=== PATIENT | female | born 1945 | race Caucasian/White ===

== ENCOUNTER 2023-08-25 05:46 | Observation (INO) | payer OTHER, BC ==
--- OUTSIDE RECORDS SUMMARY | 2023-08-25 05:52 | XMS REPORT | Continuity of Care Document ---
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 supp, CO, l rectal 15:24: q6hr, PRN [place] n suppository 00 as needed for nausea/vom iting, 0 Refill(s) Phenergan No Hardeep 25 mg = 1 Memoria 8-12 P Marroquin De supp, l 15:00: Quirino Supp, CO, [place] 00 Once, first dose 06/01/16 10:00:00 CDT, stop date 06/01/16 10:00:00 CDT Lovenox 2015- No Hardeep 40 mg = Me moria 8-12 P Marroquin De 0.4 mL, l 14:00: Quirino Injection, [place] 00 Subcutaneo us, Daily, first dose 06/01/16 9:00:00 CDT Protonix IV No Hardeep 40 mg = 1 Memoria 8-12 P Marroquin De EA, l 14:00: Quirino Powder-Inj [place] 00 , IV Push, Daily, first dose 06/01/16 9:00:00 CDT metoprolol No Hardeep 25 mg = Memoria 8-12 P Marroquin De 0.5 tabs, l 02:00: Qu[place] Tab, Oral, BID, first dose 05/31/16 21:00:00 CDT Prinivil No Hardeep 10 mg = 1 Memoria 8-12 P Marroquin De tabs, Tab, l 02:00: [place] Oral, qHS, first dose 05/31/16 21:00:00 CDT scopolamine No Hardeep 1 patches, Memoria 1.5 mg 8-11 P Marroquin De Film-ER, l transdermal 22:00: Quirino TD, q3day, film, first dose extended 05/31/16 release 17:00:00 CDT ceFAZolin No Hardeep 2 gm, Me moria 8-11 P [place] Soln-IV, l 21:00: Quirino IV Piggyback, q8hr, infuse over 30 minutes, order duration: 3 doses, first dose 05/31/16 16:00:00 CDT, stop date 06/01/16 15:59:00 CDT, Prophylaxi s Sodium No Hardeep 1,000 mL, M emoria Chloride 8-11 P Marroquin De IV, 100 l 0.9% 1,000 19:40: Quir[place] mL/hr, Nydia nn mL 00 start date 05/31/16 14:40:00 CDT Tylenol Yes See Memoria with 8-11 Instructio l Codeine 15:12: ns, PRN as Herm marvin 12mg/120mg 00 needed for /5mL oral pain, liquid 5 mL 10-15ml Oral q4-6hr, 0 Refill(s)1 0-15ml Oral q4-6hr NS 1,000 mL No Hardeep 1,000 mL, Memoria 8-11 P Marroquin De IV, 100 l 15:10: Quirino mL/hr, [place] 00 start date 05/31/16 10:10:00 CDT Zofran No Hardeep 4 mg = 2 Me moria 8-11 P Marroquin De mL, l 15:10: Quirino Injection, [place] 00 IV Push, q6hr PRN for nausea/vom iting, first dose 05/31/16 10:10:00 CDT [place] 5 No Hardeep 1 tabs, Me moria mg-325 mg 8-11 P Marroquin De Tab, Oral, l oral tablet 15:10: Quirino q4hr PRN He rmann 00 for pain mild-moder ate (1-6), first dose 05/31/16 10:10:00 CDTMax 4gm acetaminop hen in 24 hours morphine No Hardeep 4 mg = 0.4 Memoria 8-11 P Marroquin De mL, l 15:10: Quirino Injection, [place] 00 IV Push, q4hr PRN for pain severe (7-10), first dose 05/31/16 10:10:00 CDT Saline Lock No Hardeep 10 mL, Memoria Flush 8-11 P Marroquin De Soln, IV l 15:00: Quirino Push, [place] 00 q8hr, first dose 05/31/16 10:00:00 CDT Lactated No Jl IV, start M emoria Ringers 05-31 [place] date l Injection 14:57: TUMBLER TENDER 05/31/16 Herm marvin 00 9:57:00 CDT, stop date 05/31/16 9:57:00 CDT HYDROmorpho No Jl 0.5 mg = Memoria ne 05-31 [place] 0.25 mL, l 14:55: TUMBLER TENDER Injection, [place] 00 IV, Once, first dose 05/31/16 9:55:00 CDT, stop date 05/31/16 9:55:00 CDT HYDROmorpho No Jl 0.5 mg = Memoria ne 05-31 [place] 0.25 mL, l 14:47: TUMBLER TENDER Injection, [place] 00 IV, Once, first dose 05/31/16 9:47:00 CDT, stop date 05/31/16 9:47:00 CDT labetalol No Jl 5 mg = 1 M emoria 8-11 [place] mL, l 14:46: TUMBLER TENDER Injection, [place] 00 IV, Once, first dose 05/31/16 9:46:00 CDT, stop date 05/31/16 9:46:00 CDT Lactated No Jl IV, start M emoria Ring[place] 8 [place] date l Injection 14:39: TUMBLER TENDER 05/31/16 Herm marvin 00 9:39:00 CDT, stop date 05/31/16 9:39:00 CDT labetalol No Hardeep 5 mg = 1 Memoria 8-11 P Marroquin De mL, l 14:37: Quirino Injection, [place] 00 IV Push, As Indicated PRN for hypertensi on, first dose 05/31/16 9:37:00 CDT labetalol No Jl 5 mg = 1 M emoria 8-11 [place] mL, l 14:37: TUMBLER TENDER Injection, [place] 00 IV, Once, first dose 05/31/16 9:37:00 CDT, stop date 05/31/16 9:37:00 CDT acetaminoph No Hardeep 15 mL, Memoria en-HYDROcod 8-11 P Marroquin De Soln, l one 325 14:33: Quirino Oral, q4hr Herm marvin mg-7.5 00 PRN for mg/15 mL pain oral severe solution (7-10), first dose 05/31/16 9:33:00 CDTMax 4gm acetaminop hen in 24 hours Benadryl No Hardeep 25 mg = M emoria 8-11 P Marroquin De 0.5 mL, l 14:33: Quirino Injection, [place] 00 IV Push, q6hr PRN for itching, first dose 05/31/16 9:33:00 CDT Normal No Hardeep 1,000 mL, M emoria Saline 8-11 P Marroquin De IV, 100 l 1,000 mL 14:33: Quirino mL/hr, [place] 00 start date 05/31/16 9:33:00 CDT acetaminoph 2016-0 No Hardeep 650 mg = 2 Memoria en 8-11 P Marroquin De tabs, Tab, l 14:33: Quirino Oral, q6hr [place] 00 PRN for headache, first dose 05/31/16 9:33:00 CDTMax 4gm acetaminop hen in 24 hours Phenergan 0 No Hardeep 25 mg = 1 Memoria 8-11 P Marroquin De mL, l 14:33: Qu[place] Injection, [place] 00 IM, q6hr PRN for nausea/vom iting, first dose 05/31/16 9:33:00 CDT Zofran 0 No Hardeep 4 mg = 2 Me moria 8-11 P Marroquin De mL, l 14:33: Quirino Injection, [place] 00 IV Push, q4hr PRN for nausea/vom iting, first dose 05/31/16 9:33:00 CDT morphine No Hardeep 4 mg = 0.4 Memoria 8-11 P Marroquin De mL, l 14:33: Qu[place] Injection, [place] 00 IV Push, q3hr PRN for breakthrou gh pain, first dose 05/31/16 9:33:00 CDT Saline Lock No Hardeep 10 mL, Memoria Flush 8-11 P Marroquin De Soln, IV l 14:33: Quirino Push, q8hr [place] 00 PRN for flush, first dose 05/31/16 9:33:00 CDT Flu Shot PF Yes Hardeep 0.5 mL, Memoria 8-11 P Marroquin De Injection, l 14:33: Quirino IM, Once [place] 00 PRN for other (see comment), first dose 05/31/16 9:33:00 CDT ondansetron No Jl 4 mg = 2 Memoria 8-11 [place] mL, l 14:16: TUMBLER TENDER Injection, [place] 00 IV, Once, first dose 05/31/16 9:16:00 CDT, stop date 05/31/16 9:16:00 CDT neostigmine No Jl 5 mg = 10 Memoria 8-11 [place] mL, l 14:16: TUMBLER TENDER Injection, [place] 00 IV, Once, first dose 05/31/16 9:16:00 CDT, stop date 05/31/16 9:16:00 CDT glycopyrrol No Jl 0.8 mg = 4 Memoria ate 8-11 [place] mL, l 14:16: TUMBLER TENDER Injection, [place] 00 IV, Once, first dose 05/31/16 9:16:00 CDT, stop date 05/31/16 9:16:00 CDT labetalol No Jl 5 mg = 1 M emoria 8-11 [place] mL, l 14:15: TUMBLER TENDER Injection, [place] 00 IV, Once, first dose 05/31/16 9:15:00 CDT, stop date 05/31/16 9:15:00 CDT fentaNYL No Jl 50 mcg = 1 Memoria 8-11 [place] mL, l 14:07: TUMBLER TENDER Injection, [place] 00 IV, Once, first dose 05/31/16 9:07:00 CDT, stop date 05/31/16 9:07:00 CDT labetalol No Jl 5 mg = 1 M emoria 8-11 [place] mL, l 14:03: TUMBLER TENDER Injection, [place] 00 IV, Once, first dose 05/31/16 9:03:00 CDT, stop date 05/31/16 9:03:00 CDT fentaNYL No Jl 50 mcg = 1 Memoria 8-11 [place] mL, l 13:54: TUMBLER TENDER Injection, [place] 00 IV, Once, first dose 05/31/16 8:54:00 CDT, stop date 05/31/16 8:54:00 CDT fentaNYL No Jl 50 mcg = 1 Memoria 8-11 [place] mL, l 13:34: TUMBLER TENDER Injection, [place] 00 IV, Once, first dose 05/31/16 8:34:00 CDT, stop date 05/31/16 8:34:00 CDT rocuronium No Jl 35 mg = M emoria 8-11 [place] 3.5 mL, l 13:33: TUMBLER TENDER Injection, [place] 00 IV, Once, first dose 05/31/16 8:33:00 CDT, stop date 05/31/16 8:33:00 CDT Dilaudid No Hardeep 0.5 mg = Memoria 8-11 P Marroquin De 0.25 mL, l 13:31: [place] Injection, [place] 00 IV Push, q10min PRN for pain severe (7-10), first dose 05/31/16 8:31:00 CDT Saline Lock No Jl 10 mL, M linaria Flush 8-11 [place] Soln, IV l 13:31: TUMBLER TENDER Push, As [place] 00 Indicated PRN for flush, first dose 05/31/16 8:31:00 CDT promethazin No Jl 12.5 mg = Memoria e 8-11 [place] 0.5 mL, l 13:31: TUMBLER TENDER Injection, [place] 00 IM, Once PRN for severe nausea, first dose 05/31/16 8:31:00 CDT ondansetron No Hardeep 4 mg = 2 Memoria 8-11 P Marroquin De mL, l 13:31: [place] Injection, [place] 00 IV Push, q15min PRN for nausea/vom iting, order duration: 2 doses, first dose 05/31/16 8:31:00 CDT, stop date Limited # of times Xopenex No Hardeep 0.63 mg = Memoria 0.63 mg/3 8-11 P Marroquin De 3 mL, l mL 13:31: Quirino Soln, NEB, [place] inhalation 00 Once PRN solution for shortness of breath or wheezing, first dose 05/31/16 8:31:00 CDT dexamethaso No Jl 8 mg = 2 Memoria ne 8-11 [place] mL, l 13:30: TUMBLER TENDER Injection, [place] 00 IV, Once, first dose 05/31/16 8:30:00 CDT, stop date 05/31/16 8:30:00 CDT glycopyrrol No Jl 0.2 mg = 1 Memoria ate 8-11 [place] mL, l 13:21: TUMBLER TENDER Injection, [place] 00 IV, Once, first dose 05/31/16 8:21:00 CDT, stop date 05/31/16 8:21:00 CDT succinylcho No Jl 80 mg = 4 Memoria line 8-11 [place] mL, l 13:15: TUMBLER TENDER Injection, [place] 00 IV, Once, first dose 05/31/16 8:15:00 CDT, stop date 05/31/16 8:15:00 CDT propofol 2015- No Jl 110 mg = Me moria 8- [place] 11 mL, l 13:14: TUMBLER TENDER Emulsion, [place] 00 IV, Once, first dose 05/31/16 8:14:00 CDT, stop date 05/31/16 8:14:00 CDT rocuronium 2015- No Jl 5 mg = 0.5 Memoria 8-11 [place] mL, l 13:13: TUMBLER TENDER Injection, [place] 00 IV, Once, first dose 05/31/16 8:13:00 CDT, stop date 05/31/16 8:13:00 CDT lidocaine No Jl 4 mL, Seng agustin 05-31 [place] Injection, l 13:13: TUMBLER TENDER IV, Once, [place] 00 first dose 05/31/16 8:13:00 CDT, stop date 05/31/16 8:13:00 CDT ceFAZolin No Jl 2 gm, Seng agustin 05-31 [place] Soln-IV, l 13:12: TUMBLER TENDER IV [place] 00 Piggyback, Once, first dose 05/31/16 8:12:00 CDT, stop date 05/31/16 8:12:00 CDT fentaNYL No Jl 50 mcg = 1 Memoria 05-31 [place] mL, l 13:10: TUMBLER TENDER Injection, [place] 00 IV, Once, first dose 05/31/16 8:10:00 CDT, stop date 05/31/16 8:10:00 CDT Misc 2015- No Dmitry 1,000 mL, Memoria Medication 05-31 Wilfredo Soln-IV, l 13:08: IV, Once, [place] 00 first dose 05/31/16 8:08:00 CDT, stop date 05/31/16 8:08:00 CDT fentaNYL No Jl 50 mcg = 1 Memoria -11 [place] mL, l 13:06: TUMBLER TENDER Injection, [place] 00 IV, Once, first dose 05/31/16 8:06:00 CDT, stop date 05/31/16 8:06:00 CDT ceFAZolin No Hardeep 2 gm, Me moria 8-11 P Marroquin De Soln-IV, l 12:00: Quirino IV [place] 00 Piggyback, Once, infuse over 30 minutes, first dose 05/31/16 7:00:00 CDT, stop date 05/31/16 7:00:00 CDT, patient weight 50-120 kg, Prophylaxi s Lidocaine Yes Malcolm K 0.2 mL, Mem oria 2% 0.2 mL 05-31 [place] Injection, l IV Start 11:24: Subcutaneo [facility] 00 us, Once PRN for other (see comment), first dose 05/31/16 6:24:00 CDT LR 1,000 mL No Malcolm K 1,000 mL, Memoria 05-31 [place] IV, 30 l 11:24: mL/hr, [place] 00 start date 05/31/16 6:24:00 CDT oxybutynin Yes 5 mg, Memori a 05-22 Oral, qHS, l 20:09: 0 [place] 00 Refill(s) Namenda 10 Yes 10 mg = 1 Me moria mg oral 05-22 tabs, l tablet 20:08: Oral, BID, Nydia nn 00 0 Refill(s), family hx of Alzheimer Aricept 5 Yes 5 mg = 1 Seng agustin mg oral 05-22 tabs, l tablet 20:08: Oral, [place] 00 Daily, 0 Refill(s), family hx of Alzheimer Prinivil 10 Yes 10 mg = 1 M emoria mg oral 05-22 tabs, l tablet 20:03: Oral, qHS, Nydia nn 00 0 Refill(s), HTN metoprolol Yes 25 mg, Memor ia 05-22 Oral, BID, l 20:03: 0 [place] 00 Refill(s), HTN gabapentin Yes See Memoria 300 mg oral 05-22 Instructio l capsule 20:03: ns, 1 tab Nydia nn 00 PO QAM 2 tabs PO QHS, 0 Refill(s), back pain1 tab PO QAM 2 tabs PO QHS memantine Yes 28mg QD Take [address] [facility] [address] (NAMENDA) 9- by mouth [facility] 10 MG 18:10: nightly. Medical tablet 48 Center aspirin 81 Yes 81mg QD Take [address] MG EC 9-29 by mouth [facility] tablet 18:10: daily. Medical 48 [place] docusate Yes 100mg Q.5D Take [address] [facility] sodium 9-29 mg by [facility] (COLACE) 18:10: mouth 2 Medica l 100 MG 48 (two) Center capsule times daily. melatonin 3 Yes 20mg QD Take [address] [facility] mg Tab 9-29 by mouth [facility] 18:10: nightly. Medical 48 [place] multivitami Yes 1{tbl} QD Take [address] [facility] [address] [facility] n per 9-29 tablet by [facility] tablet 18:10: mouth Medical 48 daily. [place] omega-3 Yes Take by [facility] fatty 9-29 mouth. [facility] acids-vitam 18:10: Medica l in E 1,000 48 Center mg Cap vitamin E Yes 400U QD Take [address] 400 UNIT 9-29 Units by [facility] capsule 18:10: mouth Medical 48 daily. [place] b complex Yes 1{tbl} QD Take [address] [facility] vitamins 9-29 tablet by [facility] tablet 18:10: mouth Medical 48 daily. [place] calcium Yes 1{tbl} Take [address] carbonate-v 9-29 tablet by [place] es itamin D3 18:10: mouth 2 Medic al (CALCIUM- 48 (two) Center TAMIN D) times 500 daily with mg(1,250mg) breakfast -200 unit and per tablet dinner. cholecalcif Yes 1000U QD Take 1,[address] [facility] eren 9-29 Units by [facility] (VITAMIN 18:10: mouth Medical D3) 1,000 48 daily. [place] unit tablet cyanocobala Yes 2000ug QD Take 2,[address] [facility] min 2000 9-29 mcg by [facility] MCG tablet 18:10: mouth Medica l 48 daily. [place] pyridoxine Yes 400mg Take [address] (PYRIDOXINE 9-29 mg by [facility] ) 200 mg 18:10: mouth. Medical Tab 48 [place] lisinopril Yes 10mg QD Take [address] (PRINIVIL,Z 9-29 by mouth [facility] ESTRIL) 10 18:10: nightly. Med ical MG tablet 48 Center gabapentin Yes 300mg Take [address] (NEURONTIN) 9-29 mg by [facility] 300 MG 18:10: mouth Medical capsule 48 daily with Center breakfast. gabapentin Yes 600mg QD Take [address] (NEURONTIN) 9-29 mg by [facility] 600 MG 18:10: mouth Medical tablet 48 nightly. [place] oxybutynin Yes 10mg QD Take [address] (DITROPAN-X 9-29 by mouth [facility] s L) 10 MG 24 18:10: nightly. Me dical hr tablet 48 [place] atorvastati atorvastati No atorvastat [place] n 20 mg n 20 mg in 20 mg da tablet tablet tablet [facility] donepezil donepezil No donepezil [place] 10 mg 10 mg 10 mg da tablet tablet tablet [facility] gabapentin gabapentin No gabapentin [place] 300 mg 300 mg 300 mg da capsule capsule capsule [facility] alendronate alendronate No alendronat [place] 70 mg 70 mg e 70 mg [facility] tablet TAKE tablet TAKE tablet Urology 1 TABLET BY 1 TABLET BY TAKE 1 MOUTH EVERY MOUTH EVERY TABLET BY WEEK WEEK MOUTH EVERY WEEK atorvastati atorvastati No atorvastat [place] n 20 mg n 20 mg in 20 mg [facility] tablet TAKE tablet TAKE tablet Urology 1 TABLET BY 1 TABLET BY TAKE 1 MOUTH EVERY MOUTH EVERY TABLET BY DAY DAY MOUTH EVERY DAY calcium calcium No 1{tbl} calcium [place] carbonate carbonate carbonate [facility] 500 500 500 Urology mg-vitamin mg-vitamin mg-vitamin D3 5 mcg D3 5 mcg D3 5 mcg (200 unit) (200 unit) (200 unit) tablet 1 tablet 1 tablet 1 {tbl} by {tbl} by {tbl} by oral route. oral route. oral route. chlordiazep chlordiazep No chlordiaze [place] oxide-clidi oxide-clidi poxide-cli [facility] nium 5 nium 5 dinium 5 Urology mg-2.5 mg mg-2.5 mg mg-2.5 mg capsule capsule capsule TAKE ONE TAKE ONE TAKE ONE (1) (1) (1) CAPSULE(S) CAPSULE(S) CAPSULE(S) BY MOUTH BY MOUTH BY MOUTH THREE TIMES THREE TIMES THREE A DAY. A DAY. TIMES A DAY. cyanocobala cyanocobala No 2000ug cyanocobal [place] min (vit min (vit bailey (vit Me tro B-12) ER B-12) ER B-12) ER Uro logy 2,000 mcg 2,000 mcg 2,000 mcg tablet,exte tablet,exte tablet,ext nded nded ended release release release 2000 ugs by 2000 ugs by 2000 ugs oral route. oral route. by oral route. donepezil donepezil No donepezil [place] 10 mg 10 mg 10 mg [facility] tablet TAKE tablet TAKE tablet Urology 1 TABLET BY 1 TABLET BY TAKE 1 MOUTH TWICE MOUTH TWICE TABLET BY A DAY A DAY MOUTH TWICE A DAY gabapentin gabapentin No 300mg TID gabapentin [place] 600 mg 600 mg 600 mg [facility] tablet 300 tablet 300 tablet 300 Urology mg 3 times mg 3 times mg 3 times a day by a day by a day by oral route. oral route. oral route. levocetiriz levocetiriz No 5mg levocetiri [place] ine 5 mg ine 5 mg zine 5 mg Me tro tablet 5 mg tablet 5 mg tablet 5 Urology by oral by oral mg by oral route. route. route. mecobalamin mecobalamin No mecobalami [place] (vitamin (vitamin n (vitamin M etro B12) 1,000 B12) 1,000 B12) 1,000 Urology mcg mcg mcg chewable chewable chewable tablet tablet tablet meloxicam meloxicam No 7.5mg meloxicam [place] 7.5 mg 7.5 mg 7.5 mg [facility] tablet 7.5 tablet 7.5 tablet 7.5 Urology mg by oral mg by oral mg by oral route. route. route. memantine memantine No memantine [place] 10 mg 10 mg 10 mg [facility] tablet TAKE tablet TAKE tablet Urology 1 TABLET BY 1 TABLET BY TAKE 1 MOUTH TWICE MOUTH TWICE TABLET BY A DAY A DAY MOUTH TWICE A DAY Myrbetriq Myrbetriq No Myrbetriq [place] 50 mg 50 mg 50 mg [facility] tablet,exte tablet,exte tablet,ext Urology nded nded ended release release release TAKE 1 TAKE 1 TAKE 1 TABLET BY TABLET BY TABLET BY MOUTH EVERY MOUTH EVERY MOUTH DAY DAY EVERY DAY sertraline sertraline No sertraline [place] 50 mg 50 mg 50 mg [facility] tablet TAKE tablet TAKE tablet Urology 1 TABLET BY 1 TABLET BY TAKE 1 MOUTH EVERY MOUTH EVERY TABLET BY DAY IN THE DAY IN THE MOUTH MORNING MORNING EVERY DAY IN THE MORNING simethicone simethicone No simethicon [place] 180 mg 180 mg e 180 mg [facility] capsule capsule capsule Urolog y solifenacin solifenacin No solifenaci [place] 10 mg 10 mg n 10 mg [facility] tablet TAKE tablet TAKE tablet Urology 1 TABLET BY 1 TABLET BY TAKE 1 MOUTH EVERY MOUTH EVERY TABLET BY DAY DAY MOUTH EVERY DAY alendronate alendronate No alendronat [place] 70 mg 70 mg e 70 mg [facility] tablet TAKE tablet TAKE tablet Urology 1 TABLET BY 1 TABLET BY TAKE 1 MOUTH EVERY MOUTH EVERY TABLET BY WEEK WEEK MOUTH EVERY WEEK atorvastati atorvastati No atorvastat [place] n 20 mg n 20 mg in 20 mg [facility] tablet TAKE tablet TAKE tablet Urology 1 TABLET BY 1 TABLET BY TAKE 1 MOUTH EVERY MOUTH EVERY TABLET BY DAY DAY MOUTH EVERY DAY calcium calcium No 1{tbl} calcium [place] carbonate carbonate carbonate [facility] 500 500 500 Urology mg-vitamin mg-vitamin mg-vitamin D3 5 mcg D3 5 mcg D3 5 mcg (200 unit) (200 unit) (200 unit) tablet 1 tablet 1 tablet 1 {tbl} by {tbl} by {tbl} by oral route. oral route. oral route. chlordiazep chlordiazep No chlordiaze [place] oxide-clidi oxide-clidi poxide-cli [facility] nium 5 nium 5 dinium 5 Urology mg-2.5 mg mg-2.5 mg mg-2.5 mg capsule capsule capsule TAKE ONE TAKE ONE TAKE ONE (1) (1) (1) CAPSULE(S) CAPSULE(S) CAPSULE(S) BY MOUTH BY MOUTH BY MOUTH THREE TIMES THREE TIMES THREE A DAY. A DAY. TIMES A DAY. cyanocobala cyanocobala No 2000ug cyanocobal [place] min (vit min (vit bailey (vit Me tro B-12) ER B-12) ER B-12) ER Uro logy 2,000 mcg 2,000 mcg 2,000 mcg tablet,exte tablet,exte tablet,ext nded nded ended release release release 2000 ugs by 2000 ugs by 2000 ugs oral route. oral route. by oral route. donepezil donepezil No donepezil [place] 10 mg 10 mg 10 mg [facility] tablet TAKE tablet TAKE tablet Urology 1 TABLET BY 1 TABLET BY TAKE 1 MOUTH TWICE MOUTH TWICE TABLET BY A DAY A DAY MOUTH TWICE A DAY gabapentin gabapentin No 300mg TID gabapentin [place] 600 mg 600 mg 600 mg [facility] tablet 300 tablet 300 tablet 300 Urology mg 3 times mg 3 times mg 3 times a day by a day by a day by oral route. oral route. oral route. levocetiriz levocetiriz No 5mg levocetiri [place] ine 5 mg ine 5 mg zine 5 mg Me tro tablet 5 mg tablet 5 mg tablet 5 Urology by oral by oral mg by oral route. route. route. mecobalamin mecobalamin No mecobalami [place] (vitamin (vitamin n (vitamin M etro B12) 1,000 B12) 1,000 B12) 1,000 Urology mcg mcg mcg chewable chewable chewable tablet tablet tablet meloxicam meloxicam No 7.5mg meloxicam [place] 7.5 mg 7.5 mg 7.5 mg [facility] tablet 7.5 tablet 7.5 tablet 7.5 Urology mg by oral mg by oral mg by oral route. route. route. memantine memantine No memantine [place] 10 mg 10 mg 10 mg [facility] tablet TAKE tablet TAKE tablet Urology 1 TABLET BY 1 TABLET BY TAKE 1 MOUTH TWICE MOUTH TWICE TABLET BY A DAY A DAY MOUTH TWICE A DAY Myrbetriq Myrbetriq No Myrbetriq [place] 50 mg 50 mg 50 mg [facility] tablet,exte tablet,exte tablet,ext Urology nded nded ended release release release TAKE 1 TAKE 1 TAKE 1 TABLET BY TABLET BY TABLET BY MOUTH EVERY MOUTH EVERY MOUTH DAY DAY EVERY DAY sertraline sertraline No sertraline [place] 50 mg 50 mg 50 mg [facility] tablet TAKE tablet TAKE tablet Urology 1 TABLET BY 1 TABLET BY TAKE 1 MOUTH EVERY MOUTH EVERY TABLET BY DAY IN THE DAY IN THE MOUTH MORNING MORNING EVERY DAY IN THE MORNING simethicone simethicone No simethicon [place] 180 mg 180 mg e 180 mg [facility] capsule capsule capsule Urolog y solifenacin solifenacin No solifenaci [place] 10 mg 10 mg n 10 mg [facility] tablet TAKE tablet TAKE tablet Urology 1 TABLET BY 1 TABLET BY TAKE 1 MOUTH EVERY MOUTH EVERY TABLET BY DAY DAY MOUTH EVERY DAY Aricept Aricept No Aricept [place] n [facility] atorvastati atorvastati No atorvastat [place] n 20 mg n 20 mg in 20 mg [facility] tablet tablet tablet Urology azithromyci azithromyci No azithromyc [place] n 250 mg n 250 mg in 250 mg Me tro tablet tablet tablet Urology chlordiazep chlordiazep No chlordiaze [place] oxide-clidi oxide-clidi poxide-cli [facility] nium 5 nium 5 dinium 5 Urology mg-2.5 mg mg-2.5 mg mg-2.5 mg capsule capsule capsule donepezil donepezil No donepezil [place] 10 mg 10 mg 10 mg [facility] tablet tablet tablet Urology Durezol Durezol No Durezol [facility] n 0.05 % eye 0.05 % eye 0.05 % eye [facility] drops drops drops Urology meloxicam meloxicam No meloxicam [place] 15 mg 15 mg 15 mg da tablet tablet tablet [facility] gabapentin gabapentin No gabapentin [place] 300 mg 300 mg 300 mg [facility] capsule capsule capsule Urolog y [place] 75 [place] 75 No 1 Q1D [place] 75 [place] mg tablet mg tablet mg tablet [facility] Take 1 Take 1 Take 1 Urology tablet tablet tablet every day every day every day by oral by oral by oral route. route. route. meloxicam meloxicam No meloxicam [place] 15 mg 15 mg 15 mg [facility] tablet tablet tablet Urology memantine memantine No memantine [place] 10 mg 10 mg 10 mg [facility] tablet tablet tablet [facility] Myrbetriq Myrbetriq No Myrbetriq [place] 50 mg 50 mg 50 mg [facility] tablet,exte tablet,exte tablet,ext [facility]rology nded nded ended release release release TAKE 1 TAKE 1 TAKE 1 TABLET BY TABLET BY TABLET BY MOUTH ONCE MOUTH ONCE MOUTH ONCE DAILY DAILY DAILY [facility] ofloxacin ofloxacin No ofloxacin [place] 0.3 % eye 0.3 % eye 0.3 % eye [facility] drops drops drops [facility] phentermine phentermine No phentermin [place] 37.5 mg 37.5 mg e 37.5 mg [facility] o tablet tablet tablet Urology Premarin Premarin No .5appli Q1D Premarin [place] 0.625 0.625 cator(s 0.625 [facility] mg/gram mg/gram )ful mg/gram Urolog y vaginal vaginal vaginal cream cream cream Insert 0.5 Insert 0.5 Insert 0.5 applicators applicators applicator ful every ful every sful every day by day by day by vaginal vaginal vaginal route. route. route. Prolensa Prolensa No Prolensa [place]in st[place] 0.07 % eye 0.07 % eye 0.07 % eye [facility] drops drops drops [facility] Prolia 60 Prolia 60 No Prolia 60 [place] mg/mL mg/mL mg/mL [facility] subcutaneou subcutaneou subcutaneo Urology s syringe s syringe us syringe INJECT 1ML INJECT 1ML INJECT 1ML (60MG DOSE) (60MG DOSE) (60MG SUBCUTANEOU SUBCUTANEOU DOSE) SLY EVERY 6 SLY EVERY 6 SUBCUTANEO MONTHS. MONTHS. USLY EVERY 6 MONTHS. Rybelsus 3 Rybelsus 3 No Rybelsus 3 [place] mg tablet mg tablet mg tablet [facility] sertraline sertraline No sertraline [place] 50 mg 50 mg 50 mg [facility] tablet tablet tablet Urology solifenacin solifenacin No solifenaci [place] 10 mg 10 mg n 10 mg [facility] tablet tablet tablet Urology tramadol 50 tramadol 50 No tramadol [place] mg tablet mg tablet 50 mg Met[facility] o tablet Urology Vesicare Vesicare No Vesicare [place] [facility] Vitamin B12 Vitamin B12 No Vitamin [place] B12 [facility] Vitamin C Vitamin C No Vitamin C [facility] Zoloft Zoloft No Zoloft [place] [facility] Aricept Aricept No Aricept [place] [facility] atorvastati atorvastati No atorvastat [place] n 20 mg n 20 mg in 20 mg [facility] tablet TAKE tablet TAKE tablet Urology 1 TABLET BY 1 TABLET BY TAKE 1 MOUTH EVERY MOUTH EVERY TABLET BY DAY DAY MOUTH EVERY DAY azithromyci azithromyci No azithromyc [place] n 250 mg n 250 mg in 250 mg Me tro tablet tablet tablet Urology chlordiazep chlordiazep No chlordiaze [place] oxide-clidi oxide-clidi poxide-cli [facility] nium 5 nium 5 dinium 5 Urology mg-2.5 mg mg-2.5 mg mg-2.5 mg capsule capsule capsule Cipro 500 Cipro 500 No 1 Q12H Cipro 500 [place] mg tablet mg tablet mg tablet [facility] Take 1 Take 1 Take 1 Urology tablet tablet tablet every 12 every 12 every 12 hours by hours by hours by oral route. oral route. oral route. diclofenac diclofenac No diclofenac [place] 1.5 % 1.5 % 1.5 % [facility] topical topical topical Urolog y drops apply drops apply drops four times four times apply four daily to daily to times affected affected daily to area area affected area donepezil donepezil No donepezil [place] 10 mg 10 mg 10 mg [facility] tablet tablet tablet Urology Durezol Durezol No Durezol [place] 0.05 % eye 0.05 % eye 0.05 % eye [facility] drops drops drops Urology gabapentin gabapentin No gabapentin [place] 300 mg 300 mg 300 mg [facility] capsule capsule capsule Urolog y Gemtesa 75 Gemtesa 75 No Gem[place]a 75 [place] mg tablet mg tablet mg tablet [facility] TAKE 1 TAKE 1 TAKE 1 Urology TABLET BY TABLET BY TABLET BY MOUTH EVERY MOUTH EVERY MOUTH DAY DAY EVERY DAY meloxicam meloxicam No meloxicam [place] 15 mg 15 mg 15 mg [facility] tablet tablet tablet Urology memantine memantine No memantine [place] 10 mg 10 mg 10 mg da tablet tablet tablet [facility] memantine memantine No memantine [place] 10 mg 10 mg 10 mg [facility] tablet TAKE tablet TAKE tablet Urology 1 TABLET BY 1 TABLET BY TAKE 1 MOUTH TWICE MOUTH TWICE TABLET BY A DAY A DAY MOUTH TWICE A DAY methylpredn methylpredn No methylpred [place] isolone 4 isolone 4 nisolone 4 [facility] mg tablets mg tablets mg tablets Urology in a dose in a dose in a dose pack TAKE 6 pack TAKE 6 pack TAKE TABLETS ON TABLETS ON 6 TABLETS DAY 1 DAY 1 ON DAY 1 DIRECTED ON DIRECTED ON PACKAGE AND PACKAGE AND DIRECTED DECREASE BY DECREASE BY ON PACKAGE 1 TAB EACH 1 TAB EACH AND DAY FOR A DAY FOR A DECREASE TOTAL OF 6 TOTAL OF 6 BY 1 TAB DAYS DAYS EACH DAY FOR A TOTAL OF 6 DAYS Myrbetriq Myrbetriq No Myrbetriq [place] 50 mg 50 mg 50 mg [facility] tablet,exte tablet,exte tablet,ext Urology nded nded ended release release release Take 1 Take 1 Take 1 tablet tablet tablet every day every day every day by oral by oral by oral route. route. route. Namenda Namenda No Namenda [place] [facility] ofloxacin ofloxacin No ofloxacin [place] 0.3 % eye 0.3 % eye 0.3 % eye [facility] drops drops drops Urology phentermine phentermine No phentermin [place] 37.5 mg 37.5 mg e 37.5 mg Met[facility] o tablet tablet tablet Urology Premarin Premarin No Premarin [place] 0.625 0.625 0.625 [facility] mg/gram mg/gram mg/gram Urolog y vaginal vaginal vaginal cream cream cream Insert 0.5 Insert 0.5 Insert 0.5 applicators applicators applicator ful every ful every sful every day by day by day by vaginal vaginal vaginal route. route. route. Prolensa Prolensa No Prolensa [place] 0.07 % eye 0.07 % eye 0.07 % eye [facility] drops drops drops Urology Prolia 60 Prolia 60 No Prolia 60 [place] mg/mL mg/mL mg/mL [facility] subcutaneou subcutaneou subcutaneo Urology s syringe s syringe us syringe INJECT 1ML INJECT 1ML INJECT 1ML (60MG DOSE) (60MG DOSE) (60MG SUBCUTANEOU SUBCUTANEOU DOSE) SLY EVERY 6 SLY EVERY 6 SUBCUTANEO MONTHS. MONTHS. USLY EVERY 6 MONTHS. Rybelsus 3 Rybelsus 3 No Rybelsus 3 [place] mg tablet mg tablet mg tablet [facility] sertraline sertraline No sertraline [place] 50 mg 50 mg 50 mg [facility] tablet TAKE tablet TAKE tablet Urology 1 TABLET BY 1 TABLET BY TAKE 1 MOUTH EVERY MOUTH EVERY TABLET BY DAY IN THE DAY IN THE MOUTH MORNING MORNING EVERY DAY IN THE MORNING solifenacin solifenacin No solifenaci [place] 10 mg 10 mg n 10 mg [facility] tablet TAKE tablet TAKE tablet Urology 1 TABLET BY 1 TABLET BY TAKE 1 MOUTH EVERY MOUTH EVERY TABLET BY DAY DAY MOUTH EVERY DAY tramadol 50 tramadol 50 No tramadol [place] mg tablet mg tablet 50 mg Met[facility] o tablet Urology Vesicare Vesicare No Vesicare [place] [facility] Vitamin B12 Vitamin B12 No Vitamin [place] B12 [facility] Vitamin C Vitamin C No Vitamin C [facility] Zoloft Zoloft No Zoloft [facility] Aricept Aricept No Aricept [place] [facility] atorvastati atorvastati No atorvastat [place] n 20 mg n 20 mg in 20 mg [facility] tablet TAKE tablet TAKE tablet Urology 1 TABLET BY 1 TABLET BY TAKE 1 MOUTH EVERY MOUTH EVERY TABLET BY DAY DAY MOUTH EVERY DAY azithromyci azithromyci No azithromyc [place] n 250 mg n 250 mg in 250 mg Me tro tablet tablet tablet Urology chlordiazep chlordiazep No chlordiaze [place] oxide-clidi oxide-clidi poxide-cli [facility] nium 5 nium 5 dinium 5 Urology mg-2.5 mg mg-2.5 mg mg-2.5 mg capsule capsule capsule Cipro 500 Cipro 500 No 1 Q12H Cipro 500 [place] mg tablet mg tablet mg tablet [facility] Take 1 Take 1 Take 1 Urology tablet tablet tablet every 12 every 12 every 12 hours by hours by hours by oral route. oral route. oral route. diclofenac diclofenac No diclofenac [place] 1.5 % 1.5 % 1.5 % [facility] topical topical topical Urolog y drops apply drops apply drops four times four times apply four daily to daily to times affected affected daily to area area affected area donepezil donepezil No donepezil [place] 10 mg 10 mg 10 mg [facility] tablet TAKE tablet TAKE tablet Urology 1 TABLET BY 1 TABLET BY TAKE 1 MOUTH TWICE MOUTH TWICE TABLET BY A DAY A DAY MOUTH TWICE A DAY Durezol Durezol No Durezol [facility] n 0.05 % eye 0.05 % eye 0.05 % eye [facility] drops drops drops Urology gabapentin gabapentin No gabapentin [place] 300 mg 300 mg 300 mg [facility] capsule capsule capsule Urolog y [place] 75 Gem[place]a 75 No [place] 75 [place] mg tablet mg tablet mg tablet [facility] TAKE 1 TAKE 1 TAKE 1 Urology TABLET BY TABLET BY TABLET BY MOUTH EVERY MOUTH EVERY MOUTH DAY DAY EVERY DAY meloxicam meloxicam No meloxicam [place] 15 mg 15 mg 15 mg [facility] tablet tablet tablet Urology memantine memantine No memantine [place] 10 mg 10 mg 10 mg [facility] tablet TAKE tablet TAKE tablet Urology 1 TABLET BY 1 TABLET BY TAKE 1 MOUTH TWICE MOUTH TWICE TABLET BY A DAY A DAY MOUTH TWICE A DAY methylpredn methylpredn No methylpred [place] isolone 4 isolone 4 nisolone 4 [facility] mg tablets mg tablets mg tablets Urology in a dose in a dose in a dose pack TAKE 6 pack TAKE 6 pack TAKE TABLETS ON TABLETS ON 6 TABLETS DAY 1 DAY 1 ON DAY 1 DIRECTED ON DIRECTED ON PACKAGE AND PACKAGE AND DIRECTED DECREASE BY DECREASE BY ON PACKAGE 1 TAB EACH 1 TAB EACH AND DAY FOR A DAY FOR A DECREASE TOTAL OF 6 TOTAL OF 6 BY 1 TAB DAYS DAYS EACH DAY FOR A TOTAL OF 6 DAYS Myrbetriq Myrbetriq No Myrbetriq [place] 50 mg 50 mg 50 mg da tablet,exte tablet,exte tablet,ext [facility] nded nded ended al release release release [facility] Myrbetriq Myrbetriq No Myrbetriq [place] 50 mg 50 mg 50 mg [facility] tablet,exte tablet,exte tablet,ext Urology nded nded ended release release release Take 1 Take 1 Take 1 tablet tablet tablet every day every day every day by oral by oral by oral route. route. route. Namenda Namenda No Namenda [place] [facility] ofloxacin ofloxacin No ofloxacin [place] 0.3 % eye 0.3 % eye 0.3 % eye [facility] drops drops drops Urology phentermine phentermine No phentermin [place] 37.5 mg 37.5 mg e 37.5 mg Met[facility] o tablet tablet tablet Urology Premarin Premarin No Premarin [place] 0.625 0.625 0.625 [facility] mg/gram mg/gram mg/gram Urolog y vaginal vaginal vaginal cream cream cream Insert 0.5 Insert 0.5 Insert 0.5 applicators applicators applicator ful every ful every sful every day by day by day by vaginal vaginal vaginal route. route. route. Prolensa Prolensa No Prolensa [place] 0.07 % eye 0.07 % eye 0.07 % eye [facility] drops drops drops Urology Prolia 60 Prolia 60 No Prolia 60 [place] mg/mL mg/mL mg/mL [facility] subcutaneou subcutaneou subcutaneo Urology s syringe s syringe us syringe INJECT 1ML INJECT 1ML INJECT 1ML (60MG DOSE) (60MG DOSE) (60MG SUBCUTANEOU SUBCUTANEOU DOSE) SLY EVERY 6 SLY EVERY 6 SUBCUTANEO MONTHS. MONTHS. USLY EVERY 6 MONTHS. Pyridium Pyridium No 1 TID Pyridium [place] 200 mg 200 mg 200 mg [facility] tablet Take tablet Take tablet Urology 1 tablet 3 1 tablet 3 Take 1 times a day times a day tablet 3 by oral by oral times a route. route. day by oral route. Rybelsus 3 Rybelsus 3 No Rybelsus 3 [place] mg tablet mg tablet mg tablet [facility] sertraline sertraline No sertraline [place] 50 mg 50 mg 50 mg [facility] tablet TAKE tablet TAKE tablet Urology 1 TABLET BY 1 TABLET BY TAKE 1 MOUTH EVERY MOUTH EVERY TABLET BY DAY IN THE DAY IN THE MOUTH MORNING MORNING EVERY DAY IN THE MORNING solifenacin solifenacin No solifenaci [place] 10 mg 10 mg n 10 mg [facility] tablet TAKE tablet TAKE tablet Urology 1 TABLET BY 1 TABLET BY TAKE 1 MOUTH EVERY MOUTH EVERY TABLET BY DAY DAY MOUTH EVERY DAY tramadol 50 tramadol 50 No tramadol [place] mg tablet mg tablet 50 mg Met[facility] o tablet Urology Vesicare Vesicare No Vesicare [place] [facility] Vitamin B12 Vitamin B12 No Vitamin [place] [facility] Vitamin C No Vitamin C [facility] Zoloft Zoloft No Zoloft [facility] Aricept Aricept No Aricept [place] [facility] atorvastati atorvastati No atorvastat [place] n 20 mg n 20 mg in 20 mg [facility] tablet TAKE tablet TAKE tablet Urology 1 TABLET BY 1 TABLET BY TAKE 1 MOUTH EVERY MOUTH EVERY TABLET BY DAY DAY MOUTH EVERY DAY azithromyci azithromyci No azithromyc [place] n 250 mg n 250 mg in 250 mg Me tro tablet tablet tablet Urology chlordiazep chlordiazep No chlordiaze [place] oxide-clidi oxide-clidi poxide-cli [facility] nium 5 nium 5 dinium 5 Urology mg-2.5 mg mg-2.5 mg mg-2.5 mg capsule capsule capsule ciprofloxac ciprofloxac No ciprofloxa [place] in 500 mg in 500 mg facundo 500 mg [facility] tablet TAKE tablet TAKE tablet Urology 1 TABLET BY 1 TABLET BY TAKE 1 MOUTH EVERY MOUTH EVERY TABLET BY 12 HOURS 12 HOURS MOUTH EVERY 12 HOURS diclofenac diclofenac No diclofenac [place] 1.5 % 1.5 % 1.5 % [facility] topical topical topical Urolog y drops apply drops apply drops four times four times apply four daily to daily to times affected affected daily to area area affected area donepezil donepezil No donepezil [place] 10 mg 10 mg 10 mg [facility] tablet TAKE tablet TAKE tablet Urology 1 TABLET BY 1 TABLET BY TAKE 1 MOUTH TWICE MOUTH TWICE TABLET BY A DAY A DAY MOUTH TWICE A DAY Durezol Durezol No Durezol [place] 0.05 % eye 0.05 % eye 0.05 % eye [facility] drops drops drops Urology gabapentin gabapentin No gabapentin [place] 300 mg 300 mg 300 mg [facility] capsule capsule capsule Urolog y [place] 75 [place] 75 No [place] 75 [place] mg tablet mg tablet mg tablet [facility] TAKE 1 TAKE 1 TAKE 1 Urology TABLET BY TABLET BY TABLET BY MOUTH EVERY MOUTH EVERY MOUTH DAY DAY EVERY DAY meloxicam meloxicam No meloxicam [place] 15 mg 15 mg 15 mg [facility] tablet tablet tablet Urology memantine memantine No memantine [place] 10 mg 10 mg 10 mg [facility] tablet TAKE tablet TAKE tablet Urology 1 TABLET BY 1 TABLET BY TAKE 1 MOUTH TWICE MOUTH TWICE TABLET BY A DAY A DAY MOUTH TWICE A DAY methylpredn methylpredn No methylpred [place] isolone 4 isolone 4 nisolone 4 [facility] mg tablets mg tablets mg tablets Urology in a dose in a dose in a dose pack TAKE 6 pack TAKE 6 pack TAKE TABLETS ON TABLETS ON 6 TABLETS DAY 1 DAY 1 ON DAY 1 DIRECTED ON DIRECTED ON PACKAGE AND PACKAGE AND DIRECTED DECREASE BY DECREASE BY ON PACKAGE 1 TAB EACH 1 TAB EACH AND DAY FOR A DAY FOR A DECREASE TOTAL OF 6 TOTAL OF 6 BY 1 TAB DAYS DAYS EACH DAY FOR A TOTAL OF 6 DAYS Myrbetriq Myrbetriq No Myrbetriq [place] 50 mg 50 mg 50 mg [facility] tablet,exte tablet,exte tablet,ext Urology nded nded ended release release release Take 1 Take 1 Take 1 tablet tablet tablet every day every day every day by oral by oral by oral route. route. route. oxybutynin oxybutynin No oxybutynin [place] chloride ER chloride ER chloride da 10 mg 10 mg ER 10 mg [facility] tablet,exte tablet,exte tablet,ext al nded nded ended Health release 24 release 24 release 24 Outreac hr hr hr h Program Namenda Namenda No Namenda [place] [facility] ofloxacin ofloxacin No ofloxacin [place] 0.3 % eye 0.3 % eye 0.3 % eye [facility] drops drops drops Urology phentermine phentermine No phentermin [place] 37.5 mg 37.5 mg e 37.5 mg Met[facility] o tablet tablet tablet Urology Premarin Premarin No Premarin [place] 0.625 0.625 0.625 [facility] mg/gram mg/gram mg/gram Urolog y vaginal vaginal vaginal cream cream cream Insert 0.5 Insert 0.5 Insert 0.5 applicators applicators applicator ful every ful every sful every day by day by day by vaginal vaginal vaginal route. route. route. Prolensa Prolensa No Prolensa [place] 0.07 % eye 0.07 % eye 0.07 % eye [facility] drops drops drops Urology Prolia 60 Prolia 60 No Prolia 60 [place] mg/mL mg/mL mg/mL [facility] subcutaneou subcutaneou subcutaneo Urology s syringe s syringe us syringe INJECT 1ML INJECT 1ML INJECT 1ML (60MG DOSE) (60MG DOSE) (60MG SUBCUTANEOU SUBCUTANEOU DOSE) SLY EVERY 6 SLY EVERY 6 SUBCUTANEO MONTHS. MONTHS. USLY EVERY 6 MONTHS. Pyridium Pyridium No 1 TID Pyridium [place] 200 mg 200 mg 200 mg [facility] tablet Take tablet Take tablet Urology 1 tablet 3 1 tablet 3 Take 1 times a day times a day tablet 3 by oral by oral times a route. route. day by oral route. Rybelsus 3 Rybelsus 3 No Rybelsus 3 [place] mg tablet mg tablet mg tablet [facility] sertraline sertraline No sertraline [place] 50 mg 50 mg 50 mg [facility] tablet TAKE tablet TAKE tablet Urology 1 TABLET BY 1 TABLET BY TAKE 1 MOUTH EVERY MOUTH EVERY TABLET BY DAY IN THE DAY IN THE MOUTH MORNING MORNING EVERY DAY IN THE MORNING solifenacin solifenacin No solifenaci [place] 10 mg 10 mg n 10 mg [facility] tablet TAKE tablet TAKE tablet Urology 1 TABLET BY 1 TABLET BY TAKE 1 MOUTH EVERY MOUTH EVERY TABLET BY DAY DAY MOUTH EVERY DAY tramadol tramadol No tramadol [place] 37.5 37.5 37.5 [facility] mg-acetamin mg-acetamin mg-acetami Urology ophen 325 ophen 325 nophen 325 mg tablet mg tablet mg tablet TAKE 2 TAKE 2 TAKE 2 TABLETS BY TABLETS BY TABLETS BY MOUTH EVERY MOUTH EVERY MOUTH 4 HOURS 4 HOURS EVERY 4 HOURS tramadol 50 tramadol 50 No tramadol [place] mg tablet mg tablet 50 mg Met[facility] o tablet Urology Vesicare Vesicare No Vesicare [place] [facility] Vitamin B12 Vitamin B12 No Vitamin [place] B12 [facility] Vitamin C Vitamin C No Vitamin C [place] [facility] Zoloft Zoloft No Zoloft [place] [facility] Aricept Aricept No Aricept [place] [facility] atorvastati atorvastati No atorvastat [place] n 20 mg n 20 mg in 20 mg [facility] tablet TAKE tablet TAKE tablet Urology 1 TABLET BY 1 TABLET BY TAKE 1 MOUTH EVERY MOUTH EVERY TABLET BY DAY DAY MOUTH EVERY DAY azithromyci azithromyci No azithromyc [place] n 250 mg n 250 mg in 250 mg Me tro tablet tablet tablet Urology chlordiazep chlordiazep No chlordiaze [place] oxide-clidi oxide-clidi poxide-cli [facility] nium 5 nium 5 dinium 5 Urology mg-2.5 mg mg-2.5 mg mg-2.5 mg capsule capsule capsule Prolia 60 Prolia 60 No Prolia 60 [place] mg/mL mg/mL mg/mL da subcutaneou subcutaneou subcutaneo [facility] s syringe s syringe us syringe al [facility] Outre[facility] Program ciprofloxac ciprofloxac No ciprofloxa [place] in 500 mg in 500 mg facundo 500 mg [facility] tablet TAKE tablet TAKE tablet Urology 1 TABLET BY 1 TABLET BY TAKE 1 MOUTH EVERY MOUTH EVERY TABLET BY 12 HOURS 12 HOURS MOUTH EVERY 12 HOURS diclofenac diclofenac No diclofenac [place] 1.5 % 1.5 % 1.5 % [facility] topical topical topical Urolog y drops apply drops apply drops four times four times apply four daily to daily to times affected affected daily to area area affected area donepezil donepezil No donepezil [place] 10 mg 10 mg 10 mg [facility] tablet TAKE tablet TAKE tablet Urology 1 TABLET BY 1 TABLET BY TAKE 1 MOUTH TWICE MOUTH TWICE TABLET BY A DAY A DAY MOUTH TWICE A DAY Durezol [facility] eye 0.05 % eye [facility] drops drops drops Urology gabapentin gabapentin No gabapentin [place] 300 mg 300 mg 300 mg [facility] capsule capsule capsule Urolog y [place] 75 [place] 75 No [place] 75 [place] mg tablet mg tablet mg tablet [facility] TAKE 1 TAKE 1 TAKE 1 Urology TABLET BY TABLET BY TABLET BY MOUTH EVERY MOUTH EVERY MOUTH DAY DAY EVERY DAY meloxicam meloxicam No meloxicam [place] 15 mg 15 mg 15 mg [facility] tablet tablet tablet Urology memantine memantine No memantine [place] 10 mg 10 mg 10 mg [facility] tablet TAKE tablet TAKE tablet Urology 1 TABLET BY 1 TABLET BY TAKE 1 MOUTH TWICE MOUTH TWICE TABLET BY A DAY A DAY MOUTH TWICE A DAY methylpredn methylpredn No methylpred [place] isolone 4 isolone 4 nisolone 4 [facility] mg tablets mg tablets mg tablets Urology in a dose in a dose in a dose pack TAKE 6 pack TAKE 6 pack TAKE TABLETS ON TABLETS ON 6 TABLETS DAY 1 DAY 1 ON DAY 1 DIRECTED ON DIRECTED ON PACKAGE AND PACKAGE AND DIRECTED DECREASE BY DECREASE BY ON PACKAGE 1 TAB EACH 1 TAB EACH AND DAY FOR A DAY FOR A DECREASE TOTAL OF 6 TOTAL OF 6 BY 1 TAB DAYS DAYS EACH DAY FOR A TOTAL OF 6 DAYS Myrbetriq Myrbetriq No Myrbetriq [place] 50 mg 50 mg 50 mg [facility] tablet,exte tablet,exte tablet,ext Urology nded nded ended release release release Take 1 Take 1 Take 1 tablet tablet tablet every day every day every day by oral by oral by oral route. route. route. sertraline sertraline No sertraline [place] 50 mg 50 mg 50 mg da tablet tablet tablet [facility] Namenda Namenda No Namenda [place] [facility] ofloxacin ofloxacin No ofloxacin [place] 0.3 % eye 0.3 % eye 0.3 % eye [facility] drops drops drops Urology phentermine phentermine No phentermin [place] 37.5 mg 37.5 mg e 37.5 mg Met[facility] o tablet tablet tablet Urology Premarin Premarin No Premarin [place] 0.625 0.625 0.625 [facility] mg/gram mg/gram mg/gram Urolog y vaginal vaginal vaginal cream cream cream Insert 0.5 Insert 0.5 Insert 0.5 applicators applicators applicator ful every ful every sful every day by day by day by vaginal vaginal vaginal route. route. route. Prolensa Prolensa No Prolensa [place] 0.07 % eye 0.07 % eye 0.07 % eye [facility] drops drops drops Urology Prolia 60 Prolia 60 No Prolia 60 [place] mg/mL mg/mL mg/mL [facility] subcutaneou subcutaneou subcutaneo Urology s syringe s syringe us syringe INJECT 1ML INJECT 1ML INJECT 1ML (60MG DOSE) (60MG DOSE) (60MG SUBCUTANEOU SUBCUTANEOU DOSE) SLY EVERY 6 SLY EVERY 6 SUBCUTANEO MONTHS. MONTHS. USLY EVERY 6 MONTHS. Pyridium Pyridium No 1 TID Pyridium [place] 200 mg 200 mg 200 mg [facility] tablet Take tablet Take tablet Urology 1 tablet 3 1 tablet 3 Take 1 times a day times a day tablet 3 by oral by oral times a route. route. day by oral route. Rybelsus 3 Rybelsus 3 No Rybelsus 3 [place] mg tablet mg tablet mg tablet [facility] sertraline sertraline No sertraline [place] 50 mg 50 mg 50 mg [facility] tablet TAKE tablet TAKE tablet Urology 1 TABLET BY 1 TABLET BY TAKE 1 MOUTH EVERY MOUTH EVERY TABLET BY DAY IN THE DAY IN THE MOUTH MORNING MORNING EVERY DAY IN THE MORNING solifenacin solifenacin No solifenaci [place] 10 mg 10 mg n 10 mg [facility] tablet TAKE tablet TAKE tablet Urology 1 TABLET BY 1 TABLET BY TAKE 1 MOUTH EVERY MOUTH EVERY TABLET BY DAY DAY MOUTH EVERY DAY Shingrix Shingrix No Shingrix [place] (PF) 50 (PF) 50 (PF) 50 da mcg/0.5 mL mcg/0.5 mL mcg/0.5 mL [facility] intramuscul intramuscul intramuscu al [facility] suspension, suspension, suspension Outreac kit kit , kit h Program tramadol tramadol No tramadol [place] 37.5 37.5 37.5 [facility] mg-acetamin mg-acetamin mg-acetami Urology ophen 325 ophen 325 nophen 325 mg tablet mg tablet mg tablet TAKE 2 TAKE 2 TAKE 2 TABLETS BY TABLETS BY TABLETS BY MOUTH EVERY MOUTH EVERY MOUTH 4 HOURS 4 HOURS EVERY 4 HOURS tramadol 50 tramadol 50 No tramadol [place] mg tablet mg tablet 50 mg Metr o TAKE 1 TAKE 1 tablet Urology TABLET BY TABLET BY TAKE 1 MOUTH EVERY MOUTH EVERY TABLET BY 6 TO 8 6 TO 8 MOUTH HOURS HOURS EVERY 6 TO NEEDED FOR NEEDED FOR 8 HOURS PAIN. PAIN. NEEDED FOR PAIN. Vesicare Vesicare No Vesicare [facility] Vitamin B12 Vitamin B12 No Vitamin [place] B12 [facility] Vitamin C Vitamin C No Vitamin C [place] [facility] Zoloft Zoloft No Zoloft [place] [facility] Aricept Aricept No Aricept [place] [facility] atorvastati atorvastati No 20mg atorvastat [place] n 20 mg n 20 mg in 20 mg [facility] tablet 20 tablet 20 tablet 20 Urology mg by oral mg by oral mg by oral route. route. route. azithromyci azithromyci No azithromyc [place] n 250 mg n 250 mg in 250 mg Me tro tablet tablet tablet Urology calcium calcium No 1{tbl} calcium [place] carbonate carbonate carbonate [facility] 500 500 500 Urology mg-vitamin mg-vitamin mg-vitamin D3 5 mcg D3 5 mcg D3 5 mcg (200 unit) (200 unit) (200 unit) tablet 1 tablet 1 tablet 1 {tbl} by {tbl} by {tbl} by oral route. oral route. oral route. solifenacin solifenacin No solifenaci [place] 10 mg 10 mg n 10 mg da tablet tablet tablet [facility] Outreac h Program chlordiazep chlordiazep No chlordiaze [place] oxide-clidi oxide-clidi poxide-cli [facility] nium 5 nium 5 dinium 5 Urology mg-2.5 mg mg-2.5 mg mg-2.5 mg capsule capsule capsule TAKE ONE TAKE ONE TAKE ONE (1) (1) (1) CAPSULE(S) CAPSULE(S) CAPSULE(S) BY MOUTH BY MOUTH BY MOUTH THREE TIMES THREE TIMES THREE A DAY. A DAY. TIMES A DAY. ciprofloxac ciprofloxac No ciprofloxa [place] in 500 mg in 500 mg facundo 500 mg [facility] tablet TAKE tablet TAKE tablet Urology 1 TABLET BY 1 TABLET BY TAKE 1 MOUTH EVERY MOUTH EVERY TABLET BY 12 HOURS 12 HOURS MOUTH EVERY 12 HOURS cyanocobala cyanocobala No 2000ug cyanocobal [place] min (vit min (vit bailey (vit Me tro B-12) ER B-12) ER B-12) ER Uro logy 2,000 mcg 2,000 mcg 2,000 mcg tablet,exte tablet,exte tablet,ext nded nded ended release release release 2000 ugs by 2000 ugs by 2000 ugs oral route. oral route. by oral route. diclofenac diclofenac No diclofenac [place] 1.5 % 1.5 % 1.5 % [facility] topical topical topical Urolog y drops apply drops apply drops four times four times apply four daily to daily to times affected affected daily to area area affected area donepezil donepezil No 10mg BID donepezil [place] 10 mg 10 mg 10 mg [facility] tablet 10 tablet 10 tablet 10 Urology mg twice a mg twice a mg twice a day by oral day by oral day by route. route. oral route. Durezol D[facility]zol [facility] % eye 0.05 % eye [facility] drops drops drops Urology gabapentin gabapentin No gabapentin [place] 300 mg 300 mg 300 mg [facility] capsule capsule capsule Urolog y gabapentin gabapentin No 300mg TID gabapentin [place] 600 mg 600 mg 600 mg [facility] tablet 300 tablet 300 tablet 300 Urology mg 3 times mg 3 times mg 3 times a day by a day by a day by oral route. oral route. oral route. Gem[place]a 75 [place]a 75 No [place] 75 [place] mg tablet mg tablet mg tablet [facility] TAKE 1 TAKE 1 TAKE 1 Urology TABLET BY TABLET BY TABLET BY MOUTH EVERY MOUTH EVERY MOUTH DAY DAY EVERY DAY levocetiriz levocetiriz No 5mg levocetiri [place] ine 5 mg ine 5 mg zine 5 mg Me tro tablet 5 mg tablet 5 mg tablet 5 Urology by oral by oral mg by oral route. route. route. tramadol 50 tramadol 50 No tramadol [place] mg tablet mg tablet 50 mg da tablet [facility] Outre[facility] h Program mecobalamin mecobalamin No mecobalami [place] (vitamin (vitamin n (vitamin M etro B12) 1,000 B12) 1,000 B12) 1,000 Urology mcg mcg mcg chewable chewable chewable tablet tablet tablet meloxicam meloxicam No meloxicam [place] 15 mg 15 mg 15 mg [facility] tablet tablet tablet U[facility] meloxicam meloxicam No 7.5mg meloxicam [place] 7.5 mg 7.5 mg 7.5 mg [facility] tablet 7.5 tablet 7.5 tablet 7.5 U[facility] mg by oral mg by oral mg by oral route. route. route. memantine memantine No 10mg BID memantine [place] 10 mg 10 mg 10 mg [facility] tablet 10 tablet 10 tablet 10 U[facility] mg twice a mg twice a mg twice a day by oral day by oral day by route. route. oral route. methylpredn methylpredn No methylpred [place] isolone 4 isolone 4 nisolone 4 [facility] mg tablets mg tablets mg tablets Urology in a dose in a dose in a dose pack TAKE 6 pack TAKE 6 pack TAKE TABLETS ON TABLETS ON 6 TABLETS DAY 1 DAY 1 ON DAY 1 DIRECTED ON DIRECTED ON PACKAGE AND PACKAGE AND DIRECTED DECREASE BY DECREASE BY ON PACKAGE 1 TAB EACH 1 TAB EACH AND DAY FOR A DAY FOR A DECREASE TOTAL OF 6 TOTAL OF 6 BY 1 TAB DAYS DAYS EACH DAY FOR A TOTAL OF 6 DAYS Myrbetriq Myrbetriq No 1 Q1D Myrbetriq [place] 50 mg 50 mg 50 mg [facility] tablet,exte tablet,exte tablet,ext Urology nded nded ended release release release Take 1 Take 1 Take 1 tablet tablet tablet every day every day every day by oral by oral by oral route. route. route. Namenda Namenda No Namenda [place] [facility] ofloxacin ofloxacin No ofloxacin [place] 0.3 % eye 0.3 % eye 0.3 % eye [facility] drops drops drops [facility] phentermine phentermine No phentermin [place] 37.5 mg 37.5 mg e 37.5 mg [facility] o tablet tablet tablet Urology Premarin Premarin No Premarin [place] 0.625 0.625 0.625 [facility] mg/gram mg/gram mg/gram Urolog y vaginal vaginal vaginal cream cream cream Insert 0.5 Insert 0.5 Insert 0.5 applicators applicators applicator ful every ful every sful every day by day by day by vaginal vaginal vaginal route. route. route. Prolensa Prolensa No Prolensa [place] 0.07 % eye 0.07 % eye 0.07 % eye [facility] drops drops drops U[facility] Pyridium Pyridium No 1 TID Pyridium [place] 200 mg 200 mg 200 mg [facility] tablet Take tablet Take tablet Urology 1 tablet 3 1 tablet 3 Take 1 times a day times a day tablet 3 by oral by oral times a route. route. day by oral route. Rybelsus 3 Rybelsus 3 No Rybelsus 3 [place] mg tablet mg tablet mg tablet [facility] simethicone simethicone No simethicon [place] 180 mg 180 mg e 180 mg [facility] capsule capsule capsule Urolog y solifenacin solifenacin No 10mg solifenaci [place] 10 mg 10 mg n 10 mg [facility] tablet 10 tablet 10 tablet 10 Urology mg by oral mg by oral mg by oral route. route. route. tramadol tramadol No tramadol [place] 37.5 37.5 37.5 [facility] mg-acetamin mg-acetamin mg-acetami Urology ophen 325 ophen 325 nophen 325 mg tablet mg tablet mg tablet TAKE 2 TAKE 2 TAKE 2 TABLETS BY TABLETS BY TABLETS BY MOUTH EVERY MOUTH EVERY MOUTH 4 HOURS 4 HOURS EVERY 4 HOURS tramadol 50 tramadol 50 No tramadol [place] mg tablet mg tablet 50 mg Met[facility] o TAKE 1 TAKE 1 tablet Urology TABLET BY TABLET BY TAKE 1 MOUTH EVERY MOUTH EVERY TABLET BY 6 TO 8 6 TO 8 MOUTH HOURS HOURS EVERY 6 TO NEEDED FOR NEEDED FOR 8 HOURS PAIN. PAIN. NEEDED FOR PAIN. Vesicare Vesicare No Vesicare [facility] Vitamin B12 Vitamin B12 No Vitamin [place] B12 [facility] Vitamin C Vitamin C No Vitamin C [facility] Zoloft Zoloft No Zoloft [facility] U[facility] alendronate alendronate No alendronat [place] 70 mg 70 mg e 70 mg [facility] tablet TAKE tablet TAKE tablet Urology 1 TABLET BY 1 TABLET BY TAKE 1 MOUTH EVERY MOUTH EVERY TABLET BY WEEK WEEK MOUTH EVERY WEEK Aricept Aricept No Aricept [place] [facility] atorvastati atorvastati No 20mg atorvastat [place] n 20 mg n 20 mg in 20 mg [facility] tablet 20 tablet 20 tablet 20 Urology mg by oral mg by oral mg by oral route. route. route. azithromyci azithromyci No azithromyc [place] n 250 mg n 250 mg in 250 mg Me tro tablet tablet tablet Urology calcium calcium No 1{tbl} calcium [place] carbonate carbonate carbonate [facility] 500 500 500 [facility] mg-vitamin mg-vitamin mg-vitamin D3 5 mcg D3 5 mcg D3 5 mcg (200 unit) (200 unit) (200 unit) tablet 1 tablet 1 tablet 1 {tbl} by {tbl} by {tbl} by oral route. oral route. oral route. chlordiazep chlordiazep No chlordiaze [place] oxide-clidi oxide-clidi poxide-cli [facility] nium 5 nium 5 dinium 5 Urology mg-2.5 mg mg-2.5 mg mg-2.5 mg capsule capsule capsule TAKE ONE TAKE ONE TAKE ONE (1) (1) (1) CAPSULE(S) CAPSULE(S) CAPSULE(S) BY MOUTH BY MOUTH BY MOUTH THREE TIMES THREE TIMES THREE A DAY. A DAY. TIMES A DAY. ciprofloxac ciprofloxac No ciprofloxa [place] in 500 mg in 500 mg facundo 500 mg [facility] tablet TAKE tablet TAKE tablet Urology 1 TABLET BY 1 TABLET BY TAKE 1 MOUTH EVERY MOUTH EVERY TABLET BY 12 HOURS 12 HOURS MOUTH EVERY 12 HOURS cyanocobala cyanocobala No 2000ug cyanocobal [place] min (vit min (vit bailey (vit Me tro B-12) ER B-12) ER B-12) ER Uro logy 2,000 mcg 2,000 mcg 2,000 mcg tablet,exte tablet,exte tablet,ext nded nded ended release release release 2000 ugs by 2000 ugs by 2000 ugs oral route. oral route. by oral route. diclofenac diclofenac No diclofenac [place] 1.5 % 1.5 % 1.5 % [facility] topical topical topical Urolog y drops apply drops apply drops four times four times apply four daily to daily to times affected affected daily to area area affected area donepezil donepezil No 10mg BID donepezil [place] 10 mg 10 mg 10 mg [facility] tablet 10 tablet 10 tablet 10 Urology mg twice a mg twice a mg twice a day by oral day by oral day by route. route. oral route. Durezol Durezol No Durezol [place] 0.05 % eye 0.05 % eye 0.05 % eye [facility] drops drops drops Urology gabapentin gabapentin No gabapentin [place] 300 mg 300 mg 300 mg [facility] capsule capsule capsule Urolog y gabapentin gabapentin No 300mg TID gabapentin [place] 600 mg 600 mg 600 mg [facility] tablet 300 tablet 300 tablet 300 Urology mg 3 times mg 3 times mg 3 times a day by a day by a day by oral route. oral route. oral route. Gemtesa 75 Gemtesa 75 No [place] 75 [place] mg tablet mg tablet mg tablet [facility] TAKE 1 TAKE 1 TAKE 1 Urology TABLET BY TABLET BY TABLET BY MOUTH EVERY MOUTH EVERY MOUTH DAY DAY EVERY DAY levocetiriz levocetiriz No 5mg levocetiri [place] ine 5 mg ine 5 mg zine 5 mg Me tro tablet 5 mg tablet 5 mg tablet 5 Urology by oral by oral mg by oral route. route. route. mecobalamin mecobalamin No mecobalami [place] (vitamin (vitamin n (vitamin M etro B12) 1,000 B12) 1,000 B12) 1,000 Urology mcg mcg mcg chewable chewable chewable tablet tablet tablet meloxicam meloxicam No meloxicam [place] 15 mg 15 mg 15 mg [facility] tablet tablet tablet Urology meloxicam meloxicam No 7.5mg meloxicam [place] 7.5 mg 7.5 mg 7.5 mg [facility] tablet 7.5 tablet 7.5 tablet 7.5 Urology mg by oral mg by oral mg by oral route. route. route. memantine memantine No 10mg BID memantine [place] 10 mg 10 mg 10 mg [facility] tablet 10 tablet 10 tablet 10 Urology mg twice a mg twice a mg twice a day by oral day by oral day by route. route. oral route. methylpredn methylpredn No methylpred [place] isolone 4 isolone 4 nisolone 4 [facility] mg tablets mg tablets mg tablets Urology in a dose in a dose in a dose pack TAKE 6 pack TAKE 6 pack TAKE TABLETS ON TABLETS ON 6 TABLETS DAY 1 DAY 1 ON DAY 1 DIRECTED ON DIRECTED ON PACKAGE AND PACKAGE AND DIRECTED DECREASE BY DECREASE BY ON PACKAGE 1 TAB EACH 1 TAB EACH AND DAY FOR A DAY FOR A DECREASE TOTAL OF 6 TOTAL OF 6 BY 1 TAB DAYS DAYS EACH DAY FOR A TOTAL OF 6 DAYS Myrbetriq Myrbetriq No Myrbetriq [place] 50 mg 50 mg 50 mg [facility] tablet,exte tablet,exte tablet,ext Urology nded nded ended release release release TAKE 1 TAKE 1 TAKE 1 TABLET BY TABLET BY TABLET BY MOUTH EVERY MOUTH EVERY MOUTH DAY DAY EVERY DAY Namenda Namenda No Namenda [place] [facility] ofloxacin ofloxacin No ofloxacin [place] 0.3 % eye 0.3 % eye 0.3 % eye [facility] drops drops drops Urology phentermine phentermine No phentermin [place] 37.5 mg 37.5 mg e 37.5 mg [facility] o tablet tablet tablet Urology Premarin Premarin No Premarin [place] 0.625 0.625 0.625 [facility] mg/gram mg/gram mg/gram Urolog y vaginal vaginal vaginal cream cream cream Insert 0.5 Insert 0.5 Insert 0.5 applicators applicators applicator ful every ful every sful every day by day by day by vaginal vaginal vaginal route. route. route. Prolensa Prolensa No Prolensa [place] 0.07 % eye 0.07 % eye 0.07 % eye [facility] drops drops drops Urology Pyridium Pyridium No 1 TID Pyridium [place] 200 mg 200 mg 200 mg [facility] tablet Take tablet Take tablet Urology 1 tablet 3 1 tablet 3 Take 1 times a day times a day tablet 3 by oral by oral times a route. route. day by oral route. Rybelsus 3 Rybelsus 3 No Rybelsus 3 [place] mg tablet mg tablet mg tablet [facility] sertraline sertraline No sertraline [place] 50 mg 50 mg 50 mg [facility] tablet TAKE tablet TAKE tablet Urology 1 TABLET BY 1 TABLET BY TAKE 1 MOUTH EVERY MOUTH EVERY TABLET BY DAY IN THE DAY IN THE MOUTH MORNING MORNING EVERY DAY IN THE MORNING simethicone simethicone No simethicon [place] 180 mg 180 mg e 180 mg [facility] capsule capsule capsule Urolog y solifenacin solifenacin No 10mg solifenaci [place] 10 mg 10 mg n 10 mg [facility] tablet 10 tablet 10 tablet 10 Urology mg by oral mg by oral mg by oral route. route. route. Toviaz 8 mg Toviaz 8 mg No 1 Q1D Toviaz 8 [place] tablet,exte tablet,exte mg M etro nded nded tablet,ext Urology release release ended Take 1 Take 1 release tablet tablet Take 1 every day every day tablet by oral by oral every day route. route. by oral route. tramadol tramadol No tramadol [place] 37.5 37.5 37.5 [facility] mg-acetamin mg-acetamin mg-acetami Urology ophen 325 ophen 325 nophen 325 mg tablet mg tablet mg tablet TAKE 2 TAKE 2 TAKE 2 TABLETS BY TABLETS BY TABLETS BY MOUTH EVERY MOUTH EVERY MOUTH 4 HOURS 4 HOURS EVERY 4 HOURS tramadol 50 tramadol 50 No tramadol [place] mg tablet mg tablet 50 mg Met[facility] o TAKE 1 TAKE 1 tablet Urology TABLET BY TABLET BY TAKE 1 MOUTH EVERY MOUTH EVERY TABLET BY 6 TO 8 6 TO 8 MOUTH HOURS HOURS EVERY 6 TO NEEDED FOR NEEDED FOR 8 HOURS PAIN. PAIN. NEEDED FOR PAIN. Vesicare Vesicare No Vesicare [place] [facility] Vitamin B12 Vitamin B12 No Vitamin [place] B12 [facility] Vitamin C Vitamin C No Vitamin C [facility] Zoloft Zoloft No Zoloft [facility] U[facility] alendronate alendronate No alendronat [place] 70 mg 70 mg e 70 mg [facility] tablet TAKE tablet TAKE tablet Urology 1 TABLET BY 1 TABLET BY TAKE 1 MOUTH EVERY MOUTH EVERY TABLET BY WEEK WEEK MOUTH EVERY WEEK Aricept Aricept No Aricept [place] [facility] atorvastati atorvastati No atorvastat [place] n 20 mg n 20 mg in 20 mg [facility] tablet TAKE tablet TAKE tablet Urology 1 TABLET BY 1 TABLET BY TAKE 1 MOUTH EVERY MOUTH EVERY TABLET BY DAY DAY MOUTH EVERY DAY azithromyci azithromyci No azithromyc [place] n 250 mg n 250 mg in 250 mg Me tro tablet tablet tablet Urology calcium calcium No 1{tbl} calcium [place] carbonate carbonate carbonate [facility] 500 500 500 U[facility] mg-vitamin mg-vitamin mg-vitamin D3 5 mcg D3 5 mcg D3 5 mcg (200 unit) (200 unit) (200 unit) tablet 1 tablet 1 tablet 1 {tbl} by {tbl} by {tbl} by oral route. oral route. oral route. chlordiazep chlordiazep No chlordiaze [place] oxide-clidi oxide-clidi poxide-cli [facility] nium 5 nium 5 dinium 5 Urology mg-2.5 mg mg-2.5 mg mg-2.5 mg capsule capsule capsule TAKE ONE TAKE ONE TAKE ONE (1) (1) (1) CAPSULE(S) CAPSULE(S) CAPSULE(S) BY MOUTH BY MOUTH BY MOUTH THREE TIMES THREE TIMES THREE A DAY. A DAY. TIMES A DAY. ciprofloxac ciprofloxac No ciprofloxa [place] in 500 mg in 500 mg facundo 500 mg [facility] tablet TAKE tablet TAKE tablet Urology 1 TABLET BY 1 TABLET BY TAKE 1 MOUTH EVERY MOUTH EVERY TABLET BY 12 HOURS 12 HOURS MOUTH EVERY 12 HOURS cyanocobala cyanocobala No 2000ug cyanocobal [place] min (vit min (vit bailey (vit Me tro B-12) ER B-12) ER B-12) ER Uro logy 2,000 mcg 2,000 mcg 2,000 mcg tablet,exte tablet,exte tablet,ext nded nded ended release release release 2000 ugs by 2000 ugs by 2000 ugs oral route. oral route. by oral route. diclofenac diclofenac No diclofenac [place] 1.5 % 1.5 % 1.5 % [facility] topical topical topical Urolog y drops apply drops apply drops four times four times apply four daily to daily to times affected affected daily to area area affected area donepezil donepezil No donepezil [place] 10 mg 10 mg 10 mg [facility] tablet TAKE tablet TAKE tablet Urology 1 TABLET BY 1 TABLET BY TAKE 1 MOUTH TWICE MOUTH TWICE TABLET BY A DAY A DAY MOUTH TWICE A DAY Durezol Durezol No Durezol [place] 0.05 % eye 0.05 % eye 0.05 % eye [facility] drops drops drops Urology gabapentin gabapentin No gabapentin [place] 300 mg 300 mg 300 mg [facility] capsule capsule capsule Urolog y gabapentin gabapentin No 300mg TID gabapentin [place] 600 mg 600 mg 600 mg [facility] tablet 300 tablet 300 tablet 300 Urology mg 3 times mg 3 times mg 3 times a day by a day by a day by oral route. oral route. oral route. Gem[place] 75 [place] 75 No [place] 75 [place] mg tablet mg tablet mg tablet [facility] TAKE 1 TAKE 1 TAKE 1 Urology TABLET BY TABLET BY TABLET BY MOUTH EVERY MOUTH EVERY MOUTH DAY DAY EVERY DAY levocetiriz levocetiriz No 5mg levocetiri [place] ine 5 mg ine 5 mg zine 5 mg Me tro tablet 5 mg tablet 5 mg tablet 5 Urology by oral by oral mg by oral route. route. route. mecobalamin mecobalamin No mecobalami [place] (vitamin (vitamin n (vitamin M etro B12) 1,000 B12) 1,000 B12) 1,000 Urology mcg mcg mcg chewable chewable chewable tablet tablet tablet meloxicam meloxicam No meloxicam [place] 15 mg 15 mg 15 mg [facility] tablet tablet tablet Urology meloxicam meloxicam No 7.5mg meloxicam [place] 7.5 mg 7.5 mg 7.5 mg [facility] tablet 7.5 tablet 7.5 tablet 7.5 Urology mg by oral mg by oral mg by oral route. route. route. memantine memantine No memantine [place] 10 mg 10 mg 10 mg [facility] tablet TAKE tablet TAKE tablet Urology 1 TABLET BY 1 TABLET BY TAKE 1 MOUTH TWICE MOUTH TWICE TABLET BY A DAY A DAY MOUTH TWICE A DAY methylpredn methylpredn No methylpred [place] isolone 4 isolone 4 nisolone 4 [facility] mg tablets mg tablets mg tablets Urology in a dose in a dose in a dose pack TAKE 6 pack TAKE 6 pack TAKE TABLETS ON TABLETS ON 6 TABLETS DAY 1 DAY 1 ON DAY 1 DIRECTED ON DIRECTED ON PACKAGE AND PACKAGE AND DIRECTED DECREASE BY DECREASE BY ON PACKAGE 1 TAB EACH 1 TAB EACH AND DAY FOR A DAY FOR A DECREASE TOTAL OF 6 TOTAL OF 6 BY 1 TAB DAYS DAYS EACH DAY FOR A TOTAL OF 6 DAYS Myrbetriq Myrbetriq No Myrbetriq [place] 50 mg 50 mg 50 mg [facility] tablet,exte tablet,exte tablet,ext Urology nded nded ended release release release TAKE 1 TAKE 1 TAKE 1 TABLET BY TABLET BY TABLET BY MOUTH EVERY MOUTH EVERY MOUTH DAY DAY EVERY DAY Namenda Namenda No Namenda [place] [facility] ofloxacin ofloxacin No ofloxacin [place] 0.3 % eye 0.3 % eye 0.3 % eye [facility] drops drops drops Urology oxybutynin oxybutynin No oxybutynin [place] chloride ER chloride ER chloride [facility] 10 mg 10 mg ER 10 mg Urology tablet,exte tablet,exte tablet,ext nded nded ended release 24 release 24 release 24 hr TAKE 1 hr TAKE 1 hr TAKE 1 TABLET BY TABLET BY TABLET BY MOUTH EVERY MOUTH EVERY MOUTH DAY DAY EVERY DAY phentermine phentermine No phentermin [place] 37.5 mg 37.5 mg e 37.5 mg [facility] o tablet tablet tablet Urology Premarin Premarin No Premarin [place] 0.625 0.625 0.625 [facility] mg/gram mg/gram mg/gram Urolog y vaginal vaginal vaginal cream cream cream Insert 0.5 Insert 0.5 Insert 0.5 applicators applicators applicator ful every ful every sful every day by day by day by vaginal vaginal vaginal route. route. route. Prolensa Prolensa No Prolensa [place] 0.07 % eye 0.07 % eye 0.07 % eye [facility] drops drops drops Urology Pyridium Pyridium No 1 TID Pyridium [place] 200 mg 200 mg 200 mg [facility] tablet Take tablet Take tablet Urology 1 tablet 3 1 tablet 3 Take 1 times a day times a day tablet 3 by oral by oral times a route. route. day by oral route. Rybelsus 3 Rybelsus 3 No Rybelsus 3 [place] mg tablet mg tablet mg tablet [facility] sertraline sertraline No sertraline [place] 50 mg 50 mg 50 mg [facility] tablet TAKE tablet TAKE tablet Urology 1 TABLET BY 1 TABLET BY TAKE 1 MOUTH EVERY MOUTH EVERY TABLET BY DAY IN THE DAY IN THE MOUTH MORNING MORNING EVERY DAY IN THE MORNING simethicone simethicone No simethicon [place] 180 mg 180 mg e 180 mg [facility] capsule capsule capsule Urolog y solifenacin solifenacin No solifenaci [place] 10 mg 10 mg n 10 mg [facility] tablet TAKE tablet TAKE tablet Urology 1 TABLET BY 1 TABLET BY TAKE 1 MOUTH EVERY MOUTH EVERY TABLET BY DAY DAY MOUTH EVERY DAY Toviaz 8 mg Toviaz 8 mg No 1 Q1D Toviaz 8 [place] tablet,exte tablet,exte mg M etro nded nded tablet,ext Urology release release ended Take 1 Take 1 release tablet tablet Take 1 every day every day tablet by oral by oral every day route. route. by oral route. tramadol tramadol No tramadol [place] 37.5 37.5 37.5 [facility] mg-acetamin mg-acetamin mg-acetami Urology ophen 325 ophen 325 nophen 325 mg tablet mg tablet mg tablet TAKE 1 TAKE 1 TAKE 1 TABLET BY TABLET BY TABLET BY MOUTH EVERY MOUTH EVERY MOUTH 6 TO 8 6 TO 8 EVERY 6 TO HOURS HOURS 8 HOURS NEEDED NEEDED NEEDED tramadol 50 tramadol 50 No tramadol [place] mg tablet mg tablet 50 mg Metr o TAKE 1 TAKE 1 tablet Urology TABLET BY TABLET BY TAKE 1 MOUTH EVERY MOUTH EVERY TABLET BY 6 TO 8 6 TO 8 MOUTH HOURS HOURS EVERY 6 TO NEEDED FOR NEEDED FOR 8 HOURS PAIN. PAIN. NEEDED FOR PAIN. Vesicare Vesicare No Vesicare [place] [facility] Vitamin B12 Vitamin B12 No Vitamin [place] B12 [facility] Vitamin C Vitamin C No Vitamin C [facility] Zoloft Zoloft No Zoloft [facility] Urology alendronate alendronate No alendronat [place] 70 mg 70 mg e 70 mg [facility] tablet TAKE tablet TAKE tablet Urology 1 TABLET BY 1 TABLET BY TAKE 1 MOUTH EVERY MOUTH EVERY TABLET BY WEEK WEEK MOUTH EVERY WEEK atorvastati atorvastati No atorvastat [place] n 20 mg n 20 mg in 20 mg [facility] tablet TAKE tablet TAKE tablet Urology 1 TABLET BY 1 TABLET BY TAKE 1 MOUTH EVERY MOUTH EVERY TABLET BY DAY DAY MOUTH EVERY DAY calcium calcium No 1{tbl} calcium [place] carbonate carbonate carbonate [facility] 500 500 500 Urology mg-vitamin mg-vitamin mg-vitamin D3 5 mcg D3 5 mcg D3 5 mcg (200 unit) (200 unit) (200 unit) tablet 1 tablet 1 tablet 1 {tbl} by {tbl} by {tbl} by oral route. oral route. oral route. chlordiazep chlordiazep No chlordiaze [place] oxide-clidi oxide-clidi poxide-cli [facility] nium 5 nium 5 dinium 5 Urology mg-2.5 mg mg-2.5 mg mg-2.5 mg capsule capsule capsule TAKE ONE TAKE ONE TAKE ONE (1) (1) (1) CAPSULE(S) CAPSULE(S) CAPSULE(S) BY MOUTH BY MOUTH BY MOUTH THREE TIMES THREE TIMES THREE A DAY. A DAY. TIMES A DAY. cyanocobala cyanocobala No 2000ug cyanocobal [place] min (vit min (vit bailey (vit Me tro B-12) ER B-12) ER B-12) ER Uro logy 2,000 mcg 2,000 mcg 2,000 mcg tablet,exte tablet,exte tablet,ext nded nded ended release release release 2000 ugs by 2000 ugs by 2000 ugs oral route. oral route. by oral route. donepezil donepezil No donepezil [place] 10 mg 10 mg 10 mg [facility] tablet TAKE tablet TAKE tablet Urology 1 TABLET BY 1 TABLET BY TAKE 1 MOUTH TWICE MOUTH TWICE TABLET BY A DAY A DAY MOUTH TWICE A DAY etodolac etodolac No etodolac [place] 400 mg 400 mg 400 mg [facility] tablet TAKE tablet TAKE tablet Urology 1 TABLET BY 1 TABLET BY TAKE 1 MOUTH TWICE MOUTH TWICE TABLET BY A DAY A DAY MOUTH TWICE A DAY gabapentin gabapentin No 300mg TID gabapentin [place] 600 mg 600 mg 600 mg [facility] tablet 300 tablet 300 tablet 300 Urology mg 3 times mg 3 times mg 3 times a day by a day by a day by oral route. oral route. oral route. levocetiriz levocetiriz No 5mg levocetiri [place] ine 5 mg ine 5 mg zine 5 mg Me tro tablet 5 mg tablet 5 mg tablet 5 Urology by oral by oral mg by oral route. route. route. mecobalamin mecobalamin No mecobalami [place] (vitamin (vitamin n (vitamin M etro B12) 1,000 B12) 1,000 B12) 1,000 Urology mcg mcg mcg chewable chewable chewable tablet tablet tablet meloxicam meloxicam No 7.5mg meloxicam [place] 7.5 mg 7.5 mg 7.5 mg [facility] tablet 7.5 tablet 7.5 tablet 7.5 Urology mg by oral mg by oral mg by oral route. route. route. memantine memantine No memantine [place] 10 mg 10 mg 10 mg [facility] tablet TAKE tablet TAKE tablet Urology 1 TABLET BY 1 TABLET BY TAKE 1 MOUTH TWICE MOUTH TWICE TABLET BY A DAY A DAY MOUTH TWICE A DAY Myrbetriq Myrbetriq No Myrbetriq [place] 50 mg 50 mg 50 mg [facility] tablet,exte tablet,exte tablet,ext Urology nded nded ended release release release TAKE 1 TAKE 1 TAKE 1 TABLET BY TABLET BY TABLET BY MOUTH EVERY MOUTH EVERY MOUTH DAY DAY EVERY DAY sertraline sertraline No sertraline [place] 50 mg 50 mg 50 mg [facility] tablet TAKE tablet TAKE tablet Urology 1 TABLET BY 1 TABLET BY TAKE 1 MOUTH EVERY MOUTH EVERY TABLET BY DAY IN THE DAY IN THE MOUTH MORNING MORNING EVERY DAY IN THE MORNING simethicone simethicone No simethicon [place] 180 mg 180 mg e 180 mg [facility] capsule capsule capsule Urolog y solifenacin solifenacin No solifenaci [place] 10 mg 10 mg n 10 mg [facility] tablet TAKE tablet TAKE tablet Urology 1 TABLET BY 1 TABLET BY TAKE 1 MOUTH EVERY MOUTH EVERY TABLET BY DAY DAY MOUTH EVERY DAY alendronate alendronate No alendronat [place] 70 mg 70 mg e 70 mg [facility] tablet TAKE tablet TAKE tablet Urology 1 TABLET BY 1 TABLET BY TAKE 1 MOUTH EVERY MOUTH EVERY TABLET BY WEEK WEEK MOUTH EVERY WEEK Aricept Aricept No Aricept [place] [facility] atorvastati atorvastati No atorvastat [place] n 20 mg n 20 mg in 20 mg [facility] tablet TAKE tablet TAKE tablet Urology 1 TABLET BY 1 TABLET BY TAKE 1 MOUTH EVERY MOUTH EVERY TABLET BY DAY DAY MOUTH EVERY DAY chlordiazep chlordiazep No chlordiaze [place] oxide-clidi oxide-clidi poxide-cli [facility] nium 5 nium 5 dinium 5 Urology mg-2.5 mg mg-2.5 mg mg-2.5 mg capsule capsule capsule TAKE ONE TAKE ONE TAKE ONE (1) (1) (1) CAPSULE(S) CAPSULE(S) CAPSULE(S) BY MOUTH BY MOUTH BY MOUTH THREE TIMES THREE TIMES THREE A DAY. A DAY. TIMES A DAY. cyanocobala cyanocobala No 2000ug cyanocobal [place] min (vit min (vit bailey (vit Me tro B-12) ER B-12) ER B-12) ER Uro logy 2,000 mcg 2,000 mcg 2,000 mcg tablet,exte tablet,exte tablet,ext nded nded ended release release release 2000 ugs by 2000 ugs by 2000 ugs oral route. oral route. by oral route. donepezil donepezil No donepezil [place] 10 mg 10 mg 10 mg [facility] tablet TAKE tablet TAKE tablet Urology 1 TABLET BY 1 TABLET BY TAKE 1 MOUTH TWICE MOUTH TWICE TABLET BY A DAY A DAY MOUTH TWICE A DAY etodolac etodolac No etodolac [place] 400 mg 400 mg 400 mg [facility] tablet TAKE tablet TAKE tablet Urology 1 TABLET BY 1 TABLET BY TAKE 1 MOUTH TWICE MOUTH TWICE TABLET BY A DAY A DAY MOUTH TWICE A DAY gabapentin gabapentin No gabapentin [place] 300 mg 300 mg 300 mg [facility] capsule capsule capsule Urolog y meloxicam meloxicam No meloxicam [place] 15 mg 15 mg 15 mg [facility] tablet tablet tablet Urology memantine memantine No memantine [place] 10 mg 10 mg 10 mg [facility] tablet TAKE tablet TAKE tablet Urology 1 TABLET BY 1 TABLET BY TAKE 1 MOUTH TWICE MOUTH TWICE TABLET BY A DAY A DAY MOUTH TWICE A DAY methylpredn methylpredn No methylpred [place] isolone 4 isolone 4 nisolone 4 [facility] mg tablets mg tablets mg tablets Urology in a dose in a dose in a dose pack pack pack Myrbetriq Myrbetriq No Myrbetriq [place] 50 mg 50 mg 50 mg [facility] tablet,exte tablet,exte tablet,ext Urology nded nded ended release release release TAKE 1 TAKE 1 TAKE 1 TABLET BY TABLET BY TABLET BY MOUTH EVERY MOUTH EVERY MOUTH DAY DAY EVERY DAY Namenda Namenda No Namenda [facility] ofloxacin ofloxacin No ofloxacin [place] 0.3 % eye 0.3 % eye 0.3 % eye [facility] drops drops drops Urology sertraline sertraline No sertraline [place] 50 mg 50 mg 50 mg [facility] tablet TAKE tablet TAKE tablet Urology 1 TABLET BY 1 TABLET BY TAKE 1 MOUTH EVERY MOUTH EVERY TABLET BY DAY IN THE DAY IN THE MOUTH MORNING MORNING EVERY DAY IN THE MORNING solifenacin solifenacin No solifenaci [place] 10 mg 10 mg n 10 mg [facility] tablet TAKE tablet TAKE tablet Urology 1 TABLET BY 1 TABLET BY TAKE 1 MOUTH EVERY MOUTH EVERY TABLET BY DAY DAY MOUTH EVERY DAY tramadol 50 tramadol 50 No tramadol [place] mg tablet mg tablet 50 mg Metr o tablet Urology Vesicare Vesicare No Vesicare [facility] Vitamin B12 Vitamin B12 No Vitamin [place] B12 [facility] Vitamin C Vitamin C No Vitamin C [facility] Zoloft Zoloft No Zoloft [facility] U[facility] alendronate alendronate No alendronat [place] 70 mg 70 mg e 70 mg [facility] tablet TAKE tablet TAKE tablet Urology 1 TABLET BY 1 TABLET BY TAKE 1 MOUTH EVERY MOUTH EVERY TABLET BY WEEK WEEK MOUTH EVERY WEEK amlodipine amlodipine No amlodipine [place] 5 mg tablet 5 mg tablet 5 mg M etro TAKE 1 TAKE 1 tablet Urology TABLET BY TABLET BY TAKE 1 MOUTH EVERY MOUTH EVERY TABLET BY DAY FOR 90 DAY FOR 90 MOUTH DAYS DAYS EVERY DAY FOR 90 DAYS [facility] atorvastati atorvastati No atorvastat [place] n 20 mg n 20 mg in 20 mg [facility] tablet TAKE tablet TAKE tablet Urology 1 TABLET BY 1 TABLET BY TAKE 1 MOUTH EVERY MOUTH EVERY TABLET BY DAY DAY MOUTH EVERY DAY azithromyci azithromyci No azithromyc [place] n 250 mg n 250 mg in 250 mg Me tro tablet TAKE tablet TAKE tablet Urology 2 TABLETS 2 TABLETS TAKE 2 BY MOUTH BY MOUTH TABLETS BY TODAY, THEN TODAY, THEN MOUTH TAKE 1 TAKE 1 TODAY, TABLET TABLET THEN TAKE DAILY FOR 4 DAILY FOR 4 1 TABLET DAYS DAYS DAILY FOR 4 DAYS cephalexin cephalexin No 1capsul TID cephalexin [place] 500 mg 500 mg e(s) 500 mg [facility] capsule capsule capsule Urolog y Take 1 Take 1 Take 1 capsule 3 capsule 3 capsule 3 times a day times a day times a by oral by oral day by route for 7 route for 7 oral route days. days. for 7 days. chlordiazep chlordiazep No chlordiaze [place] oxide-clidi oxide-clidi poxide-cli [facility] nium 5 nium 5 dinium 5 Urology mg-2.5 mg mg-2.5 mg mg-2.5 mg capsule capsule capsule TAKE ONE TAKE ONE TAKE ONE (1) (1) (1) CAPSULE(S) CAPSULE(S) CAPSULE(S) BY MOUTH BY MOUTH BY MOUTH THREE TIMES THREE TIMES THREE A DAY. A DAY. TIMES A DAY. cyanocobala cyanocobala No 2000ug cyanocobal [place] min (vit min (vit bailey (vit Me tro B-12) ER B-12) ER B-12) ER Uro logy 2,000 mcg 2,000 mcg 2,000 mcg tablet,exte tablet,exte tablet,ext nded nded ended release release release 2000 ugs by 2000 ugs by 2000 ugs oral route. oral route. by oral route. donepezil donepezil No donepezil [place] 10 mg 10 mg 10 mg [facility] tablet TAKE tablet TAKE tablet Urology 1 TABLET BY 1 TABLET BY TAKE 1 MOUTH TWICE MOUTH TWICE TABLET BY A DAY A DAY MOUTH TWICE A DAY etodolac etodolac No etodolac [place] 400 mg 400 mg 400 mg [facility] tablet TAKE tablet TAKE tablet Urology 1 TABLET BY 1 TABLET BY TAKE 1 MOUTH TWICE MOUTH TWICE TABLET BY A DAY A DAY MOUTH TWICE A DAY gabapentin gabapentin No gabapentin [place] 300 mg 300 mg 300 mg [facility] capsule capsule capsule Urolog y Lagevrio Lagevrio No Lagevrio [place] 200 mg 200 mg 200 mg [facility] capsule capsule capsule Urolog y (EUA) TAKE (EUA) TAKE (EUA) TAKE 4 CAPSULES 4 CAPSULES 4 CAPSULES BY MOUTH BY MOUTH BY MOUTH TWICE DAILY TWICE DAILY TWICE DAILY meloxicam meloxicam No meloxicam [place] 15 mg 15 mg 15 mg [facility] tablet TAKE tablet TAKE tablet Urology 1 TABLET BY 1 TABLET BY TAKE 1 MOUTH EVERY MOUTH EVERY TABLET BY DAY DAY MOUTH EVERY DAY memantine memantine No memantine [place] 10 mg 10 mg 10 mg [facility] tablet TAKE tablet TAKE tablet Urology 1 TABLET BY 1 TABLET BY TAKE 1 MOUTH TWICE MOUTH TWICE TABLET BY A DAY A DAY MOUTH TWICE A DAY methylpredn methylpredn No methylpred [place] isolone 4 isolone 4 nisolone 4 [facility] mg tablets mg tablets mg tablets Urology in a dose in a dose in a dose pack pack pack montelukast montelukast No montelukas [place] 10 mg 10 mg t 10 mg [facility] tablet tablet tablet Urology Myrbetriq Myrbetriq No Myrbetriq [place] 50 mg 50 mg 50 mg [facility] tablet,exte tablet,exte tablet,ext Urology nded nded ended release release release TAKE 1 TAKE 1 TAKE 1 TABLET BY TABLET BY TABLET BY MOUTH EVERY MOUTH EVERY MOUTH DAY DAY EVERY DAY Namenda Namenda No Namenda [place] [facility] ofloxacin ofloxacin No ofloxacin [place] 0.3 % eye 0.3 % eye 0.3 % eye [facility] drops drops drops Urology promethazin promethazin No promethazi [place] e-DM 6.25 e-DM 6.25 ne-DM 6.25 [facility] mg-15 mg/5 mg-15 mg/5 mg-15 mg/5 Urology mL oral mL oral mL oral syrup TAKE syrup TAKE syrup TAKE 5ML BY 5ML BY 5ML BY MOUTH EVERY MOUTH EVERY MOUTH 4 HOURS 4 HOURS EVERY 4 HOURS sertraline sertraline No sertraline [place] 100 mg 100 mg 100 mg [facility] tablet tablet tablet Urology sertraline sertraline No sertraline [place] 50 mg 50 mg 50 mg [facility] tablet TAKE tablet TAKE tablet Urology 1 TABLET BY 1 TABLET BY TAKE 1 MOUTH EVERY MOUTH EVERY TABLET BY DAY IN THE DAY IN THE MOUTH MORNING MORNING EVERY DAY IN THE MORNING solifenacin solifenacin No solifenaci [place] 10 mg 10 mg n 10 mg [facility] tablet TAKE tablet TAKE tablet Urology 1 TABLET BY 1 TABLET BY TAKE 1 MOUTH EVERY MOUTH EVERY TABLET BY DAY DAY MOUTH EVERY DAY tramadol tramadol No tramadol [facility] [place] 37.5 37.5 37.5 [facility] mg-acetamin mg-acetamin mg-acetami Urology ophen 325 ophen 325 nophen 325 mg tablet mg tablet mg tablet TAKE 1 TAKE 1 TAKE 1 TABLET BY TABLET BY TABLET BY MOUTH MOUTH MOUTH EVERYDAY AT EVERYDAY AT EVERYDAY BEDTIME BEDTIME AT BEDTIME tramadol 50 tramadol 50 No tramadol [place] mg tablet mg tablet 50 mg Met[facility] o tablet Urology trazodone trazodone No trazodone [place] 50 mg 50 mg 50 mg [facility] tablet TAKE tablet TAKE tablet Urology 1 TABLET BY 1 TABLET BY TAKE 1 MOUTH MOUTH TABLET BY EVERYDAY AT EVERYDAY AT MOUTH BEDTIME BEDTIME EVERYDAY AT BEDTIME Vesicare Vesicare No Vesicare [facility] Vitamin B12 Vitamin B12 No Vitamin [place] B12 [facility] Vitamin C Vitamin C No Vitamin C [facility] Zoloft Zoloft No Zoloft [facility] U[facility] alendronate alendronate No alendronat [place] 70 mg 70 mg e 70 mg [facility] tablet TAKE tablet TAKE tablet Urology 1 TABLET BY 1 TABLET BY TAKE 1 MOUTH EVERY MOUTH EVERY TABLET BY WEEK WEEK MOUTH EVERY WEEK amlodipine amlodipine No amlodipine [place] 5 mg tablet 5 mg tablet 5 mg M etro TAKE 1 TAKE 1 tablet Urology TABLET BY TABLET BY TAKE 1 MOUTH EVERY MOUTH EVERY TABLET BY DAY FOR 90 DAY FOR 90 MOUTH DAYS DAYS EVERY DAY FOR 90 DAYS atorvastati atorvastati No atorvastat [place] n 20 mg n 20 mg in 20 mg [facility] tablet TAKE tablet TAKE tablet Urology 1 TABLET BY 1 TABLET BY TAKE 1 MOUTH EVERY MOUTH EVERY TABLET BY DAY DAY MOUTH EVERY DAY cyanocobala cyanocobala No 2000ug cyanocobal [place] min (vit min (vit bailey (vit Me tro B-12) ER B-12) ER B-12) ER Uro logy 2,000 mcg 2,000 mcg 2,000 mcg tablet,exte tablet,exte tablet,ext nded nded ended release release release 2000 ugs by 2000 ugs by 2000 ugs oral route. oral route. by oral route. donepezil donepezil No donepezil [place] 10 mg 10 mg 10 mg [facility] tablet TAKE tablet TAKE tablet Urology 1 TABLET BY 1 TABLET BY TAKE 1 MOUTH TWICE MOUTH TWICE TABLET BY A DAY A DAY MOUTH TWICE A DAY etodolac etodolac No etodolac [place] 400 mg 400 mg 400 mg [facility] tablet TAKE tablet TAKE tablet Urology 1 TABLET BY 1 TABLET BY TAKE 1 MOUTH TWICE MOUTH TWICE TABLET BY A DAY A DAY MOUTH TWICE A DAY gabapentin gabapentin No gabapentin [place] 300 mg 300 mg 300 mg [facility] capsule capsule capsule Urolog y Lagevrio Lagevrio No Lagevrio [place] 200 mg 200 mg 200 mg [facility] capsule capsule capsule Urolog y (EUA) TAKE (EUA) TAKE (EUA) TAKE 4 CAPSULES 4 CAPSULES 4 CAPSULES BY MOUTH BY MOUTH BY MOUTH TWICE DAILY TWICE DAILY TWICE DAILY meloxicam meloxicam No meloxicam [place] 15 mg 15 mg 15 mg [facility] tablet TAKE tablet TAKE tablet Urology 1 TABLET BY 1 TABLET BY TAKE 1 MOUTH EVERY MOUTH EVERY TABLET BY DAY DAY MOUTH EVERY DAY memantine memantine No memantine [place] 10 mg 10 mg 10 mg [facility] tablet TAKE tablet TAKE tablet Urology 1 TABLET BY 1 TABLET BY TAKE 1 MOUTH TWICE MOUTH TWICE TABLET BY A DAY A DAY MOUTH TWICE A DAY methylpredn methylpredn No methylpred [place] isolone 4 isolone 4 nisolone 4 [facility] mg tablets mg tablets mg tablets Urology in a dose in a dose in a dose pack pack pack montelukast montelukast No montelukas [place] 10 mg 10 mg t 10 mg [facility] tablet tablet tablet Urology Namenda Namenda No Namenda [place] [facility] promethazin promethazin No promethazi [place] e-DM 6.25 e-DM 6.25 ne-DM 6.25 [facility] mg-15 mg/5 mg-15 mg/5 mg-15 mg/5 Urology mL oral mL oral mL oral syrup TAKE syrup TAKE syrup TAKE 5ML BY 5ML BY 5ML BY MOUTH EVERY MOUTH EVERY MOUTH 4 HOURS 4 HOURS EVERY 4 HOURS sertraline sertraline No sertraline [place] 50 mg 50 mg 50 mg [facility] tablet TAKE tablet TAKE tablet Urology 1 TABLET BY 1 TABLET BY TAKE 1 MOUTH EVERY MOUTH EVERY TABLET BY DAY IN THE DAY IN THE MOUTH MORNING MORNING EVERY DAY IN THE MORNING tramadol tramadol No tramadol [place] 37.5 37.5 37.5 [facility] mg-acetamin mg-acetamin mg-acetami Urology ophen 325 ophen 325 nophen 325 mg tablet mg tablet mg tablet TAKE 1 TAKE 1 TAKE 1 TABLET BY TABLET BY TABLET BY MOUTH MOUTH MOUTH EVERYDAY AT EVERYDAY AT EVERYDAY BEDTIME BEDTIME AT BEDTIME trazodone trazodone No trazodone [place] 50 mg 50 mg 50 mg [facility] tablet TAKE tablet TAKE tablet Urology 1 TABLET BY 1 TABLET BY TAKE 1 MOUTH MOUTH TABLET BY EVERYDAY AT EVERYDAY AT MOUTH BEDTIME BEDTIME EVERYDAY AT BEDTIME Vitamin B12 Vitamin B12 No Vitamin [place] B12 [facility] Vitamin C Vitamin C No Vitamin C [facility] Zoloft Zoloft No Zoloft [facility] Urology alendronate alendronate No alendronat [place] 70 mg 70 mg e 70 mg [facility] tablet TAKE tablet TAKE tablet Urology 1 TABLET BY 1 TABLET BY TAKE 1 MOUTH ONE MOUTH ONE TABLET BY TIME PER TIME PER MOUTH ONE WEEK WEEK TIME PER WEEK aspirin 81 aspirin 81 No aspirin 81 [place] mg mg mg [facility] tablet,brendon tablet,brendon tablet,del Urology yed release yed release ayed TAKE 1 TAKE 1 release TABLET BY TABLET BY TAKE 1 MOUTH EVERY MOUTH EVERY TABLET BY DAY DAY MOUTH EVERY DAY atorvastati atorvastati No atorvastat [place] n 20 mg n 20 mg in 20 mg [facility] tablet TAKE tablet TAKE tablet Urology 1 TABLET BY 1 TABLET BY TAKE 1 MOUTH EVERY MOUTH EVERY TABLET BY DAY DAY MOUTH EVERY DAY butalbital- butalbital- No butalbital [place] acetaminoph acetaminoph -acetamino [facility] en-caffeine en-caffeine phen-caffe Urology 50 mg-300 50 mg-300 ine 50 mg-40 mg mg-40 mg mg-300 capsule capsule mg-40 mg TAKE 1 TAKE 1 capsule CAPSULE BY CAPSULE BY TAKE 1 MOUTH EVERY MOUTH EVERY CAPSULE BY 6 HOURS 6 HOURS MOUTH NEEDED FOR NEEDED FOR EVERY 6 PAIN PAIN HOURS NEEDED FOR PAIN chlordiazep chlordiazep No chlordiaze [place] oxide-clidi oxide-clidi poxide-cli [facility] nium 5 nium 5 dinium 5 Urology mg-2.5 mg mg-2.5 mg mg-2.5 mg capsule capsule capsule TAKE ONE TAKE ONE TAKE ONE (1) (1) (1) CAPSULE(S) CAPSULE(S) CAPSULE(S) BY MOUTH BY MOUTH BY MOUTH THREE TIMES THREE TIMES THREE A DAY A DAY TIMES A NEEDED. NEEDED. DAY NEEDED. clopidogrel clopidogrel No clopidogre [place] 75 mg 75 mg l 75 mg [facility] tablet TAKE tablet TAKE tablet Urology 1 TABLET BY 1 TABLET BY TAKE 1 MOUTH EVERY MOUTH EVERY TABLET BY DAY DAY MOUTH EVERY DAY folic acid folic acid No folic acid [place] 1 mg tablet 1 mg tablet 1 mg M etro TAKE ONE TAKE ONE tablet Urolo gy (1) (1) TAKE ONE TABLET(S) TABLET(S) (1) BY MOUTH BY MOUTH TABLET(S) DAILY. DAILY. BY MOUTH DAILY. gabapentin gabapentin No gabapentin [place] 300 mg 300 mg 300 mg [facility] capsule capsule capsule Urolog y TAKE 1 TAKE 1 TAKE 1 CAPSULE BY CAPSULE BY CAPSULE BY MOUTH THREE MOUTH THREE MOUTH TIMES A DAY TIMES A DAY THREE TIMES A DAY meloxicam meloxicam No meloxicam [place] 15 mg 15 mg 15 mg [facility] tablet TAKE tablet TAKE tablet Urology 1 TABLET BY 1 TABLET BY TAKE 1 MOUTH EVERY MOUTH EVERY TABLET BY DAY DAY MOUTH EVERY DAY memantine memantine No memantine [place] 10 mg 10 mg 10 mg [facility] tablet TAKE tablet TAKE tablet Urology 1 TABLET BY 1 TABLET BY TAKE 1 MOUTH TWICE MOUTH TWICE TABLET BY A DAY A DAY MOUTH TWICE A DAY montelukast montelukast No montelukas [place] 10 mg 10 mg t 10 mg [facility] tablet tablet tablet Urology sertraline sertraline No sertraline [place] 100 mg 100 mg 100 mg [facility] tablet tablet tablet Urology trazodone trazodone No trazodone [place] 50 mg 50 mg 50 mg [facility] tablet TAKE tablet TAKE tablet Urology 1 TABLET BY 1 TABLET BY TAKE 1 MOUTH MOUTH TABLET BY EVERYDAY AT EVERYDAY AT MOUTH BEDTIME BEDTIME EVERYDAY AT BEDTIME Ubrelvy 100 Ubrelvy 100 No Ubrelvy [place] mg tablet mg tablet 100 mg Met ro tablet Urology Vitamin B12 Vitamin B12 No Vitamin [place] B12 [facility] Vitamin C Vitamin C No Vitamin C [place] [facility] alendronate alendronate No alendronat [place] 70 mg 70 mg e 70 mg [facility] tablet TAKE tablet TAKE tablet Urology ONE (1) ONE (1) TAKE ONE TABLET(S) TABLET(S) (1) BY MOUTH BY MOUTH TABLET(S) ONCE ONCE BY MOUTH WEEKLY. WEEKLY. ONCE WEEKLY. amlodipine amlodipine No amlodipine [place] 5 mg tablet 5 mg tablet 5 mg M etro TAKE ONE TAKE ONE tablet Urolo gy (1) (1) TAKE ONE TABLET(S) TABLET(S) (1) BY MOUTH BY MOUTH TABLET(S) DAILY. DAILY. BY MOUTH DAILY. aspirin 81 aspirin 81 No aspirin 81 [place] mg mg mg [facility] tablet,brendon tablet,brendon tablet,del Urology yed release yed release ayed TAKE 1 TAKE 1 release TABLET BY TABLET BY TAKE 1 MOUTH EVERY MOUTH EVERY TABLET BY DAY DAY MOUTH EVERY DAY atorvastati atorvastati No atorvastat [place] n 20 mg n 20 mg in 20 mg [facility] tablet TAKE tablet TAKE tablet Urology ONE (1) ONE (1) TAKE ONE TABLET(S) TABLET(S) (1) BY MOUTH BY MOUTH TABLET(S) DAILY. DAILY. BY MOUTH DAILY. butalbital- butalbital- No butalbital [place] acetaminoph acetaminoph -acetamino [facility] en-caffeine en-caffeine phen-caffe Urology 50 mg-300 50 mg-300 ine 50 mg-40 mg mg-40 mg mg-300 capsule capsule mg-40 mg TAKE 1 TAKE 1 capsule CAPSULE BY CAPSULE BY TAKE 1 MOUTH EVERY MOUTH EVERY CAPSULE BY 6 HOURS 6 HOURS MOUTH NEEDED FOR NEEDED FOR EVERY 6 PAIN PAIN HOURS NEEDED FOR PAIN chlordiazep chlordiazep No chlordiaze [place] oxide-clidi oxide-clidi poxide-cli [facility] nium 5 nium 5 dinium 5 Urology mg-2.5 mg mg-2.5 mg mg-2.5 mg capsule capsule capsule TAKE ONE TAKE ONE TAKE ONE (1) (1) (1) CAPSULE(S) CAPSULE(S) CAPSULE(S) BY MOUTH BY MOUTH BY MOUTH THREE TIMES THREE TIMES THREE A DAY. A DAY. TIMES A DAY. clopidogrel clopidogrel No clopidogre [place] 75 mg 75 mg l 75 mg [facility] tablet TAKE tablet TAKE tablet Urology 1 TABLET BY 1 TABLET BY TAKE 1 MOUTH EVERY MOUTH EVERY TABLET BY DAY DAY MOUTH EVERY DAY donepezil donepezil No donepezil [place] 23 mg 23 mg 23 mg [facility] tablet TAKE tablet TAKE tablet Urology ONE (1) ONE (1) TAKE ONE TABLET(S) TABLET(S) (1) BY MOUTH BY MOUTH TABLET(S) ONCE A DAY. ONCE A DAY. BY MOUTH ONCE A DAY. folic acid folic acid No folic acid [place] 1 mg tablet 1 mg tablet 1 mg M etro TAKE ONE TAKE ONE tablet Urolo gy (1) (1) TAKE ONE TABLET(S) TABLET(S) (1) BY MOUTH BY MOUTH TABLET(S) DAILY. DAILY. BY MOUTH DAILY. gabapentin gabapentin No gabapentin [place] 300 mg 300 mg 300 mg [facility] capsule capsule capsule Urolog y TAKE ONE TAKE ONE TAKE ONE (1) (1) (1) CAPSULE(S) CAPSULE(S) CAPSULE(S) BY MOUTH BY MOUTH BY MOUTH THREE TIMES THREE TIMES THREE A DAY. A DAY. TIMES A DAY. meloxicam meloxicam No meloxicam [place] 15 mg 15 mg 15 mg [facility] tablet TAKE tablet TAKE tablet Urology ONE (1) ONE (1) TAKE ONE TABLET(S) TABLET(S) (1) BY MOUTH BY MOUTH TABLET(S) DAILY. DAILY. BY MOUTH DAILY. memantine memantine No memantine [place] 10 mg 10 mg 10 mg [facility] tablet TAKE tablet TAKE tablet Urology ONE (1) ONE (1) TAKE ONE TABLET(S) TABLET(S) (1) BY MOUTH BY MOUTH TABLET(S) TWICE A TWICE A BY MOUTH DAY. DAY. TWICE A DAY. montelukast montelukast No montelukas [place] 10 mg 10 mg t 10 mg [facility] tablet TAKE tablet TAKE tablet Urology ONE (1) ONE (1) TAKE ONE TABLET(S) TABLET(S) (1) BY MOUTH BY MOUTH TABLET(S) DAILY. DAILY. BY MOUTH DAILY. sertraline sertraline No sertraline [place] 100 mg 100 mg 100 mg [facility] tablet tablet tablet Urology trazodone trazodone No trazodone [place] 50 mg 50 mg 50 mg [facility] tablet TAKE tablet TAKE tablet Urology ONE (1) ONE (1) TAKE ONE TABLET(S) TABLET(S) (1) BY MOUTH BY MOUTH TABLET(S) ONCE A DAY ONCE A DAY BY MOUTH AT BEDTIME. AT BEDTIME. ONCE A DAY AT BEDTIME. Ubrelvy 100 Ubrelvy 100 No Ubrelvy [place] mg tablet mg tablet 100 mg Met ro tablet Urology Vitamin B12 Vitamin B12 No Vitamin [place] B12 [facility] Vitamin C Vitamin C No Vitamin C [place] [facility] Vital Signs Vital Name Observation Time Observation Value Comments Source Height 2023-02-12 00:00:00 60 [in_i] [facility] Height 2022-12-18 00:00:00 60 [in_i] [facility] BMI (Body Mass 2022-12-18 00:00:00 27.3 kg/m2 [place] [facility] Index) Urology Body Weight 2022-12-18 00:00:00 140 [lb_av] [facility] BP Diastolic 2022-09-19 00:00:00 63 mm[Hg] [facility] Height 2022-09-19 00:00:00 60 [in_i] [facility] BMI (Body Mass 2022-09-19 00:00:00 27.7 kg/m2 [place] [facility] Index) Urology BP Systolic 2022-09-19 00:00:00 133 mm[Hg] [facility] Body Weight 2022-09-19 00:00:00 142 [lb_av] [facility] Height 2022-08-07 00:00:00 60 [in_i] [facility] Height 2022-07-10 00:00:00 60 [in_i] [facility] BMI (Body Mass 2022-07-10 00:00:00 32.2 kg/m2 [place] [facility] Index) Urology Body Weight 2022-07-10 00:00:00 165 [lb_av] [facility] BP Diastolic 2022-07-03 00:00:00 67 mm[Hg] [facility] Height 2022-07-03 00:00:00 60 [in_i] [facility] BMI (Body Mass 2022-07-03 00:00:00 32.2 kg/m2 [place] [facility] Index) Urology BP Systolic 2022-07-03 00:00:00 116 mm[Hg] [facility] Body Weight 2022-07-03 00:00:00 165 [lb_av] [facility] BP Diastolic 2022-05-29 00:00:00 79 mm[Hg] [facility] Height 2022-05-29 00:00:00 60 [in_i] [facility] BMI (Body Mass 2022-05-29 00:00:00 32.2 kg/m2 [place] [facility] Index) Urology BP Systolic 2022-05-29 00:00:00 125 mm[Hg] [facility] Body Weight 2022-05-29 00:00:00 165 [lb_av] [facility] BP Diastolic 2022-05-03 00:00:00 70 mm[Hg] [facility] Height 2022-05-03 00:00:00 60 [in_i] [facility] BMI (Body Mass 2022-05-03 00:00:00 32.2 kg/m2 [place] [facility] Index) Urology BP Systolic 2022-05-03 00:00:00 167 mm[Hg] [facility] Body Weight 2022-05-03 00:00:00 165 [lb_av] [facility] BP Diastolic 2022-04-09 00:00:00 79 mm[Hg] [facility] Height 2022-04-09 00:00:00 60 [in_i] [facility] BMI (Body Mass 2022-04-09 00:00:00 32.2 kg/m2 [place] [facility] Index) [facility] BP Systolic 2022-04-09 00:00:00 128 mm[Hg] [facility] Body Weight 2022-04-09 00:00:00 165 [lb_av] [facility] BP Diastolic 2022-04-02 00:00:00 80 mm[Hg] [facility] Height 2022-04-02 00:00:00 60 [in_i] [facility] BMI (Body Mass 2022-04-02 00:00:00 32.2 kg/m2 [place] [facility] Index) Urology BP Systolic 2022-04-02 00:00:00 130 mm[Hg] [facility] Body Weight 2022-04-02 00:00:00 165 [lb_av] [place] [facility] BP Diastolic 2022-03-22 00:00:00 79 mm[Hg] [facility] Height 2022-03-22 00:00:00 60 [in_i] [facility] BMI (Body Mass 2022-03-22 00:00:00 32.2 kg/m2 [place] [facility] Index) Urology BP Systolic 2022-03-22 00:00:00 128 mm[Hg] [facility] Body Weight 2022-03-22 00:00:00 165 [lb_av] [facility] BP Diastolic 2022-02-06 00:00:00 72 mm[Hg] [facility] Height 2022-02-06 00:00:00 60 [in_i] [facility] BMI (Body Mass 2022-02-06 00:00:00 32.2 kg/m2 [place] [facility] Index) Urology BP Systolic 2022-02-06 00:00:00 132 mm[Hg] [facility] Body Weight 2022-02-06 00:00:00 165 [lb_av] [facility] BP Diastolic 2021-08-15 00:00:00 78 mm[Hg] [facility] Height 2021-08-15 00:00:00 60 [in_i] [facility] BMI (Body Mass 2021-08-15 00:00:00 32.2 kg/m2 [place] [facility] Index) Urology BP Systolic 2021-08-15 00:00:00 130 mm[Hg] [facility] Body Weight 2021-08-15 00:00:00 165 [lb_av] [facility] Systolic blood 2020-12-15 16:56:00 146 mm[Hg] [facility] Diastolic blood 2020-12-15 16:56:00 71 mm[Hg] [facility] Heart rate 2020-12-15 16:56:00 79 /[facility] Respiratory rate 2020-12-15 16:56:00 18 /min [facility] Oxygen saturation in 2020-12-15 16:56:00 100 /min [facility] Arterial blood by [facility] Pulse oximetry Branch Body temperature 2020-12-15 16:42:00 36.89 [facility]ksandra [facility] height 2020-11-29 15:55:00 162.6 cm [facility] Body weight 2020-11-29 15:55:00 67.1 kg [facility] BMI 2020-11-29 15:55:00 25.38 kg/m2 [facility] Systolic blood 2020-11-03 15:59:00 157 mm[Hg] [facility] Diastolic blood 2020-11-03 15:59:00 72 mm[Hg] [facility] Heart rate 2020-11-03 15:59:00 64 /min [facility] Respiratory rate 2020-11-03 15:59:00 16 /min [facility] Oxygen saturation in 2020-11-03 15:59:00 98 /min [facility] [place] [facility] Pulse oximetry Branch Body temperature 2020-11-03 15:45:00 36.56 Aleksandra [facility] Body height 2020-11-02 19:00:00 162.6 cm [facility] Body weight 2020-11-02 19:00:00 67.132 kg [facility] BMI 2020-11-02 19:00:00 25.40 kg/m2 [facility] Systolic blood 2020-11-03 15:59:00 157 mm[Hg] [facility] Diastolic blood 2020-11-03 15:59:00 72 mm[Hg] [facility] Heart rate 2020-11-03 15:59:00 64 /min [facility] Respiratory rate 2020-11-03 15:59:00 16 /min [facility] Oxygen saturation in 2020-11-03 15:59:00 98 /min [facility] by [place] [facility] last Pulse oximetry Branch Body temperature 2020-11-03 15:45:00 36.56 [facility]ksandra [facility] Body height 2020-11-02 19:00:00 162.6 cm [facility] Body weight 2020-11-02 19:00:00 67.132 kg [facility] BMI 2020-11-02 19:00:00 25.40 kg/m2 [facility] BP Diastolic 2020-04-20 00:00:00 80 mm[Hg] [place] [facility] Height 2020-04-20 00:00:00 60 [in_i] [place] [facility] BMI (Body Mass 2020-04-20 00:00:00 32.8 kg/m2 [place]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) [facility] BP Systolic 2020-04-20 00:00:00 136 mm[Hg] [place] [facility] Body Weight 2020-04-20 00:00:00 2684.8 [oz_av] [place]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 [facility] Temperature Oral (F) 2016-06-01 12:00:00 36.8 [facility] Heart Rate 2016-06-01 12:00:00 [facility] Respitory Rate 2016-06-01 12:00:00 [facility] Systolic (mm Hg) 2016-06-01 12:00:00 [place] Systolic (mm Hg) 2016-06-01 09:00:00 [facility] [place] Heart Rate 2016-06-01 09:00:00 [facility] Temperature Oral (F) 2016-06-01 09:00:00 36.9 [facility] Respitory Rate 2016-06-01 09:00:00 [facility] Respitory Rate 2016-06-01 05:00:00 [facility] [place] Heart Rate 2016-06-01 05:00:00 [facility] [place] Temperature Oral (F) 2016-06-01 05:00:00 36.6 [facility] Systolic (mm Hg) 2016-06-01 05:00:00 S[place] [facility] [place] Temperature Oral (F) 2016-05-31 14:50:00 36.7 [facility] [place] Weight 2016-05-31 11:31:00 [facility] Height 2016-05-31 11:31:00 154.94 cm [facility] Weight 2016-05-22 19:46:00 [facility] Height 2016-05-22 19:46:00 154.94 cm [facility] Procedures Procedure Date / Time Performing Clinician Source Performed CT, abdomen + pelvis, w/wo 2022-03-22 00:00:00 H marlene Salgado contrast Urology CONSENT/REFUSAL FOR 2020-12-13 15:36:49 Doctor Unassigned, Unive [facility] DIAGNOSIS AND TREATMENT [facility] ASSIGNMENT OF BENEFITS 2020-12-13 15:36:34 Doctor Unassigned, [facility] COVID-19 (ID NOW RAPID 2020-11-03 14:35:00 Gautam Boone [facility] TESTING) Medical Branch GASTRECTOMY 2016-05-31 13:36:00 Samia, [facility] LAPAROSCOPIC-LONGITUDINAL [place]eep P [id number] (Other)<sup>2</sup> EGD 2016-04-20 00:00:[address] [facility] Colonoscopy 2015-10-21 00:00:00 [facility] Cardiac 2015-06-21 00:00:00 [facility] catherization<sup>1</sup> foot surgery: removal of 2013-10-21 00:00:00 [facility] right hand 2009-10-21 00:00:00 [facility] bladder suspension 2000-10-21 00:00:00 [facility] Cholecystectomy 1998-10-21 00:00:00 [facility] Brain surgery 1997-10-21 00:00:00 [facility] Hysterectomy 1974-10-21 00:00:00 [facility] Appendectomy 1973-10-21 00:00:00 [facility] Tonsillectomy 1948-12-19 00:00:00 [facility] right carpal tunnel [facility] release Appendectomy [facility] Craniotomy [facility] Urinary Bladder [facility] Breast Biopsy [facility] Tonsillectomy [facility] Total Hysterectomy [facility] SKIN- Basel Cell [facility] Carcinoima Urology HEENT- Eye Surgery [facility] Urology HEENT- Cataract Surgery [facility] 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 [facility] Urology Colonoscopy [facility] Urology Cholecystectomy [facility] Urology GI- Bariatric Surgery [facility] tro (Obesity) Urology GI- Appendectomy [facility] Urology Plan of Care Planned Activity Planned Date Details Comments Source Future Scheduled Test 2023-08-14 Hepatitis C screening [facility] 14:55:21 (procedure) [code = 405484284] Future Scheduled Test 2023-08-14 SHINGLES VACCINES (1 [facility] 14:55:21 of 2) [code = SHINGLES VACCINES (1 of 2)] Future Scheduled Test 2023-08-14 65+ PNEUMOCOCCAL Me [facility] 14:55:21 VACCINE (1 - PCV) [code = 65+ PNEUMOCOCCAL VACCINE (1 - PCV)] Future Scheduled Test 2023-08-14 COVID-19 VACCINE (7 - [facility] 14:55:21 season) [code = COVID-19 VACCINE ( - season)] Future Scheduled Test 2023-08-14 INFLUENZA VACCINE M [facility] 14:55:21 (#1) [code = INFLUENZA VACCINE (#1)] Diagnostic Test 2023-02-12 urinalysis, dipstick [facility] Pending 00:00:00 [code = urinalysis, Urology dipstick] Diagnostic Test 2020-04-20 COVID-19 RNA [facility] Pending 00:00:00 (SARS-CoV-2), QL, [facility] claim review medical director-PCR, respiratory Outreac h Program specimen [code = COVID-19 RNA (SARS-CoV-2), QL, claim review medical director-PCR, respiratory specimen] Future Appointment 2023-12-03 Bruce Anderson, [id number] [facility] 14:30:00 [facility] Urology [address]; , [place] [address] Encounters Start End Encounter Admission Attending Care Care Encounter Source Date/Time Date/Time Type Type Clinicians Facility Department ID 2021-08-19 Outpatient CATHIE RODRIGUEZ ROXANA [id number] [facility] 20:35:38 [facility] 2021-08-19 Outpatient CATHIE RODRIGUEZ ROXANA [id number] Univers 15:49:54 JL [facility] 2023-07-11 2023-07-11 Outpatient MIGUEL MICHAEL [id number] 00:00:00 00:00:00 21 Ruben álvarez 2023-06-05 2023-06-05 Burce Zepeda [facility] [place] - [id number] [place] 00:00:00 00:00:00 Chang Anderson MD: [id number] [facility] [place] [facility] [address], [place] [address] , Ph. 2023-06-04 2023-06-04 Outpatient Hananel_A [facility]U [id number] [place] 00:00:00 00:00:00 [id number] [facility] 2023-06-04 2023-06-04 Outpatient Hananel_A [facility] HMU [id number] [place] 00:00:00 00:00:00 [id number] [facility] 2023-06-04 2023-06-04 Outpatient Hananel_A [facility]U [id number] [place] 00:00:00 00:00:00 [id number] [facility] 2023-02-12 2023-02-12 Outpatient Hananel_A [facility] HMU [id number] [place] 00:00:00 00:00:00 [id number] [facility] 2023-02-12 2023-02-12 Outpatient Hananel_A HMU HMU [id number] [place] 00:00:00 00:00:00 [id number] [facility] 2023-02-12 2023-02-12 Bruce Zepeda [facility] [place] - [id number] [place] 00:00:00 00:00:00 Chang Anderson MD: 55085 [facility] Urology [facility] [address], [place] [address] , Ph. 2023-01-29 2023-01-29 Outpatient MIGUEL MICHAEL [id number] 00:00:00 00:00:00 19 Ruben álvarez 2023-01-29 2023-01-29 Outpatient MIGUEL MICHAEL [id number] 00:00:00 00:00:00 11 Ruben álvarez 2023-01-29 2023-01-29 Outpatient MIGUEL MICHAEL [id number] 00:00:00 00:00:00 26 Ruben álvarez 2023-01-29 2023-01-29 Outpatient MIGUEL MICHAEL [id number] 00:00:00 00:00:00 28 Ruben álvarez 2022-12-31 2022-12-31 Outpatient MIGUEL MICHAEL [id number] 00:00:00 00:00:00 13 Ruben álvarez 2022-12-18 2022-12-18 Bruce Zepeda [facility] [place] - [id number] [place] 00:00:00 00:00:00 Chang Anderson MD: [id number] [facility] Urolog [facility] Urology [facility] [address], [place] [address] , Ph. 2022-12-06 2022-12-06 Outpatient MEGGAN MAYANK MHFB [id number] FB 12:57:00 13:40:00 NITHIN 2022-11-27 2022-11-27 Bruce Zepeda [facility] - [id number] [place] 00:00:00 00:00:00 Chang Anderson MD: [id number] [facility] [address], - [facility] [address] , Ph. 2022-09-20 2022-09-20 Outpatient MIGUEL MICHAEL [id number] 00:00:00 00:00:00 28 Ruben álvarez 2022-09-20 2022-09-20 Outpatient MIGUEL MICHAEL [id number] 00:00:00 00:00:00 27 Ruben álvarez 2022-09-20 2022-09-20 Outpatient Hananel_A HMU [facility] [id number] [place] 00:00:00 00:00:00 [id number] [facility] 2022-09-20 2022-09-20 Outpatient Hananel_A HM[facility] [id number] [place] 00:00:00 00:00:00 [id number] [facility] 2022-09-20 2022-09-20 Outpatient Hananel_A HM[facility] [id number] [place] 00:00:00 00:00:00 [id number] [facility] 2022-09-19 2022-09-19 Outpatient Hananel_A [facility] [id number] [place] 00:00:00 00:00:00 [id number] [facility] 2022-09-19 2022-09-19 Bruce Zepeda [facility] [place] - [id number] [place] 00:00:00 00:00:00 Chang Anderson MD: 78374 [facility] Swapnil Langstony [address], [place] [address] , Ph. 2022-09-17 2022-09-17 [facility] [id number] [place] 00:00:00 00:00:00 [id number] [facility] 2022-09-11 2022-09-11 Bruce Zepeda [facility] [id number] [place] 00:00:00 00:00:00 Chang Anderson MD: 4219 ro [address], - [facility] [address] , Ph. 2022-09-05 2022-09-05 Outpatient MIGUEL MICHAEL [id number] 00:00:00 00:00:00 16 Ruben álvarez 2022-09-04 2022-09-04 Outpatient Hananel_A [facility] [id number] [place] 00:00:00 00:00:00 [id number] [facility] 2022-08-09 2022-08-09 Outpatient Hananel_A [facility] [id number] [place] 00:00:00 00:00:00 [id number] [facility] 2022-08-08 2022-08-08 Outpatient Hananel_A [facility] [id number] [place] 00:00:00 00:00:00 [id number] [facility] 2022-08-07 2022-08-07 Outpatient Hananel_A [facility] [id number] [place] 00:00:00 00:00:00 [id number] [facility] 2022-08-07 2022-08-07 Bruce Zepeda [facility] [place] - [id number] [place] 00:00:00 00:00:00 Chang Anderson MD: 51693 [facility] Urology [facility] [address] [facility], [place] [address] , Ph. 2022-07-25 2022-07-25 Outpatient BRI_Dl MICHAEL [id number] 00:00:00 00:00:00 05 Ruben álvarez 2022-07-11 2022-07-11 Outpatient Hananel_A [facility] [id number] [place] 00:00:00 00:00:00 [id number] [facility] 2022-07-10 2022-07-10 Outpatient Hananel_A [facility] [id number] [place] 00:00:00 00:00:00 [id number] [facility] 2022-07-10 2022-07-10 Bruce Duane [facility] [place] - [id number] [place] 00:00:00 00:00:00 Chang Anderson MD: 23611 [facility] Urology [address] [address], [place] [address] , Ph. 2022-07-09 2022-07-09 Outpatient Hananel_A [facility] [id number] [place] 00:00:00 00:00:00 [id number] [facility] 2022-07-04 2022-07-04 Outpatient Hananel_A [facility] [id number] [place] 00:00:00 00:00:00 [id number] [facility] 2022-07-03 2022-07-03 Outpatient Ogletree_C U [facility] [id number] [place] 00:00:00 00:00:00 [id number] [facility] 2022-07-03 2022-07-03 Outpatient Kevin, Fermín U [id number] 00:00:00 00:00:00 Ramy [place] 69c-11ed-9 [id number] 2022-07-03 2022-07-03 Ramy [facility] [place] - [id number] Maxime rosario 00:00:00 00:00:00 Negin Sanchez Urolog y MD: 80124 Urology [place] [address] , Ph. 2022-06-29 2022-06-29 Outpatient Ogletree_C HMU HMU [id number] [place] 00:00:00 00:00:00 [id number] [facility] 2022-06-15 2022-06-15 Outpatient Ogletree_C HMU HMU [id number] [place] 00:00:00 00:00:00 [id number] [facility] 2022-05-30 2022-05-30 Outpatient Ogletree_C HMU HMU [id number] [place] 00:00:00 00:00:00 [id number] [facility] 2022-05-29 2022-05-29 Outpatient Ogletree_C HMU HMU [id number] [place] 00:00:00 00:00:00 [id number] [facility] 2022-05-29 2022-05-29 Ramy U [place] - [id number] [facility] 00:00:00 00:00:00 Negin Sanchez Urolog y MD: [address] [address] , Ph. 2022-05-29 2022-05-29 Outpatient Kevin, HMU HMU [id number] 00:00:00 00:00:00 Ramy Surya 81d-11ed-9 [id number] 2022-05-28 2022-05-28 Outpatient Ogletree_C HMU HMU [id number] [place] 00:00:00 00:00:00 [id number] [facility] 2022-05-04 2022-05-04 Outpatient Ogletree_C HMU HMU [id number] [place] 12:35:00 12:35:00 [id number] [facility] 2022-05-03 2022-05-03 Outpatient Ogletree_C HMU HMU [id number] [place] 04:49:00 04:49:00 [id number] [facility] 2022-05-032022-05-03 Ramy U [place] - [id number] [facility] 00:00:00 00:00:00 Negin Sanchez Urolog y : [address] [address] , Ph. 2022-05-03 2022-05-03 Outpatient Kevin, HMU HMU [id number] 00:00:00 00:00:00 Ramy London 3bf-[id number] [id number] 2022-04-19 2022-04-19 Outpatient BRI_Dl MICHAEL [id number] 00:00:00 00:00:00 30 Rubenaliza Marinelli henri 2022-04-10 2022-04-10 Outpatient Ogletree_C HMU HMU [id number] [place] 02:53:00 02:53:00 [id number] [facility] 2022-04-09 2022-04-09 Outpatient Ogletree_C HMU HMU [id number] [place] 10:01:00 10:01:00 [id number] [facility] 2022-04-09 2022-04-09 Ramy U [place] - [id number] [facility] 00:00:00 00:00:00 Negin Sanchez Urolog y : [address] [address] , Ph. 2022-04-09 2022-04-09 Outpatient Kevin, HMU HMU [id number] 00:00:00 00:00:00 Ramy [place] [id number] 2022-04-04 2022-04-04 Outpatient Ogletree_C HMU HMU [id number] [place] 07:44:00 07:44:00 [id number] [facility] 2022-04-03 2022-04-03 Outpatient Ogletree_C HMU HMU [id number] [place] 02:24:00 02:24:00 [id number] [facility] 2022-04-02 2022-04-02 Outpatient Ogletree_C HMU [facility] [id number] [place] 03:39:00 03:39:00 [facility] 2022-04-02 2022-04-02 Ramy [facility] [place] - [id number] [facility] 00:00:00 00:00:00 Surya Salgadoro Kevin, [facility] y MD: [id number] [address] , Ph. 2022-04-02 2022-04-02 Outpatient Kevin, HMU U [id number] [id number] 00:00:00 00:00:00 Ramy London t11-11mm-n [id number] 2022-03-30 2022-03-30 Outpatient KEVIN, [facility] [id number] [place] 00:00:00 00:00:00 RAMY [address] 2022-03-27 2022-03-27 Outpatient Ogletree_C U [facility] [id number] [place] 03:30:00 03:30:00 [id number] [facility] 2022-03-27 2022-03-27 Outpatient KEVIN, [facility] [id number] [place] 00:00:00 00:00:00 RAMY [address] 2022-03-22 2022-03-22 Outpatient Ogletree_C U [facility] [id number] [place] 03:31:00 03:31:00 [id number] [facility] 2022-03-22 2022-03-22 Ramy [facility] [place] - [id number] [facility] 00:00:00 00:00:00 Surya Kam Kevin, [facility] MD: [address] [address] , Ph. 2022-03-22 2022-03-22 Outpatient Kevin, [facility]U U acacd 6d0-e 00:00:00 00:00:00 Ramy London 5bc-11ec-8 [id number] 2022-02-12 2022-02-12 Outpatient Ogletree_C HMU HMU [id number] [place] 06:25:00 06:25:00 [facility] 2022-02-07 2022-02-07 Outpatient Ogletree_C HMU HMU [id number] [place] 02:47:00 02:47:00 [facility] 2022-02-06 2022-02-06 Outpatient Ogletree_C HMU HMU [id number] [place] 05:24:00 05:24:00 [facility] 2022-02-06 2022-02-06 Outpatient Kevin, HMU HMU [id number] 00:00:00 00:00:00 Ramy Medleyley 026-11ec-a [id number] 2022-02-06 2022-02-06 Ramy [facility] [place] [facility] [id number] [facility] 00:00:00 00:00:00 Surya Downing Negin Perry Urolog y MD: [address] [address] , Ph. 2022-02-05 2022-02-05 Outpatient Ogletree_C HMU HMU [id number] [place] 06:04:00 06:04:00 [id number] [facility] 2021-08-17 2021-08-17 Outpatient Ogletree_C HMU HMU [id number] [place] 02:29:00 02:29:00 [id number] [facility] 2021-08-15 2021-08-15 Outpatient Ogletree_C HMU HMU [id number] [place] 03:32:00 03:32:00 [id number] [facility] 2021-08-15 2021-08-15 Ramy U [place] - [id number] [facility] 00:00:00 00:00:00 Surya Negin Moraes Urolog y MD: [address] [address] , Ph. 2021-08-15 2021-08-15 Outpatient Kevin, HMU HMU [id number] 00:00:00 00:00:00 Ramy London [id number] 2021-08-03 2021-08-03 Outpatient Ogletree_C U U [id number] [place] 04:23:00 04:23:00 [id number] [facility] 2020-12-15 2020-12-15 [facility] 1.2.840.114 [id number] Univers 08:35:00 11:12:00 Encounter Jl Mart[place] 350.1.13.10 ity [place] [id number] [facility] 071 Branch 2020-12-13 2020-12-13 Laboratory Only, Adc Test RUST 1.2.840. 114 [id number] Univers 09:34:03 09:49:03 Only Jl Harris 350.1.1 3.10 ity of [place].686 [place] [id number] [facility] 353 Branch 2020-12-13 2020-12-13 Outpatient R [facility] [id number] Univers 09:15:00 09:15:00 JL plaza [facility] 2020-12-13 2020-12-13 Orders Doctor ELIZABETH 1.2.840.114 [id number] Univers 00:00:00 00:00:00 Only Unassigned, GABRIELA 350.1.13.10 ity of [facility] 4.2.7.2.686 Lul as [id number] [facility] 009 Branch 2020-11-03 2020-11-03 [facility] 1.2.840.114 [id number] Univers 07:14:00 10:11:00 Encounter Jl Mart[place] 350.1.13.10 [place] [id number] [facility] 071 Branch 2020-11-03 2020-11-03 [facility] 1.2.840.114 [id number] 07:14:00 10:11:00 Encounter Jl Martines 350.1.13.10 [place] 4.2.7.2.686 Surgical [id number] [place] 071 2020-11-02 2020-11-02 Outpatient Jersey [facility] [id number] Univers 09:15:00 09:15:00 JL plaza [facility] 2020-10-27 2020-10-27 Vp Platforms Mirta, [facility] Lab Main [place] 1.2.8 40.114 [id number] Univers 15:33:50 15:48:50 Visit Lisa Jl [place] 350.1.1 3.10 [facility] 4.2.7.2.[place] [id number] Nv dical [address] 2020-10-27 2020-10-27 Vp Platforms Mir[place], [facility] 1.2.840.114 [id number] 15:33:50 15:48:50 Visit Lab Main [place] 350.1.13.10 [place] 4.2.7.2.686 Professio [id number] [address] 2020-10-27 2020-10-27 Outpatient Jersey [facility] [id number] Univers 15:45:00 15:45:00 JL plaza [facility] 2020-04-20 2020-04-20 Outpatient AMBREEN_RICARDO DAVE [facility] 109 255- [place] 05:30:00 05:30:00 RYDER [id number] [facility] 2020-04-20 2020-04-20 Kimberly [facility] [place] - [id number] M at[place]or 00:00:00 00:00:00 Lizzy Loya MD: 1700 [facility] di [place], [place] Outre [address] h , Ph. Program 2020-04-19 2020-04-19 Outpatient AMBREEN_RICARDO CTDAMIAN [facility] [id number] [place] 01:52:00 01:52:00 RYDER 44556 [facility] 2016-05-31 2016-06-01 Outpatient 2.16.840. 2.16.840.1. 3 [id number] Memoria 05:46:47 11:00:00 [id number]. [id number] l 3.2081.20 81.2000 [place] n [facility] 2016-05-31 2016-06-01 Inpatient nullFlavo [facility] [id number] [facility] 05:46:47 11:00:00 jersey Sellers Results Test Description Test Time Test Comments Results Result Comments Source Urinalysis macro (dipstick) panel - Urine 2023-02-12 14:51:0 0 Test Item Value Reference Range Interpretation Comme nts leukocytes (test code = negative neg leukocytes) urobilinogen (test code = 0.2 E.U./dL sm amt (.5-1mg/dL) urobilinogen) protein (test code = negative See_Comment [Autom ated message] The protein) system which ge nerated this result tra nsmitted reference range : <=150 mg/d. The refer ence range was not used to interpret this result as normal/abnormal . pH (test code = pH) 7.0 4.5-8 blood (test code = blood) negative See_Comment [ Automated message] The system which ge nerated this result tra nsmitted reference range : <=3 RBC. The reference r meenakshi was not used to int erpret this result as normal/abnormal . specific gravity (test code 1.010 1.005-1.025 = specific gravity) ketone (test code = ketone) negative none bilirubin (test code = negative neg bilirubin) glucose (test code = negative See_Comment [Autom ated message] The glucose) system which ge nerated this result tra nsmitted reference range : <=130 mg/d. The refer ence range was not used to interpret this result as normal/abnormal . color (test code = color) yellow yellow clarity (test code = clear clear or cloudy clarity) nitrite (test code = negative neg nitrite) Chang Kam UrologyCOVID-19 (ID NOW RAPID TESTING)2020-11-03 14:55:00 Test Item Value Reference Range Interpretation Comments SARS-CoV-2 Rapid ID NOW Not Detected Not Detected (test code = 97934-2) MARCUS (test code = MARCUS) ID NOW COVID-19 Assay is an isothermal nucleic acid amplification test intended for the qualitative detection of nucleic acid from SARS-CoV-2 viral RNA in nasopharyngeal (FISH WARDEN) specimens. It is used under Emergency Use Authorization (EUA) by FDA. The limit of detection (LOD) of the assay is 125 Genome Equivalents/mL. A positive result is indicative of the presence of SARS-CoV-2 RNA. ?Clinical correlation with patient history and other diagnostic information is necessary to determine patient infection status. A negative (Not Detected) result does not preclude SARS-CoV-2 infection. In patients with clinical symptoms and other tests that are consistent with SARS-CoV-2 infection, negative results should be treated as presumptive negative and a new specimen should be tested with alternative PCR molecular test. Invalid: Please collect a new specimen for repeat patient testing if clinically indicated. Lab Interpretation Normal (test code = 63132-0) [facility] 2 [id number] 09:21:00Reason for Exam:->[id number] REPORT Chest, PA and lateral. History: I10. Comparison: 07/31/2017. Discussion: The cardiomediastinal silhouette and pulmonary vasculature are within normal limits. The lungsare clear without evidence of consolidation or effusion. There are no acute osseous abnormalities. The soft tissues are unremarkable. IMPRESSION: No acute cardiopulmonary abnormality. Signed: Elba Daly MDReport Verified Date/Time: 10/29/2018 09:21:10 Reading Location: [address] Radiology Reading Room LIPID [id number] 11:46:00 Test Item Value Reference Range Interpretation Comments TRIGLYCERIDES (BEAKER) (test code = 91 mg/dL 540) CHOLESTEROL (BEAKER) (test code = 181 mg/dL 631) HDL CHOLESTEROL (BEAKER) (test code 55 mg/dL = 976) LDL CHOLESTEROL CALCULATED (BEAKER) 108 mg/dL (test code = 633) Triglyceride Reference Range: Low Risk <150 Borderline 150-199 High Risk 200- 499 Very High Risk >=500Cholesterol Reference Range: Low Risk <200 Borderline 200-239 High Risk >240HDL Cholesterol Reference Range: Low Risk >=60 High Risk <40LDL Cholesterol Reference Range: Optimal <100 Near Optimal 100-129 Borderline 130-159 High 160-189 Very High >=190BASIC METABOLIC [id number] 11:46:00 Test Item Value Reference Range Interpretation Comments SODIUM (BEAKER) 143 meq/L 136-145 (test code = 381) POTASSIUM (BEAKER) 4.3 meq/L 3.5-5.1 (test code = 379) CHLORIDE (BEAKER) 106 meq/L 98-107 (test code = 382) CO2 (BEAKER) (test 31 meq/L 22-29 H code = 355) BLOOD UREA NITROGEN 13 mg/dL 7-21 (BEAKER) (test code = 354) CREATININE (BEAKER) 0.83 mg/dL 0.57-1.25 (test code = 358) GLUCOSE RANDOM 92 mg/dL 70-105 (BEAKER) (test code = 652) CALCIUM (BEAKER) 8.7 mg/dL 8.4-10.2 (test code = 697) EGFR (BEAKER) (test 68 mL/min/1.73 ESTIMA PIA GFR IS code = 1092) sq m NOT ACCURATE CREATININE CLEARANCE IN PREDICTING GLOMERULAR FILTRATION RATE . ESTIMATED GFR I S NOT APPLICABLE FOR DIALYSIS PATIEN TS. HEPATIC FUNCTION [id number] 11:46:00 Test Item Value Reference Range Interpretation Comments TOTAL PROTEIN (BEAKER) (test code = 6.4 gm/dL 6.0-8.3 770) ALBUMIN (BEAKER) (test code = 1145) 3.6 g/dL 3.5-5.0 BILIRUBIN TOTAL (BEAKER) (test code 0.3 mg/dL 0.2-1.2 = 377) BILIRUBIN DIRECT (BEAKER) (test 0.2 mg/dL 0.1-0.5 code = 706) ALKALINE PHOSPHATASE (BEAKER) (test 71 U/L 40-150 code = 346) AST (SGOT) (BEAKER) (test code = 21 U/L 5-34 353) ALT (SGPT) (BEAKER) (test code = 16 U/L 6-55 347) CBC W/PLT COUNT & AUTO [id number] 10:44:00 Test Item Value Reference Range Interpretation Comments WHITE BLOOD CELL COUNT (BEAKER) 6.2 K/ L 3.5-10.5 (test code = 775) RED BLOOD CELL COUNT (BEAKER) 4.25 M/ L 3.93-5.22 (test code = 761) HEMOGLOBIN (BEAKER) (test code = 13.1 GM/DL 11.2-15.7 410) HEMATOCRIT (BEAKER) (test code = 40.7 % 34.1-44.9 411) MEAN CORPUSCULAR VOLUME (BEAKER) 95.8 fL 79.4-94.8 H (test code = 753) MEAN CORPUSCULAR HEMOGLOBIN 30.8 pg 25.6-32.2 (BEAKER) (test code = 751) MEAN CORPUSCULAR HEMOGLOBIN CONC 32.2 GM/DL 32.2-35.5 (BEAKER) (test code = 752) RED CELL DISTRIBUTION WIDTH 13.2 % 11.7-14.4 (BEAKER) (test code = 412) PLATELET COUNT (BEAKER) (test 247 K/CU MM 150-450 code = 756) MEAN PLATELET VOLUME (BEAKER) 10.1 fL 9.4-12.3 (test code = 754) NUCLEATED RED BLOOD CELLS 0 /100 WBC 0-0 (BEAKER) (test code = 413) NEUTROPHILS RELATIVE PERCENT 64 % (BEAKER) (test code = 429) LYMPHOCYTES RELATIVE PERCENT 24 % (BEAKER) (test code = 430) MONOCYTES RELATIVE PERCENT 8 % (BEAKER) (test code = 431) EOSINOPHILS RELATIVE PERCENT 3 % (BEAKER) (test code = 432) BASOPHILS RELATIVE PERCENT 1 % (BEAKER) (test code = 437) NEUTROPHILS ABSOLUTE COUNT 3.99 K/ L 1.56-6.13 (BEAKER) (test code = 670) LYMPHOCYTES ABSOLUTE COUNT 1.51 K/ L 1.18-3.74 (BEAKER) (test code = 414) MONOCYTES ABSOLUTE COUNT (BEAKER) 0.47 K/ L 0.24-0.36 H (test code = 415) EOSINOPHILS ABSOLUTE COUNT 0.20 K/ L 0.04-0.36 (BEAKER) (test code = 416) BASOPHILS ABSOLUTE COUNT (BEAKER) 0.05 K/ L 0.01-0.08 (test code = 417) IMMATURE GRANULOCYTES-RELATIVE 0 % 0-1 PERCENT (BEAKER) (test code = 2801) RAD, CHEST, 2 [id number] 10:21:00Reason for Exam:->anemiaFINAL REPORT Chest, PA and lateral. History: Anemia. Comparison: 01/23/2017. Discussion: The cardiomediastinal silhouette and pulmonary vasculature are within normal limits. The lungs are clear without evidence of consolidation or effusion. There are no acute osseous abnormalities. The soft tissues are unremarkable. IMPRESSION: No acute cardiopulmonary abnormality. Signed: Elba Daly MDReport Verified Date/Time: 07/31/2017 10:21:25 Reading Location: [address] Radiology Reading Room [id number] 09:07:00 Test Item Value Reference Range Interpretation Comments BUN (test code = BUN) 11 7-22 [id number] 09:07:00 Test Item Value Reference Range Interpretation Comments Creatinine (test code = Creatinine) 0.90 0.50-1.40 [facility] ClinicCbjxgwmGQWAUMARPK6035-12-65 09:07:00 Test Item Value Reference Range Interpretation Comments Albumin Lvl (test code = Albumin Lvl) 3.3 3.5-5.0 L [facility] Clin[id number] 09:07:00 Test Item Value Reference Range Interpretation Comments Carbon Dioxide Level (test code = 32 24-32 Carbon Dioxide Level) [facility] ClinicLwcvbzmWPYYTFQHMC4827-29-51 09:07:00 Test Item Value Reference Range Interpretation Comments AGAP (test code = AGAP) 11.0 10.0-20.0 [facility] C[id number] 09:07:00 Test Item Value Reference Range Interpretation Comments Glucose Lvl (test code = Glucose Lvl) 95 70-99 [facility] ClinicQkghcpmGMKSVICFAK1017-13-84 09:07:00 Test Item Value Reference Range Interpretation Comments Calcium Level (test code = Calcium 8.4 8.5-10.5 L Level) [facility] Clin[id number] 09:07:00 Test Item Value Reference Range Interpretation Comments Protein Total (test code = Protein 6.1 6.4-8.4 L Total) [facility] ClinicEcgotvyYFDSXAGCON5371-92-82 09:07:00 Test Item Value Reference Range Interpretation Comments Globulin (test code = Globulin) 2.8 2.7-4.2 [facility] Clin[id number] 09:07:00 Test Item Value Reference Range Interpretation Comments Alb/Glob Ratio (test code = Alb/Glob 1.2 0.7-1.6 Ratio) [facility] Clin[id number] 09:07:00 Test Item Value Reference Range Interpretation Comments AST (test code = AST) 44 <=37 H [facility] Clin[id number] 09:07:00 Test Item Value Reference Range Interpretation Comments ALT (test code = ALT) 37 <=65 [facility] ClinicYpiclujEODQESDGBW9484-02-55 09:07:00 Test Item Value Reference Range Interpretation Comments Alk Phos (test code = Alk Phos) 65 39-136 [facility] ClinicXsmcgohDMUFKVXMXC7811-67-29 09:07:00 Test Item Value Reference Range Interpretation Comments Results (test code = Reported (06/01/2016 Results) 04:07:00) [facility] [id number] 09:07:00 Test Item Value Reference Range Interpretation Comments Red Blood Cell Count (test code = Red 4.25 4.20-5.40 Blood Cell Count) [facility] ClinicBreklqaTFMCXEBGDW0476-13-44 09:07:00 Test Item Value Reference Range Interpretation Comments Hematocrit (test code = Hematocrit) 39.7 36.0-48.0 [facility] ClinicFjpbpoiDUWKLZBLIE3067-95-79 09:07:00 Test Item Value Reference Range Interpretation Comments White Blood Count (test code = White 12.1 3.7-10.4 H Blood Count) [facility] Clin[id number] 09:07:00 Test Item Value Reference Range Interpretation Comments Hemoglobin (test code = Hemoglobin) 13.1 12.0-16.0 [facility] ClinicFzjwmsaWNJUCTVVWC8142-62-84 09:07:00 Test Item Value Reference Range Interpretation Comments MCV (test code = MCV) 93.4 80.0-98.0 [facility] [id number] 09:07:00 Test Item Value Reference Range Interpretation Comments MCH (test code = MCH) 30.7 pg 27.0-31.0 [facility] ClinicYbyxzkkKMRUAFDBST2908-01-17 09:07:00 Test Item Value Reference Range Interpretation Comments MCHC (test code = MCHC) 32.9 32.0-36.0 [facility] ClinicHluuodrKELOQDBUMI5887-96-21 09:07:00 Test Item Value Reference Range Interpretation Comments Platelet (test code = Platelet) 191 133-450 [facility] ClinicDudngbmYAANUBVPOG4572-64-42 09:07:00 Test Item Value Reference Range Interpretation Comments RDW (test code = RDW) 13.7 11.5-14.5 [facility] ClinicWjwppufESFFEQFZFP7494-90-32 09:07:00 Test Item Value Reference Range Interpretation Comments MPV (test code = MPV) 9.9 7.4-10.4 [facility] ClinicDisyiayHHAGDLPOXN7227-89-92 09:07:00 Test Item Value Reference Range Interpretation Comments Results (test code = Reported (06/01/2016 Results) 04:07:00) [facility] Clin[id number] 09:07:00 Test Item Value Reference Range Interpretation Comments PLT Morph (test code = PLT Morph) Normal [facility] ClinicIqugpvkLRQNQJWZHF8114-77-87 09:07:00 Test Item Value Reference Range Interpretation Comments RBC Morph (test code = RBC Morph) Normal [facility] ClinicBfdpirgVRWTFQNUMI3752-16-71 09:07:00 Test Item Value Reference Range Interpretation Comments Basophil # (test code = Basophil #) 0.0 <=0.2 [facility] Clin[id number] 09:07:00 Test Item Value Reference Range Interpretation Comments Monocyte % (test code = Monocyte %) 7.5 2.0-12.0 [facility] ClinicQuheasfROPBSIWRCL2526-28-32 09:07:00 Test Item Value Reference Range Interpretation Comments Eosinophil # (test code = Eosinophil #) 0.2 <=4.0 [facility] ClinicQirugtsCAVPSJLYVK1264-85-24 09:07:00 Test Item Value Reference Range Interpretation Comments Neutrophil % (test code = Neutrophil %) 80.9 45.0-75.0 H [facility] Clin[id number] 09:07:00 Test Item Value Reference Range Interpretation Comments Lymphocyte % (test code = Lymphocyte %) 11.2 20.0-40.0 L [facility] ClinicAzqjqxwMNMDPCXIUY6107-17-24 09:07:00 Test Item Value Reference Range Interpretation Comments Basophil % (test code = Basophil %) 0.2 <=1.0 [facility] ClinicYoqpehpGWBYPGXNAF7527-97-49 09:07:00 Test Item Value Reference Range Interpretation Comments Neutrophil # (test code = Neutrophil #) 9.8 1.5-8.1 H [facility] ClinicKjudrcbKILNFYUTQB6933-88-95 09:07:00 Test Item Value Reference Range Interpretation Comments Lymphocyte # (test code = Lymphocyte #) 1.4 1.0-5.5 [facility] Clin[id number] 09:07:00 Test Item Value Reference Range Interpretation Comments Eosinophil % (test code = Eosinophil %) 0.0 <=0.5 [facility] ClinicVkmyvnoHQDBWDTUMX8197-37-22 09:07:00 Test Item Value Reference Range Interpretation Comments Monocyte # (test code = Monocyte #) 0.9 <=0.8 H [facility] ClinicO[id number] 09:07:00 Test Item Value Reference Range Interpretation Comments Results (test code = Reported (06/01/2016 Results) 04:07:00) [facility] [id number] 09:07:00 Test Item Value Reference Range Interpretation Comments Bilirubin Total (test code = Bilirubin 0.4 0.2-1.3 Total) [facility] ClinicDemrzmzUSBECZBDGD0701-17-84 09:07:00 Test Item Value Reference Range Interpretation Comments eGFR (test code = eGFR) 66 [facility] Clin[id number] 09:07:00 Test Item Value Reference Range Interpretation Comments Sodium Level (test code = Sodium Level) 142 135-145 [facility] ClinicLyxxdzpRHJLTZNCNT0924-29-00 09:07:00 Test Item Value Reference Range Interpretation Comments Potassium Level (test code = Potassium 5.0 3.5-5.1 Level) [facility] ClinicCwxmwnuFLGZTKXJIH7614-52-16 09:07:00 Test Item Value Reference Range Interpretation Comments Chloride Level (test code = Chloride 104 95-109 Level) [facility]
[2023-08-25 06:32] LABS: Absolute Lymphocytes (CBC) 1.1 K/uL (0.7-4.9); Hematocrit 38.6 % (36.0-45.0); Lymphocytes % 19.7 % (15.3-44.8); MCV 91.6 fL (80-100); MPV 8.3 fL (7.6-11.3); Platelets 219 thou/uL (152-406); RBC Red Blood Cell Count 4.21 M/uL (3.86-4.86)
[2023-08-25] MEDS ORDERED: PROMETHAZINE 25 MG TABLET ONE (06:43)
[2023-08-25] MEDS ORDERED: DICYCLOMINE HCL 10 MG CAP ONE (06:44)
[2023-08-25] MEDS ORDERED: ONDANSETRON 4 MG/2 ML VIAL ONE (06:44)
[2023-08-25] MEDS ORDERED: HYDROCODONE/APAP 10/325 TAB ONE (06:44)
[2023-08-25 06:54] LABS: Albumin 3.1 g/dL (3.4-5.0); Bilirubin Total 0.6 mg/dL (0.2-1.0); Potassium 3.4 mEq/L (3.5-5.1); Protein, Total 6.2 g/dL (6.4-8.2)
[2023-08-25 08:12] LABS: Urine Bacteria <20 /HPF (<20); Urine Bilirubin NEGATIVE (Negative); Urine Blood Negative (Negative); Urine Clarity Extremely Turbid (Clear); Urine Color Yellow (Yellow); Urine Crystals Unidentified Few /HPF (None Seen); Urine Glucose NEGATIVE (Negative); Urine Mucus 2+ /HPF (None Seen); Urine Protein 1+ (Negative); Urine RBC >50 /HPF (None Seen); Urine Urobilinogen 1+ (Normal); Urine pH 6.5 (5.0-7.0)
[2023-08-25 08:15] LABS: Specific Gravity > 1.030 (1.005-1.030)
--- NOTE | 2023-08-25 08:41 | RAD REPORT ---
EXAM DESCRIPTION: CT - Abdomen Pelvis W Contrast - 08/25/2023 7:47 am CLINICAL HISTORY: ABD PAIN COMPARISON: No comparisons TECHNIQUE: Thin cut axial CT imaging of the abdomen and pelvis was performed following intravenous a dministration of 100 mL Isovue 300. Multiplanar reformats were generated and reviewed. All CT scans are performed using dose optimization technique as appropriate and may include automated exposure control or mA/KV adjustment according to patient size. FINDINGS: No suspicious findings in the lung bases. The liver, spleen, adrenal glands, and pancreas show no suspicious findings. Gallbladder was surgical ly removed. Prominent caliber of the common bile duct, up to 13 millimeter, may be related to post ch olecystectomy status Symmetric renal function is seen with no hydronephrosis or suspicious renal mass. Sequelae of gastric bypass. No dilated bowel loops or bowel wall thickening. Colonic diverticulosis. No free air, free fluid or inflammatory stranding. No hernia, mass or bulky lymphadenopathy. The urinary bladder is decompressed limiting evaluation. Large calcifications just inferior to the bl adder, may be at the bladder neck or within the prostate gland. Correlate for prior history of prosta tectomy. No suspicious bony findings. Nerve stimulator in place. IMPRESSION: No acute intra-abdominal process. Prominent common bile duct which may relate to postcholecystectomy status. Please correlate clinicall y
[2023-08-25] MEDS ORDERED: NA CHLORIDE 0.9% 500 ML ONE (09:06)
--- NOTE | 2023-08-25 09:39 | EDPHYS ---
Physician Documentation [facility] Name: Korina Matias Age: 78 yrs Sex: Female : 1945 Arrival Date: 08/25/2023 Time: 05:46 Bed 14 Private MD: ED Physician Saud Wayne HPI: 08/25 06:06 This 78 yrs old Female presents to ER via Unassigned with complaints of sp4 Nausea/Vomiting/Diarrhea. 06:33 78-year-old female presents with acute onset nausea vomiting 3 weeks ago. Patient sp4 states everything she eats comes right back up. Patient feels she may be getting dehydrated. . Historical: - Allergies: 06:15 No Known Allergies; km8 - Home Meds: 06:15 None [Active]; km8 - PMHx: 06:15 Transient cerebral ischemia; km8 09:47 thyroid cancer; cervical cancer; melanoma; bladder cancer; kc6 - PSHx: 06:24 Appendectomy; Total abdominal hysterectomy; Cholecystectomy; bladder surgery; km8 - Immunization history:: Adult Immunizations up to date, Client reports receiving the 2nd dose of the Covid vaccine, Flu vaccine is up to date. - Social history:: Smoking status: Patient denies any tobacco usage or history of. Patient uses alcohol, but reports only rare drinking. Patient/guardian denies using street drugs. - Family history:: not pertinent. ROS: 06:33 Constitutional: Negative for fever, chills, and weight loss, Abdomen/GI: Positive sp4 nausea vomiting and diarrhea., Negative abdominal pain 06:33 All other systems are negative, Exam: 06:33 Constitutional: This is a well developed, well nourished patient who is awake, alert, sp4 and in no acute distress. Head/Face: Normocephalic, atraumatic. Eyes: Pupils equal round and reactive to light, extra-ocular motions intact. Lids and lashes normal. Conjunctiva and sclera are not injected. Cornea within normal limits. Periorbital areas with no swelling, redness, or edema. ENT: Nares patent. No nasal discharge, no septal abnormalities noted. Tympanic membranes are normal and external auditory canals are clear. Oropharynx with no redness, swelling, or masses, exudates, or evidence of obstruction, uvula midline. Mucous membranes moist. Neck: Trachea midline, no thyromegaly or masses palpated, and no cervical lymphadenopathy. Supple, full range of motion without nuchal rigidity, or vertebral point tenderness. Chest/axilla: Normal chest wall appearance and motion. Nontender with no deformity. No lesions are appreciated. Cardiovascular: Regular rate and rhythm with a normal S1 and S2. No gallops, murmurs, or rubs. Normal PMI, no JVD. No pulse deficits. Respiratory: Lungs have equal breath sounds bilaterally, clear to auscultation and percussion. No rales, rhonchi or wheezes noted. No increased work of breathing, no retractions or nasal flaring. Abdomen/GI: Soft, non-tender, with normal bowel sounds. No distension or tympany. No guarding or rebound. No evidence of tenderness throughout. Back: No spinal tenderness. No costovertebral tenderness. Skin: Warm, dry with normal turgor. Normal color with no rashes, no lesions, and no evidence of cellulitis. MS/ Extremity: Pulses equal, no cyanosis. Neurovascular intact. Full, normal range of motion. Neuro: Awake and alert, GCS 15, oriented to person, place, time, and situation. Cranial nerves II-XII grossly intact. Motor strength 5/5 in all extremities. Sensory grossly intact. Psych: Awake, alert, with orientation to person, place and time. Behavior, mood, and affect are within normal limits Vital Signs: 06:13 BP 135 / 62; Pulse 63; Resp 16; Temp 98.1(O); Pulse Ox 98% on R/A; Pain 8/10; km8 06:24 Weight 53.52 kg; Height 5 ft. 0 in. ; km8 08:00 BP 128 / 63; Pulse 42; Resp 14 S; Pulse Ox 93% on R/A; kc6 08:34 BP 95 / 55; Pulse 41; Resp 14 S; Pulse Ox 91% on R/A; kc6 08:56 BP 97 / 62; Pulse 47; Resp 14 S; Pulse Ox 100% on R/A; kc6 09:37 BP 133 / 52; Pulse 40; Resp 18 S; Pulse Ox 97% on R/A; kc6 11:21 BP 120 / 53; Pulse 42; Resp 18 S; Pulse Ox 95% on R/A; kc6 06:24 Body Mass Index 23.05 (53.52 kg, 152.4 cm) km8 06:13 Pain Scale: Adult km8 Branden Coma Score: 06:17 Eye Response: spontaneous(4). Motor Response: obeys commands(6). Verbal Response: km8 oriented(5). Total: 15. MDM: 06:17 Patient medically screened. sp4 09:28 Differential diagnosis: Nonspecific abd pain, pancreatitis, appendicitis, rn diverticulitis, viral gastroenteritis, gastroenteritis. Data reviewed: vital signs, nurses notes, lab test result(s), radiologic studies, CT scan, and as a result, I will admit patient. Consideration of Admission/Observation Patient was admitted/placed on observation. Escalation of care including admission/observation considered. Management of patient was discussed with the following: Hospitalist: Will admit patient. I considered the following discharge prescriptions or medication management in the emergency department. Counseling: I had a detailed discussion with the patient and/or guardian regarding the historical points, exam findings, and any diagnostic results supporting the discharge/admit diagnosis, lab results, radiology results, the need for further work-up and treatment in the hospital. Response to treatment: the patient's symptoms have mildly improved after treatment. ED course: Patient without acute findings here in ER. 3 weeks of vomiting and diarrhea with dehydration and hypotension. Will admit to hospitalist service for further hydration and care.. 08/25 06:05 Order name: CBC with Diff; Complete Time: 06:55 sp4 08/25 06:05 Order name: CMP; Complete Time: 06:55 4 08/25 06:05 Order name: Lipase; Complete Time: 06:55 4 08/25 06:05 Order name: Urinalysis w/ reflexes; Complete Time: 08:15 4 08/25 08:18 Order name: Urine Culture [facility] 08/25 10:48 Order name: T4 Free [facility] 08/25 10:48 Order name: Thyroid Stimulating Hormone [facility] 08/25 10:48 Order name: Basic Metabolic Panel [facility] 08/25 10:48 Order name: Basic Metabolic Panel [facility] 08/25 10:48 Order name: Basic Metabolic Panel [facility] 08/25 10:48 Order name: Basic Metabolic Panel [facility] 08/25 10:48 Order name: Basic Metabolic Panel [facility] 08/25 10:48 Order name: Basic Metabolic Panel [facility] 08/25 10:48 Order name: CBC with Automated Diff [facility] 08/25 10:48 Order name: CBC with Automated Diff [facility] 08/25 10:48 Order name: CBC with Automated Diff EDMS 08/25 10:48 Order name: CBC with Automated Diff EDMS 08/25 10:48 Order name: CBC with Automated Diff EDMS 08/25 10:48 Order name: CBC with Automated Diff EDMS 08/25 10:48 Order name: Lipid Profile EDMS 08/25 10:48 Order name: Lipid Profile EDMS 08/25 10:48 Order name: Magnesium EDMS 08/25 10:48 Order name: Magnesium EDMS 08/25 10:48 Order name: Magnesium EDMS 08/25 10:48 Order name: Magnesium EDMS 08/25 10:48 Order name: Magnesium EDMS 08/25 10:48 Order name: Magnesium EDMS 08/25 10:48 Order name: Phosphorus EDMS 08/25 10:48 Order name: Phosphorus EDMS 08/25 10:48 Order name: Phosphorus EDMS 08/25 10:48 Order name: Phosphorus EDMS 08/25 10:48 Order name: Phosphorus EDMS 08/25 10:48 Order name: Phosphorus EDMS 08/25 06:05 Order name: CT Abd/Pelvis - IV Contrast Only; Complete Time: 08:50 sp4 08/25 06:05 Order name: IV Saline Lock; Complete Time: 06:23 sp4 08/25 06:05 Order name: Labs collected and sent; Complete Time: 06:23 sp4 08/25 09:37 Order name: EKG - Nurse/Tech; Complete Time: 09:37 kc6 Administered Medications: 06:36 Drug: Ondansetron IVP 4 mg IVP once; over 2 minutes Route: IVP; Site: left antecubital; km8 07:47 Follow up: Response: No adverse reaction; Nausea is decreased; Vomiting decreased kc6 06:36 Drug: Dicyclomine PO 20 mg PO once Route: PO; km8 07:47 Follow up: Response: No adverse reaction; Pain is decreased kc6 06:36 Drug: [place] PO 10 mg-325 mg 1 tabs PO once Route: PO; km8 07:47 Follow up: Response: No adverse reaction; Pain is decreased kc6 06:36 Drug: Promethazine PO 25 mg PO once Route: PO; km8 07:48 Follow up: Response: No adverse reaction; Nausea is decreased; Vomiting decreased kc6 08:55 Drug: NS 0.9% IV 500 ml IV at bolus once Route: IV; Rate: bolus; Site: left antecubital;kc6 09:36 Follow up: Response: No adverse reaction; IV Status: Completed infusion; IV Intake: kc6 500ml Disposition Summary: 08/25/23 09:39 Hospitalization Ordered Notes: Hospitalization Status: Observation rn Provider: Wilfredo Rich rn Location: Telemetry/MedSurg (observation)(08/25/23 09:39) rn Condition: Stable(08/25/23 09:39) rn Problem: new(08/25/23 09:39) rn Symptoms: have improved(08/25/23 09:39) rn Bed/Room Type: Standard rn Room Assignment: 210(08/25/23 11:08) dw Diagnosis - Hypotension, unspecified(08/25/23 09:39) rn - Nausea with vomiting, unspecified(08/25/23 09:39) rn - Diarrhea, unspecified(08/25/23 09:39) rn - Weakness(08/25/23 09:39) rn Forms: - Medication Reconciliation Form rn - SBAR form rn - Leadership Thank You Letter rn Signatures: Dispatcher [employer] Criss Hargrove, RN RN dw Saud Wayne MD MD rn Campbell, Kaitlyn RN RN kc6 Eduardo Suggs MD MD sp4 Jody Meneses, RN RN km8 Corrections: (The following items were deleted from the chart) 09: 09:31 Home rn rn : 09:31 new rn rn : 09:31 have improved rn rn : 09:31 Stable rn rn : 09:31 Nausea with vomiting, unspecified rn rn : 09:31 Diarrhea, unspecified rn rn : 09:31 Weakness rn rn 09: 09:31 Hypotension, unspecified rn rn 11:08 09:39 rn dw
--- NOTE | 2023-08-25 09:39 | ER ---
Nurse's Notes [facility] Name: Korina Matias Age: 78 yrs Sex: Female : 1945 Arrival Date: 08/25/2023 Time: 05:46 Bed 14 Private MD: Diagnosis: Hypotension, unspecified;Nausea with vomiting, unspecified;Diarrhea, unspecified;Weakness Presentation: 08/25 06:13 Chief complaint: Patient states: nausea and vomiting for 3 weeks if she eat solid food; km8 pt has been on a CLD for 3 weeks; 2 days ago started having diarrhea. Coronavirus screen: Client denies travel out of the [place] in the last 14 days. At this time, the client does not indicate any symptoms associated with coronavirus-19. Ebola Screen: No symptoms or risks identified at this time. Initial Sepsis Screen: Does the patient meet any 2 criteria? No. Patient's initial sepsis screen is negative. Does the patient have a suspected source of infection? No. Patient's initial sepsis screen is negative. Risk Assessment: Do you want to hurt yourself or someone else? Patient reports no desire to harm self or others. Onset of symptoms is unknown. 06:13 Method Of Arrival: Ambulatory km8 06:13 Acuity: CARLEEN 3 km8 Triage Assessment: 06:15 General: Appears in no apparent distress. comfortable, Behavior is calm, cooperative, km8 appropriate for age. Pain: Complains of pain in abdomen Pain currently is 8 out of 10 on a pain scale. Quality of pain is described as aching. EENT: No deficits noted. No signs and/or symptoms were reported regarding the EENT system. Neuro: No deficits noted. Kraft Agitation-Sedation Scale (RASS): 0 - Alert and Calm Level of Consciousness is awake, alert, obeys commands, Oriented to person, place, time, situation. Cardiovascular: Denies chest pain, shortness of breath, Capillary refill < 3 seconds Patient's skin is warm and dry. Respiratory: Airway is patent Respiratory effort is even, unlabored, Respiratory pattern is regular, symmetrical. GI: Abdomen is flat, non-distended, Abd is soft and non tender Reports lower abdominal pain, upper abdominal pain, diarrhea, intolerance of food, nausea. : No signs and/or symptoms were reported regarding the genitourinary system. Derm: No signs and/or symptoms reported regarding the dermatologic system. Skin is intact, Skin is dry, Skin is normal, Skin temperature is warm. Musculoskeletal: No signs and/or symptoms reported regarding the musculoskeletal system. Circulation, motion, and sensation intact. Range of motion: intact in all extremities. Historical: - Allergies: 06:15 No Known Allergies; km8 - Home Meds: 06:15 None [Active]; km8 - PMHx: 06:15 Transient cerebral ischemia; 8 09:47 thyroid cancer; cervical cancer; melanoma; bladder cancer; kc6 - PSHx: 06:24 Appendectomy; Total abdominal hysterectomy; Cholecystectomy; bladder surgery; km8 - Immunization history:: Adult Immunizations up to date, Client reports receiving the 2nd dose of the Covid vaccine, Flu vaccine is up to date. - Social history:: Smoking status: Patient denies any tobacco usage or history of. Patient uses alcohol, but reports only rare drinking. Patient/guardian denies using street drugs. - Family history:: not pertinent. Screenin:17 [facility] ED Fall Risk Assessment (Adult) History of falling in the last 3 months, km8 including since admission No falls in past 3 months (0 pts) Confusion or Disorientation No (0 pts) Intoxicated or Sedated No (0 pts) Impaired Gait No (0 pts) Mobility Assist Device Used No (0 pt) Altered Elimination No (0 pt) Score/Fall Risk Level 0 - 2 = Low Risk Oriented to surroundings, Maintained a safe environment, Educated pt \T\ family on fall prevention, incl call for assistance when getting out of bed, Assessed \T\ reinforced patient's understanding of fall precautions. Abuse screen: Denies threats or abuse. Denies injuries from another. Nutritional screening: Had unintentional weight loss of 10 pounds or more. Has had N/V for 3 or more days. Tuberculosis screening: No symptoms or risk factors identified. Assessment: 06:17 General: see triage notes/assessment. 8 07:17 Reassessment: Patient appears in no apparent distress at this time. No changes from [facility] previously documented assessment. Patient and/or family updated on plan of care and expected duration. Pain level reassessed. Patient is alert, oriented x 3, equal unlabored respirations, skin warm/dry/pink. 08:17 Reassessment: Patient appears in no apparent distress at this time. No changes from kc6 previously documented assessment. Patient and/or family updated on plan of care and expected duration. Pain level reassessed. Patient is alert, oriented x 3, equal unlabored respirations, skin warm/dry/pink. 09:17 Reassessment: Patient appears in no apparent distress at this time. No changes from kc6 previously documented assessment. Patient and/or family updated on plan of care and expected duration. Pain level reassessed. Patient is alert, oriented x 3, equal unlabored respirations, skin warm/dry/pink. 10:17 Reassessment: Patient appears in no apparent distress at this time. No changes from kc6 previously documented assessment. Patient and/or family updated on plan of care and expected duration. Pain level reassessed. Patient is alert, oriented x 3, equal unlabored respirations, skin warm/dry/pink. 11:17 Reassessment: Patient appears in no apparent distress at this time. No changes from kc6 previously documented assessment. Patient and/or family updated on plan of care and expected duration. Pain level reassessed. Patient is alert, oriented x 3, equal unlabored respirations, skin warm/dry/pink. Vital Signs: 06:13 BP 135 / 62; Pulse 63; Resp 16; Temp 98.1(O); Pulse Ox 98% on R/A; Pain 8/10; 8 06:24 Weight 53.52 kg; Height 5 ft. 0 in. ; 8 08:00 BP 128 / 63; Pulse 42; Resp 14 S; Pulse Ox 93% on R/A; kc6 08:34 BP 95 / 55; Pulse 41; Resp 14 S; Pulse Ox 91% on R/A; kc6 08:56 BP 97 / 62; Pulse 47; Resp 14 S; Pulse Ox 100% on R/A; kc6 09:37 BP 133 / 52; Pulse 40; Resp 18 S; Pulse Ox 97% on R/A; kc6 11:21 BP 120 / 53; Pulse 42; Resp 18 S; Pulse Ox 95% on R/A; kc6 06:24 Body Mass Index 23.05 (53.52 kg, 152.4 cm) [facility] 06:13 Pain Scale: Adult 8 Branden Coma Score: 06:17 Eye Response: spontaneous(4). Motor Response: obeys commands(6). Verbal Response: [facility] oriented(5). Total: 15. ED Course: 05:49 Patient arrived in ED. jj6 06:03 Eduardo Suggs MD is Attending Physician. sp4 06:13 Jody Meneses, STEVE is Primary Nurse. km8 06:15 Triage completed. km8 06:15 Arm band placed on right wrist. km8 06:17 Patient has correct armband on for positive identification. Placed in gown. Bed in low km8 position. Call light in reach. Side rails up X2. Client placed on continuous cardiac and pulse oximetry monitoring. NIBP monitoring applied. pigment grinder on. Door closed. Noise minimized. Warm blanket given. 06:18 Patient maintains SpO2 saturation greater than 95% on room air. km8 06:23 CBC with Diff Sent. km8 06:23 CMP Sent. km8 06:23 Lipase Sent. km8 06:23 Inserted saline lock: 20 gauge in left antecubital area, using aseptic technique. Blood km8 collected. 07:00 Report received from STEVE Vera. [facility] 07:25 Attending Physician role handed off by Eduardo Suggs MD rn 07:25 Saud Wayne MD is Attending Physician. rn 07:48 CT Abd/Pelvis - IV Contrast Only In Process Unspecified. EDMS 09:39 Wilfredo Rich is Hospitalizing Provider. rn 11:21 No provider procedures requiring assistance completed. Patient admitted, IV remains in kc6 place. Administered Medications: 06:36 Drug: Ondansetron IVP 4 mg IVP once; over 2 minutes Route: IVP; Site: left antecubital; km8 07:47 Follow up: Response: No adverse reaction; Nausea is decreased; Vomiting decreased kc6 06:36 Drug: Dicyclomine PO 20 mg PO once Route: PO; km8 07:47 Follow up: Response: No adverse reaction; Pain is decreased kc6 06:36 Drug: Polaris PO 10 mg-325 mg 1 tabs PO once Route: PO; km8 07:47 Follow up: Response: No adverse reaction; Pain is decreased kc6 06:36 Drug: Promethazine PO 25 mg PO once Route: PO; km8 07:48 Follow up: Response: No adverse reaction; Nausea is decreased; Vomiting decreased kc6 08:55 Drug: NS 0.9% IV 500 ml IV at bolus once Route: IV; Rate: bolus; Site: left antecubital;kc6 09:36 Follow up: Response: No adverse reaction; IV Status: Completed infusion; IV Intake: kc6 500ml Medication: 11:21 VIS not applicable for this client. kc6 Intake: 09:36 IV: 500ml; Total: 500ml. kc6 Outcome: 09:31 Discharge ordered by MD. rn 09:39 Decision to Hospitalize by Provider. rn 11:21 Admitted to Med/surg accompanied by tech, via wheelchair, room 210, with chart, Report kc6 called to STEVE Adams 11:21 Condition: stable 11:21 Instructed on the need for admit, 11:42 Patient left the ED. kc6 Signatures: Dispatcher [employer] EDMS Saud Wayne MD MD rn Jeffries, Jennifer jj6 Litzy Manzanares RN RN kc6 Eduardo Suggs MD MD sp4 Jody Meneses RN RN km8
--- NOTE | 2023-08-25 11:00 | P.HP ---
Patient History Date of Service: 08/25/23 Reason for admission: dehydration History of Present Illness: Korina Matias is a pleasant 78 year old with Pmhx TIA, multiple cancers (lung, uterine, thyroid, and 7 melanomas- last chemo first of July), who presents to the ED with N/V for 3 weeks and diarrhea that started last night. Korina reports seeing her doctor after her last chemotherapy finding a UTI and being prescribed bactirm. She started nausea and vomiting while taking bactrim so she stopped taking it and has not felt any better, She states the diarrhea started last night and she took imodium which has help. She also reports chest pain with a clammy feeling last night which helped her decide to come to the ED today. She was able to fall asleep and upon waking up her chest pain was gone. Initial vitals: BP 135 / 62; Pulse 63; Resp 16; Temp 98.1(O); Pulse Ox 98% on R/A. Labs unremarkable CT abd/pelvis is negative for acute findings but reports "prominent caliber of the common bile duct, up to 13 millimeter which could relate to postcholecystectomy". Korina will be admitted to hospitalist service for further evaluation and treatment. Allergies Tetanus Immune Globulin Allergy (Uncoded 07/18/15 19:16) Unknown Home Medications: Atorvastatin Calcium 1 tab PO BEDTIME 08/25/23 Donepezil HCl [Aricept] 1 tab PO DAILY 08/25/23 Meloxicam 1 tab PO BEDTIME 08/25/23 Memantine HCl [Namenda] 1 tab PO BID 08/25/23 Sertraline HCl 1 tab PO DAILY 08/25/23 Trazodone HCl 1 tab PO BEDTIME 08/25/23 - Family History Father -: Heart disease, Lung disease Mother -: Cancer Review of Systems General: Fever, Chills, Sweats (clammy during CP), Weakness, Malaise Eyes: Unremarkable ENT: Unremarkable Cardiovascular: Chest Pain, Other (dizzy) Gastrointestinal: Nausea, Vomiting, Abdominal Pain (RUQ and pelvis), Diarrhea Genitourinary: Unremarkable Musculoskeletal: Unremarkable Integumentary: Unremarkable Neurological: Unremarkable Physical Examination - Physical Exam General: Alert, In no apparent distress, Oriented x3 HEENT: Atraumatic, Normocephalic, PERRLA Neck: Supple, 2+ carotid pulse no bruit, JVD not distended Respiratory: Clear to auscultation bilaterally, Normal air movement Cardiovascular: No edema, Normal pulses, Regular rate/rhythm (bradycardic 46), Normal S1 S2 Capillary refill: <2 Seconds Gastrointestinal: Normal bowel sounds, Tenderness Musculoskeletal: No clubbing, No swelling, No contractures Integumentary: No rashes, No breakdown, No significant lesion, No tenderness/swelling Neurological: Normal speech, Normal strength at 5/5 x4 extr, Normal tone - Studies Laboratory Data (last 24 hrs) 08/25/23 08/25/23 06:22 06:22 WBC 5.60 Hgb 12.9 Hct 38.6 Plt Count 219 Sodium 143 Potassium 3.4 L BUN 12 Creatinine 0.79 Glucose 102 Total Bilirubin 0.6 AST 27 ALT 59 H Alkaline Phosphatase 156 H Lipase 25 Assessment and Plan - Plan Assessment and Plan Fluid volume deficit N/V/D gentle IVF Flagyl Cdiff pending 3 weeks of CLD, started diarrhea today Chest Pain r/o ACS Bradycardia troponin pending EKG with prolonged QT/QTC 516/451, bradycardic 46, no ST elevation UTI UA suggestive of UTI Rocephin outpatient treatment with Bactrim but couldn't complete the antibiotic and started N/V/D History of multiple cancers lung, uterine, thyroid, and 7 melanomas follow up outpatient last chemotherapy was the first of July DVT ppx: lovenox DNR LOS 2 days obs Discharge Plan: Home Plan to discharge in: 48 Hours - Advance Directives Does patient have a Living Will: No Does patient have a Durable POA for Healthcare: No Time Spent Managing Pts Care (In Minutes): 55
[2023-08-25 11:55] VITALS: BMI 23.0
[2023-08-25] MEDS: NA CHLORIDE 0.9% 1,000 ML IV SCH (12:40)
[2023-08-25] MEDS: KCL 20 MEQ/100 mL IVPB 20 MEQ/100 ML BAG IV SCH ×2 (12:41→15:38)
[2023-08-25] MEDS: CEFTRIAXONE 1,000 MG in NA CHLORIDE 0.9% 50 ML IVPB SCH (12:41)
[2023-08-25] MEDS: METRONIDAZOLE 500mg IVPB 500 MG/100 ML BAG IV SCH (16:14)
[2023-08-25] MEDS: MELOXICAM 7.5 MG TAB PO SCH (20:22)
[2023-08-25] MEDS: MEMANTINE HCL 10 MG TABLET PO SCH (20:23)
[2023-08-25] MEDS: TRAZODONE 50 MG TABLET PO SCH (20:23)
[2023-08-25] MEDS: ATORVASTATIN 10 MG TAB PO SCH (20:23)
[2023-08-25 22:23] LABS: Thyroid Stimulating Hormone 0.899 uIU/mL (0.358-3.740)
[2023-08-26] MEDS: METRONIDAZOLE 500mg IVPB 500 MG/100 ML BAG IV SCH ×3 (01:17→16:08)
[2023-08-26] MEDS: NA CHLORIDE 0.9% 1,000 ML IV SCH ×2 (01:18→13:40)
[2023-08-26 02:56] LABS: Absolute Lymphocytes (CBC) 1.1 K/uL (0.7-4.9); Hematocrit 35.8 % (36.0-45.0); Lymphocytes % 18.3 % (15.3-44.8); MCV 92.5 fL (80-100); MPV 9.2 fL (7.6-11.3); Platelets 191 thou/uL (152-406); RBC Red Blood Cell Count 3.87 M/uL (3.86-4.86)
[2023-08-26 03:25] LABS: Magnesium 1.7 mg/dL (1.6-2.4); Phosphorus 2.9 mg/dL (2.5-4.9); Potassium 3.9 mEq/L (3.5-5.1); Troponin High Sensitivity 8.6 pg/mL (<58.9)
[2023-08-26] MEDS: DONEPEZIL HCL 5 MG TAB PO SCH (08:12)
[2023-08-26] MEDS: MEMANTINE HCL 10 MG TABLET PO SCH ×2 (08:13→20:33)
[2023-08-26] MEDS: CEFTRIAXONE 1,000 MG in NA CHLORIDE 0.9% 50 ML IVPB SCH (08:13)
[2023-08-26] MEDS: SERTRALINE HCL 50 MG TAB PO SCH (08:13)
[2023-08-26] MEDS: ENOXAPARIN 40 MG/0.4 ML SQ SCH (08:13)
[2023-08-26] MEDS ORDERED: MAGNESIUM SULFATE 1 gm IVPB 1 GM/100 ML BAG IV ONE ×2 (09:00→12:20)
[2023-08-26] MEDS ORDERED: CEFTRIAXONE 1,000 MG in NA CHLORIDE 0.9% 50 ML IVPB SCH (09:00)
[2023-08-26] MEDS ORDERED: POTASSIUM CL SA 10 MEQ TAB PO ONE (09:00)
--- NOTE | 2023-08-26 17:29 | P.PN ---
Subjective Date of Service: 08/26/23 Chief Complaint: dehydration Subjective: Doing well HPI 08/25: Korina Matias is a pleasant 78 year old with Pmhx TIA, multiple cancers (lung, uterine, thyroid, and 7 melanomas- last chemo first of July), who presents to the ED with N/V for 3 weeks and diarrhea that started last night. Korina reports seeing her doctor after her last chemotherapy finding a UTI and being prescribed bactirm. She started nausea and vomiting while taking bactrim so she stopped taking it and has not felt any better, She states the diarrhea started last night and she took imodium which has help. She also reports chest pain with a clammy feeling last night which helped her decide to come to the ED today. She was able to fall asleep and upon waking up her chest pain was gone. Initial vitals: BP 135 / 62; Pulse 63; Resp 16; Temp 98.1(O); Pulse Ox 98% on R/A. Labs unremarkable CT abd/pelvis is negative for acute findings but reports "prominent caliber of the common bile duct, up to 13 millimeter which could relate to postcholecystectomy". Korina will be admitted to hospitalist service for further evaluation and treatment. 08/26: Advanced Korina's diet to CLD which she tolerated but FLD caused diarrhea. Will attempt crackers just once tonight. Will monitor and adjust diet accordingly. <Ema Rios - Last Filed: 08/26/23 17:44> Date of Service: 08/26/23 <dion pang - Last Filed: 08/26/23 18:47> Review of Systems 10-point ROS is otherwise unremarkable <Ema Rios - Last Filed: 08/26/23 17:44> Physical Examination - Vital Signs Temperature: 97.7 F Blood Pressure: 104/52 Pulse: 64 Respirations: 14 Pulse Ox (%): 95 <Ema Rios - Last Filed: 08/26/23 17:44> Assessment And Plan - Plan Physical Exam General: Alert, In no apparent distress, Oriented x3 HEENT: Atraumatic, Normocephalic, PERRLA Neck: Supple, 2+ carotid pulse no bruit, JVD not distended Respiratory: Clear to auscultation bilaterally, Normal air movement Cardiovascular: No edema, Normal pulses, Regular rate/rhythm (bradycardic 46), Normal S1 S2 Capillary refill: <2 Seconds Gastrointestinal: Normal bowel sounds, Tenderness, diarrhea (08/26) Musculoskeletal: No clubbing, No swelling, No contractures Integumentary: No rashes, No breakdown, No significant lesion, No tenderness/swelling Neurological: Normal speech, Normal strength at 5/5 x4 extr, Normal tone Assessment and Plan Fluid volume deficit N/V/D gentle IVF Flagyl Cdiff pending 3 weeks of CLD, started diarrhea today CLD tolerated (08/26) FLD caused diarrhea (08/26) likely the ice cream continue to monitor and make adjustments Chest Pain r/o ACS Bradycardia troponin unremarkable Lipid panel unremarkable EKG with prolonged QT/QTC 516/451, bradycardic 46, no ST elevation Dr. Bartlett consulted ECHO ordered UTI UA suggestive of UTI Rocephin outpatient treatment with Bactrim but couldn't complete the antibiotic and started N/V/D History of multiple cancers lung, uterine, thyroid, and 7 melanomas follow up outpatient last chemotherapy was the first of July DVT ppx: lovenox DNR LOS 2 days obs Discharge Plan: Home Plan to discharge in: 48 Hours Time Spent Managing PTS Care (In Minutes): 35 <Ema Rios - Last Filed: 08/26/23 17:44> - Plan Patient seen and examined. Plan of care discussed with Ms. Rios. Patient tolerated diet advancement but has been experiencing diarrhea. 3 BM already. Stool for C. difficile sent given recent chemo. High risk of dehydration due to associated prior nausea and vomiting. Continue to monitor as inpatient. Continue IV hydration. <dion pang - Last Filed: 08/26/23 18:47>
[2023-08-26] MEDS: MELOXICAM 7.5 MG TAB PO SCH (20:32)
[2023-08-26] MEDS: ATORVASTATIN 10 MG TAB PO SCH (20:33)
[2023-08-26] MEDS: TRAZODONE 50 MG TABLET PO SCH (20:33)
[2023-08-27] MEDS: METRONIDAZOLE 500mg IVPB 500 MG/100 ML BAG IV SCH ×2 (01:27→08:48)
[2023-08-27] MEDS: NA CHLORIDE 0.9% 1,000 ML IV SCH (01:27)
[2023-08-27 03:09] LABS: C.diff Antigen/Toxin Ag neg : Tox neg (NEG : NEG)
[2023-08-27 03:16] LABS: Absolute Lymphocytes (CBC) 1.1 K/uL (0.7-4.9); Hematocrit 34.4 % (36.0-45.0); Lymphocytes % 20.7 % (15.3-44.8); MPV 8.9 fL (7.6-11.3); Platelets 190 thou/uL (152-406); RBC Red Blood Cell Count 3.74 M/uL (3.86-4.86)
[2023-08-27 03:34] LABS: Magnesium 1.7 mg/dL (1.6-2.4); Phosphorus 1.7 mg/dL (2.5-4.9); Potassium 3.5 mEq/L (3.5-5.1)
[2023-08-27] MEDS ORDERED: MAGNESIUM SULFATE 1 gm IVPB 1 GM/100 ML BAG IV ONE (06:00)
[2023-08-27] MEDS: POTASS/SODIUM PHOSPHATE 1 PKT POWD.PACK PO SCH ×3 (08:46→10:00)
[2023-08-27] MEDS: SERTRALINE HCL 50 MG TAB PO SCH (08:47)
[2023-08-27] MEDS: MEMANTINE HCL 10 MG TABLET PO SCH (08:47)
[2023-08-27] MEDS: DONEPEZIL HCL 5 MG TAB PO SCH (08:47)
[2023-08-27] MEDS: CEFTRIAXONE 1,000 MG in NA CHLORIDE 0.9% 50 ML IVPB SCH (08:48)
[2023-08-27] MEDS: ENOXAPARIN 40 MG/0.4 ML SQ SCH (08:48)
[2023-08-27] MEDS ORDERED: POTASSIUM CL SA 10 MEQ TAB PO ONE (09:00)
--- NOTE | 2023-08-27 09:20 | P.DS ---
Admission Date: 08/25/23 Discharge Date: 08/27/23 Disposition: ROUTINE DISCHARGE Discharge Condition: GOOD Reason for Admission: dehydration Brief History of Present Illness: Korina Matias is a pleasant 78 year old with Pmhx TIA, multiple cancers (lung, uterine, thyroid, and 7 melanomas- last chemo first of July), who presents to the ED with N/V for 3 weeks and diarrhea that started last night. Koirna reports seeing her doctor after her last chemotherapy finding a UTI and being prescribed bactirm. She started nausea and vomiting while taking bactrim so she stopped taking it and has not felt any better, She states the diarrhea started last night and she took imodium which has help. She also reports chest pain with a clammy feeling last night which helped her decide to come to the ED today. She was able to fall asleep and upon waking up her chest pain was gone. Initial vitals: BP 135 / 62; Pulse 63; Resp 16; Temp 98.1(O); Pulse Ox 98% on R/A. Labs unremarkable CT abd/pelvis is negative for acute findings but reports "prominent caliber of the common bile duct, up to 13 millimeter which could relate to postcholecystectomy". Hospital Course: Problem list Fluid volume deficit N/V/D Chest Pain r/o ACS Bradycardia UTI History of multiple cancers Patient was admitted to the hospital for nausea/vomiting/diarrhea, dehydration, chest pain, suspected urinary tract infection. During her hospitalization she was treated with IV Cipro, Flagyl. Her C. difficile test was negative troponins also trended negative her diarrhea has improved and she is feeling much better urine culture preliminarily with gram-negative rods. At this time she is stable for discharge to follow-up with her primary care doctor and cardiology in 1 to 2 weeks, she will be sent a prescription for Augmentin for her UTI/diarrheal illness. Vital Signs/Physical Exam: Temp Pulse Resp BP Pulse Ox 97.8 F 53 18 163/83 H 95 08/27/23 04:00 08/27/23 04:00 08/27/23 04:00 08/27/23 04:00 08/27/23 04:00 General: Alert, In no apparent distress, Oriented x3 HEENT: Atraumatic, PERRLA Neck: Supple Respiratory: Clear to auscultation bilaterally, Normal air movement Cardiovascular: Regular rate/rhythm, Normal S1 S2 Gastrointestinal: Normal bowel sounds, No tenderness Musculoskeletal: No tenderness Integumentary: No rashes Neurological: Normal speech, Normal affect Laboratory Data at Discharge: WBC 5.30 thou/uL (4.3-10.9) 08/27/23 02:33 Hgb 11.7 g/dL (12.0-15.0) L 08/27/23 02:33 Hct 34.4 % (36.0-45.0) L 08/27/23 02:33 Plt Count 190 thou/uL (152-406) 08/27/23 02:33 Sodium 143 mEq/L (136-145) 08/27/23 02:33 Potassium 3.5 mEq/L (3.5-5.1) 08/27/23 02:33 BUN 7 mg/dL (7-18) 08/27/23 02:33 Creatinine 0.61 mg/dL (0.55-1.02) 08/27/23 02:33 Glucose 108 mg/dL (74-106) H 08/27/23 02:33 Phosphorus 1.7 mg/dL (2.5-4.9) L 08/27/23 02:33 Magnesium 1.7 mg/dL (1.6-2.4) 08/27/23 02:33 Total Bilirubin 0.6 mg/dL (0.2-1.0) 08/25/23 06:22 AST 27 U/L (15-37) 08/25/23 06:22 ALT 59 U/L (13-56) H 08/25/23 06:22 Alkaline Phosphatase 156 U/L (45-117) H 08/25/23 06:22 Triglycerides 68 mg/dL (<150) 08/26/23 01:58 Cholesterol 98 mg/dL (<200) 08/26/23 01:58 HDL Cholesterol 40 mg/dL (40-60) 08/26/23 01:58 Cholesterol/HDL Ratio 2.45 08/26/23 01:58 Lipase 25 U/L (13-75) 08/25/23 06:22 Home Medications: Atorvastatin Calcium 1 tab PO BEDTIME 08/25/23 Donepezil HCl [Aricept] 1 tab PO DAILY 08/25/23 Meloxicam 1 tab PO BEDTIME 08/25/23 Memantine HCl [Namenda] 1 tab PO BID 08/25/23 Sertraline HCl 1 tab PO DAILY 08/25/23 Trazodone HCl 1 tab PO BEDTIME 08/25/23 Amox/Clavulanate [Augmentin 875-125 Tab] 875 mg PO BID 5 Days #10 tab 08/27/23 New Medications: Amox/Clavulanate [Augmentin 875-125 Tab] 875 mg PO BID 5 Days #10 tab Physician Discharge Instructions: You were admitted to the hospital with GI symptoms, diarrhea, and chest pain. C.Diff test was negative and your diarrhea improved. During your hospital stay we performed repeat testing of your cardiac enzymes which were within normal limits. At discharge you should continue your home medications and you will be sent a new prescription for Augmentin for a the diarrheal illness/possible UTI. Please follow up with your primary care doctor and the hand former in the next 1-2 weeks. Diet: AHA Activity: Ad linda Followup: Braden Bartlett MD [ACTIVE - CAN ADMIT] - 1-2 Weeks (call to schedule an appointment) Time spent managing pt's care (in minutes): 35
[2023-08-27 10:06] VITALS: O2SAT 94
[2023-08-27 10:20] VITALS: BP 164/68; TEMP 97
== END 2023-08-27 09:40 | disposition home or self-care (01) ==
LOC: ER 05:46 → ERHOLD 10:39 → 2ND 11:11
PROVIDERS: ADMIT Internal Medicine; ATTEND Hospitalist
DX: E86.0 Dehydration (principal); R07.9 Chest pain, unspecified; R00.1 Bradycardia, unspecified; N39.0 Urinary tract infection, site not specified; C76.8 Malignant neoplasm of other specified ill-defined sites; R11.2 Nausea with vomiting, unspecified; R19.7 Diarrhea, unspecified
CPT/HCPCS: 96361; 93005; 87088; 85025 ×3; 81001; 87086; 80048 ×2; 36415 ×2; 83735 ×2; 84100 ×2; 80061; 84443; 87324; 84484 ×3; 84439; 83690; 80053; 74177; 96374; 99285; Q9967; Q0169; J3480 ×2; J3475 ×3; J1650; J2405; J7040; J7030 ×3; J0696 ×3; 87077; 87186; G0378

== ENCOUNTER 2023-09-16 09:19 | Emergency (ER) | payer OTHER, BC ==
--- OUTSIDE RECORDS SUMMARY | 2023-09-16 09:41 | XMS REPORT | Continuity of Care Document ---
:1945 Author Organization [facility] t Address [address] [facility] [address] [place] [address] Care Team Providers Name Role Phone Ruben Gregory MD Primary Care Physician [phone] JL HARRIS Attending Clinician Unavailable MIGUEL Attending Clinician Unavailable Hananel_A Attending Clinician Unavailable NITHIN BRODERICK Attending Clinician Unavailable Ogletval_Nichole Attending Clinician Unavailable Ramy Dhaliwal Attending Clinician [phone] Jl Harris MD Attending Clinician Only, Adc Test Attending Clinician Unavailable Doctor Unassigned, [place] Attending Clinician Unavailable Pob, Adc Lab Main [...] Date S our MEDICARE PART A \T\ [id number] 2000 B 00:00:00 [facility] [id number] 2012 00:00:00 [place]: [id number] [employer] [place] [id number] 2012 (PP[place]) 00:00[place] [id number] 2012 (MEDICARE 00:00:00 SUPPLEMENT) [place]: [id number] [employer] - 00:00:00 [facility] [place] [id number] 2012 00:00:00 Problems Condition Condition Condition Status Onset Resolution Last Treating Co mments Source Name Details Category Date Date Treatment Clinician Date 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 9-17 [facility] 00:00: U[facility] 00 Chronic Chronic Problem Active [place] retention Retention 9-17 [facility] o of urine of Urine 00:00: Urolog y 00 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 Urinary 8-09 [facility] incontinen Incontinen 00:00: Ur ology ce ce 00 Urge Urge Problem Active [place] incontinen Incontinen 7-14 Me tro ce of ce of 00:00: Urology urine Urine 00 Recurrent Recurrent Problem Active [place] urinary Urinary 6-06 [place] tract Tract 00:00: Urology infection Infection 00 Dysuria Dysuria Problem Active [place] 6-02 [facility] 00:00: Urology 00 Urinary Urinary Problem Active [place] tract Tract 4-19 [facility] infectious Infectious 00:00: Ur ology disease Disease 00 Urinary Urinary Problem Active [place] incontinen Incontinen 1-17 Me tro ce ce 00:00: Urology 00 Atrophic Atrophic Problem Active 2020-10 [place] vaginitis Vaginitis 0-28 [facility] o 00:00: Urology 00 Unstable [facility]stable [facility] Chest pain Chest Problem 2016-06-03 M emoria (finding) pain 06-21 04:00:32 l (finding) 00:00: [place] 06/21/2015 00 Problem 06/03/2016 [facility] Bloating Bloating Problem Active [place] symptom Symptom [facility] No known No known Disease Unive rs active active ity of problems problems [facility] Diarrhea Diarrhea Disease Active [facility] GERD GERD Disease Active [facility] (gastroeso (gastroeso st phageal phageal Hospita reflux reflux l disease) disease) Gastritis Gastritis Disease Active [facility] Colon Colon Disease Active [facility] polyps polyps [facility]osp[facility] l Bloating Bloating Disease Active Metho di symptom symptom [facility]osp[facility] l Hypertensi Problem 2016-06-03 M emoria ve Hypertensi 04:00:32 l disorder, ve Marlo systemic disorder, arterial systemic (disorder) arterial (disorder) Problem 06/03/2016 [facility] Low back Low back Problem 2016-06-03 Memoria pain pain 04:00:32 l (disorder) (disorder) He rmann Problem 06/03/2016 [facility] Malignant Malignant Problem 2016-06-03 Memoria melanoma, melanoma, 04:00:32 l no ICD-O no ICD-O Dixon n subtype subtype (morpholog (morpholog ic ic abnormalit abnormalit y) y) Problem 06/03/2016 <sup>2</mancuso p>Radiatio n x 5. 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 Ruben álvarez Benign Benign Problem Active Dr. magallanes Essential Dalton ne hypertensi Hypertensi Wi lliam on on s Functional Functional Problem Active D r. disorder Disorder Ruben of bladder of Bladder Wi lliam s Menopausal Menopausal Problem Active D r. symptom Symptom Ruben Marinelli henri Contact Contact Problem Active dermatitis Dermatitis Yuri abrams Yves álvarez Osteoarthr Osteoarthr Problem Active D r. 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 [facility] Cerebrovas Cerebrova Problem 2016-06-03 2016-06-03 Memliyah cular scular 10-21 04:00:32 04:00:32 l accident accident 00:00: Dixon lizama (disorder) (disorder) 00 10/21/1999 Problem 06/03/2016 <sup>1</mancuso p>left side weakness x 6 months. Monitored by neuro. No further problems. [facility] Seizure Seizure Problem 2016-06-03 2016-06-03 Memoria after head after head 10-21 04:00:32 04:00:32 l injury injury 00:00: Marlo (finding) (finding) 00 10/21/1999 Problem 06/03/2016 <sup>4</mancuso p>anti-epi leptic medication x 6-9 months. 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 2016-06-03 2016-06-03 Memliyah l al 1- 04:00:32 04:00:32 l carcinoma carcinoma 00:00: Herm marvin (disorder) (disorder) 00 10/21/1975 Problem 06/03/2016 [facility] Allergies, Adverse Reactions, Alerts Allergy Allergy Status Severity Reaction(s) Onset Inactive Treating Comm ents Source Name Type Date Date Clinician Surgical Propensi Active Swelling Univ ers [place] ty to 2-24 ity of adverse 00:00: [place] reaction 00 Medical s Branch SURGICAL DRUG Active Swelling Univer s DONA 2-24 ity of 00:00: Medical Branch WARFARIN DRUG Active High Other-Cmnt Univ ers SODIUM INGREDI 1-04 ity of 00:00: [facility] Branch Warfarin Drug Active Other - See Uni vers Sodium Intolera comments 1-04 ity of nce 00:00: Medical Branch Warfarin Propensi Active Other (See [...] 00 Center s Warfarin Allergy Active Other [place] to 07-18 ro [facility] 00:00: Urology e 00 Coumadin Coumadin Active Carlo Sellers Surgical Surgical Active Memori a Dona Dona l Marlo Coumadin Allergy Active Dr. to Ruben Ann TETANUS Allergy Active VACCINES to Ruben AND ginny Greenberg Family History Family Member Diagnosis Comments Start Date Stop Date Source Natural father COPD [facility] Natural mother Cancer [facility] Social History Social Habit Start Date Stop Date Quantity Comments Source History SDOH University o f Alcohol Std Drinks [facility] History SDOH University o f Alcohol Binge [facility] [place] Exposure to Not sure University of SARS-CoV-2 (event) [facility] Sexual orientation [facility] Alcohol intake 2022-04-03 2022-04-03 Lifetime Confucianist 00:00:00 00:00:00 non-drinker Hospital (finding) History of Social 2022-04-03 2022-04-[address] function 00:00:00 00:00:00 Hospital History SDOH 2020-11-03 2020-11-03 1 University o f Alcohol Frequency 00:00:00 00:00:00 [facility] Alcohol Comment 2019-11-30 2019-11-30 socially Confucianist 00:00:00 00:00:00 Hospital Tobacco use and 2019-11-30 2019-11-30 Smokeless Confucianist exposure 00:00:00 00:00:00 tobacco non-user Hospital Sex Assigned At [birth year] [facility] 00:00:00 00:00:00 [facility] Smoking Status Start Date Stop Date Source Unknown if ever smoked [facility] Never smoked tobacco [facility] Medications Ordered Filled Start Stop Current Ordering Indication Dosage Frequency Signature Comments Components Source Medication Medication Date Date Medication? Clinician (SIG) Name Name atorvastati Yes 20mg QD Take 20 mg Methodi n (LIPITOR) 6-[address] 20 MG 10:59: nightly. Hospita tablet 01 l gabapentin Yes 300mg [id number] Take 300 [facility] (NEURONTIN) 6-10 [id number] mg by s t 600 mg 10:59: 3D mouth 3 Hospita tablet 01 (three) l times a day. memantine Yes 10mg Q.5D 10 mg 2 Metho di (NAMENDA) 6-10 (two) st 10 MG 10:59: times a Hospita tablet 01 day. l donepezil Yes 10mg Q.5D Take 10 mg Me thodi (ARICEPT) 6-[address] 10 MG 10:59: (two) Hospita tablet 01 times a l day. cyanocobala Yes 2000ug Take 2,000 Methodi min 6-[address] (VITAMIN 10:59: mouth. Hospita B-12) 2000 01 l MCG tablet calcium 0 Yes 1{tbl} Take 1 Method i carbonate-v 6-[address] itamin D3 10:59: mouth. Hospit a 500 mg-200 01 l unit per tablet solifenacin Yes 10mg QD Take 10 mg [facility] (VESICARE) 6-[address] 10 MG 10:59: nightly. Hospita tablet l meloxicam Yes 7.5mg QD Take 7.5 Met hodi (MOBIC) 7.5 6-[address] mg tablet 10:59: mouth Hospita 01 nightly. l ciprofloxac 0 Yes Q12H every 12 Me thodi in (CIPRO) 6-10 (twelve) st 500 MG 10:59: hours. Hospita tablet l levocetiriz Yes 5mg QD Take 5 [...] 01 TABLET BY l MOUTH EVERY DAY atorvastati 0 Yes 20mg QD Take 20 mg Methodi n (LIPITOR) 6-[address] 20 MG 10:59: nightly. Hospita tablet 01 l gabapentin 0 Yes 300mg [id number] Take 300 [facility] (NEURONTIN) 6-10 [id number] mg by s t 600 mg 10:59: 3D mouth 3 Hospita tablet 01 (three) l times a day. memantine 0 Yes 10mg Q.5D 10 mg 2 Metho di (NAMENDA) 6-10 (two) st 10 MG 10:59: times a Hospita tablet 01 day. l donepezil 0 Yes 10mg Q.5D Take 10 mg Me thodi (ARICEPT) 6-[address] 10 MG 10:59: (two) Hospita tablet 01 times a l day. cyanocobala 2021-0 Yes 2000ug Take 2,000 Methodi min 6-[address] (VITAMIN 10:59: mouth. Hospita B-12) 2000 01 l MCG tablet calcium 0 Yes 1{tbl} Take 1 Method i carbonate-v 6-[address] itamin D3 10:59: mouth. Hospit a 500 mg-200 01 l unit per tablet solifenacin Yes 10mg QD Take 10 mg Methodi (VESICARE) 6-[address] 10 MG 10:59: nightly. Hospita tablet l meloxicam Yes 7.5mg QD Take 7.5 Met hodi (MOBIC) 7.5 6-[address] mg tablet 10:59: mouth Hospita 01 nightly. l ciprofloxac 2021-0 Yes Q12H every 12 Me thodi in (CIPRO) 6-10 (twelve) st 500 MG 10:59: hours. Hospita tablet l levocetiriz Yes 5mg QD Take 5 [...] 00:00: every Hospita 00 morning. l sertraline 0 Yes 50mg QD Take 50 mg M ethodi (ZOLOFT) 50 5-[address] MG tablet 00:00: every Hospita 00 morning. l sertraline sertraline No 50mg sertraline [place] 50 mg 50 mg 5-16 50 mg [facility] tablet 50 tablet 50 00:00: tablet 50 Urology mg by oral mg by oral 00 mg by oral route. route. route. oxybutynin Yes 10mg Take 10 mg U nivers 10 mg 24 hr 2-25 by mouth ity of tablet 17:12: daily. [place] [address] Medical Branch memantine 0 Yes 10mg Take [...] mouth ity of mg tablet 17:12: daily. [place] [address] Medical Branch solifenacin 2020-0 Yes 10mg Take 10 mg Univers (VESICARE) 2-25 by mouth ity o f 10 mg 17:12: at [place] tablet 19 bedtime. Medical Branch calcium Yes Take by Univers carbonate/v 2-25 mouth. ity of itamin D3 17:12: [place] (CALTRATE 19 Medical 600 + D Branch ORAL) melatonin Yes 20mg Take 20 mg Un linda 10 mg Cap 2-25 by mouth. ity o f 17:12: [place] [address] Medical Branch levocetiriz Yes 5mg Take 5 mg U nivers ine (XYZAL) 2-25 by mouth ity of 5 mg tablet 17:12: every [place] 19 evening. Medical Branch Simethicone Yes Take by Uni vers (PHAZYME) 2-25 mouth. ity of 180 mg Cap 17:12: [place] [address] Medical Branch mv-mn/iron/ Yes Take by Uni vers FA/vit 2-25 mouth. ity of K/K.ginseng 17:12: [place] (CENTRUM 19 [employer] Branch ENERGY ORAL) docusate Yes 200mg Take 200 Univ ers (STOOL 2-25 mg by ity of SOFTENER) 17:12: mouth at [facility] mg 19 bedtime. Medical capsule Branch Bifidobacte Yes Take by Uni vers rium 2-25 mouth ity of infantis 17:12: daily. [place] (ALIGN 19 Medical ORAL) Branch mecobalamin Yes Take by Uni vers , vitamin 2-25 mouth. ity of B12, (B12 17:12: [place] ACTIVE) Medical 1,000 mcg Branch Chew cholecalcif Yes 5000U Take 5,000 Univers eren, 2-25 Units by ity of vitamin D3, 17:12: mouth. [facility] (D3-1999 Medical ORAL) Branch tetracaine Yes PRN, Univers (PONTOCAINE 2-25 Starting ity of ) 0.5 % 15:18: Jessica [place] ophthalmic 00 12/15/20 at Med ical drops 0918, [place] Until Discontinu ed, Routine, Intra-op water for Yes PRN, Univers irrigation 2-25 Starting ity o f irrigation 15:18: Jessica [place] solution 00 12/15/20 at Medic al 0918, [place] Until Discontinu ed, Routine, Intra-op NaCl 0.9% Yes PRN, Univers (NS) 2-25 Starting ity of injection 15:17: Jessica [place] 12/15/20 at [facility] [address] [place] [address] Until Discontinu ed, Routine, Intra-op neomycin-po 0 Yes PRN, Univer s lymyxin-dex 2-25 Starting ity of amethasone 15:17: Jessica [place] (MAXITROL) 12/15/20 at [facility] 3.5 916, [place] mg/g-10,000 Until unit/g-0.1 Discontinu % ed, ophthalmic Routine, ointment Intra-op gentamicin Yes PRN, Univers injection 2-25 Starting ity of 15:16: Jessica [place] 12/15/[address] Until Discontinu ed, KAREN, Intra-op eye block Yes PRN, Univers syringe 11 -25 Starting ity o f mL 15:16: Jessica [place] 12/15/[address] Until Discontinu ed, Intra-op EPINEPHrine 0 Yes PRN, Univer s (PF) 2-25 Starting ity of 1:1,000 (1 15:16: Jessica [place] mg/mL) 12/15/20 at [facility] (ADRENALIN 915, [place] (PF)) Until injection Discontinu ed, Routine, Intra-op DUOVISC Yes PRN, Univers (DUOVISC 2-25 Starting ity of VISCO 15:15: Jessica [place] ELASTIC) 3 12/15/20 at [facility] %-4 %(0.5 914, [place] mL) 1 % Until (0.55 mL) Discontinu intraocular ed, injection Routine, Intra-op dexamethaso Yes PRN, Univer s ne 2-25 Starting ity of (DECADRON 15:15: Jessica [place] PHOSPHATE) 12/15/20 at [facility] ica injection [address] [place] [address] Until Discontinu ed, Routine, Intra-op ceFAZolin Yes PRN, Univers (ANCEF) 2-25 Starting ity of injection 15:15: Jessica [place] 12/15/20 at [facility] [address] [place] [address] Until Discontinu ed, KAREN, Intra-op balanced Yes PRN, Univers salt soln 25 Starting ity of no.2 irrig. 15:14: Jessica [place] (BSS) 00 12/15/20 at Medical ophthalmic 0914, [place] solution Until Discontinu ed, Routine, Intra-op mydriatic 2020- No .5mL 0.5 mL, Univ ers #5 12-15 Right Eye, ity of ophthalmic 14:45: 14:54 ONCE, 1 Lul as solution 00 :00 dose, Jessica Medica l 0.5 mL 12/15/20 at [place] syringe 0845, Routine, DSU Pre-op lactated 2020- No 1000mL at Unive rs ringers IV 12-15 mL/hr, ity of infusion 14:45: 14:54 1,000 mL, Lul as 1,000 mL 00 :00 IV Medical Infusion, [place] ONCE, 1 dose, Jessica 12/15/20 at 0845, Routine, DSU Pre-op oxybutynin Yes 10mg Take 10 mg U nivers 10 mg 24 hr 1-14 by mouth ity of tablet 16:12: daily. [place] 30 Medical Branch memantine Yes 10mg Take [...] by mouth ity of tablet 16:12: at [place] 30 bedtime. Medical Branch SERTraline Yes 50mg Take 50 mg U nivers (ZOLOFT) 50 -14 by mouth ity of mg tablet 16:12: daily. [place] [address] Medical Branch solifenacin Yes 10mg Take 10 mg Univers (VESICARE) 1-14 by mouth ity o f 10 mg 16:12: at [place] tablet 30 bedtime. Medical Branch calcium Yes Take by Univers carbonate/v 1-14 mouth. ity of itamin D3 16:12: [place] (CALTRATE 30 Medical 600 + D Branch ORAL) melatonin Yes 20mg Take 20 mg Un linda 10 mg Cap 1-14 by mouth. ity o f 16:12: [place] [address] Medical Branch levocetiriz Yes 5mg Take 5 mg U nivers ine (XYZAL) 14 by mouth ity of 5 mg tablet 16:12: every [place] 30 evening. Medical Branch Simethicone Yes Take by Uni vers (PHAZYME) 1-14 mouth. ity of 180 mg Cap 16:12: [place] [address] Medical Branch mv-mn/iron/ Yes Take by Uni vers FA/vit 1-14 mouth. ity of K/K.ginseng 16:12: [place] (CENTRUM 30 [employer] Branch ENERGY ORAL) docusate Yes 200mg Take 200 Univ ers (STOOL 1-14 mg by ity of SOFTENER) 16:12: mouth at [place] 100 mg 30 bedtime. Medical capsule Branch Bifidobacte Yes Take by Uni vers rium 1-14 mouth ity of infantis 16:12: daily. [place] (ALIGN 30 Medical ORAL) Branch mecobalamin Yes Take by Uni vers , vitamin 1-14 mouth. ity of B12, (B12 16:12: [place] ACTIVE) 30 Medical 1,000 mcg Branch Chew cholecalcif Yes 5000U Take 5,000 Univers eren, 1-14 Units by ity of vitamin D3, 16:12: mouth. [place] (D3-2000 30 Medical ORAL) Branch oxybutynin Yes 10mg Take 10 mg U nivers 10 mg 24 hr 1-14 by mouth ity of tablet 16:12: daily. [place] 30 Medical Branch memantine Yes 10mg Take [...] by ity of tablet, 16:12: mouth at [place] extended 30 bedtime. Medical release 24 Branch hr atorvastati Yes 20mg Take 20 mg Univers n 20 mg 1-14 by mouth ity of tablet 16:12: at [place] 30 bedtime. Medical Branch SERTraline Yes 50mg Take 50 mg U nivers (ZOLOFT) 50 1-14 by mouth ity of mg tablet 16:12: daily. [place] 30 Medical Branch solifenacin Yes 10mg Take 10 mg Univers (VESICARE) 1-14 by mouth ity o f 10 mg 16:12: at [place] tablet 30 bedtime. Medical Branch calcium Yes Take by Univers carbonate/v 1-14 mouth. ity of itamin D3 16:12: [place] (CALTRATE 30 Medical 600 + D Branch ORAL) melatonin Yes 20mg Take 20 mg Un linda 10 mg Cap 1-14 by mouth. ity o f 16:12: [place] 30 Medical Branch levocetiriz Yes 5mg Take 5 mg U nivers ine (XYZAL) 1-14 by mouth ity of 5 mg tablet 16:12: every [place] 30 evening. Medical Branch Simethicone Yes Take by Uni vers (PHAZYME) 1-14 mouth. ity of 180 mg Cap 16:12: [place] 30 Medical Branch mv-mn/iron/ Yes Take by Uni vers FA/vit 1-14 mouth. ity of K/K.ginseng 16:12: [place] (CENTRUM 30 [employer] Branch ENERGY ORAL) docusate Yes 200mg Take 200 Univ ers (STOOL 1-14 mg by ity of SOFTENER) 16:12: mouth at [place] 100 mg 30 bedtime. Medical capsule Branch Bifidobacte Yes Take by Uni vers rium 1-14 mouth ity of infantis 16:12: daily. [place] (ALIGN 30 Medical ORAL) Branch mecobalamin Yes Take by Uni vers , vitamin 1-14 mouth. ity of B12, (B12 16:12: [place] ACTIVE) 30 Medical 1,000 mcg Branch Chew cholecalcif Yes 5000U Take 5,000 Univers eren, 1-14 Units by ity of vitamin D3, 16:12: mouth. [facility] [place] [facility] (D3-1999 30 Medical ORAL) Branch oxybutynin Yes 10mg Take 10 mg U nivers 10 mg 24 hr 1-14 by mouth ity of tablet 16:12: daily. [place] 30 Medical Branch memantine Yes 10mg Take [...] by mouth ity of tablet 16:12: at [place] 30 bedtime. Medical Branch SERTraline Yes 50mg Take 50 mg U nivers (ZOLOFT) 50 1-14 by mouth ity of mg tablet 16:12: daily. [place] [address] Medical Branch solifenacin Yes 10mg Take 10 mg Univers (VESICARE) 1-14 by mouth ity o f 10 mg 16:12: at [place] tablet 30 bedtime. Medical Branch calcium Yes Take by Univers carbonate/v 1-14 mouth. ity of itamin D3 16:12: [place] (CALTRATE 30 Medical 600 + D Branch ORAL) melatonin Yes 20mg Take 20 mg Un linda 10 mg Cap 1-14 by mouth. ity o f 16:12: [place] [address] Medical Branch levocetiriz Yes 5mg Take 5 mg U nivers ine (XYZAL) -14 by mouth ity of 5 mg tablet 16:12: every [place] 30 evening. Medical Branch Simethicone Yes Take by Uni vers (PHAZYME) 1-14 mouth. ity of 180 mg Cap 16:12: [place] [address] Medical Branch mv-mn/iron/ Yes Take by Uni vers FA/vit 1-14 mouth. ity of K/K.ginseng 16:12: [place] (CENTRUM 30 [employer] Branch ENERGY ORAL) docusate Yes 200mg Take 200 Univ ers (STOOL 1-14 mg by ity of SOFTENER) 16:12: mouth at [place] 100 mg 30 bedtime. Medical capsule Branch Bifidobacte Yes Take by Uni vers rium 1-14 mouth ity of infantis 16:12: daily. [place] (ALIGN 30 Medical ORAL) Branch mecobalamin Yes Take by Uni vers , vitamin 1-14 mouth. ity of B12, (B12 16:12: [place] ACTIVE) 30 Medical 1,000 mcg Branch Chew cholecalcif Yes 5000U Take 5,000 Univers eren, 1-14 Units by ity of vitamin D3, 16:12: mouth. [place] (D3-2000 30 Medical ORAL) Branch neomycin-po 0 Yes PRN, Univer s lymyxin-dex 1-14 Starting ity of amethasone 15:39: Jessica [place] (MAXITROL) 00 11/03/20 at [facility] ical 3.5 0939, [place] mg/g-10,000 Until unit/g-0.1 Discontinu % ed, ophthalmic Routine, ointment Intra-op gentamicin Yes PRN, Univers injection -14 Starting ity of 15:38: Jessica [place] 00 11/03/20 at [facility] [address] [place] [address] Until Discontinu ed, KAREN, Intra-op dexamethaso Yes PRN, Univer s ne 11-03 Starting ity of (DECADRON 15:38: Jessica [place] PHOSPHATE) 00 11/03/20 at [facility] ical injection 09, [place] Until Discontinu ed, Routine, Intra-op ceFAZolin Yes PRN, Univers (ANCEF) 11-03 Starting ity of injection 15:38: Jessica [place] 00 11/03/[address] Until Discontinu ed, KAREN, Intra-op NaCl 0.9% Yes PRN, Univers (NS) 11-03 Starting ity of injection 15:34: Jessica [place] 11/03/20 at [place] [address], [place] Until Discontinu ed, Routine, Intra-op EPINEPHrine Yes PRN, Univer s (PF) 11-03 Starting ity of 1:1,000 (1 15:33: Jessica [place] mg/mL) 11/03/20 at [facility] (ADRENALIN 0933, [place] (PF)) Until injection Discontinu ed, Routine, Intra-op DUOVISC Yes PRN, Univers (DUOVISC 11-03 Starting ity of VISCO 15:33: Jessica [place] ELASTIC) 3 00 11/03/20 at [facility] ical %-4 %(0.5 0933, [place] mL) 1 % Until (0.55 mL) Discontinu intraocular ed, injection Routine, Intra-op balanced Yes PRN, Univers salt soln 11-03 Starting ity of no.2 irrig. 15:32: Jessica [place] (BSS) 00 11/03/20 at [facility] ophthalmic 0932, [place] solution Until Discontinu ed, Routine, Intra-op water for Yes PRN, Univers irrigation 1-14 Starting ity o f irrigation 15:21: Jessica [place] solution 00 11/03/20 at Medic al 0921, [place] Until Discontinu ed, Routine, Intra-op tetracaine Yes PRN, Univers (PONTOCAINE 11-03 Starting ity of ) 0.5 % 15:20: Jessica [place] ophthalmic 00 11/03/20 at Med ical drops 0920, [place] Until Discontinu ed, Routine, Intra-op eye block Yes PRN, Univers syringe 11 14 Starting ity o f mL 15:20: Jessica [place] 00 11/03/20 at Medical 0920, [place] Until Discontinu ed, Intra-op mydriatic 2020- No .5mL 0.5 mL, Univ ers #5 11-03 Left Eye, ity of ophthalmic 13:30: 13:59 ONCE, 1 Lul as solution 00 :00 dose, Jessica Medica l 0.5 mL 11/03/20 at [place] syringe 0730, Routine lactated 2020- No 1000mL at [address] [place] [address] rs ringers IV 11-03 mL/hr, ity of infusion 13:30: 13:59 1,000 mL, Lul as 1,000 mL 00 :00 IV Medical Infusion, [place] ONCE, 1 dose, Jesisca 11/03/20 at 0730, Routine, DSU Pre-op Phenergan Yes 25 mg = 1 Mem oria 25 mg 8-12 supp, HI, l rectal 15:24: q6hr, PRN [place] n suppository 00 as needed for nausea/vom iting, 0 Refill(s) Phenergan Yes 25 mg = 1 Mem oria 25 mg 8-12 supp, HI, l rectal 15:24: q6hr, PRN [place] n suppository 00 as needed for nausea/vom iting, 0 Refill(s) Phenergan No Hardeep 25 mg = 1 Memoria 8-12 P Marroquin De supp, l 15:00: Quirino Supp, HI, [place] 00 Once, first dose 06/01/16 10:00:00 CDT, stop date 06/01/16 10:00:00 CDT Phenergan 2016-0 No Hardeep 25 mg = 1 Memoria 8-12 P Marroquin De supp, l 15:00: Quirino Supp, HI, [place] 00 Once, first dose 06/01/16 10:00:00 CDT, stop date 06/01/16 10:00:00 CDT Lovenox 2015-0 No Hardeep 40 mg = Me moria 8-12 P Marroquin De 0.4 mL, l 14:00: Quirino Injection, [place] 00 Subcutaneo us, Daily, first dose 06/01/16 9:00:00 CDT Protonix IV 0 No Hardeep 40 mg = 1 Memoria 8-12 P Marroquin De EA, l 14:00: Quirino Powder-Inj [place] 00 , IV Push, Daily, first dose 06/01/16 9:00:00 CDT Lovenox 2015-0 No Hardeep 40 mg = Me moria 8-12 P Marroquin De 0.4 mL, l 14:00: Quirino Injection, [place] 00 Subcutaneo us, Daily, first dose 06/01/16 9:00:00 CDT Protonix IV 0 No Hardeep 40 mg = 1 Memoria 8-12 P Marroquin De EA, l 14:00: Quirino Powder-Inj [place] 00 , IV Push, Daily, first dose 06/01/16 9:00:00 CDT metoprolol 2015-0 No Hardeep 25 mg = Memoria 8-12 P Marroquin De 0.5 tabs, l 02:00: Quirino Tab, Oral, [place] 00 BID, first dose 05/31/16 21:00:00 CDT Prinivil 2015-0 No Hardeep 10 mg = 1 Memoria 8-12 P Marroquin De tabs, Tab, l 02:00: Quirino Oral, qHS, [place] 00 first dose 05/31/16 21:00:00 CDT metoprolol 2015-0 No Hardeep 25 mg = Memoria 8-12 P Marroquin De 0.5 tabs, l 02:00: Quirino Tab, Oral, [place] 00 BID, first dose 05/31/16 21:00:00 CDT Prinivil 2016-0 No Hardeep 10 mg = 1 Memoria 8-12 P Marroquin De tabs, Tab, l 02:00: Quirino Oral, qHS, [place] 00 first dose 05/31/16 21:00:00 CDT scopolamine 2015-0 No Hardeep 1 patches, Memoria 1.5 mg 8-11 P Marroquin De Film-ER, l transdermal 22:00: Quirino TD, q3day, [place] film, 00 first dose extended 05/31/16 release 17:00:00 CDT scopolamine 2015-0 No Hardeep 1 patches, Memoria 1.5 mg 8-11 P Marroquin De Film-ER, l transdermal 22:00: Quirino TD, q3day, [place] film, 00 first dose extended 05/31/16 release 17:00:00 CDT ceFAZolin 0 No Hardeep 2 gm, Me moria 8-11 P Marroquin De Soln-IV, l 21:00: Quirino IV [place] 00 Piggyback, q8hr, infuse over 30 minutes, order duration: 3 doses, first dose 05/31/16 16:00:00 CDT, stop date 06/01/16 15:59:00 CDT, Prophylaxi s ceFAZolin 0 No Hardeep 2 gm, Me moria 8-11 P Marroquin De Soln-IV, l 21:00: Quirino IV [place] 00 Piggyback, q8hr, infuse over 30 minutes, order duration: 3 doses, first dose 05/31/16 16:00:00 CDT, stop date 06/01/16 15:59:00 CDT, Prophylaxi s Sodium 2015-0 No Hardeep 1,000 mL, M emoria Chloride 8-11 P Marroquin De IV, 100 l 0.9% 1,000 19:40: Quirino mL/hr, Nydia nn mL 00 start date 05/31/16 14:40:00 CDT Sodium 2015-0 No Hardeep 1,000 mL, M emoria Chloride 8-11 P Marroquin De IV, 100 l 0.9% 1,000 19:40: Quirino mL/hr, Nydia nn mL 00 start date 05/31/16 14:40:00 CDT Tylenol Yes See Memoria with 8-11 Instructio l Codeine 15:12: ns, PRN as Herm marvin 12mg/120mg 00 needed for /5mL oral pain, liquid 5 mL 10-15ml Oral q4-6hr, 0 Refill(s)1 0-15ml Oral q4-6hr Tylenol Yes See Memoria with 8-11 Instructio [...] Marroquin De mL, l 15:10: Quirino Injection, [place] 00 IV Push, q6hr PRN for nausea/vom iting, first dose 05/31/16 10:10:00 CDT [place] 5 No Hardeep 1 tabs, Me moria mg-325 mg 8-11 P Marroquin De Tab, Oral, l oral tablet 15:10: Quirino q4hr PRN [place] r[place] 00 for pain mild-moder ate (1-6), first dose 05/31/16 10:10:00 CDTMax 4gm acetaminop hen in 24 hours morphine No Hardeep 4 mg = 0.4 Memoria 8-11 P Marorquin De mL, l 15:10: Quirino Injection, [place] 00 IV Push, q4hr PRN for pain severe (7-10), first dose 05/31/16 10:10:00 CDT NS 1,000 mL No Hardeep 1,000 mL, Memoria 8-11 P Marroquin De IV, 100 l 15:10: Quirino mL/hr, [place] start date 05/31/16 10:10:00 CDT Zofran No Hardeep 4 mg = 2 Me moria 8-11 P Marroquin De mL, l 15:10: Quirino Injection, [place] 00 IV Push, q6hr PRN for nausea/vom iting, first dose 05/31/16 10:10:00 CDT [place] 5 2015-0 No Hardeep 1 tabs, Me moria mg-325 [...] De Soln, IV l 15:00: Quirino Push, [place] 00 q8hr, first dose 05/31/16 10:00:00 CDT Saline Lock No Hardeep 10 mL, Memoria Flush 8-11 P Marroquin De Soln, IV l 15:00: Quirino Push, [place] 00 q8hr, first dose 05/31/16 10:00:00 CDT Lactated 0 No Jl IV, start M emoria Ringers 05-31 [place] date l Injection 14:57: ZIGZAG APPLIQUER 05/31/16 Herm marvin 00 9:57:00 CDT, stop date 05/31/16 9:57:00 CDT Lactated 0 No Jl IV, start M emoria Ringers 05-31 [place] date l Injection 14:57: ZIGZAG APPLIQUER 05/31/16 Herm marvin 00 9:57:00 CDT, stop date 05/31/16 9:57:00 CDT HYDROmorpho No Jl 0.5 mg = Memoria ne 05-31 [place] 0.25 mL, l 14:55: ZIGZAG APPLIQUER Injection, [place] 00 IV, Once, first dose 05/31/16 9:55:00 CDT, stop date 05/31/16 9:55:00 CDT HYDROmorpho No Jl 0.5 mg = Memoria ne 05-31 [place] 0.25 mL, l 14:55: ZIGZAG APPLIQUER Injection, [place] 00 IV, Once, first dose 05/31/16 9:55:00 CDT, stop date 05/31/16 9:55:00 CDT HYDROmorpho 2016-0 No Jl 0.5 mg = Memoria ne 05-31 [place] 0.25 mL, l 14:47: ZIGZAG APPLIQUER Injection, [place] 00 IV, Once, first dose 05/31/16 9:47:00 CDT, stop date 05/31/16 9:47:00 CDT HYDROmorpho 2015-0 No Jl 0.5 mg = Memoria ne 05-31 [place] 0.25 mL, l 14:47: ZIGZAG APPLIQUER Injection, [place] 00 IV, Once, first dose 05/31/16 9:47:00 CDT, stop date 05/31/16 9:47:00 CDT labetalol 0 No Jl 5 mg = 1 M emoria 05-31 [place] mL, l 14:46: ZIGZAG APPLIQUER Injection, [place] 00 IV, Once, first dose 05/31/16 9:46:00 CDT, stop date 05/31/16 9:46:00 CDT labetalol 0 No Jl 5 mg = 1 M emoria 05-31 [place] mL, l 14:46: ZIGZAG APPLIQUER Injection, [place] 00 IV, Once, first dose 05/31/16 9:46:00 CDT, stop date 05/31/16 9:46:00 CDT Lactated 0 No Jl IV, start M emoria Ringers 05-31 date l Injection 14:39: ZIGZAG APPLIQUER 05/31/16 Herm marvin 00 9:39:00 CDT, stop date 05/31/16 9:39:00 CDT Lactated 0 No Jl IV, start M emoria Ringers 05-31 date l Injection 14:39: ZIGZAG APPLIQUER 05/31/16 Herm marvin 00 9:39:00 CDT, stop date 05/31/16 9:39:00 CDT labetalol 0 No Hardeep 5 mg = 1 Memoria 8- P Marroquin De mL, l 14:37: Quirino Injection, [place] 00 IV Push, As Indicated PRN for hypertensi on, first dose 05/31/16 9:37:00 CDT labetalol 0 No Jl 5 mg = 1 M emoria 8-11 [place] mL, l 14:37: ZIGZAG APPLIQUER Injection, [place] 00 IV, Once, first dose 05/31/16 9:37:00 CDT, stop date 05/31/16 9:37:00 CDT labetalol No Hardeep 5 mg = 1 Memoria 8-11 P Marroquin De mL, l 14:37: Quirino Injection, [place] 00 IV Push, As Indicated PRN for hypertensi on, first dose 05/31/16 9:37:00 CDT labetalol No Jl 5 mg = 1 M emoria 8-11 [place] mL, l 14:37: ZIGZAG APPLIQUER Injection, [place] 00 IV, Once, first dose 05/31/16 9:37:00 [...] De 0.5 mL, l 14:33: Quirino Injection, [place] 00 IV Push, q6hr PRN for itching, first dose 05/31/16 9:33:00 CDT Normal No Hardeep 1,000 mL, M emoria Saline 8-11 P Marroquin De IV, 100 l 1,000 mL 14:33: Quirino mL/hr, [place] 00 start date 05/31/16 9:33:00 CDT acetaminoph No Hardeep 650 mg = 2 Memoria en 8-11 P Marroquin De tabs, Tab, l 14:33: Quirino Oral, q6hr [place] 00 PRN for headache, first dose 05/31/16 9:33:00 CDTMax 4gm acetaminop hen in 24 hours Phenergan No Hardeep 25 mg = 1 Memoria 8-11 P Marroquin De mL, l 14:33: Quirino Injection, [place] 00 IM, q6hr PRN for nausea/vom iting, first dose 05/31/16 9:33:00 CDT Zofran 2015- No Hardeep 4 mg = 2 Me moria 8-11 P Marroquin De mL, l 14:33: Quirino Injection, [place] 00 IV Push, q4hr PRN for nausea/vom [...] Soln, IV l 14:33: Quirino Push, q8hr [place] 00 PRN for flush, first dose 05/31/16 9:33:00 CDT Flu Shot PF Yes Hardeep 0.5 mL, Memoria 8-11 P Marroquin De Injection, l 14:33: Quirino IM, Once [place] 00 PRN for other (see comment), first dose 05/31/16 9:33:00 CDT acetaminoph 0 No Hardeep 15 mL, Memoria en-HYDROcod 8-11 P Marroquin De Soln, l one 325 14:33: Quirino Oral, q4hr Herm marvin mg-7.5 00 PRN for mg/15 mL pain oral severe solution (7-10), first dose 05/31/16 9:33:00 CDTMax 4gm acetaminop hen in 24 hours Benadryl No Hardeep 25 mg = M emoria 8-11 P Marroquni De 0.5 mL, l 14:33: Qu[place] Injection, [place] 00 IV Push, q6hr PRN for itching, first dose 05/31/16 9:33:00 CDT Normal No Hardeep 1,000 mL, M emoria Saline 8-11 P Marroquin De IV, 100 l 1,000 mL 14:33: Quirino mL/hr, [place] 00 start date 05/31/16 9:33:00 CDT acetaminoph 2015-0 No Hardeep 650 mg = 2 Memoria en 8-11 P Marroquin De tabs, Tab, l 14:33: Quirino Oral, q6hr [place] 00 PRN for headache, first dose 05/31/16 9:33:00 CDTMax 4gm acetaminop hen in 24 hours Phenergan 2015-0 No Hardeep 25 mg = 1 Memoria 8-11 P Marroquin De mL, l 14:33: Quirino Injection, [place] 00 IM, q6hr PRN for nausea/vom iting, [...] Soln, IV l 14:33: Quirino Push, q8hr [place] 00 PRN for flush, first dose 05/31/16 9:33:00 CDT Flu Shot PF Yes Hardeep 0.5 mL, Memoria 8-11 P Marroquin De Injection, l 14:33: Quirino IM, Once [place] 00 PRN for other (see comment), first dose 05/31/16 9:33:00 CDT ondansetron No Jl 4 mg = 2 Memoria 8-11 [place] mL, l 14:16: ZIGZAG APPLIQUER Injection, [place] 00 IV, Once, first dose 05/31/16 9:16:00 CDT, stop date 05/31/16 9:16:00 CDT neostigmine No Jl 5 mg = 10 Memoria 8-11 [place] mL, l 14:16: ZIGZAG APPLIQUER Injection, [place] 00 IV, Once, first dose 05/31/16 9:16:00 CDT, stop date 05/31/16 9:16:00 CDT glycopyrrol No Jl 0.8 mg = 4 Memoria ate 8-11 [place] mL, l 14:16: ZIGZAG APPLIQUER Injection, [place] 00 IV, Once, first dose 05/31/16 9:16:00 CDT, stop date 05/31/16 9:16:00 CDT ondansetron No Jl 4 mg = 2 Memoria 8-11 [place] mL, l 14:16: ZIGZAG APPLIQUER Injection, [place] 00 IV, Once, first dose 05/31/16 9:16:00 CDT, stop date 05/31/16 9:16:00 CDT neostigmine No Jl 5 mg = 10 Memoria 8-11 [place] mL, l 14:16: ZIGZAG APPLIQUER Injection, [place] 00 IV, Once, first dose 05/31/16 9:16:00 CDT, stop date 05/31/16 9:16:00 CDT glycopyrrol No Jl 0.8 mg = 4 Memoria ate 8-11 [place] mL, l 14:16: ZIGZAG APPLIQUER Injection, [place] 00 IV, Once, first dose 05/31/16 9:16:00 CDT, stop date 05/31/16 9:16:00 CDT labetalol No Jl 5 mg = 1 M emoria 8-11 [place] mL, l 14:15: ZIGZAG APPLIQUER Injection, [place] 00 IV, Once, first dose 05/31/16 9:15:00 CDT, stop date 05/31/16 9:15:00 CDT labetalol No Jl 5 mg = 1 M emoria 8-11 [place] mL, l 14:15: ZIGZAG APPLIQUER Injection, [place] 00 IV, Once, first dose 05/31/16 9:15:00 CDT, stop date 05/31/16 9:15:00 CDT fentaNYL No Jl 50 mcg = 1 Memoria 8-11 [place] mL, l 14:07: ZIGZAG APPLIQUER Injection, [place] 00 IV, Once, first dose 05/31/16 9:07:00 CDT, stop date 05/31/16 9:07:00 CDT fentaNYL No Jl 50 mcg = 1 Memoria 8-11 [place] mL, l 14:07: ZIGZAG APPLIQUER Injection, [place] 00 IV, Once, first dose 05/31/16 9:07:00 CDT, stop date 05/31/16 9:07:00 CDT labetalol 2015-0 No Jl 5 mg = 1 Adele hanson 8-11 [place] mL, l 14:03: ZIGZAG APPLIQUER Injection, [place] 00 IV, Once, first dose 05/31/16 9:03:00 CDT, stop date 05/31/16 9:03:00 CDT labetalol 0 No Jl 5 mg = 1 Adele hanson 8-11 [place] mL, l 14:03: ZIGZAG APPLIQUER Injection, [place] 00 IV, Once, first dose 05/31/16 9:03:00 CDT, stop date 05/31/16 9:03:00 CDT fentaNYL No Jl 50 mcg = 1 Memoria 8-11 [place] mL, l 13:54: ZIGZAG APPLIQUER Injection, [place] 00 IV, Once, first dose 05/31/16 8:54:00 CDT, stop date 05/31/16 8:54:00 CDT fentaNYL No Jl 50 mcg = 1 Kelioria 8-11 [place] mL, l 13:54: ZIGZAG APPLIQUER Injection, [place] 00 IV, Once, first dose 05/31/16 8:54:00 CDT, stop date 05/31/16 8:54:00 CDT fentaNYL No Jl 50 mcg = 1 Memoria 8-11 [place] mL, l 13:34: ZIGZAG APPLIQUER Injection, [place] 00 IV, Once, first dose 05/31/16 8:34:00 CDT, stop date 05/31/16 8:34:00 CDT fentaNYL No Jl 50 mcg = 1 Memoria 8-11 [place] mL, l 13:34: ZIGZAG APPLIQUER Injection, [place] 00 IV, Once, first dose 05/31/16 8:34:00 CDT, stop date 05/31/16 8:34:00 CDT rocuronium 2015-0 No Jl 35 mg = Adele hanson 8-11 [place] 3.5 mL, l 13:33: ZIGZAG APPLIQUER Injection, [place] 00 IV, Once, first dose 05/31/16 8:33:00 CDT, stop date 05/31/16 8:33:00 CDT rocuronium 2015-0 No Jl 35 mg = M emoria 8-11 [place] 3.5 mL, l 13:33: ZIGZAG APPLIQUER Injection, [place] 00 IV, Once, first dose 05/31/16 8:33:00 CDT, stop date 05/31/16 8:33:00 CDT Dilaudid 0 No Hardeep 0.5 mg = Memoria 8-11 P Marroquin De 0.25 mL, l 13:31: Quirino Injection, [place] 00 IV Push, q10min PRN for pain severe (7-10), first dose 05/31/16 8:31:00 CDT Saline Lock No Jl 10 mL, M emoria Flush 8-11 [place] Soln, IV l 13:31: ZIGZAG APPLIQUER Push, As [place] 00 Indicated PRN for flush, first dose 05/31/16 8:31:00 CDT promethazin No Jl 12.5 mg = Memoria e 8-11 [place] 0.5 mL, l 13:31: ZIGZAG APPLIQUER Injection, [place] 00 IM, Once PRN for severe nausea, first dose 05/31/16 8:31:00 CDT ondansetron No Hardeep 4 mg = 2 Memoria 8-11 P Marroquin De mL, l 13:31: Qu[place] Injection, [place] 00 IV Push, q15min PRN for nausea/vom iting, order duration: 2 doses, first dose 05/31/16 8:31:00 CDT, stop date Limited # of times Xopenex 0 No Hardeep 0.63 mg = Memoria 0.63 mg/3 8-11 P Marroquin De 3 mL, l mL 13:31: Quirino Soln, NEB, [place] inhalation 00 Once PRN solution for shortness of breath or wheezing, first dose 05/31/16 8:31:00 CDT Dilaudid 0 No Hardeep 0.5 mg = Memoria 8-11 P Marroquin De 0.25 mL, l 13:31: Quirino Injection, [place] 00 IV Push, q10min PRN for pain severe (7-10), first dose 05/31/16 8:31:00 CDT Saline Lock No Jl 10 mL, M emoria Flush 8-11 [place] Soln, IV l 13:31: ZIGZAG APPLIQUER Push, As [place] 00 Indicated PRN for flush, first dose 05/31/16 8:31:00 CDT promethazin No Jl 12.5 mg = Memoria e 8-11 [place] 0.5 mL, l 13:31: ZIGZAG APPLIQUER Injection, [place] 00 IM, Once PRN for severe nausea, first dose 05/31/16 8:31:00 CDT ondansetron No Hardeep 4 mg = 2 Memoria 8-11 P Marroquin De mL, l 13:31: Quirino Injection, [place] 00 IV Push, q15min PRN for nausea/vom [...] Memoria ne 8-11 [place] mL, l 13:30: ZIGZAG APPLIQUER Injection, [place] 00 IV, Once, first dose 05/31/16 8:30:00 CDT, stop date 05/31/16 8:30:00 CDT dexamethaso No Jl 8 mg = 2 Memoria ne 8-11 [place] mL, l 13:30: ZIGZAG APPLIQUER Injection, [place] 00 IV, Once, first dose 05/31/16 8:30:00 CDT, stop date 05/31/16 8:30:00 CDT glycopyrrol No Jl 0.2 mg = 1 Memoria ate 8-11 [place] mL, l 13:21: ZIGZAG APPLIQUER Injection, [place] 00 IV, Once, first dose 05/31/16 8:21:00 CDT, stop date 05/31/16 8:21:00 CDT glycopyrrol No Jl 0.2 mg = 1 Memoria ate 8-11 [place] mL, l 13:21: ZIGZAG APPLIQUER Injection, [place] 00 IV, Once, first dose 05/31/16 8:21:00 CDT, stop date 05/31/16 8:21:00 CDT succinylcho 2016-0 No Jl 80 mg = 4 Memoria line 8-11 [place] mL, l 13:15: ZIGZAG APPLIQUER Injection, [place] 00 IV, Once, first dose 05/31/16 8:15:00 CDT, stop date 05/31/16 8:15:00 CDT succinylcho 2016-0 No Jl 80 mg = 4 Memoria line 8-11 [place] mL, l 13:15: ZIGZAG APPLIQUER Injection, [place] 00 IV, Once, first dose 05/31/16 8:15:00 CDT, stop date 05/31/16 8:15:00 CDT propofol 2016-0 No Jl 110 mg = Me moria 8-11 [place] 11 mL, l 13:14: ZIGZAG APPLIQUER Emulsion, [place] 00 IV, Once, first dose 05/31/16 8:14:00 CDT, stop date 05/31/16 8:14:00 CDT propofol 2016-0 No Jl 110 mg = Me moria 8-11 [place] 11 mL, l 13:14: ZIGZAG APPLIQUER Emulsion, [place] 00 IV, Once, first dose 05/31/16 8:14:00 CDT, stop date 05/31/16 8:14:00 CDT rocuronium 2016-0 No Jl 5 mg = 0.5 Memoria 8-11 [place] mL, l 13:13: ZIGZAG APPLIQUER Injection, [place] 00 IV, Once, first dose 05/31/16 8:13:00 CDT, stop date 05/31/16 8:13:00 CDT lidocaine 2016-0 No Jl 4 mL, Seng agustin 8-11 [place] Injection, l 13:13: ZIGZAG APPLIQUER IV, Once, [place] 00 first dose 05/31/16 8:13:00 CDT, stop date 05/31/16 8:13:00 CDT rocuronium 2016-0 No Jl 5 mg = 0.5 Memoria 8-11 [place] mL, l 13:13: ZIGZAG APPLIQUER Injection, [place] 00 IV, Once, first dose 05/31/16 8:13:00 CDT, stop date 05/31/16 8:13:00 CDT lidocaine 2016-0 No Jl 4 mL, Seng agustin 8-11 [place] Injection, l 13:13: ZIGZAG APPLIQUER IV, Once, [place] 00 first dose 05/31/16 8:13:00 CDT, stop date 05/31/16 8:13:00 CDT ceFAZolin 2015-0 No Jl 2 gm, Seng agustin 8-11 [place] Soln-IV, l 13:12: ZIGZAG APPLIQUER IV [place] 00 Piggyback, Once, first dose 05/31/16 8:12:00 CDT, stop date 05/31/16 8:12:00 CDT ceFAZolin 2015-0 No Jl 2 gm, Seng agustin 8-11 [place] Soln-IV, l 13:12: ZIGZAG APPLIQUER IV [place] 00 Piggyback, Once, first dose 05/31/16 8:12:00 CDT, stop date 05/31/16 8:12:00 CDT fentaNYL 2015- No Jl 50 mcg = 1 Memoria 8-11 [place] mL, l 13:10: ZIGZAG APPLIQUER Injection, [place] 00 IV, Once, first dose 05/31/16 8:10:00 CDT, stop date 05/31/16 8:10:00 CDT fentaNYL 2015-0 No Jl 50 mcg = 1 Memoria 8-11 [place] mL, l 13:10: ZIGZAG APPLIQUER Injection, [place] 00 IV, Once, first dose 05/31/16 8:10:00 CDT, stop date 05/31/16 8:10:00 CDT Misc 0 No Dmitry 1,000 mL, Memoria Medication 05-31 Wilfredo Soln-IV, l 13:08: IV, Once, [place] 00 first dose 05/31/16 8:08:00 CDT, stop date 05/31/16 8:08:00 CDT Misc 0 No Dmitry 1,000 mL, Memoria Medication 05-31 Wilfredo Soln-IV, l 13:08: IV, Once, [place] 00 first dose 05/31/16 8:08:00 CDT, stop date 05/31/16 8:08:00 CDT fentaNYL 2015-0 No Jl 50 mcg = 1 Memoria 8-11 [place] mL, l 13:06: ZIGZAG APPLIQUER Injection, [place] 00 IV, Once, first dose 05/31/16 8:06:00 CDT, stop date 05/31/16 8:06:00 CDT fentaNYL 2015-0 No Jl 50 mcg = 1 Memoria 8-11 [place] mL, l 13:06: ZIGZAG APPLIQUER Injection, [place] 00 IV, Once, first dose 05/31/16 8:06:00 CDT, stop date 05/31/16 8:06:00 CDT ceFAZolin 2015-0 No Hardeep 2 gm, Me moria 8-11 P Marroquin De Soln-IV, l 12:00: Quirino IV [place] 00 Piggyback, Once, infuse over 30 minutes, first dose 05/31/16 7:00:00 CDT, stop date 05/31/16 7:00:00 CDT, patient weight 50-120 kg, Prophylaxi s ceFAZolin 2015-0 No Hardeep 2 gm, Me moria 8-11 P Marroquin De Soln-IV, l 12:00: Quirino IV [place] 00 Piggyback, Once, infuse over 30 minutes, first dose 05/31/16 7:00:00 CDT, stop date 05/31/16 7:00:00 CDT, patient weight 50-120 kg, Prophylaxi s Lidocaine 2015-0 Yes Malcolm K 0.2 mL, Mem oria 2% 0.2 mL 05-31 [place] Injection, l IV Start 11:24: [facility] [[facility]] 00 us, Once PRN for other (see comment), first dose 05/31/16 6:24:00 CDT LR 1,000 mL 2015- No Malcolm K 1,000 mL, Memoria 8-11 [place] IV, 30 l 11:24: mL/hr, start date 05/31/16 6:24:00 CDT Lidocaine 2015-0 Yes Malcolm K 0.2 mL, Mem oria 2% 0.2 mL 05-31 [place] Injection, l IV Start 11:24: [facility]cutaneo [facility] [[facility]] 00 us, Once PRN for other (see comment), first dose 05/31/16 6:24:00 CDT LR 1,000 mL 0 No Malcolm K 1,000 mL, Memoria 8-11 [place] IV, 30 l 11:24: mL/hr, start date 05/31/16 6:24:00 CDT oxybutynin Yes 5 mg, Memori a 8-02 Oral, qHS, l 20:09: 0 [place] 00 Refill(s) oxybutynin 2016- Yes 5 mg, Memori a 8-02 Oral, qHS, l 20:09: 0 [place] 00 Refill(s) Namenda 10 Yes 10 mg = 1 Me moria mg oral - tabs, l tablet 20:08: Oral, BID, Nydia nn 00 0 Refill(s), family hx of Alzheimer Aricept 5 Yes 5 mg = 1 Seng agustin mg oral 05-22 tabs, l tablet 20:08: Oral, [place] 00 Daily, 0 Refill(s), family hx of Alzheimer Namenda 10 Yes 10 mg = 1 Me moria mg oral 05-22 tabs, l tablet 20:08: Oral, BID, Nydia nn 00 0 Refill(s), family hx of Alzheimer Aricept 5 Yes 5 mg = 1 Seng agustin mg oral 05-22 tabs, l tablet 20:08: Oral, [place] 00 Daily, 0 Refill(s), family hx of Alzheimer Prinivil 10 Yes 10 mg = 1 M emoria mg oral 05-22 tabs, l tablet 20:03: Oral, qHS, Nydia nn 00 0 Refill(s), HTN metoprolol Yes 25 mg, Memor ia - Oral, BID, l 20:03: 0 [place] 00 Refill(s), HTN gabapentin Yes See Memoria 300 mg oral 05-22 Instructio l capsule 20:03: ns, 1 tab Nydia nn 00 PO QAM 2 tabs PO QHS, 0 Refill(s), back pain1 tab PO QAM 2 tabs PO QHS Prinivil 10 Yes 10 mg = 1 M emoria mg oral 8- tabs, l tablet 20:03: Oral, qHS, Nydia nn 00 0 Refill(s), HTN metoprolol Yes 25 mg, Memor ia 8- Oral, BID, l 20:03: 0 [place] 00 Refill(s), HTN gabapentin Yes See Memoria 300 mg oral 05-22 Instructio l capsule 20:03: ns, 1 tab Nydia nn 00 PO QAM 2 tabs PO QHS, 0 Refill(s), back pain1 tab PO QAM 2 tabs PO QHS oxybutynin Yes 10mg QD Take [address] (DITROPAN-X 9-29 by mouth [facility]) 10 MG 24 18:10: nightly. [place] hr tablet 48 [place] memantine Yes 28mg QD Take [address] (NAMENDA) 9-29 [facility] 10 MG 18:10: nightly. Medical tablet 48 [place] aspirin 81 Yes 81mg QD Take [address] MG EC 9-29 by [facility] tablet 18:10: daily. Medical [address] [place] [address] docusate Yes 100mg Q.5D Take [address] [facility] sodium 9-29 mg by [facility] (COLACE) 18:10: mouth 2 Medica l 100 MG 48 (two) Center capsule times daily. melatonin 3 Yes 20mg QD Take [address] [facility] mg Tab 9-29 by mouth [facility] 18:10: nightly. Medical [address] [place] [address] multivitami Yes 1{tbl} QD Take [address] [facility] [address] [facility] n per - tablet by [facility] tablet 18:10: mouth Medical 48 daily. [place] omega-3 Yes Take by [facility] fatty -29 mouth. [facility] acids-vitam 18:10: Medica l in E 1,000 48 Center mg Cap vitamin E Yes 400U QD Take [address] [facility] 400 UNIT 9-29 Units by [facility] capsule 18:10: mouth Medical 48 daily. [place] b complex Yes 1{tbl} QD Take [address] [facility] vitamins 9-29 tablet by [facility] tablet 18:10: mouth Medical 48 daily. [place] calcium Yes 1{tbl} Take [address] [facility] carbonate-v 9-29 tablet by [facility] itamin D3 18:10: mouth 2 Medic al (CALCIUM- 48 (two) Center TAMIN D) times 500 daily with mg(1,250mg) breakfast -200 unit and per tablet dinner. cholecalcif Yes 1000U QD Take 1,[address] [facility] eren 9-29 Units by [facility] (VITAMIN 18:10: mouth Medical D3) 1,000 48 daily. [place] unit tablet cyanocobala Yes 2000ug QD Take 2,[address] [facility] min 2000 9-29 mcg by [facility] MCG tablet 18:10: mouth Medica l 48 daily. [place] pyridoxine Yes 400mg Take [address] (PYRIDOXINE 9-29 mg by [facility] ) 200 mg 18:10: mouth. Medical Tab 48 [place] lisinopril Yes 10mg QD Take 10 mg [...] MG 18:10: mouth Medical tablet 48 nightly. [place] aspirin 81 Yes 81mg QD Take [address] MG EC 9-29 by mouth [facility] tablet 18:10: daily. Medical 48 [place] docusate Yes 100mg Q.5D Take [address] [facility] sodium 9-29 mg by [facility] (COLACE) 18:10: mouth 2 Medica l 100 MG 48 (two) Center capsule times daily. melatonin 3 Yes 20mg QD Take [address] [facility] mg Tab 9-29 by mouth [facility] 18:10: nightly. Medical 48 [place] multivitami Yes 1{tbl} QD Take [address] [facility] [address] [facility] n per 9-29 tablet by [facility] tablet 18:10: mouth Medical 48 daily. [place] omega-3 Yes Take by [facility] fatty 9-29 mouth. [facility] acids-vitam 18:10: Medica l in E 1,000 48 [place] mg Cap vitamin E Yes 400U QD Take [address] [facility] 400 UNIT 9-29 Units by [facility] capsule 18:10: mouth Medical 48 daily. [place] b complex Yes 1{tbl} QD Take [address] [facility] vitamins 9-29 tablet by [facility] tablet 18:10: mouth Medical 48 daily. [place] calcium Yes 1{tbl} Take [address] [facility] carbonate-v 9-29 tablet by [facility] itamin D3 18:10: mouth 2 Medic al (CALCIUM- 48 (two) Center TAMIN D) times 500 daily with mg(1,250mg) breakfast -200 unit and per tablet dinner. cholecalcif Yes 1000U QD Take 1,[address] [facility] eren 9-29 Units by [facility] (VITAMIN 18:10: mouth Medical D3) 1,000 48 daily. [place] unit tablet cyanocobala Yes 2000ug QD Take 2,[address] [facility] min 2000 9-29 mcg by [facility] MCG tablet 18:10: mouth Medica l 48 daily. [place] pyridoxine Yes 400mg Take [address] (PYRIDOXINE 9-29 mg by [facility] ) 200 mg 18:10: mouth. Medical Tab 48 [place] lisinopril Yes 10mg QD Take [address] (PRINIVIL,Z 9-29 by mouth [facility] ESTRIL) 10 18:10: nightly. Med ical MG tablet 48 [place] gabapentin Yes 300mg Take [address] [facility] [address] (NEURONTIN) 9-29 mg by [facility] 300 MG 18:10: mouth Medical capsule 48 daily with Center breakfast. gabapentin Yes 600mg QD Take [address] (NEURONTIN) 9-29 mg by [facility] 600 MG 18:10: mouth Medical tablet 48 nightly. [place] oxybutynin Yes 10mg QD Take [address] (DITROPAN-X 9-29 by mouth [facility]) 10 MG 24 18:10: nightly. Me dical hr tablet 48 [place] memantine Yes 28mg QD Take [address] (NAMENDA) 9-29 by [facility] 10 MG 18:10: nightly. Medical tablet 48 [place] butalbital- butalbital- No butalbital [place] acetaminoph acetaminoph -acetamino [place] en-caffeine en-caffeine phen-caffe [facility] 50 mg-300 50 mg-300 ine 50 mg-40 mg mg-40 mg mg-300 capsule capsule mg-40 mg TAKE 1 TAKE 1 capsule CAPSULE BY CAPSULE BY TAKE 1 MOUTH EVERY MOUTH EVERY CAPSULE BY 6 HOURS 6 HOURS MOUTH NEEDED FOR NEEDED FOR EVERY 6 PAIN PAIN HOURS NEEDED FOR PAIN chlordiazep chlordiazep No chlordiaze [place] oxide-clidi oxide-clidi poxide-cli [facility] nium 5 nium 5 dinium 5 Urology mg-2.5 mg mg-2.5 mg mg-2.5 mg capsule capsule capsule TAKE ONE TAKE ONE TAKE ONE (1) (1) (1) CAPSULE(S) CAPSULE(S) CAPSULE(S) BY MOUTH BY MOUTH BY MOUTH THREE TIMES THREE TIMES THREE A DAY A DAY TIMES A NEEDED. NEEDED. DAY NEEDED. clopidogrel clopidogrel No clopidogre [place] 75 mg 75 mg l 75 mg [facility] tablet TAKE tablet TAKE tablet Urology 1 TABLET BY 1 TABLET BY TAKE 1 MOUTH EVERY MOUTH EVERY TABLET BY DAY DAY MOUTH EVERY DAY folic acid folic acid No folic acid [place] 1 mg tablet 1 mg tablet 1 mg M etro TAKE ONE TAKE ONE tablet Urolo gy (1) (1) TAKE ONE TABLET(S) TABLET(S) (1) BY MOUTH BY MOUTH TABLET(S) DAILY. DAILY. BY MOUTH DAILY. gabapentin gabapentin No gabapentin [place] 300 mg 300 mg 300 mg [facility] capsule capsule capsule Urolog y TAKE 1 TAKE 1 TAKE 1 CAPSULE BY CAPSULE BY CAPSULE BY MOUTH THREE MOUTH THREE MOUTH TIMES A DAY TIMES A DAY THREE TIMES A DAY meloxicam meloxicam No meloxicam [place] 15 mg 15 mg 15 mg [facility] tablet TAKE tablet TAKE tablet Urology 1 TABLET BY 1 TABLET BY TAKE 1 MOUTH EVERY MOUTH EVERY TABLET BY DAY DAY MOUTH EVERY DAY memantine memantine No memantine [place] 10 mg 10 mg 10 mg [facility] tablet TAKE tablet TAKE tablet Urology 1 TABLET BY 1 TABLET BY TAKE 1 MOUTH TWICE MOUTH TWICE TABLET BY A DAY A DAY MOUTH TWICE A DAY montelukast montelukast No montelukas [place] 10 mg 10 mg t 10 mg [facility] tablet tablet tablet [facility] sertraline sertraline No sertraline [place] 100 mg 100 mg 100 mg [facility] tablet tablet tablet U[facility] trazodone trazodone No trazodone [place] 50 mg 50 mg 50 mg [facility] tablet TAKE tablet TAKE tablet Urology 1 TABLET BY 1 TABLET BY TAKE 1 MOUTH MOUTH TABLET BY EVERYDAY AT EVERYDAY AT MOUTH BEDTIME BEDTIME EVERYDAY AT BEDTIME Ubrelvy 100 Ubrelvy 100 No Ubrelvy [place] mg tablet mg tablet 100 mg Met ro tablet Urology Vitamin B12 Vitamin B12 No Vitamin [place] B12 [facility] Vitamin [facility] alendronate alendronate No alendronat [place] 70 mg 70 mg e 70 mg [facility] tablet TAKE tablet TAKE tablet Urology ONE (1) ONE (1) TAKE ONE TABLET(S) TABLET(S) (1) BY MOUTH BY MOUTH TABLET(S) ONCE ONCE BY MOUTH WEEKLY. WEEKLY. ONCE WEEKLY. amlodipine amlodipine No amlodipine [place] 5 mg tablet 5 mg tablet 5 mg M etro TAKE ONE TAKE ONE tablet Urolo gy (1) (1) TAKE ONE TABLET(S) TABLET(S) (1) BY MOUTH BY MOUTH TABLET(S) DAILY. DAILY. BY MOUTH DAILY. aspirin 81 aspirin 81 No aspirin 81 [place] mg mg mg [facility] tablet,brendon tablet,brendon tablet,del Urology yed release yed release ayed TAKE 1 TAKE 1 release TABLET BY TABLET BY TAKE 1 MOUTH EVERY MOUTH EVERY TABLET BY DAY DAY MOUTH EVERY DAY atorvastati atorvastati No atorvastat [place] n 20 mg n 20 mg in 20 mg [facility] tablet TAKE tablet TAKE tablet Urology ONE (1) ONE (1) TAKE ONE TABLET(S) TABLET(S) (1) BY MOUTH BY MOUTH TABLET(S) DAILY. DAILY. BY MOUTH DAILY. butalbital- butalbital- No butalbital [place] acetaminoph acetaminoph -acetamino [facility] en-caffeine en-caffeine phen-caffe Urology 50 mg-300 50 mg-300 ine 50 mg-40 mg mg-40 mg mg-300 capsule capsule mg-40 mg TAKE 1 TAKE 1 capsule CAPSULE BY CAPSULE BY TAKE 1 MOUTH EVERY MOUTH EVERY CAPSULE BY 6 HOURS 6 HOURS MOUTH NEEDED FOR NEEDED FOR EVERY 6 PAIN PAIN HOURS NEEDED FOR PAIN chlordiazep chlordiazep No chlordiaze [place] oxide-clidi oxide-clidi poxide-cli [facility] nium 5 nium 5 dinium 5 Urology mg-2.5 mg mg-2.5 mg mg-2.5 mg capsule capsule capsule TAKE ONE TAKE ONE TAKE ONE (1) (1) (1) CAPSULE(S) CAPSULE(S) CAPSULE(S) BY MOUTH BY MOUTH BY MOUTH THREE TIMES THREE TIMES THREE A DAY. A DAY. TIMES A DAY. clopidogrel clopidogrel No clopidogre [place] 75 mg 75 mg l 75 mg [facility] tablet TAKE tablet TAKE tablet Urology 1 TABLET BY 1 TABLET BY TAKE 1 MOUTH EVERY MOUTH EVERY TABLET BY DAY DAY MOUTH EVERY DAY donepezil donepezil No donepezil [place] 23 mg 23 mg 23 mg [facility] tablet TAKE tablet TAKE tablet Urology ONE (1) ONE (1) TAKE ONE TABLET(S) TABLET(S) (1) BY MOUTH BY MOUTH TABLET(S) ONCE A DAY. ONCE A DAY. BY MOUTH ONCE A DAY. folic acid folic acid No folic acid [place] 1 mg tablet 1 mg tablet 1 mg M etro TAKE ONE TAKE ONE tablet Urolo gy (1) (1) TAKE ONE TABLET(S) TABLET(S) (1) BY MOUTH BY MOUTH TABLET(S) DAILY. DAILY. BY MOUTH DAILY. gabapentin gabapentin No gabapentin [place] 300 mg 300 mg 300 mg [facility] capsule capsule capsule Urolog y TAKE ONE TAKE ONE TAKE ONE (1) (1) (1) CAPSULE(S) CAPSULE(S) CAPSULE(S) BY MOUTH BY MOUTH BY MOUTH THREE TIMES THREE TIMES THREE A DAY. A DAY. TIMES A DAY. meloxicam meloxicam No meloxicam [place] 15 mg 15 mg 15 mg [facility] tablet TAKE tablet TAKE tablet Urology ONE (1) ONE (1) TAKE ONE TABLET(S) TABLET(S) (1) BY MOUTH BY MOUTH TABLET(S) DAILY. DAILY. BY MOUTH DAILY. memantine memantine No memantine [place] 10 mg 10 mg 10 mg [facility] tablet TAKE tablet TAKE tablet Urology ONE (1) ONE (1) TAKE ONE TABLET(S) TABLET(S) (1) BY MOUTH BY MOUTH TABLET(S) TWICE A TWICE A BY MOUTH DAY. DAY. TWICE A DAY. montelukast montelukast No montelukas [place] 10 mg 10 mg t 10 mg [facility] tablet TAKE tablet TAKE tablet Urology ONE (1) ONE (1) TAKE ONE TABLET(S) TABLET(S) (1) BY MOUTH BY MOUTH TABLET(S) DAILY. DAILY. BY MOUTH DAILY. sertraline sertraline No sertraline [place] 100 mg 100 mg 100 mg [facility] tablet tablet tablet Urology trazodone trazodone No trazodone [place] 50 mg 50 mg 50 mg [facility] tablet TAKE tablet TAKE tablet Urology ONE (1) ONE (1) TAKE ONE TABLET(S) TABLET(S) (1) BY MOUTH BY MOUTH TABLET(S) ONCE A DAY ONCE A DAY BY MOUTH AT BEDTIME. AT BEDTIME. ONCE A DAY AT BEDTIME. Ubrelvy 100 Ubrelvy 100 No Ubrelvy [place] mg tablet mg tablet 100 mg Met ro tablet Urology Vitamin B12 Vitamin B12 No Vitamin [place] B12 [facility] Vitamin C Vitamin C No Vitamin C [place] [facility] atorvastati atorvastati No atorvastat [place] n 20 mg n 20 mg in 20 mg da tablet tablet tablet [facility] donepezil donepezil No donepezil [place] 10 mg 10 mg 10 mg da tablet tablet tablet [facility] gabapentin gabapentin No gabapentin [place] 300 mg 300 mg 300 mg da capsule capsule capsule [facility] meloxicam meloxicam No meloxicam [place] 15 mg 15 mg 15 mg da tablet tablet tablet [facility] memantine memantine No memantine [place] 10 mg 10 mg 10 mg da tablet tablet tablet [facility] Myrbetriq Myrbetriq No Myrbetriq [place] 50 mg 50 mg 50 mg da tablet,exte tablet,exte tablet,ext [facility] nded nded ended al release release release Health Outre[facility] oxybutynin oxybutynin No oxybutynin [place] chloride ER chloride ER chloride da 10 mg 10 mg ER 10 mg [facility] tablet,exte tablet,exte tablet,ext al nded nded ended Health release 24 release 24 release 24 Outreac hr hr hr h Program Prolia 60 Prolia 60 No Prolia 60 [place] mg/mL mg/mL mg/mL da subcutaneou subcutaneou subcutaneo [facility] syringe s syringe us syringe ok [facility] Out[facility] sertraline sertraline No sertraline [place] 50 mg 50 mg 50 mg da tablet tablet tablet [facility] Shingrix Shingrix No Shingrix [facility] (PF) 50 (PF) 50 (PF) 50 da mcg/0.5 mL mcg/0.5 mL mcg/0.5 mL [facility] intramuscul intramuscul intramuscu al [facility] suspension, suspension, suspension Outreac kit kit , kit h Program solifenacin solifenacin No solifenaci [place] 10 mg 10 mg n 10 mg da tablet tablet tablet [facility] tramadol 50 tramadol 50 No tramadol [place] mg tablet mg tablet 50 mg da tablet [facility] Out[facility] fluticasone fluticasone No fluticason propionate propionate e Dwa yne 50 50 propionate Yves mcg/actuati mcg/actuati 50 s on nasal on nasal mcg/actuat spray,suspe spray,suspe ion nasal nsion nsion spray,susp ension folic acid folic acid No folic acid DrLeah 1 mg tablet 1 mg tablet 1 mg D fransisca TAKE ONE TAKE ONE tablet Willi am (1) (1) TAKE ONE s TABLET(S) TABLET(S) (1) BY MOUTH BY MOUTH TABLET(S) DAILY. DAILY. BY MOUTH DAILY. gabapentin gabapentin No gabapentin 250 mg/5 mL 250 mg/5 mL 250 mg/5 Ruben oral oral mL oral Yves solution solution solution s gabapentin gabapentin No gabapentin 300 mg caps 300 mg caps 300 mg [facility] caps Yves s gabapentin gabapentin No gabapentin 300 mg 300 mg 300 mg [facility] capsule capsule capsule [facility] TAKE ONE TAKE ONE TAKE ONE s (1) (1) (1) CAPSULE(S) CAPSULE(S) CAPSULE(S) BY MOUTH BY MOUTH BY MOUTH THREE TIMES THREE TIMES THREE A DAY. A DAY. TIMES A DAY. hydrocodone hydrocodone No hydrocodon 5 5 e 5 [facility] mg-acetamin mg-acetamin mg-acetami Yves ophen 325 ophen 325 nophen 325 s mg tablet mg tablet mg tablet hydrocodone hydrocodone No hydrocmary beth Ramsay 7.5 7.5 e 7.5 Ruben mg-acetamin mg-acetamin mg-acetami Yves ophen 325 ophen 325 nophen 325 s mg tablet mg tablet mg tablet Lagevrio Lagevrio No Lagevkarly Ramsay 200 mg 200 mg 200 mg [facility] capsule capsule capsule Willia m (EUA) TAKE (EUA) TAKE (EUA) TAKE s 4 CAPSULES 4 CAPSULES 4 CAPSULES BY MOUTH BY MOUTH BY MOUTH TWICE DAILY TWICE DAILY TWICE DAILY levofloxaci levofloxaci No levofloxac n 500 mg n 500 mg in 500 mg Dw ayne tablet tablet tablet Yves s lisinopril lisinopril No lisinopril 10 mg 10 mg 10 mg [facility]en tablet take tablet take tablet Yves 1 tablet 1 tablet take 1 s daily daily tablet daily lisinopril lisinopril No lisinopril Dr. 10 mg tabs 10 mg tabs 10 mg tabs Rubenaliza álvarez lisinopril lisinopril No lisinopril Dr. 20 mg 20 mg 20 mg Ruben tablet tablet tablet Yves álvaerz lisinopril lisinopril No lisinopril Dr. 5 mg tablet 5 mg tablet 5 mg D fransisca tablet Yves álvarez lorazepam lorazepam No lorazepam Dr. 0.5 mg 0.5 mg 0.5 mg Ruben tablet tablet tablet Yves álvarez Lunesta 3 Lunesta [address] mg tablet mg tablet mg tablet Ruben take one take one take one Brendon mabel tablet by tablet by tablet by s mouth at mouth at mouth at bedtime bedtime bedtime lyrica 100 lyrica [address] mg caps mg caps mg caps Rubenaliza álvarez Lyrica 100 Lyrica [address] mg capsule mg capsule mg capsule Ruben TAKE ONE TAKE ONE TAKE ONE Brendon mabel CAPSULE BY CAPSULE BY CAPSULE BY s MOUTH TWICE MOUTH TWICE MOUTH A DAY A DAY TWICE A DAY Lyrica 50 Lyrica [address] mg capsule mg capsule mg capsule Rubenaliza álvarez meloxicam meloxicam No meloxicam Dr. 15 mg 15 mg 15 mg [facility] tablet TAKE tablet TAKE tablet Yves ONE (1) ONE (1) TAKE ONE s TABLET(S) TABLET(S) (1) BY MOUTH BY MOUTH TABLET(S) DAILY. DAILY. BY MOUTH DAILY. memantine memantine No memantine Dr. 10 mg 10 mg 10 mg [facility] tablet TAKE tablet TAKE tablet Yves BYERS (1) ONE (1) TAKE ONE s TABLET(S) TABLET(S) (1) BY MOUTH BY MOUTH TABLET(S) TWICE A TWICE A BY MOUTH DAY. DAY. TWICE A DAY. memantine memantine No memantine Dr. hcl 10 mg hcl 10 mg hcl 10 mg Ruben tabs tabs tabs Yves álvarez methylpredn methylpredn No methylpred Dr. isolone 4 isolone 4 nisolone 4 Ruben mg tablets mg tablets mg tablets Yves in a dose in a dose in a dose s pack TAKE 6 pack TAKE 6 pack [...] DAY FOR A TOTAL OF 6 DAYS methylpredn methylpredn No methylpred Dr. gilbert isolone nisolone Dwayn e dose pack 4 dose pack 4 dose pack Yves mg tabs mg tabs 4 mg tabs s metoprolol metoprolol No metoprolol tartrate 25 tartrate 25 tartrate Ruben mg tablet mg tablet 25 mg Will alysha tablet s metoprolol metoprolol No metoprolol tartrate 25 tartrate 25 tartrate Ruben mg tabs mg tabs 25 mg tabs Brendon mabel s montelukast montelukast No montelukas 10 mg 10 mg t 10 mg [facility] tablet TAKE tablet TAKE tablet Yves ONE (1) ONE (1) TAKE ONE s TABLET(S) TABLET(S) (1) BY MOUTH BY MOUTH TABLET(S) DAILY. DAILY. BY MOUTH DAILY. Myrbetriq Myrbetriq No Myrbetriq 50 mg 50 mg 50 mg [facility] tablet,exte tablet,exte tablet,ext Yves nded nded ended s release release release TAKE 1 TAKE 1 TAKE 1 TABLET BY TABLET BY TABLET BY MOUTH EVERY MOUTH EVERY MOUTH DAY DAY EVERY DAY Namenda XR Namenda XR No Namenda XR DrLeah 28 mg 28 mg 28 mg Ruben capsule capsule capsule Willia m sprinkle,ex sprinkle,ex sprinkle,e s tended tended xtended release TK release TK release TK ONE C PO QD ONE C PO QD ONE C PO QD namenda xr namenda xr No namenda xr DrLeah 28 mg cp24 28 mg cp24 28 mg cp24 Ruben Yves álvarez Namzaric 28 Namzaric 28 No Namzaric DrLeah mg-10 mg mg-10 mg 28 mg-10 Dwa yne capsule capsule mg capsule Brendon mabel sprinkle,ex sprinkle,ex sprinkle,e s tended tended xtended release release release naproxen naproxen No naproxen 375 mg 375 mg 375 mg Ruben tablet tablet tablet Yves álvarez Nasonex 50 Nasonex 50 No Nasonex 50 mcg/actuati mcg/actuati mcg/actuat Ruben on [place] on [place] ion [place] Wi lliam s neomycin-po neomycin-po No neomycin-p lymyxin-dex lymyxin-dex olymyxin-d Ruben ameth 3.5 ameth 3.5 exameth Wi lliam mg/mL-10,00 mg/mL-10,00 3.5 s 0 0 mg/mL-10,0 unit/mL-0.1 unit/mL-0.1 00 % eye drops % eye drops unit/mL-0. 1% eye drops nitrofurant nitrofurant No nitrofuran Dr. darian Miranda monohydrate monohydrate monohydrat Yves /macrocryst /macrocryst e/macrocry s als 100 mg als 100 mg stals 100 capsule capsule mg capsule TAKE ONE TAKE ONE TAKE ONE (1) (1) (1) CAPSULE(S) CAPSULE(S) CAPSULE(S) BY MOUTH BY MOUTH BY MOUTH TWICE A TWICE A TWICE A DAY. DAY. DAY. Nucynta ER Nucynta ER No 1 Q12H Nucynkortney ER 100 mg 100 mg 100 mg Rub[facility] tablet,exte tablet,exte tablet,ext Yves david ended s release release release Take 1 Take 1 Take 1 tablet tablet tablet every 12 every 12 every 12 hours by hours by hours by oral route. oral route. oral route. Nucynta ER Nucynta ER No Nucynta ER 150 mg 150 mg 150 mg Ruben tablet,exte tablet,exte tablet,ext Yves david ended s release release release Take 1 Take 1 Take 1 tablet tablet tablet every 12 every 12 every 12 hours by hours by hours by oral route. oral route. oral route. ofloxacin ofloxacin No ofloxacin 0.3 % eye 0.3 % eye 0.3 % eye Ruben drops drops drops Yves INSTILL 1 INSTILL 1 INSTILL 1 s DROP IN DROP IN DROP IN LEFT EYE LEFT EYE LEFT EYE THE NIGHT THE NIGHT THE NIGHT BEFORE AND BEFORE AND BEFORE AND MORNING OF MORNING OF MORNING OF SURGERY, SURGERY, SURGERY, THEN 3 THEN 3 THEN 3 TIMES A DAY TIMES A DAY TIMES A FOR 1 WEEK FOR 1 WEEK DAY FOR 1 WEEK olopatadine olopatadine No olopatadin 0.2 % eye 0.2 % eye e 0.2 % Yuri ayyael drops drops eye drops Yves s omeprazole omeprazole No omeprazole 40 mg 40 mg 40 mg Rub[facility] capsule,del capsule,del capsule,de Yves ayed ayed layed s release release release ondansetron ondansetron No ondansetro 4 mg 4 mg n 4 mg Ruben disintegrat disintegrat disintegra Yves ing tablet ing tablet ting s TAKE 1 TAKE 1 tablet TABLET BY TABLET BY TAKE 1 MOUTH EVERY MOUTH EVERY TABLET BY 6-8 HOURS 6-8 HOURS MOUTH NEEDED NEEDED EVERY 6-8 FOR FOR HOURS NAUSEA/VOMI NAUSEA/VOMI NEEDED FOR TING TING NAUSEA/VOM ITING oxybutynin oxybutynin No oxybutynin chloride ER chloride ER chloride Ruben 10 mg 10 mg ER 10 mg Yves tablet,exte tablet,exte tablet,ext s nded nded ended release 24 release 24 release 24 hr TAKE 1 hr TAKE 1 hr TAKE 1 TABLET BY TABLET BY TABLET BY MOUTH EVERY MOUTH EVERY MOUTH DAY DAY EVERY DAY oxybutynin oxybutynin No oxybutynin chloride ER chloride ER chloride Ruben 5 mg 5 mg ER 5 mg Yves tablet,exte tablet,exte tablet,ext s nded nded ended release 24 release 24 release 24 hr one hr one hr one daily daily daily oxybutynin oxybutynin No oxybutynin chloride er chloride er chloride Ruben 5 mg tb24 5 mg tb24 er 5 mg Wi lliam tb24 s Paxlovid Paxlovid No 2 BID Paxlovidl Ramsay 150 mg-100 150 mg-100 150 mg-100 Ruben mg tablets mg tablets mg tablets Yves in a dose in a dose in a dose s pack (Renal pack (Renal pack Dose) Take Dose) Take (Renal 2 tablets 2 tablets Dose) Take twice a day twice a day 2 tablets by oral by oral twice a route. route. day by oral route. phendimetra phendimetra No 1capsul Q1D phendimetr Dr. heather romero e(s) azine Ruben tartrate ER tartrate ER tartrate Yves 105 mg 105 mg ER 105 mg s capsule,ext capsule,ext capsule,ex ended ended tended release release release Take 1 Take 1 Take 1 capsule capsule capsule every day every day every day by oral by oral by oral route. route. route. phentermine phentermine No phentermin 37.5 mg 37.5 mg e 37.[address] ne tablet TAKE tablet TAKE tablet Yves 1 TABLET BY 1 TABLET BY TAKE 1 s MOUTH EVERY MOUTH EVERY TABLET BY DAY 2 HOURS DAY 2 HOURS MOUTH AFTER AFTER EVERY DAY BREAKFAST BREAKFAST 2 HOURS AFTER BREAKFAST prednisone prednisone No prednisone DrLeah 20 mg tabs 20 mg tabs 20 mg tabs Rubenaliza Marinelli s Premarin Premarin No Premarin Dr. 0.625 0.625 0.625 Ruben mg/gram mg/gram mg/gram Willia m vaginal vaginal vaginal s cream cream cream Prolensa Prolensa No Prolensa DrLeah 0.07 % eye 0.07 % eye 0.07 % eye Ruben drops drops drops Yves INSTILL 1 INSTILL 1 INSTILL 1 s DROP IN DROP IN DROP IN LEFT EYE LEFT EYE LEFT EYE EVERY DAY EVERY DAY EVERY DAY FOR 2 WEEKS FOR 2 WEEKS FOR 2 WEEKS Prolia 60 Prolia 60 No Prolia 60 DrLeah mg/mL mg/mL mg/mL Ruben subcutaneou subcutaneou subcutaneo Yves s syringe s syringe us syringe s INJECT 1ML INJECT 1ML INJECT 1ML (60MG DOSE) (60MG DOSE) (60MG SUBCUTANEOU SUBCUTANEOU DOSE) SLY EVERY 6 SLY EVERY 6 SUBCUTANEO MONTHS. MONTHS. USLY EVERY 6 MONTHS. promethazin promethazin No juanita murphy 25 mg e 25 mg ne 25 mg Dwayn e tablet TAKE tablet TAKE tablet Yves 1 TABLET BY 1 TABLET BY TAKE 1 s MOUTH EVERY MOUTH EVERY TABLET BY 6 HOURS 6 HOURS MOUTH NEEDED FOR NEEDED FOR EVERY 6 NAUSEA/VOMI NAUSEA/VOMI HOURS TING TING NEEDED FOR NAUSEA/VOM ITING promethazin promethazin No juanita Rmasay e-DM 6.25 e-DM 6.25 ne-DM 6.25 Ruben mg-15 mg/5 mg-15 mg/5 mg-15 mg/5 Yves mL oral mL oral mL oral s syrup TAKE syrup TAKE syrup TAKE 5ML BY 5ML BY 5ML BY MOUTH EVERY MOUTH EVERY MOUTH 4 HOURS 4 HOURS EVERY 4 HOURS Promethegan Promethegan No Promethega DrLeah 25 mg 25 mg n 25 mg Ruben rectal rectal rectal Yves suppository suppository suppositor s y Restasis Restasis No Restasis 0.05 % eye 0.05 % eye 0.05 % eye Ruben drops in a drops in a drops in a Yves dropperette dropperette dropperett s e Rybelsus 3 Rybelsus [address] mg tablet mg tablet mg tablet Ruben álvarez Rybelsus 7 Rybelsus [address] mg tablet mg tablet mg tablet Ruben álvarez sertraline sertraline No sertraline 100 mg 100 mg 100 mg Ruben tablet TAKE tablet TAKE tablet Yves 1 TABLET BY 1 TABLET BY TAKE 1 s MOUTH EVERY MOUTH EVERY TABLET BY DAY IN THE DAY IN THE MOUTH MORNING MORNING EVERY DAY IN THE MORNING sertraline sertraline No sertraline 50 mg 50 mg 50 mg Ruben tablet TAKE tablet TAKE tablet Yves 1 TABLET BY 1 TABLET BY TAKE 1 s MOUTH EVERY MOUTH EVERY TABLET BY DAY IN THE DAY IN THE MOUTH MORNING MORNING EVERY DAY IN THE MORNING Shingrix Shingrix No Shingrix (PF) 50 (PF) 50 (PF) 50 Ruben mcg/0.5 mL mcg/0.5 mL mcg/0.5 mL Yves intramuscul intramuscul intramuscu s ar ar lar suspension, suspension, suspension kit kit , kit solifenacin solifenacin No richard Ramsay 10 mg 10 mg n 10 mg Ruben tablet TAKE tablet TAKE tablet Yves 1 TABLET BY 1 TABLET BY TAKE 1 s MOUTH EVERY MOUTH EVERY TABLET BY DAY DAY MOUTH EVERY DAY sulfamethox sulfamethox No sulfametho azole 800 azole 800 xazole 800 Ruben mg-trimetho mg-trimetho mg-trimeth Yves prim 160 mg prim 160 mg oprim 160 s tablet tablet mg tablet Suprep Suprep No Suprep Bowel Prep Bowel Prep Bowel Prep Ruben Kit 17.5 Kit 17.5 Kit 17.5 Brendon mabel gram-3.13 gram-3.13 gram-3.13 s gram-1.6 gram-1.6 gram-1.6 gram oral gram oral gram oral solution solution solution tramadol tramadol No tramadol DrLeah 37.5 37.5 37.5 Ruben mg-acetamin mg-acetamin mg-acetami Yves ophen 325 ophen 325 nophen 325 s mg tablet mg tablet mg tablet TAKE ONE TAKE ONE TAKE ONE (1) TABLET (1) TABLET (1) TABLET BY MOUTH BY MOUTH BY MOUTH EVERY 6 TO EVERY 6 TO EVERY 6 TO 8 HOURS 8 HOURS 8 HOURS NEEDED FOR NEEDED FOR NEEDED FOR PAIN. PAIN. PAIN. tramadol 50 tramadol [address] mg tablet mg tablet 50 mg Dalton ne TAKE 1 TAKE 1 tablet Yves TABLET BY TABLET BY TAKE 1 s MOUTH EVERY MOUTH EVERY TABLET BY 6 TO 8 6 TO 8 MOUTH HOURS HOURS EVERY 6 TO NEEDED FOR NEEDED FOR 8 HOURS PAIN. PAIN. NEEDED FOR PAIN. tramadol ER tramadol ER No tramadol Dr. 100 mg 100 mg ER 100 mg Ruben tablet,exte tablet,exte tablet,ext Yves nded nded ended s release 24 release 24 release 24 hr hr hr trazodone trazodone No trazodone DrLeah 50 mg 50 mg 50 mg Ruben tablet TAKE tablet TAKE tablet Yves ONE (1) ONE (1) TAKE ONE s TABLET(S) TABLET(S) (1) BY MOUTH BY MOUTH TABLET(S) ONCE A DAY ONCE A DAY BY MOUTH AT BEDTIME. AT BEDTIME. ONCE A DAY AT BEDTIME. triamcinolo triamcinolo No triamcinol ne ne one Ruben acetonide acetonide mileonide Yves 0.1 % 0.1 % 0.1 % s topical topical topical cream APPLY cream APPLY cream TO RASH ON TO RASH ON APPLY TO ARMS TWICE ARMS TWICE RASH ON A DAY FOR 2 A DAY FOR 2 ARMS TWICE WEEKS/MONTH WEEKS/MONTH A DAY FOR . . 2 WEEKS/LORI H. triamterene triamterene No triamteren 37.5 37.5 e 37.5 Ruben mg-hydrochl mg-hydrochl mg-hydroch Yves orothiazide orothiazide lorothiazi s 25 mg 25 mg de 25 mg capsule capsule capsule trospium ER trospium ER No trospium DrLeah 60 mg 60 mg ER 60 mg Ruben capsule,ext capsule,ext capsule,ex Yves ended ended tended s release 24 release 24 release 24 hr hr hr Ubrelvy 100 Ubrelvy 100 No Ubrelvy DrLeah mg tablet mg tablet 100 mg Dwa yne tablet Yves álvarez Xiidra 5 % Xiidra 5 % No Xiidra 5 % eye drops eye drops eye drops Ruben in a in a in a Yves dropperette dropperette dropperett s e Zenpep Zenpep No Zenpep 40,000 40,000 40,000 Ruben unit-126,00 unit-126,00 unit-126,0 Yves 0 0 00 s unit-168,00 unit-168,00 unit-168,0 0 unit 0 unit 00 unit capsule,del capsule,del capsule,de ayed ayed layed release release release zolpidem 10 zolpidem 10 No zolpidem DrLeah mg tablet mg tablet [address] ne TAKE 1 TAKE 1 tablet Yves TABLET AT TABLET AT TAKE 1 s BEDTIME BEDTIME TABLET AT BEDTIME Zostavax Zostavax No Zostavax (PF) 19,400 (PF) 19,400 (PF) D fransisca unit/0.65 unit/0.65 19,400 Brendon mabel mL mL unit/0.65 s subcutaneou subcutaneou mL s s subcutaneo suspension suspension us suspension acetaminoph acetaminoph No acetaminop en 120 en 120 hen 120 Ruben mg-codeine mg-codeine mg-codeine Yves 12 mg/5 mL 12 mg/5 mL 12 mg/5 mL s oral oral oral solution solution solution alendronate alendronate No alendronward Ramsay 70 mg 70 mg e 70 mg Ruben tablet TAKE tablet TAKE tablet Yves ONE (1) ONE (1) TAKE ONE s TABLET(S) TABLET(S) (1) BY MOUTH BY MOUTH TABLET(S) ONCE ONCE BY MOUTH WEEKLY. WEEKLY. ONCE WEEKLY. amlodipine amlodipine No amlodipine 5 mg tablet 5 mg tablet 5 mg D fransisca TAKE ONE TAKE ONE tablet Willi am (1) (1) TAKE ONE s TABLET(S) TABLET(S) (1) BY MOUTH BY MOUTH TABLET(S) DAILY. DAILY. BY MOUTH DAILY. amoxicillin amoxicillin No irwin Ramsay 500 mg 500 mg n 500 mg Ruben capsule capsule capsule Willia m s amoxicillin amoxicillin No amoxicicharlie Truong. /clavulanat /clavulanat n/clavulan Ruben e potassium e potassium ate W illiam 875-125 mg 875-125 mg potassium s tabs tabs 875-125 mg tabs aspirin 81 aspirin 81 No aspirin 81 DrLeah mg mg mg Ruben tablet,brendon tablet,brendon tablet,del Yves yedl release yed release ayed s TAKE 1 TAKE 1 release TABLET BY TABLET BY TAKE 1 MOUTH EVERY MOUTH EVERY TABLET BY DAY DAY MOUTH EVERY DAY atorvastati atorvastati No atorvastat n 20 mg n 20 mg in 20 mg Dwayn e tablet TAKE tablet TAKE tablet Yves ONE (1) ONE (1) TAKE ONE s TABLET(S) TABLET(S) (1) BY MOUTH BY MOUTH TABLET(S) DAILY. DAILY. BY MOUTH DAILY. azithromyci azithromyci No azithromyc n 250 mg n 250 mg in 250 mg Dw ayne tablet TAKE tablet TAKE tablet Yves 2 TABLETS 2 TABLETS TAKE 2 s BY MOUTH BY MOUTH TABLETS BY TODAY, THEN TODAY, THEN MOUTH TAKE 1 TAKE 1 TODAY, TABLET TABLET THEN TAKE DAILY FOR 4 DAILY FOR 4 1 TABLET DAYS DAYS DAILY FOR 4 DAYS azithromyci azithromyci No azithromyc n 250 mg n 250 mg in 250 mg Dw ayne tabs tabs tabs Yves s azithromyci azithromyci No azithromyc n 500 mg n 500 mg in 500 mg Dw ayne tablet tablet tablet Yves s azithromycchelsi azithromamor No azithromyc n 500 mg n 500 mg in 500 mg Dw ayne tabs tabs tabs Yves s bacitracin- bacitracin- No bacitracin polymyxin B polymyxin B -polymyxin Ruben 500 500 B 500 Yves unit-10,000 unit-10,000 unit-10,00 s unit/gram unit/gram 0 eye eye unit/gram ointment ointment eye inject 1 cc inject 1 cc ointment weekly weekly inject 1 cc weekly Belviq XR Belviq XR No Belviq XR 20 mg 20 mg 20 mg Ruben tablet,exte tablet,exte tablet,ext Yves nded nded ended s release release release TAKE 1 TAKE 1 TAKE 1 TABLET BY TABLET BY TABLET BY MOUTH EVERY MOUTH EVERY MOUTH MORNING MORNING EVERY MORNING Bromfed DM Bromfed DM No 10mL Q4H Bromfed DM DrLeah 2 mg-30 2 mg-30 2 mg-30 Ruben mg-10 mg/5 mg-10 mg/5 mg-10 mg/5 Yves mL oral mL oral mL oral s syrup Take syrup Take syrup Take 10 mL every 10 mL every 10 mL 4 hours by 4 hours by every 4 oral route. oral route. hours by oral route. butalbital- butalbital- No butalbital DrLeah acetaminoph acetaminoph -acetamino Ruben en-caffeine en-caffeine phen-caffe Yves 50 mg-300 50 mg-300 ine 50 s mg-40 mg mg-40 mg mg-300 capsule capsule mg-40 mg TAKE 1 TAKE 1 capsule CAPSULE BY CAPSULE BY TAKE 1 MOUTH EVERY MOUTH EVERY CAPSULE BY 6 HOURS 6 HOURS MOUTH NEEDED FOR NEEDED FOR EVERY 6 PAIN PAIN HOURS NEEDED FOR PAIN cephalexin cephalexin No cephalexin 500 mg 500 mg 500 mg Ruben capsule capsule capsule Willia m TAKE 1 TAKE 1 TAKE 1 s CAPSULE BY CAPSULE BY CAPSULE BY MOUTH THREE MOUTH THREE MOUTH TIMES A DAY TIMES A DAY THREE FOR 7 DAYS FOR 7 DAYS TIMES A DAY FOR 7 DAYS chlordiazep chlordiazep No trixie Ramsay oxide 10 mg oxide 10 mg poxide 10 Ruben capsule capsule mg capsule Brendon mabel take one take one take one s capsule by capsule by capsule by mouth three mouth three mouth times daily times daily three times daily chlordiazep chlordiazep No trxiie Ramsay oxide-clidi oxide-clidi poxide-cli Ruben nium 5 nium 5 dinium 5 Yves mg-2.5 mg mg-2.5 mg mg-2.5 mg s capsule capsule capsule TAKE ONE TAKE ONE TAKE ONE (1) (1) (1) CAPSULE(S) CAPSULE(S) CAPSULE(S) BY MOUTH BY MOUTH BY MOUTH THREE TIMES THREE TIMES THREE A DAY. A DAY. TIMES A DAY. ciprofloxac ciprofloxac No ciprofloxa in 500 mg in 500 mg facundo 500 mg Ruben tablet TAKE tablet TAKE tablet Yves 1 TABLET BY 1 TABLET BY TAKE 1 s MOUTH EVERY MOUTH EVERY TABLET BY 12 HOURS 12 HOURS MOUTH EVERY 12 HOURS clopidogrel clopidogrel No clopidogre Dr. 75 mg 75 mg l 75 mg Ruben tablet TAKE tablet TAKE tablet Yves 1 TABLET BY 1 TABLET BY TAKE 1 s MOUTH EVERY MOUTH EVERY TABLET BY DAY DAY MOUTH EVERY DAY Crestor 10 Crestor [address] mg tablet mg tablet mg tablet Ruben Yves álvarez cyclobenzap cyclobenzap No cyclobenza DrLeah rine 10 mg rine 10 mg soheila 10 Ruben tablet tid tablet tid mg tablet Yves prn prn tid prn s cyclobenzap cyclobenzap No cyclobenza DrLeah rine 5 mg rine 5 mg soheila 5 mg Ruben tablet tablet tablet Yves s Detrol LA 4 Detrol LA [address] mg mg 4 mg Ruben capsule,ext capsule,ext capsule,ex Yves ended ended tended s release release release diclofenac diclofenac No diclofenac DrLeah 1.5 % 1.5 % 1.5 % Ruben topical topical topical Willia m drops apply drops apply drops s four times four times apply four daily to daily to times affected affected daily to area area affected area diethylprop diethylprop No 1 Q1D diethylpro DrLeah ion ER 75 ion ER 75 pion ER 75 Ruben mg mg mg Yves tablet,exte tablet,exte tablet,ext s nded nded ended release release release Take 1 Take 1 Take 1 tablet tablet tablet every day every day every day by oral by oral by oral route. route. route. donepezil donepezil No donepezil Dr. 10 mg 10 mg 10 mg Ruben tablet TAKE tablet TAKE tablet Yves 1 TABLET BY 1 TABLET BY TAKE 1 s MOUTH TWICE MOUTH TWICE TABLET BY A DAY A DAY MOUTH TWICE A DAY donepezil donepezil No donepezil Dr. 23 mg 23 mg 23 mg Ruben tablet TAKE tablet TAKE tablet Yves ONE (1) ONE (1) TAKE ONE s TABLET(S) TABLET(S) (1) BY MOUTH BY MOUTH TABLET(S) ONCE A DAY. ONCE A DAY. BY MOUTH ONCE A DAY. donepezil 5 donepezil [address] mg tablet mg tablet 5 mg Dwayn e tablet Yves álvarez donepezil donepezil No donepezil Dr. hcl 5 mg hcl 5 mg hcl 5 mg Dwa yne tabs tabs tabs Yves álvarez Durezol Durezol No Durezol Dr. 0.05 % eye 0.05 % eye 0.05 % eye Ruben drops drops drops Yves INSTILL 1 INSTILL 1 INSTILL 1 s DROP IN DROP IN DROP IN LEFT EYE 3 LEFT EYE 3 LEFT EYE 3 TIMES/DAY TIMES/DAY TIMES/DAY FOR 1 WEEK, FOR 1 WEEK, FOR 1 2 TIMES A 2 TIMES A WEEK, 2 DAY FOR 1 DAY FOR 1 TIMES A WEEK, THEN WEEK, THEN DAY FOR 1 DAILY FOR 2 DAILY FOR 2 WEEK, THEN WEEKS WEEKS DAILY FOR 2 WEEKS Enablex 15 Enablex [address] mg mg mg Ruben tablet,exte tablet,exte tablet,ext Yves nded nded ended s release release release TAKE ONE TAKE ONE TAKE ONE TABLET BY TABLET BY TABLET BY MOUTH EVERY MOUTH EVERY MOUTH NIGHT AT NIGHT AT EVERY BEDTIME BEDTIME NIGHT AT BEDTIME etodolac etodolac No etodolac DrLeah 400 mg 400 mg 400 mg [place]en tablet TAKE tablet TAKE tablet Yves 1 TABLET BY 1 TABLET BY TAKE 1 s MOUTH TWICE MOUTH TWICE TABLET BY A DAY A DAY MOUTH TWICE A DAY alendronate alendronate No alendronat [place] 70 mg 70 mg e 70 mg [facility] tablet TAKE tablet TAKE tablet Urology 1 TABLET BY 1 TABLET BY TAKE 1 MOUTH EVERY MOUTH EVERY TABLET BY WEEK WEEK MOUTH EVERY WEEK atorvastati atorvastati No atorvastat [place] n 20 mg n 20 mg in [...] A DAY. cyanocobala cyanocobala No 2000ug cyanocobal [place] min (vit min (vit bailey (vit Me tro B-12) ER B-12) ER B-12) ER Uro logy 2,000 mcg 2,000 mcg 2,000 mcg tablet,exte tablet,exte tablet,ext nded nded ended release release release 2000 ugs by 2000 ugs by 2000 ugs oral route. oral route. by oral route. donepezil donepezil No donepezil [place] 10 mg 10 mg 10 mg [facility] tablet TAKE tablet TAKE tablet Urology 1 TABLET BY 1 TABLET BY TAKE 1 MOUTH TWICE MOUTH TWICE TABLET BY A DAY A DAY MOUTH TWICE A DAY gabapentin gabapentin No 300mg TID gabapentin [place] 600 mg 600 mg 600 mg [facility] tablet 300 tablet 300 tablet 300 Urology mg 3 times mg 3 times mg 3 times a day by a day by a day by oral route. oral route. oral route. levocetiriz levocetiriz No 5mg levocetiri [place] ine 5 mg ine 5 mg zine 5 mg Me tro tablet 5 mg tablet 5 mg tablet 5 Urology by oral by oral mg by oral route. route. route. mecobalamin mecobalamin No mecobalami [place] (vitamin (vitamin n (vitamin M etro B12) 1,000 B12) 1,000 B12) 1,000 Urology mcg mcg mcg chewable chewable chewable tablet tablet tablet meloxicam meloxicam No 7.5mg meloxicam [place] 7.5 mg 7.5 mg 7.5 mg [facility] tablet 7.5 tablet 7.5 tablet 7.5 Urology mg by oral mg by oral mg by oral route. route. route. memantine memantine No memantine [place] 10 mg 10 mg 10 mg [facility] tablet TAKE tablet TAKE tablet Urology 1 TABLET BY 1 TABLET BY TAKE 1 MOUTH TWICE MOUTH TWICE TABLET BY A DAY A DAY MOUTH TWICE A DAY Myrbetriq Myrbetriq No Myrbetriq [place] 50 mg 50 mg 50 mg [facility] tablet,exte tablet,exte tablet,ext Urology nded nded ended release release release TAKE 1 TAKE 1 TAKE 1 TABLET BY TABLET BY TABLET BY MOUTH EVERY MOUTH EVERY MOUTH DAY DAY EVERY DAY sertraline sertraline No sertraline [place] 50 mg 50 mg 50 mg [facility] tablet TAKE tablet TAKE tablet Urology 1 TABLET BY 1 TABLET BY TAKE 1 MOUTH EVERY MOUTH EVERY TABLET BY DAY IN THE DAY IN THE MOUTH MORNING MORNING EVERY DAY IN THE MORNING simethicone simethicone No simethicon [place] 180 mg 180 mg e 180 mg [facility] capsule capsule capsule Urolog y solifenacin solifenacin No solifenaci [place] 10 mg 10 mg n 10 mg [facility] tablet TAKE tablet TAKE tablet Urology 1 TABLET BY 1 TABLET BY TAKE 1 MOUTH EVERY MOUTH EVERY TABLET BY DAY DAY MOUTH EVERY DAY alendronate alendronate No alendronat [place] 70 mg 70 mg e 70 mg [facility] tablet TAKE tablet TAKE tablet Urology 1 TABLET BY 1 TABLET BY TAKE 1 MOUTH EVERY MOUTH EVERY TABLET BY WEEK WEEK MOUTH EVERY WEEK atorvastati atorvastati No atorvastat [place] n 20 mg n 20 mg in [...] route. oral route. chlordiazep chlordiazep No chlordiaze [place] oxide-clidi oxide-clidi poxide-cli [facility] nium 5 nium 5 dinium 5 U[facility] mg-2.5 mg mg-2.5 mg mg-2.5 mg capsule capsule capsule TAKE ONE TAKE ONE TAKE ONE (1) (1) (1) CAPSULE(S) CAPSULE(S) CAPSULE(S) BY MOUTH BY MOUTH BY MOUTH THREE TIMES THREE TIMES THREE A DAY. A DAY. TIMES A DAY. cyanocobala cyanocobala No 2000ug cyanocobal [place] min (vit min (vit bailey (vit Me tro B-12) ER B-12) ER B-12) ER Uro logy 2,000 mcg 2,000 mcg 2,000 mcg tablet,exte tablet,exte tablet,ext nded nded ended release release release 2000 ugs by 2000 ugs by 2000 ugs oral route. oral route. by oral route. donepezil donepezil No donepezil [place] 10 mg 10 mg 10 mg [facility] tablet TAKE tablet TAKE tablet Urology 1 TABLET BY 1 TABLET BY TAKE 1 MOUTH TWICE MOUTH TWICE TABLET BY A DAY A DAY MOUTH TWICE A DAY gabapentin gabapentin No 300mg TID gabapentin [place] 600 mg 600 mg 600 mg [facility] tablet 300 tablet 300 tablet 300 Urology mg 3 times mg 3 times mg 3 times a day by a day by a day by oral route. oral route. oral route. levocetiriz levocetiriz No 5mg levocetiri [place] ine 5 mg ine 5 mg zine 5 mg Me tro tablet 5 mg tablet 5 mg tablet 5 Urology by oral by oral mg by oral route. route. route. mecobalamin mecobalamin No mecobalami [place] (vitamin (vitamin n (vitamin M etro B12) 1,000 B12) 1,000 B12) 1,000 [facility] mcg mcg mcg chewable chewable chewable tablet tablet tablet meloxicam meloxicam No 7.5mg meloxicam [place] 7.5 mg 7.5 mg 7.5 mg [facility] tablet 7.5 tablet 7.5 tablet 7.5 U[facility] mg by oral mg by oral mg by oral route. route. route. memantine memantine No memantine [place] 10 mg 10 mg 10 mg [facility] tablet TAKE tablet TAKE tablet Urology 1 TABLET BY 1 TABLET BY TAKE 1 MOUTH TWICE MOUTH TWICE TABLET BY A DAY A DAY MOUTH TWICE A DAY Myrbetriq Myrbetriq No Myrbetriq [place] 50 mg 50 mg 50 mg [facility] tablet,exte tablet,exte tablet,ext Urology nded nded ended release release release TAKE 1 TAKE 1 TAKE 1 TABLET BY TABLET BY TABLET BY MOUTH EVERY MOUTH EVERY MOUTH DAY DAY EVERY DAY sertraline sertraline No sertraline [place] 50 mg 50 mg 50 mg [facility] tablet TAKE tablet TAKE tablet Urology 1 TABLET BY 1 TABLET BY TAKE 1 MOUTH EVERY MOUTH EVERY TABLET BY DAY IN THE DAY IN THE MOUTH MORNING MORNING EVERY DAY IN THE MORNING simethicone simethicone No simethicon [place] 180 mg 180 mg e 180 mg [facility] capsule capsule capsule Urolog y solifenacin solifenacin No solifenaci [place] 10 mg 10 mg n 10 mg [facility] tablet TAKE tablet TAKE tablet Urology 1 TABLET BY 1 TABLET BY TAKE 1 MOUTH EVERY MOUTH EVERY TABLET BY DAY DAY MOUTH EVERY DAY Aricept Aricept No Aricept [place] [facility] atorvastati atorvastati No atorvastat [place] n 20 mg n 20 mg in 20 mg [facility] tablet tablet tablet Urology azithromyci azithromyci No azithromyc [place] n 250 mg n 250 mg in 250 mg Me tro tablet tablet tablet Urology chlordiazep chlordiazep No chlordiaze [place] oxide-clidi oxide-clidi poxide-cli [facility] nium 5 nium 5 dinium 5 Urology mg-2.5 mg mg-2.5 mg mg-2.5 mg capsule capsule capsule donepezil donepezil No donepezil [place] 10 mg 10 mg 10 mg [facility] tablet tablet tablet Urology Durezol Durezol No Durezol [facility] n 0.05 % eye 0.05 % eye 0.05 % eye [facility] drops drops drops Urology gabapentin gabapentin No gabapentin [place] 300 mg 300 mg 300 mg [facility] capsule capsule capsule Urolog y Gemtesa 75 Gemtesa 75 No 1 Q1D [place] 75 [place] mg tablet mg tablet mg tablet [facility] Take 1 Take 1 Take 1 Urology tablet tablet tablet every day every day every day by oral by oral by oral route. route. route. meloxicam meloxicam No meloxicam [place] 15 mg 15 mg 15 mg [facility] tablet tablet tablet Urology memantine memantine No memantine [place] 10 mg 10 mg 10 mg [facility] tablet tablet tablet Urology Myrbetriq Myrbetriq No Myrbetriq [place] 50 mg 50 mg 50 mg [facility] tablet,exte tablet,exte tablet,ext Urology nded nded ended release release release TAKE 1 TAKE 1 TAKE 1 TABLET BY TABLET BY TABLET BY MOUTH ONCE MOUTH ONCE MOUTH ONCE DAILY DAILY DAILY Namenda [facility]enda [facility] ofloxacin ofloxacin No ofloxacin [place] 0.3 % eye 0.3 % eye 0.3 % eye [facility] drops drops drops Urology phentermine phentermine No phentermin [place] 37.5 mg 37.5 mg e 37.5 mg Metr o tablet tablet tablet Urology Premarin Premarin No .5appli Q1D Premarin [place] 0.625 0.625 cator(s 0.625 [facility] mg/gram mg/gram [...] Prolia 60 Prolia 60 No Prolia 60 [place] mg/mL mg/mL mg/mL [facility] subcutaneou subcutaneou subcutaneo Urology s syringe s syringe us syringe INJECT 1ML INJECT 1ML INJECT 1ML (60MG DOSE) (60MG DOSE) (60MG SUBCUTANEOU SUBCUTANEOU DOSE) SLY EVERY 6 SLY EVERY 6 SUBCUTANEO MONTHS. MONTHS. USLY EVERY 6 MONTHS. Rybelsus 3 Rybelsus 3 No Rybelsus 3 [place] mg tablet mg tablet mg tablet [facility] sertraline sertraline No sertraline [place] 50 mg 50 mg 50 mg [facility] tablet tablet tablet Urology solifenacin solifenacin No solifenaci [place] 10 mg 10 mg n 10 mg [facility] tablet tablet tablet Urology tramadol 50 tramadol 50 No tramadol [place] mg tablet mg tablet 50 mg Metr o tablet Urology Vesicare Vesicare No Vesicare Alin ston [facility] Vitamin B12 Vitamin B12 No Vitamin [place] B12 [facility] Vitamin C Vitamin C No Vitamin C [place] [facility] Z[facility]ft [facility] Aricept [place] [facility] atorvastati atorvastati No atorvastat [place] n 20 mg n 20 mg in 20 mg [facility] tablet TAKE tablet TAKE tablet Urology 1 TABLET BY 1 TABLET BY TAKE 1 MOUTH EVERY MOUTH EVERY TABLET BY DAY DAY MOUTH EVERY DAY azithromyci azithromyci No azithromyc [place] n 250 mg n 250 mg in 250 mg Me tro tablet tablet tablet Urology chlordiazep chlordiazep No chlordiaze [place] oxide-clidi oxide-clidi poxide-cli [facility] nium 5 nium [...] route. oral route. diclofenac diclofenac No diclofenac [place] 1.5 % 1.5 % 1.5 % [facility] topical topical topical Urolog y drops apply drops apply drops four times four times apply four daily to daily to times affected affected daily to area area affected area donepezil donepezil No donepezil [place] 10 mg 10 mg 10 mg [facility] tablet tablet tablet Urology Durezol D[facility]zol [facility] 0.[facility] % eye 0.05 % eye [facility] drops drops drops Urology gabapentin gabapentin No gabapentin [place] 300 mg 300 mg 300 mg [facility] capsule capsule capsule Urolog y [place] 75 Gem[place] 75 No [place] 75 [place] mg tablet mg tablet mg tablet [facility] TAKE 1 TAKE 1 TAKE 1 Urology TABLET BY TABLET BY TABLET BY MOUTH EVERY MOUTH EVERY MOUTH DAY DAY EVERY DAY meloxicam meloxicam No meloxicam [place] 15 mg 15 mg 15 mg [facility] tablet tablet tablet Urology memantine memantine No memantine P[place] 10 mg 10 mg 10 mg [facility] tablet TAKE tablet TAKE tablet Urology 1 TABLET BY 1 TABLET BY TAKE 1 MOUTH TWICE MOUTH TWICE TABLET BY A DAY A DAY MOUTH TWICE A DAY methylpredn methylpredn No methylpred [place] isolone 4 isolone 4 nisolone 4 [facility] [...] OF 6 DAYS Myrbetriq Myrbetriq No Myrbetriq [place] 50 mg 50 mg 50 mg [facility] tablet,exte tablet,exte tablet,ext Urology nded nded ended release release release Take 1 Take 1 Take 1 tablet tablet tablet every day every day every day by oral by oral by oral route. route. route. Namenda Namenda No Namenda [place] [facility] ofloxacin ofloxacin No ofloxacin [place] 0.3 % eye 0.3 % eye 0.3 % eye [facility] drops drops drops U[facility] phentermine phentermine No phentermin [place] 37.5 mg 37.5 mg e 37.5 mg [...] Prolia 60 Prolia 60 No Prolia 60 [place] mg/mL mg/mL mg/mL [facility] subcutaneou subcutaneou subcutaneo Urology s syringe s syringe us syringe INJECT 1ML INJECT 1ML INJECT 1ML (60MG DOSE) (60MG DOSE) (60MG SUBCUTANEOU SUBCUTANEOU DOSE) SLY EVERY 6 SLY EVERY 6 SUBCUTANEO MONTHS. MONTHS. USLY EVERY 6 MONTHS. Rybelsus 3 Rybelsus 3 No Rybelsus 3 [place] mg tablet mg tablet mg tablet [facility] sertraline sertraline No sertraline [place] 50 mg 50 mg 50 mg [facility] tablet TAKE tablet TAKE tablet Urology 1 TABLET BY 1 TABLET BY TAKE 1 MOUTH EVERY MOUTH EVERY TABLET BY DAY IN THE DAY IN THE MOUTH MORNING MORNING EVERY DAY IN THE MORNING solifenacin solifenacin No solifenaci [place] 10 mg 10 mg n 10 mg [facility] tablet TAKE tablet TAKE tablet Urology 1 TABLET BY 1 TABLET BY TAKE 1 MOUTH EVERY MOUTH EVERY TABLET BY DAY DAY MOUTH EVERY DAY tramadol 50 tramadol 50 No tramadol [place] mg tablet mg tablet 50 mg Metr o tablet Urology Vesicare Vesicare No Vesicare [place] [facility] Vitamin B12 Vitamin B12 No Vitamin [place] B12 [facility] Vitamin C Vitamin C No Vitamin [facility] Ar[facility]pt [facility] No Aricept [place] [facility] atorvastati atorvastati No atorvastat [place] n 20 mg n 20 mg in 20 mg [facility] tablet TAKE tablet TAKE tablet Urology 1 TABLET BY 1 TABLET BY TAKE 1 MOUTH EVERY MOUTH EVERY TABLET BY DAY DAY MOUTH EVERY DAY azithromyci azithromyci No azithromyc [place] n 250 mg n 250 mg in 250 mg Me tro tablet tablet tablet Urology chlordiazep chlordiazep No chlordiaze [place] oxide-clidi oxide-clidi poxide-cli [facility] nium 5 nium [...] route. oral route. diclofenac diclofenac No diclofenac [place] 1.5 % 1.5 % 1.5 % [facility] topical topical topical Urolog y drops apply drops apply drops four times four times apply four daily to daily to times affected affected daily to area area affected area donepezil donepezil No donepezil [place] 10 mg 10 mg 10 mg [facility] tablet TAKE tablet TAKE tablet Urology 1 TABLET BY 1 TABLET BY TAKE 1 MOUTH TWICE MOUTH TWICE TABLET BY A DAY A DAY MOUTH TWICE A DAY Durezol Durezol No Durezol [place] 0.05 % eye 0.05 % eye 0.05 % eye [facility] drops drops drops Urology gabapentin gabapentin No gabapentin [place] 300 mg 300 mg 300 mg [facility] capsule capsule capsule Urolog y [place] 75 [place] 75 No [place] 75 [place] mg tablet mg tablet mg tablet [facility] TAKE 1 TAKE 1 TAKE 1 Urology TABLET BY TABLET BY TABLET BY MOUTH EVERY MOUTH EVERY MOUTH DAY DAY EVERY DAY meloxicam meloxicam No meloxicam [place] 15 mg 15 mg 15 mg [facility] tablet tablet tablet Urology memantine memantine No memantine [place] 10 mg 10 mg 10 mg [facility] tablet TAKE tablet TAKE tablet Urology 1 TABLET BY 1 TABLET BY TAKE 1 MOUTH TWICE MOUTH TWICE TABLET BY A DAY A DAY MOUTH TWICE A DAY methylpredn methylpredn No methylpred [place] isolone 4 isolone 4 nisolone 4 [facility] [...] OF 6 DAYS Myrbetriq Myrbetriq No Myrbetriq [place] 50 mg 50 mg 50 mg [facility] tablet,exte tablet,exte tablet,ext Urology nded nded ended release release release Take 1 Take 1 Take 1 tablet tablet tablet every day every day every day by oral by oral by oral route. route. route. Namenda Namenda No Namenda [place] [facility] ofloxacin ofloxacin No ofloxacin [place] 0.3 % eye 0.3 % eye 0.3 [...] tablet [facility] sertraline sertraline No sertraline [place] 50 mg 50 mg 50 mg [facility] tablet TAKE tablet TAKE tablet Urology 1 TABLET BY 1 TABLET BY TAKE 1 MOUTH EVERY MOUTH EVERY TABLET BY DAY IN THE DAY IN THE MOUTH MORNING MORNING EVERY DAY IN THE MORNING solifenacin solifenacin No solifenaci [place] 10 mg 10 mg n 10 mg [facility] tablet TAKE tablet TAKE tablet Urology 1 TABLET BY 1 TABLET BY TAKE 1 MOUTH EVERY MOUTH EVERY TABLET BY DAY DAY MOUTH EVERY DAY tramadol 50 tramadol 50 No tramadol [place] mg tablet mg tablet 50 mg Metr o tablet Urology Vesicare Vesicare No Vesicare [place]in [place] [facility] Vitamin B12 Vitamin B12 No Vitamin [place] B12 [facility] Vitamin C Vitamin C No Vitamin C [place] [facility] Zoloft Zoloft No Zoloft [place] [facility] Aricept Aricept No Aricept [place] [facility] atorvastati atorvastati No atorvastat [place] n 20 mg n 20 mg in 20 mg [facility] tablet TAKE tablet TAKE tablet Urology 1 TABLET BY 1 TABLET BY TAKE 1 MOUTH EVERY MOUTH EVERY TABLET BY DAY DAY MOUTH EVERY DAY azithromyci azithromyci No azithromyc [place] n 250 mg n 250 mg in 250 mg Me tro tablet tablet tablet Urology chlordiazep chlordiazep No chlordiaze [place] oxide-clidi oxide-clidi poxide-cli [facility] nium 5 nium 5 dinium 5 Urology mg-2.5 mg mg-2.5 mg mg-2.5 mg capsule capsule capsule ciprofloxac ciprofloxac No ciprofloxa [place] in 500 mg in 500 mg facundo 500 mg [facility] tablet TAKE tablet TAKE tablet Urology 1 TABLET BY 1 TABLET BY TAKE 1 MOUTH EVERY MOUTH EVERY TABLET BY 12 HOURS 12 HOURS MOUTH EVERY 12 HOURS diclofenac diclofenac No diclofenac [place] 1.5 % 1.5 % 1.5 % [facility] topical topical topical Urolog y drops apply drops apply drops four times four times apply four daily to daily to times affected affected daily to area area affected area donepezil donepezil No donepezil [place] 10 mg 10 mg 10 mg [facility] tablet TAKE tablet TAKE tablet Urology 1 TABLET BY 1 TABLET BY TAKE 1 MOUTH TWICE MOUTH TWICE TABLET BY A DAY A DAY MOUTH TWICE A DAY Durezol Durezol [facility] 0.[facility] % eye 0.05 % eye [facility] drops drops drops Urology gabapentin gabapentin No gabapentin [place] 300 mg 300 mg 300 mg [facility] capsule capsule capsule Urolog y [place] 75 [place] 75 No [place] 75 [place] mg tablet mg tablet mg tablet [facility] TAKE 1 TAKE 1 TAKE 1 Urology TABLET BY TABLET BY TABLET BY MOUTH EVERY MOUTH EVERY MOUTH DAY DAY EVERY DAY meloxicam meloxicam No meloxicam [place] 15 mg 15 mg 15 mg [facility] tablet tablet tablet Urology memantine memantine No memantine [place] 10 mg 10 mg 10 mg [facility] tablet TAKE tablet TAKE tablet Urology 1 TABLET BY 1 TABLET BY TAKE 1 MOUTH TWICE MOUTH TWICE TABLET BY A DAY A DAY MOUTH TWICE A DAY methylpredn methylpredn No methylpred [place] isolone 4 isolone 4 nisolone 4 [facility] [...] OF 6 DAYS Myrbetriq Myrbetriq No Myrbetriq [place] 50 mg 50 mg 50 mg [facility] tablet,exte tablet,exte tablet,ext Urology nded nded ended release release release Take 1 Take 1 Take 1 tablet tablet tablet every day every day every day by oral by oral by oral route. route. route. Namenda Namenda No Namenda [place] [facility] ofloxacin ofloxacin No ofloxacin [place] 0.3 % eye 0.3 % eye 0.3 % eye [facility] drops drops drops Urology phentermine phentermine No phentermin [place] 37.5 mg 37.5 mg e 37.5 mg [...] tablet [facility] sertraline sertraline No sertraline [place] 50 mg 50 mg 50 mg [facility] tablet TAKE tablet TAKE tablet Urology 1 TABLET BY 1 TABLET BY TAKE 1 MOUTH EVERY MOUTH EVERY TABLET BY DAY IN THE DAY IN THE MOUTH MORNING MORNING EVERY DAY IN THE MORNING solifenacin solifenacin No solifenaci [place] 10 mg 10 mg n 10 mg [...] HOURS tramadol 50 tramadol 50 No tramadol [place] mg tablet mg tablet 50 mg Metr o tablet Urology Vesicare Vesicare No Vesicare [place]in [place] [facility] Vitamin B12 Vitamin B12 [facility] [place] [facility] Ar[facility]pt Ar[facility] No Aricept [place] [facility] atorvastati atorvastati No atorvastat [place] n 20 mg n 20 mg in 20 mg [facility] tablet TAKE tablet TAKE tablet Urology 1 TABLET BY 1 TABLET BY TAKE 1 MOUTH EVERY MOUTH EVERY TABLET BY DAY DAY MOUTH EVERY DAY azithromyci azithromyci No azithromyc [place] n 250 mg n 250 mg in 250 mg Me tro tablet tablet tablet Urology chlordiazep chlordiazep No chlordiaze [place] oxide-clidi oxide-clidi poxide-cli [facility] nium 5 nium 5 dinium 5 Urology mg-2.5 mg mg-2.5 mg mg-2.5 mg capsule capsule capsule ciprofloxac ciprofloxac No ciprofloxa [place] in 500 mg in 500 mg facundo 500 mg [facility] tablet TAKE tablet TAKE tablet Urology 1 TABLET BY 1 TABLET BY TAKE 1 MOUTH EVERY MOUTH EVERY TABLET BY 12 HOURS 12 HOURS MOUTH EVERY 12 HOURS diclofenac diclofenac No diclofenac [place] 1.5 % 1.5 % 1.5 % [facility] topical topical topical Urolog y drops apply drops apply drops four times four times apply four daily to daily to times affected affected daily to area area affected area donepezil donepezil No donepezil [place] 10 mg 10 mg 10 mg [facility] tablet TAKE tablet TAKE tablet Urology 1 TABLET BY 1 TABLET BY TAKE 1 MOUTH TWICE MOUTH TWICE TABLET BY A DAY A DAY MOUTH TWICE A DAY Durezol Durezol [facility] 0.05 % eye 0.05 % eye [facility] drops drops drops [facility] gabapentin gabapentin No gabapentin [place] 300 mg 300 mg 300 mg [facility] capsule capsule capsule Urolog y [place] 75 [place] 75 No [facility] 75 [place] mg tablet mg tablet mg tablet [facility] TAKE 1 TAKE 1 TAKE 1 Urology TABLET BY TABLET BY TABLET BY MOUTH EVERY MOUTH EVERY MOUTH DAY DAY EVERY DAY meloxicam meloxicam No meloxicam [place] 15 mg 15 mg 15 mg [facility] tablet tablet tablet Urology memantine memantine No memantine [place] 10 mg 10 mg 10 mg [facility] tablet TAKE tablet TAKE tablet Urology 1 TABLET BY 1 TABLET BY TAKE 1 MOUTH TWICE MOUTH TWICE TABLET BY A DAY A DAY MOUTH TWICE A DAY methylpredn methylpredn No methylpred [place] isolone 4 isolone 4 nisolone 4 [facility] [...] OF 6 DAYS Myrbetriq Myrbetriq No Myrbetriq [place] 50 mg 50 mg 50 mg [facility] tablet,exte tablet,exte tablet,ext Urology nded nded ended release release release Take 1 Take 1 Take 1 tablet tablet tablet every day every day every day by oral by oral by oral route. route. route. Namenda Namenda No Namenda [place] [facility] ofloxacin ofloxacin No ofloxacin [place] 0.3 % eye 0.3 % eye 0.3 [...] tablet [facility] sertraline sertraline No sertraline [place] 50 mg 50 mg 50 mg [facility] tablet TAKE tablet TAKE tablet Urology 1 TABLET BY 1 TABLET BY TAKE 1 MOUTH EVERY MOUTH EVERY TABLET BY DAY IN THE DAY IN THE MOUTH MORNING MORNING EVERY DAY IN THE MORNING solifenacin solifenacin No solifenaci [place] 10 mg 10 mg n 10 mg [...] HOURS tramadol 50 tramadol 50 No tramadol [place] mg tablet mg tablet 50 mg Met[facility] o TAKE 1 TAKE 1 tablet Urology TABLET BY TABLET BY TAKE 1 MOUTH EVERY MOUTH EVERY TABLET BY 6 TO 8 6 TO 8 MOUTH HOURS HOURS EVERY 6 TO NEEDED FOR NEEDED FOR 8 HOURS PAIN. PAIN. NEEDED FOR PAIN. Vesicare Vesicare No Vesicare [facility] Vitamin B12 Vitamin B12 No Vitamin [place] B12 [facility] Vitamin C [facility] C [facility]olo[facility] Aricept Aricept No Aricept [place] [facility] atorvastati atorvastati No 20mg atorvastat [place] n 20 mg n 20 mg in 20 mg [facility] tablet 20 tablet 20 tablet 20 Urology mg by oral mg by oral mg by oral route. route. route. azithromyci azithromyci No azithromyc [place] n 250 mg n 250 mg in [...] route. oral route. chlordiazep chlordiazep No chlordiaze [place] oxide-clidi oxide-clidi poxide-cli [facility] nium 5 nium 5 dinium 5 Urology mg-2.5 mg mg-2.5 mg mg-2.5 mg capsule capsule capsule TAKE ONE TAKE ONE TAKE ONE (1) (1) (1) CAPSULE(S) CAPSULE(S) CAPSULE(S) BY MOUTH BY MOUTH BY MOUTH THREE TIMES THREE TIMES THREE A DAY. A DAY. TIMES A DAY. ciprofloxac ciprofloxac No ciprofloxa [place] in 500 mg in 500 mg facundo 500 mg [facility] tablet TAKE tablet TAKE tablet Urology 1 TABLET BY 1 TABLET BY TAKE 1 MOUTH EVERY MOUTH EVERY TABLET BY 12 HOURS 12 HOURS MOUTH EVERY 12 HOURS cyanocobala cyanocobala No 2000ug cyanocobal [place] min (vit min (vit bailey (vit Me tro B-12) ER B-12) ER B-12) ER Uro logy 2,000 mcg 2,000 mcg 2,000 mcg tablet,exte tablet,exte tablet,ext nded nded ended release release release 2000 ugs by 2000 ugs by 2000 ugs oral route. oral route. by oral route. diclofenac diclofenac No diclofenac [place] 1.5 % 1.5 % 1.5 % [facility] topical topical topical Urolog y drops apply drops apply drops four times four times apply four daily to daily to times affected affected daily to area area affected area donepezil donepezil No 10mg BID donepezil [place] 10 mg 10 mg 10 mg [facility] tablet 10 tablet 10 tablet 10 Urology mg twice a mg twice a mg twice a day by oral day by oral day by route. route. oral route. Durezol Durezol No Durezol [place] 0.05 % eye 0.05 % eye 0.05 % eye [facility] drops drops drops Urology gabapentin gabapentin No gabapentin [place] 300 mg 300 mg 300 mg [facility] capsule capsule capsule Urolog y gabapentin gabapentin No 300mg TID gabapentin [place] 600 mg 600 mg 600 mg [facility] [...] EVERY DAY levocetiriz levocetiriz No 5mg levocetiri [place] ine 5 mg ine 5 mg zine 5 mg Me tro tablet 5 mg tablet 5 mg tablet 5 Urology by oral by oral mg by oral route. route. route. mecobalamin mecobalamin No mecobalami [place] (vitamin (vitamin n (vitamin M etro B12) 1,000 B12) 1,000 B12) 1,000 Urology mcg mcg mcg chewable chewable chewable tablet tablet tablet meloxicam meloxicam No meloxicam [place] 15 mg 15 mg 15 mg [facility] tablet tablet tablet Urology meloxicam meloxicam No 7.5mg meloxicam [place] 7.5 mg 7.5 mg 7.5 mg [facility] tablet 7.5 tablet 7.5 tablet 7.5 Urology mg by oral mg by oral mg by oral route. route. route. memantine memantine No 10mg BID memantine [place] 10 mg 10 mg 10 mg [facility] tablet 10 tablet 10 tablet 10 Urology mg twice a mg twice a mg twice a day by oral day by oral day by route. route. oral route. methylpredn methylpredn No methylpred [place] isolone 4 isolone 4 nisolone 4 [facility] [...] DAYS Myrbetriq Myrbetriq No 1 Q1D Myrbetriq [place] 50 mg 50 mg 50 mg [facility] tablet,exte tablet,exte tablet,ext Urology nded nded ended release release release Take 1 Take 1 Take 1 tablet tablet tablet every day every day every day by oral by oral by oral route. route. route. Namenda Namenda No [place] [facility] ofloxacin ofloxacin No ofloxacin [place] 0.3 % eye 0.3 % eye 0.3 % eye [facility] drops drops drops Urology phentermine phentermine No phentermin [place] 37.5 mg 37.5 mg e 37.5 mg [...] tablet [facility] simethicone simethicone No simethicon [place] 180 mg 180 mg e 180 mg [facility] capsule capsule capsule Urolog y solifenacin solifenacin No 10mg solifenaci [place] 10 mg 10 mg n 10 mg [...] HOURS tramadol 50 tramadol 50 No tramadol [place] mg tablet mg tablet 50 mg Met[facility] o TAKE 1 TAKE 1 tablet Urology TABLET BY TABLET BY TAKE 1 MOUTH EVERY MOUTH EVERY TABLET BY 6 TO 8 6 TO 8 MOUTH HOURS HOURS EVERY 6 TO NEEDED FOR NEEDED FOR 8 HOURS PAIN. PAIN. NEEDED FOR PAIN. Vesicare Vesicare No Vesicare Alin ston [facility] Urology Vitamin B12 Vitamin B12 No Vitamin [place] B12 [facility] Vitamin C Vitamin C No Vitamin C [facility] [place] Zoloft Zoloft No Zoloft [facility] alendronate alendronate No alendronat [place] 70 mg 70 mg e 70 mg [facility] tablet TAKE tablet TAKE tablet Urology 1 TABLET BY 1 TABLET BY TAKE 1 MOUTH EVERY MOUTH EVERY TABLET BY WEEK WEEK MOUTH EVERY WEEK Aricept Aricept No Aricept [place] [facility] atorvastati atorvastati No 20mg atorvastat [place] n 20 mg n 20 mg in 20 mg [facility] tablet 20 tablet 20 tablet 20 Urology mg by oral mg by oral mg by oral route. route. route. azithromyci azithromyci No azithromyc [place] n 250 mg n 250 mg in [...] route. oral route. chlordiazep chlordiazep No chlordiaze [place] oxide-clidi oxide-clidi poxide-cli [facility] nium 5 nium 5 dinium 5 Urology mg-2.5 mg mg-2.5 mg mg-2.5 mg capsule capsule capsule TAKE ONE TAKE ONE TAKE ONE (1) (1) (1) CAPSULE(S) CAPSULE(S) CAPSULE(S) BY MOUTH BY MOUTH BY MOUTH THREE TIMES THREE TIMES THREE A DAY. A DAY. TIMES A DAY. ciprofloxac ciprofloxac No ciprofloxa [place] in 500 mg in 500 mg facundo 500 mg [facility] tablet TAKE tablet TAKE tablet Urology 1 TABLET BY 1 TABLET BY TAKE 1 MOUTH EVERY MOUTH EVERY TABLET BY 12 HOURS 12 HOURS MOUTH EVERY 12 HOURS cyanocobala cyanocobala No 2000ug cyanocobal [place] min (vit min (vit bailey (vit Me tro B-12) ER B-12) ER B-12) ER Uro logy 2,000 mcg 2,000 mcg 2,000 mcg tablet,exte tablet,exte tablet,ext nded nded ended release release release 2000 ugs by 2000 ugs by 2000 ugs oral route. oral route. by oral route. diclofenac diclofenac No diclofenac [place] 1.5 % 1.5 % 1.5 % [facility] topical topical topical Urolog y drops apply drops apply drops four times four times apply four daily to daily to times affected affected daily to area area affected area donepezil donepezil No 10mg BID donepezil [place] 10 mg 10 mg 10 mg [facility] tablet 10 tablet 10 tablet 10 Urology mg twice a mg twice a mg twice a day by oral day by oral day by route. route. oral route. Durezol Durezol No Durezol [place] 0.05 % eye 0.05 % eye 0.05 % eye [facility] drops drops drops Urology gabapentin gabapentin No gabapentin [place] 300 mg 300 mg 300 mg [facility] capsule capsule capsule Urolog y gabapentin gabapentin No 300mg TID gabapentin [place] 600 mg 600 mg 600 mg [facility] [...] EVERY DAY levocetiriz levocetiriz No 5mg levocetiri [place] ine 5 mg ine 5 mg zine 5 mg Me tro tablet 5 mg tablet 5 mg tablet 5 Urology by oral by oral mg by oral route. route. route. mecobalamin mecobalamin No mecobalami [place] (vitamin (vitamin n (vitamin M etro B12) 1,000 B12) 1,000 B12) 1,000 Urology mcg mcg mcg chewable chewable chewable tablet tablet tablet meloxicam meloxicam No meloxicam [place] 15 mg 15 mg 15 mg [facility] tablet tablet tablet Urology meloxicam meloxicam No 7.5mg meloxicam [place] 7.5 mg 7.5 mg 7.5 mg [facility] tablet 7.5 tablet 7.5 tablet 7.5 Urology mg by oral mg by oral mg by oral route. route. route. memantine memantine No 10mg BID memantine [place] 10 mg 10 mg 10 mg [facility] tablet 10 tablet 10 tablet 10 Urology mg twice a mg twice a mg twice a day by oral day by oral day by route. route. oral route. methylpredn methylpredn No methylpred [place] isolone 4 isolone 4 nisolone 4 [facility] [...] OF 6 DAYS Myrbetriq Myrbetriq No Myrbetriq [place] 50 mg 50 mg 50 mg [facility] tablet,exte tablet,exte tablet,ext Urology nded nded ended release release release TAKE 1 TAKE 1 TAKE 1 TABLET BY TABLET BY TABLET BY MOUTH EVERY MOUTH EVERY MOUTH DAY DAY EVERY DAY Namenda Namenda No Namenda [place] [facility] ofloxacin ofloxacin No ofloxacin [place] 0.3 % eye 0.3 % eye 0.3 % eye [facility] drops drops drops Urology phentermine phentermine No phentermin [place] 37.5 mg 37.5 mg e 37.5 mg [...] tablet [facility] sertraline sertraline No sertraline [place] 50 mg 50 mg 50 mg [facility] tablet TAKE tablet TAKE tablet Urology 1 TABLET BY 1 TABLET BY TAKE 1 MOUTH EVERY MOUTH EVERY TABLET BY DAY IN THE DAY IN THE MOUTH MORNING MORNING EVERY DAY IN THE MORNING simethicone simethicone No simethicon [place] 180 mg 180 mg e 180 mg [facility] capsule capsule capsule Urolog y solifenacin solifenacin No 10mg solifenaci [place] 10 mg 10 mg n 10 mg [facility] tablet 10 tablet 10 tablet 10 Urology mg by oral mg by oral mg by oral route. route. route. Toviaz 8 mg Toviaz 8 mg No 1 Q1D Toviaz 8 [place] tablet,exte tablet,exte mg M etro nded nded [...] HOURS tramadol 50 tramadol 50 No tramadol [place] mg tablet mg tablet 50 mg Metr o TAKE 1 TAKE 1 tablet Urology TABLET BY TABLET BY TAKE 1 MOUTH EVERY MOUTH EVERY TABLET BY 6 TO 8 6 TO 8 MOUTH HOURS HOURS EVERY 6 TO NEEDED FOR NEEDED FOR 8 HOURS PAIN. PAIN. NEEDED FOR PAIN. Vesicare Vesicare No Vesicare [facility] Vitamin B12 Vitamin B12 No Vitamin [place] B12 [facility] Vitamin C Vitamin C No Vitamin [facility] Zoloft Zoloft [facility] Zoloft [facility] alendronate alendronate No alendronat [place] 70 mg 70 mg e 70 mg [facility] tablet TAKE tablet TAKE tablet Urology 1 TABLET BY 1 TABLET BY TAKE 1 MOUTH EVERY MOUTH EVERY TABLET BY WEEK WEEK MOUTH EVERY WEEK Aricept Aricept No Aricept [place] [facility] atorvastati atorvastati No atorvastat [place] n 20 mg n 20 mg in 20 mg [facility] tablet TAKE tablet TAKE tablet Urology 1 TABLET BY 1 TABLET BY TAKE 1 MOUTH EVERY MOUTH EVERY TABLET BY DAY DAY MOUTH EVERY DAY azithromyci azithromyci No azithromyc [place] n 250 mg n 250 mg in [...] 12 HOURS cyanocobala cyanocobala No 2000ug cyanocobal [place] min (vit min (vit bailey (vit Me tro B-12) ER B-12) ER B-12) ER Uro logy 2,000 mcg 2,000 mcg 2,000 mcg tablet,exte tablet,exte tablet,ext nded nded ended release release release 2000 ugs by 2000 ugs by 2000 ugs oral route. oral route. by oral route. diclofenac diclofenac No diclofenac [place] 1.5 % 1.5 % 1.5 % [facility] topical topical topical Urolog y drops apply drops apply drops four times four times apply four daily to daily to times affected affected daily to area area affected area donepezil donepezil No donepezil [place] 10 mg 10 mg 10 mg [facility] tablet TAKE tablet TAKE tablet Urology 1 TABLET BY 1 TABLET BY TAKE 1 MOUTH TWICE MOUTH TWICE TABLET BY A DAY A DAY MOUTH TWICE A DAY Durezol Durezol No Durezol [place] 0.05 % eye 0.05 % eye 0.05 % eye [facility] drops drops drops Urology gabapentin gabapentin No gabapentin [place] 300 mg 300 mg 300 mg [facility] capsule capsule capsule Urolog y gabapentin gabapentin No 300mg TID gabapentin [place] 600 mg 600 mg 600 mg [facility] tablet 300 tablet 300 tablet 300 Urology mg 3 times mg 3 times mg 3 times a day by a day by a day by oral route. oral route. oral route. [place] 75 [place] 75 No [place] 75 [place] mg tablet mg tablet mg tablet [facility] TAKE 1 TAKE 1 TAKE 1 Urology TABLET BY TABLET BY TABLET BY MOUTH EVERY MOUTH EVERY MOUTH DAY DAY EVERY DAY levocetiriz levocetiriz No 5mg levocetiri [place] ine 5 mg ine 5 mg zine 5 mg Me tro tablet 5 mg tablet 5 mg tablet 5 Urology by oral by oral mg by oral route. route. route. mecobalamin mecobalamin No mecobalami [place] (vitamin (vitamin n (vitamin M etro B12) 1,000 B12) 1,000 B12) 1,000 Urology mcg mcg mcg chewable chewable chewable tablet tablet tablet meloxicam meloxicam No meloxicam [place] 15 mg 15 mg 15 mg [facility] tablet tablet tablet Urology meloxicam meloxicam No 7.5mg meloxicam [place] 7.5 mg 7.5 mg 7.5 mg [facility] tablet 7.5 tablet 7.5 tablet 7.5 Urology mg by oral mg by oral mg by oral route. route. route. memantine memantine No memantine [place] 10 mg 10 mg 10 mg [facility] tablet TAKE tablet TAKE tablet Urology 1 TABLET BY 1 TABLET BY TAKE 1 MOUTH TWICE MOUTH TWICE TABLET BY A DAY A DAY MOUTH TWICE A DAY methylpredn methylpredn No methylpred [place] isolone 4 isolone 4 nisolone 4 [facility] [...] OF 6 DAYS Myrbetriq Myrbetriq No Myrbetriq [place] 50 mg 50 mg 50 mg [facility] tablet,exte tablet,exte tablet,ext Urology nded nded ended release release release TAKE 1 TAKE 1 TAKE 1 TABLET BY TABLET BY TABLET BY MOUTH EVERY MOUTH EVERY MOUTH DAY DAY EVERY DAY Namenda Namenda No Namenda [place] [facility] ofloxacin ofloxacin No ofloxacin [place] 0.3 % eye 0.3 % eye 0.3 % eye [facility] drops drops drops Urology oxybutynin oxybutynin No oxybutynin [place] chloride ER chloride ER chloride [facility] 10 mg 10 mg ER 10 mg Urology tablet,exte tablet,exte tablet,ext nded nded ended release 24 release 24 release 24 hr TAKE 1 hr TAKE 1 hr TAKE 1 TABLET BY TABLET BY TABLET BY MOUTH EVERY MOUTH EVERY MOUTH DAY DAY EVERY DAY phentermine phentermine No phentermin [place] 37.5 mg 37.5 mg e 37.5 mg [...] tablet [facility] sertraline sertraline No sertraline [place] 50 mg 50 mg 50 mg [facility] tablet TAKE tablet TAKE tablet Urology 1 TABLET BY 1 TABLET BY TAKE 1 MOUTH EVERY MOUTH EVERY TABLET BY DAY IN THE DAY IN THE MOUTH MORNING MORNING EVERY DAY IN THE MORNING simethicone simethicone No simethicon [place] 180 mg 180 mg e 180 mg [facility] capsule capsule capsule Urolog y solifenacin solifenacin No solifenaci [place] 10 mg 10 mg n 10 mg [...] PAIN. Vesicare Vesicare No Vesicare Alin ston [facility] Urology Vitamin B12 Vitamin B12 No Vitamin [place] B12 [facility] Vitamin C Vitamin C No Vitamin C [facility] [place] [place] [facility] Zoloft Zoloft No Zoloft [facility] [place] U[facility] alendronate alendronate No alendronat [place] 70 mg 70 mg e 70 mg [facility] tablet TAKE tablet TAKE tablet Urology 1 TABLET BY 1 TABLET BY TAKE 1 MOUTH EVERY MOUTH EVERY TABLET BY WEEK WEEK MOUTH EVERY WEEK atorvastati atorvastati No atorvastat [place] n 20 mg n 20 mg in [...] route. oral route. chlordiazep chlordiazep No chlordiaze [place] oxide-clidi oxide-clidi poxide-cli [facility] nium 5 nium 5 dinium 5 Urology mg-2.5 mg mg-2.5 mg mg-2.5 mg capsule capsule capsule TAKE ONE TAKE ONE TAKE ONE (1) (1) (1) CAPSULE(S) CAPSULE(S) CAPSULE(S) BY MOUTH BY MOUTH BY MOUTH THREE TIMES THREE TIMES THREE A DAY. A DAY. TIMES A DAY. cyanocobala cyanocobala No 2000ug cyanocobal [place] min (vit min (vit bailey (vit Me tro B-12) ER B-12) ER B-12) ER Uro logy 2,000 mcg 2,000 mcg 2,000 mcg tablet,exte tablet,exte tablet,ext nded nded ended release release release 2000 ugs by 2000 ugs by 2000 ugs oral route. oral route. by oral route. donepezil donepezil No donepezil [place] 10 mg 10 mg 10 mg [facility] [...] DAY gabapentin gabapentin No 300mg TID gabapentin [place] 600 mg 600 mg 600 mg [facility] tablet 300 tablet 300 tablet 300 Urology mg 3 times mg 3 times mg 3 times a day by a day by a day by oral route. oral route. oral route. levocetiriz levocetiriz No 5mg levocetiri [place] ine 5 mg ine 5 mg zine 5 mg Me tro tablet 5 mg tablet 5 mg tablet 5 Urology by oral by oral mg by oral route. route. route. mecobalamin mecobalamin No mecobalami [place] (vitamin (vitamin n (vitamin M etro B12) 1,000 B12) 1,000 B12) 1,000 Urology mcg mcg mcg chewable chewable chewable tablet tablet tablet meloxicam meloxicam No 7.5mg meloxicam [place] 7.5 mg 7.5 mg 7.5 mg [facility] tablet 7.5 tablet 7.5 tablet 7.5 Urology mg by oral mg by oral mg by oral route. route. route. memantine memantine No memantine [place] 10 mg 10 mg 10 mg [facility] tablet TAKE tablet TAKE tablet Urology 1 TABLET BY 1 TABLET BY TAKE 1 MOUTH TWICE MOUTH TWICE TABLET BY A DAY A DAY MOUTH TWICE A DAY Myrbetriq Myrbetriq No Myrbetriq [place] 50 mg 50 mg 50 mg [facility] tablet,exte tablet,exte tablet,ext Urology nded nded ended release release release TAKE 1 TAKE 1 TAKE 1 TABLET BY TABLET BY TABLET BY MOUTH EVERY MOUTH EVERY MOUTH DAY DAY EVERY DAY sertraline sertraline No sertraline [place] 50 mg 50 mg 50 mg [facility] tablet TAKE tablet TAKE tablet Urology 1 TABLET BY 1 TABLET BY TAKE 1 MOUTH EVERY MOUTH EVERY TABLET BY DAY IN THE DAY IN THE MOUTH MORNING MORNING EVERY DAY IN THE MORNING simethicone simethicone No simethicon [place] 180 mg 180 mg e 180 mg [facility] capsule capsule capsule Urolog y solifenacin solifenacin No solifenaci [place] 10 mg 10 mg n 10 mg [facility] tablet TAKE tablet TAKE tablet Urology 1 TABLET BY 1 TABLET BY TAKE 1 MOUTH EVERY MOUTH EVERY TABLET BY DAY DAY MOUTH EVERY DAY alendronate alendronate No alendronat [place] 70 mg 70 mg e 70 mg [facility] tablet TAKE tablet TAKE tablet Urology 1 TABLET BY 1 TABLET BY TAKE 1 MOUTH EVERY MOUTH EVERY TABLET BY WEEK WEEK MOUTH EVERY WEEK Aricept Aricept No Aricept [place] [facility] atorvastati atorvastati No atorvastat [place] n 20 mg n 20 mg in 20 mg [facility] tablet TAKE tablet TAKE tablet Urology 1 TABLET BY 1 TABLET BY TAKE 1 MOUTH EVERY MOUTH EVERY TABLET BY DAY DAY MOUTH EVERY DAY chlordiazep chlordiazep No chlordiaze [place] oxide-clidi oxide-clidi poxide-cli [facility] nium 5 nium 5 dinium 5 Urology mg-2.5 mg mg-2.5 mg mg-2.5 mg capsule capsule capsule TAKE ONE TAKE ONE TAKE ONE (1) (1) (1) CAPSULE(S) CAPSULE(S) CAPSULE(S) BY MOUTH BY MOUTH BY MOUTH THREE TIMES THREE TIMES THREE A DAY. A DAY. TIMES A DAY. cyanocobala cyanocobala No 2000ug cyanocobal [place] min (vit min (vit bailey (vit Me tro B-12) ER B-12) ER B-12) ER Uro logy 2,000 mcg 2,000 mcg 2,000 mcg tablet,exte tablet,exte tablet,ext nded nded ended release release release 2000 ugs by 2000 ugs by 2000 ugs oral route. oral route. by oral route. donepezil donepezil No donepezil [place] 10 mg 10 mg 10 mg [facility] [...] TWICE A DAY gabapentin gabapentin No gabapentin [place] 300 mg 300 mg 300 mg [facility] capsule capsule capsule Urolog y meloxicam meloxicam No meloxicam [place] 15 mg 15 mg 15 mg [facility] tablet tablet tablet Urology memantine memantine No memantine P[place] 10 mg 10 mg 10 mg [facility] tablet TAKE tablet TAKE tablet Urology 1 TABLET BY 1 TABLET BY TAKE 1 MOUTH TWICE MOUTH TWICE TABLET BY A DAY A DAY MOUTH TWICE A DAY methylpredn methylpredn No methylpred [place] isolone 4 isolone 4 nisolone 4 [facility] mg tablets mg tablets mg tablets Urology in a dose in a dose in a dose pack pack pack Myrbetriq Myrbetriq No Myrbetriq [place] 50 mg 50 mg 50 mg [facility] tablet,exte tablet,exte tablet,ext Urology nded nded ended release release release TAKE 1 TAKE 1 TAKE 1 TABLET BY TABLET BY TABLET BY MOUTH EVERY MOUTH EVERY MOUTH DAY DAY EVERY DAY [facility]enda [facility] ofloxacin ofloxacin No ofloxacin [place] 0.3 % eye 0.3 % eye 0.3 % eye [facility] drops drops drops Urology sertraline sertraline No sertraline [place] 50 mg 50 mg 50 mg [facility] tablet TAKE tablet TAKE tablet Urology 1 TABLET BY 1 TABLET BY TAKE 1 MOUTH EVERY MOUTH EVERY TABLET BY DAY IN THE DAY IN THE MOUTH MORNING MORNING EVERY DAY IN THE MORNING solifenacin solifenacin No solifenaci [place] 10 mg 10 mg n 10 mg [facility] tablet TAKE tablet TAKE tablet Urology 1 TABLET BY 1 TABLET BY TAKE 1 MOUTH EVERY MOUTH EVERY TABLET BY DAY DAY MOUTH EVERY DAY tramadol 50 tramadol 50 No tramadol [place] mg tablet mg tablet 50 mg Metr o tablet Urology Vesicare Vesicare No Vesicare [facility] Vitamin B12 Vitamin B12 No Vitamin [place] B12 [facility] Vitamin C Vitamin C [facility] Zoloft Zoloft No Zoloft [place] [facility] alendronate alendronate No alendronat [place] 70 mg 70 mg e 70 mg [facility] tablet TAKE tablet TAKE tablet Urology 1 TABLET BY 1 TABLET BY TAKE 1 MOUTH EVERY MOUTH EVERY TABLET BY WEEK WEEK MOUTH EVERY WEEK amlodipine amlodipine No amlodipine [place] 5 mg tablet 5 mg tablet 5 mg M etro TAKE 1 TAKE 1 tablet Urology TABLET BY TABLET BY TAKE 1 MOUTH EVERY MOUTH EVERY TABLET BY DAY FOR 90 DAY FOR 90 MOUTH DAYS DAYS EVERY DAY FOR 90 DAYS Aricept Aricept No Aricept [place] [facility] atorvastati atorvastati No atorvastat [place] n 20 mg n 20 mg in 20 mg [facility] tablet TAKE tablet TAKE tablet Urology 1 TABLET BY 1 TABLET BY TAKE 1 MOUTH EVERY MOUTH EVERY TABLET BY DAY DAY MOUTH EVERY DAY azithromyci azithromyci No azithromyc [place] n 250 mg n 250 mg in 250 mg Me tro tablet TAKE tablet TAKE tablet Urology 2 TABLETS 2 TABLETS TAKE 2 BY MOUTH BY MOUTH TABLETS BY TODAY, THEN TODAY, THEN MOUTH TAKE 1 TAKE 1 TODAY, TABLET TABLET THEN TAKE DAILY FOR 4 DAILY FOR 4 1 TABLET DAYS DAYS DAILY FOR 4 DAYS cephalexin cephalexin No 1capsul TID cephalexin [place] 500 mg 500 mg e(s) 500 mg [facility] capsule capsule capsule Urolog y Take 1 Take 1 Take 1 capsule 3 capsule 3 capsule 3 times a day times a day times a by oral by oral day by route for 7 route for 7 oral route days. days. for 7 days. chlordiazep chlordiazep No chlordiaze [place] oxide-clidi oxide-clidi poxide-cli [facility] nium 5 nium 5 dinium 5 Urology mg-2.5 mg mg-2.5 mg mg-2.5 mg capsule capsule capsule TAKE ONE TAKE ONE TAKE ONE (1) (1) (1) CAPSULE(S) CAPSULE(S) CAPSULE(S) BY MOUTH BY MOUTH BY MOUTH THREE TIMES THREE TIMES THREE A DAY. A DAY. TIMES A DAY. cyanocobala cyanocobala No 2000ug cyanocobal [place] min (vit min (vit bailey (vit Me tro B-12) ER B-12) ER B-12) ER Uro logy 2,000 mcg 2,000 mcg 2,000 mcg tablet,exte tablet,exte tablet,ext nded nded ended release release release 2000 ugs by 2000 ugs by 2000 ugs oral route. oral route. by oral route. donepezil donepezil No donepezil [place] 10 mg 10 mg 10 mg [facility] [...] TWICE A DAY gabapentin gabapentin No gabapentin [place] 300 mg 300 mg 300 mg [facility] capsule capsule capsule Urolog y Lagevrio Lagevrio No Lagevrio Alin ston 200 mg 200 mg 200 mg [facility] capsule capsule capsule Urolog y (EUA) TAKE (EUA) TAKE (EUA) TAKE 4 CAPSULES 4 CAPSULES 4 CAPSULES BY MOUTH BY MOUTH BY MOUTH TWICE DAILY TWICE DAILY TWICE DAILY meloxicam meloxicam No meloxicam [place] 15 mg 15 mg 15 mg [facility] tablet TAKE tablet TAKE tablet Urology 1 TABLET BY 1 TABLET BY TAKE 1 MOUTH EVERY MOUTH EVERY TABLET BY DAY DAY MOUTH EVERY DAY memantine memantine No memantine [place] 10 mg 10 mg 10 mg [facility] tablet TAKE tablet TAKE tablet Urology 1 TABLET BY 1 TABLET BY TAKE 1 MOUTH TWICE MOUTH TWICE TABLET BY A DAY A DAY MOUTH TWICE A DAY methylpredn methylpredn No methylpred [place] isolone 4 isolone 4 nisolone 4 [facility] mg tablets mg tablets mg tablets Urology in a dose in a dose in a dose pack pack pack montelukast montelukast No montelukas [place] 10 mg 10 mg t 10 mg [facility] tablet tablet tablet Urology Myrbetriq Myrbetriq No Myrbetriq [place] 50 mg 50 mg 50 mg [facility] tablet,exte tablet,exte tablet,ext Urology nded nded ended release release release TAKE 1 TAKE 1 TAKE 1 TABLET BY TABLET BY TABLET BY MOUTH EVERY MOUTH EVERY MOUTH DAY DAY EVERY DAY Namenda Namenda No Namenda [place] [facility] Urology ofloxacin ofloxacin No ofloxacin [place] 0.3 % eye 0.3 % eye 0.3 % eye [facility] drops drops drops Urology promethazin promethazin No promethazi [place] e-DM 6.25 e-DM 6.25 ne-DM 6.25 [facility] mg-15 mg/5 mg-15 mg/5 mg-15 mg/5 Urology mL oral mL oral mL oral syrup TAKE syrup TAKE syrup TAKE 5ML BY 5ML BY 5ML BY MOUTH EVERY MOUTH EVERY MOUTH 4 HOURS 4 HOURS EVERY 4 HOURS sertraline sertraline No sertraline [place] 100 mg 100 mg 100 mg [facility] tablet tablet tablet Urology sertraline sertraline No sertraline [place] 50 mg 50 mg 50 mg [facility] tablet TAKE tablet TAKE tablet Urology 1 TABLET BY 1 TABLET BY TAKE 1 MOUTH EVERY MOUTH EVERY TABLET BY DAY IN THE DAY IN THE MOUTH MORNING MORNING EVERY DAY IN THE MORNING solifenacin solifenacin No solifenaci [place] 10 mg 10 mg n 10 mg [...] BEDTIME tramadol 50 tramadol 50 No tramadol [place] mg tablet mg tablet 50 mg Met[facility] o tablet Urology trazodone trazodone No trazodone [place] 50 mg 50 mg 50 mg [facility] tablet TAKE tablet TAKE tablet Urology 1 TABLET BY 1 TABLET BY TAKE 1 MOUTH MOUTH TABLET BY EVERYDAY AT EVERYDAY AT MOUTH BEDTIME BEDTIME EVERYDAY AT BEDTIME Vesicare Vesicare No [facility]are [facility] Vitamin B12 Vitamin B12 No Vitamin [place] B12 [facility] Vitamin C Vitamin C No Vitamin C [facility] [place] [place] U[facility] Zoloft Zoloft No Zoloft [facility] [place] U[facility] alendronate alendronate No alendronat [place] 70 mg 70 mg e 70 mg [facility] tablet TAKE tablet TAKE tablet Urology 1 TABLET BY 1 TABLET BY TAKE 1 MOUTH EVERY MOUTH EVERY TABLET BY WEEK WEEK MOUTH EVERY WEEK amlodipine amlodipine No amlodipine [place] 5 mg tablet 5 mg tablet 5 mg M etro TAKE 1 TAKE 1 tablet Urology TABLET BY TABLET BY TAKE 1 MOUTH EVERY MOUTH EVERY TABLET BY DAY FOR 90 DAY FOR 90 MOUTH DAYS DAYS EVERY DAY FOR 90 DAYS atorvastati atorvastati No atorvastat [place] n 20 mg n 20 mg in 20 mg [facility] tablet TAKE tablet TAKE tablet Urology 1 TABLET BY 1 TABLET BY TAKE 1 MOUTH EVERY MOUTH EVERY TABLET BY DAY DAY MOUTH EVERY DAY cyanocobala cyanocobala No 2000ug cyanocobal [place] min (vit min (vit bailey (vit Me tro B-12) ER B-12) ER B-12) ER Uro logy 2,000 mcg 2,000 mcg 2,000 mcg tablet,exte tablet,exte tablet,ext nded nded ended release release release 2000 ugs by 2000 ugs by 2000 ugs oral route. oral route. by oral route. donepezil donepezil No donepezil [place] 10 mg 10 mg 10 mg [facility] [...] TWICE A DAY gabapentin gabapentin No gabapentin [place] 300 mg 300 mg 300 mg [facility] capsule capsule capsule Urolog y Lagevrio Lagevrio No Lagevrio Alin ston 200 mg 200 mg 200 mg [facility] capsule capsule capsule Urolog y (EUA) TAKE (EUA) TAKE (EUA) TAKE 4 CAPSULES 4 CAPSULES 4 CAPSULES BY MOUTH BY MOUTH BY MOUTH TWICE DAILY TWICE DAILY TWICE DAILY meloxicam meloxicam No meloxicam [place] 15 mg 15 mg 15 mg [facility] tablet TAKE tablet TAKE tablet Urology 1 TABLET BY 1 TABLET BY TAKE 1 MOUTH EVERY MOUTH EVERY TABLET BY DAY DAY MOUTH EVERY DAY memantine memantine No memantine [place] 10 mg 10 mg 10 mg [facility] tablet TAKE tablet TAKE tablet Urology 1 TABLET BY 1 TABLET BY TAKE 1 MOUTH TWICE MOUTH TWICE TABLET BY A DAY A DAY MOUTH TWICE A DAY methylpredn methylpredn No methylpred [place] isolone 4 isolone 4 nisolone 4 [facility] mg tablets mg tablets mg tablets Urology in a dose in a dose in a dose pack pack pack montelukast montelukast No montelukas [place] 10 mg 10 mg t 10 mg [facility] tablet tablet tablet Urology Namenda Namenda No Namenda [place] [facility] promethazin promethazin No promethazi [place] e-DM 6.25 e-DM 6.25 ne-DM 6.25 [facility] mg-15 mg/5 mg-15 mg/5 mg-15 mg/5 Urology mL oral mL oral mL oral syrup TAKE syrup TAKE syrup TAKE 5ML BY 5ML BY 5ML BY MOUTH EVERY MOUTH EVERY MOUTH 4 HOURS 4 HOURS EVERY 4 HOURS sertraline sertraline No sertraline [place] 50 mg 50 mg 50 mg [facility] [...] BEDTIME AT BEDTIME trazodone trazodone No trazodone [place] 50 mg 50 mg 50 mg [facility] tablet TAKE tablet TAKE tablet Urology 1 TABLET BY 1 TABLET BY TAKE 1 MOUTH MOUTH TABLET BY EVERYDAY AT EVERYDAY AT MOUTH BEDTIME BEDTIME EVERYDAY AT BEDTIME Vitamin B12 Vitamin B12 No Vitamin [place] B12 [facility] Vitamin C Vitamin C No Vitamin [facility] Z[facility]ft Z[facility]ft [facility] alendronate alendronate No alendronat [place] 70 mg 70 mg e 70 mg [...] MOUTH EVERY DAY atorvastati atorvastati No atorvastat [place] n 20 mg n 20 mg in 20 mg [facility] tablet TAKE tablet TAKE tablet Urology 1 TABLET BY 1 TABLET BY TAKE 1 MOUTH EVERY MOUTH EVERY TABLET BY DAY DAY MOUTH EVERY DAY Immunizations Ordered Filled Immunization Date Status Comments Sourc e Immunization Name Name COVID-19, mRNA, COVID-19, mRNA, 2021-07-07 Completed [place] LNP-S, PF, 30 LNP-S, PF, 30 00:00:00 Urology mcg/0.3 mL dose mcg/0.3 mL dose ([employer]) ([employer]) COVID-19, mRNA, COVID-19, mRNA, 2021-07-07 Completed [place] LNP-S, PF, 30 LNP-S, PF, 30 00:00:00 Urology mcg/0.3 mL dose mcg/0.3 mL dose ([employer]) ([employer]) COVID-19, mRNA, COVID-19, mRNA, 2021-07-07 Completed [place] LNP-S, PF, 30 LNP-S, PF, 30 00:00:00 Urology mcg/0.3 mL dose mcg/0.3 mL dose COVID-19, mRNA, COVID-19, mRNA, 2021-07-07 Completed [place] LNP-S, PF, 30 LNP-S, PF, 30 00:00:00 Urology mcg/0.3 mL dose mcg/0.3 mL dose ([employer]) ([employer]) COVID-19, mRNA, COVID-19, mRNA, 2021-07-07 Completed [place] LNP-S, PF, 30 LNP-S, PF, 30 00:00:00 Urology mcg/0.3 mL dose mcg/0.3 mL dose ([employer]) ([employer]) COVID-19, mRNA, COVID-19, mRNA, 2021-07-07 Completed [place] LNP-S, PF, 30 LNP-S, PF, 30 00:00:00 Urology mcg/0.3 mL dose mcg/0.3 mL dose ([employer]) ([employer]) COVID-19, mRNA, COVID-19, mRNA, 2021-07-07 Completed [place] LNP-S, PF, 30 LNP-S, PF, 30 00:00:00 Urology mcg/0.3 mL dose mcg/0.3 mL dose ([employer]) ([facility]) COVID-19, mRNA, COVID-19, mRNA, 2021-07-07 Completed [place] LNP-S, PF, 30 LNP-S, PF, 30 00:00:00 Urology mcg/0.3 mL dose mcg/0.3 mL dose ([employer]) ([facility]) COVID-19, mRNA, COVID-19, mRNA, 2021-07-07 Completed [place] LNP-S, PF, 30 LNP-S, PF, 30 00:00:00 Urology mcg/0.3 mL dose mcg/0.3 mL dose ([employer]) ([employer]) COVID-19, mRNA, COVID-19, mRNA, 2021-07-07 Completed [place] LNP-S, PF, 30 LNP-S, PF, 30 00:00:00 Urology mcg/0.3 mL dose mcg/0.3 mL dose ([employer]) ([employer]) COVID-19, mRNA, COVID-19, mRNA, 2021-07-07 Completed [place] LNP-S, PF, 30 LNP-S, PF, 30 00:00:00 Urology mcg/0.3 mL dose mcg/0.3 mL dose ([employer]) ([employer]) COVID-19, mRNA, COVID-19, mRNA, 2021-07-07 Completed [place] LNP-S, PF, 30 LNP-S, PF, 30 00:00:00 Urology mcg/0.3 mL dose mcg/0.3 mL dose ([employer]) ([employer]) COVID-19, mRNA, COVID-19, mRNA, 2021-07-07 Completed [place] LNP-S, PF, 30 LNP-S, PF, 30 00:00:00 Urology mcg/0.3 mL dose mcg/0.3 mL dose ([employer]) ([facility]) COVID-19, mRNA, COVID-19, mRNA, 2021-07-07 Completed [place] LNP-S, PF, 30 LNP-S, PF, 30 00:00:00 Urology mcg/0.3 mL dose mcg/0.3 mL dose ([employer]) ([facility]) COVID-19, mRNA, COVID-19, mRNA, 2021-07-07 Completed [place] LNP-S, PF, 30 LNP-S, PF, 30 00:00:00 Urology mcg/0.3 mL dose mcg/0.3 mL dose ([employer]) [facility] COVID-19, mRNA, COVID-19, mRNA, 2021-07-07 Completed [place] LNP-S, PF, 30 LNP-S, PF, 30 00:00:00 Urology mcg/0.3 mL dose mcg/0.3 mL dose ([employer]) [facility] COVID-19, mRNA, COVID-19, mRNA, 2020-11-15 Completed [place] LNP-S, PF, 30 LNP-S, PF, 30 00:00:00 Urology mcg/0.3 mL dose mcg/0.3 mL dose ([employer]) ([facility]) COVID-19, mRNA, COVID-19, mRNA, 2020-11-15 Completed [place] LNP-S, PF, 30 LNP-S, PF, 30 00:00:00 Urology mcg/0.3 mL dose mcg/0.3 mL dose ([employer]) ([facility] COVID-19, mRNA, COVID-19, mRNA, 2020-11-15 Completed [place] LNP-S, PF, 30 LNP-S, PF, 30 00:00:00 Urology mcg/0.3 mL dose mcg/0.3 mL dose COVID-19, mRNA, COVID-19, mRNA, 2020-11-15 Completed [place] LNP-S, PF, 30 LNP-S, PF, 30 00:00:00 Urology mcg/0.3 mL dose mcg/0.3 mL dose ([employer]) ([facility]) COVID-19, mRNA, COVID-19, mRNA, 2020-11-15 Completed [place] LNP-S, PF, 30 LNP-S, PF, 30 00:00:00 Urology mcg/0.3 mL dose mcg/0.3 mL dose ([employer]) [facility] COVID-19, mRNA, COVID-19, mRNA, 2020-11-15 Completed [place] LNP-S, PF, 30 LNP-S, PF, 30 00:00:00 Urology mcg/0.3 mL dose mcg/0.3 mL dose ([employer]) ([facility]) COVID-19, mRNA, COVID-19, mRNA, 2020-11-15 Completed [place] LNP-S, PF, 30 LNP-S, PF, 30 00:00:00 Urology mcg/0.3 mL dose mcg/0.3 mL dose ([facility]) [facility] COVID-19, mRNA, COVID-19, mRNA, 2020-11-15 Completed [place] LNP-S, PF, 30 LNP-S, PF, 30 00:00:00 Urology mcg/0.3 mL dose mcg/0.3 mL dose ([employer]) ([facility]) COVID-19, mRNA, COVID-19, mRNA, 2020-11-15 Completed [place] LNP-S, PF, 30 LNP-S, PF, 30 00:00:00 Urology mcg/0.3 mL dose mcg/0.3 mL dose ([employer]) ([facility]) COVID-19, mRNA, COVID-19, mRNA, 2020-11-15 Completed [place] LNP-S, PF, 30 LNP-S, PF, 30 00:00:00 Urology mcg/0.3 mL dose mcg/0.3 mL dose ([employer]) ([facility]) COVID-19, mRNA, COVID-19, mRNA, 2020-11-15 Completed [place] LNP-S, PF, 30 LNP-S, PF, 30 00:00:00 Urology mcg/0.3 mL dose mcg/0.3 mL dose ([employer]) [facility] COVID-19, mRNA, COVID-19, mRNA, 2020-11-15 Completed [place] LNP-S, PF, 30 LNP-S, PF, 30 00:00:00 Urology mcg/0.3 mL dose mcg/0.3 mL dose ([employer]) ([facility] COVID-19, mRNA, COVID-19, mRNA, 2020-11-15 Completed [place] LNP-S, PF, 30 LNP-S, PF, 30 00:00:00 Urology mcg/0.3 mL dose mcg/0.3 mL dose ([employer]) [facility] COVID-19, mRNA, COVID-19, mRNA, 2020-11-15 Completed [place] LNP-S, PF, 30 LNP-S, PF, 30 00:00:00 Urology mcg/0.3 mL dose mcg/0.3 mL dose ([employer]) ([facility]) COVID-19, mRNA, COVID-19, mRNA, 2020-11-15 Completed [place] LNP-S, PF, 30 LNP-S, PF, 30 00:00:00 Urology mcg/0.3 mL dose mcg/0.3 mL dose ([employer]) ([facility]) COVID-19, mRNA, COVID-19, mRNA, 2020-11-15 Completed [place] LNP-S, PF, 30 LNP-S, PF, 30 00:00:00 Urology mcg/0.3 mL dose mcg/0.3 mL dose ([employer]) ([facility]) COVID-19, mRNA, COVID-19, mRNA, 2020-10-18 Completed [place] LNP-S, PF, 30 LNP-S, PF, 30 00:00:00 Urology mcg/0.3 mL dose mcg/0.3 mL dose ([employer]) ([facility]) COVID-19, mRNA, COVID-19, mRNA, 2020-10-18 Completed [place] LNP-S, PF, 30 LNP-S, PF, 30 00:00:00 Urology mcg/0.3 mL dose mcg/0.3 mL dose ([employer]) ([employer]) COVID-19, mRNA, COVID-19, mRNA, 2020-10-18 Completed [place] LNP-S, PF, 30 LNP-S, PF, 30 00:00:00 Urology mcg/0.3 mL dose mcg/0.3 mL dose COVID-19, mRNA, COVID-19, mRNA, 2020-10-18 Completed [place] LNP-S, PF, 30 LNP-S, PF, 30 00:00:00 Urology mcg/0.3 mL dose mcg/0.3 mL dose ([employer]) ([employer]) COVID-19, mRNA, COVID-19, mRNA, 2020-10-18 Completed [place] LNP-S, PF, 30 LNP-S, PF, 30 00:00:00 Urology mcg/0.3 mL dose mcg/0.3 mL dose ([employer]) ([employer]) COVID-19, mRNA, COVID-19, mRNA, 2020-10-18 Completed [place] LNP-S, PF, 30 LNP-S, PF, 30 00:00:00 Urology mcg/0.3 mL dose mcg/0.3 mL dose ([employer]) ([employer]) COVID-19, mRNA, COVID-19, mRNA, 2020-10-18 Completed [place] LNP-S, PF, 30 LNP-S, PF, 30 00:00:00 Urology mcg/0.3 mL dose mcg/0.3 mL dose ([employer]) ([employer]) COVID-19, mRNA, COVID-19, mRNA, 2020-10-18 Completed [place] LNP-S, PF, 30 LNP-S, PF, 30 00:00:00 Urology mcg/0.3 mL dose mcg/0.3 mL dose ([employer]) ([employer]) COVID-19, mRNA, COVID-19, mRNA, 2020-10-18 Completed [place] LNP-S, PF, 30 LNP-S, PF, 30 00:00:00 Urology mcg/0.3 mL dose mcg/0.3 mL dose ([employer]) ([facility]) COVID-19, mRNA, COVID-19, mRNA, 2020-10-18 Completed [place] LNP-S, PF, 30 LNP-S, PF, 30 00:00:00 Urology mcg/0.3 mL dose mcg/0.3 mL dose ([employer]) ([facility] COVID-19, mRNA, COVID-19, mRNA, 2020-10-18 Completed [place] LNP-S, PF, 30 LNP-S, PF, 30 00:00:00 Urology mcg/0.3 mL dose mcg/0.3 mL dose ([facility] COVID-19, mRNA, COVID-19, mRNA, 2020-10-18 Completed [place] LNP-S, PF, 30 LNP-S, PF, 30 00:00:00 Urology mcg/0.3 mL dose mcg/0.3 mL dose ([employer]) ([facility]) COVID-19, mRNA, COVID-19, mRNA, 2020-10-18 Completed [place] LNP-S, PF, 30 LNP-S, PF, 30 00:00:00 Urology mcg/0.3 mL dose mcg/0.3 mL dose ([employer]) ([facility]) COVID-19, mRNA, COVID-19, mRNA, 2020-10-18 Completed [place] LNP-S, PF, 30 LNP-S, PF, 30 00:00:00 Urology mcg/0.3 mL dose mcg/0.3 mL dose ([employer]) ([employer]) COVID-19, mRNA, COVID-19, mRNA, 2020-10-18 Completed [place] LNP-S, PF, 30 LNP-S, PF, 30 00:00:00 Urology mcg/0.3 mL dose mcg/0.3 mL dose ([employer]) ([employer]) COVID-19, mRNA, COVID-19, mRNA, 2020-10-18 Completed [facility] LNP-S, PF, 30 LNP-S, PF, 30 00:00:00 Urology mcg/0.3 mL dose mcg/0.3 mL dose ([employer]) ([employer]) Tdap Tdap 2019-10-21 Completed [place] 00:00:00 [facility] pneumococcal, pneumococcal, 2019-08-31 Completed [place] unspecified unspecified 00:00:00 [facility] formulation formulation [facility] influenza, influenza, Unknown Completed Dr. Miranda seasonal, seasonal, Bri injectable injectable Vital Signs Vital Name Observation Time Observation Value Comments Source Height 2023-02-12 00:00:00 60 [facility] 2022-12-18 00:00:00 60 [in_i] [facility] [place] [place] [facility] BMI (Body Mass 2022-12-18 00:00:00 27.3 kg/m2 [place] [facility] Index) Urology Body Weight 2022-12-18 00:00:00 140 [lb_av] [facility] Height 2022-12-18 00:00:00 60 [in_i] [facility] BMI (Body Mass 2022-12-18 00:00:00 27.3 kg/m2 [place] [facility] Index) Urology Body Weight 2022-12-18 00:00:00 140 [lb_av] [facility] [place] [place] [facility] BP Diastolic 2022-09-19 00:00:00 63 mm[Hg] [facility] [place] [place] [facility] Height 2022-09-19 00:00:00 60 [in_i] [facility] BMI (Body Mass 2022-09-19 00:00:00 27.7 kg/m2 [place] [facility] Index) Urology BP Systolic 2022-09-19 00:00:00 133 mm[Hg] [facility] Body Weight 2022-09-19 00:00:00 142 [lb_av] [facility] Height 2022-08-07 00:00:00 60 [in_i] [facility] Height 2022-07-10 00:00:00 60 [in_i] [facility] BMI (Body Mass 2022-07-10 00:00:00 32.2 kg/m2 [place] [facility] Index) Urology Body Weight 2022-07-10 00:00:00 165 [lb_av] [place] [facility] BP Diastolic 2022-07-03 00:00:00 67 mm[Hg] [facility] Height 2022-07-03 00:00:00 60 [in_i] [facility] BMI (Body Mass 2022-07-03 00:00:00 32.2 kg/m2 [place] [facility] Index) Urology BP Systolic 2022-07-03 00:00:00 116 mm[Hg] [facility] Body Weight 2022-07-03 00:00:00 165 [lb_av] [facility] BP Diastolic 2022-05-29 00:00:00 79 mm[Hg] [facility] Height 2022-05-29 00:00:00 60 [in_i] [facility] BMI (Body Mass 2022-05-29 00:00:00 32.2 kg/m2 [place] [facility] Index) Urology BP Systolic 2022-05-29 00:00:00 125 mm[Hg] [facility] Body Weight 2022-05-29 00:00:00 165 [lb_av] [facility] BP Diastolic 2022-05-03 00:00:00 70 mm[Hg] [facility] Height 2022-05-03 00:00:00 60 [in_i] [facility] BMI (Body Mass 2022-05-03 00:00:00 32.2 kg/m2 [place] [facility] Index) Urology BP Systolic 2022-05-03 00:00:00 167 mm[Hg] [facility] Body Weight 2022-05-03 00:00:00 165 [lb_av] [facility] BP Diastolic 2022-04-09 00:00:00 79 mm[Hg] [facility] Height 2022-04-09 00:00:00 60 [in_i] [facility] BMI (Body Mass 2022-04-09 00:00:00 32.2 kg/m2 [place] [facility] Index) Urology BP Systolic 2022-04-09 00:00:00 128 mm[Hg] [facility] Body Weight 2022-04-09 00:00:00 165 [lb_av] [place] [facility] BP Diastolic 2022-04-02 00:00:00 80 mm[Hg] [facility] Height 2022-04-02 00:00:00 60 [in_i] [facility] BMI (Body Mass 2022-04-02 00:00:00 32.2 kg/m2 [place] [facility] Index) Urology BP Systolic 2022-04-02 00:00:00 130 mm[Hg] [facility] Body Weight 2022-04-02 00:00:00 165 [lb_av] [facility] BP Diastolic 2022-03-22 00:00:00 79 mm[Hg] [facility] Height 2022-03-22 00:00:00 60 [in_i] [facility] BMI (Body Mass 2022-03-22 00:00:00 32.2 kg/m2 [place] [facility] Index) Urology BP Systolic 2022-03-22 00:00:00 128 mm[Hg] [facility] Body Weight 2022-03-22 00:00:00 165 [lb_av] [facility] BP Diastolic 2022-02-06 00:00:00 72 mm[Hg] [facility] Height 2022-02-06 00:00:00 60 [in_i] [facility] BMI (Body Mass 2022-02-06 00:00:00 32.2 kg/m2 [place] [facility] Index) Urology BP Systolic 2022-02-06 00:00:00 132 mm[Hg] [facility] Body Weight 2022-02-06 00:00:00 165 [lb_av] [facility] BP Diastolic 2021-08-15 00:00:00 78 mm[Hg] [facility] Height 2021-08-15 00:00:00 60 [in_i] [facility] BMI (Body Mass 2021-08-15 00:00:00 32.2 kg/m2 [place] [facility] Index) Urology BP Systolic 2021-08-15 00:00:00 130 mm[Hg] [facility] Body Weight 2021-08-15 00:00:00 165 [lb_av] [facility] [place] [place] [facility] Systolic blood 2020-12-15 16:56:00 146 mm[Hg] [facility] Diastolic blood 2020-12-15 16:56:00 71 mm[Hg] [facility] Heart rate 2020-12-15 16:56:00 79 /min [facility] Respiratory rate 2020-12-15 16:56:00 18 /min [facility] Oxygen saturation in 2020-12-15 16:56:00 100 /min [facility] Ar[facility]ial blood by [place] [employer] last Pulse oximetry Branch Body temperature 2020-12-15 16:42:00 36.89 Aleksandra [facility] Body height 2020-11-29 15:55:00 162.6 cm [facility] Body weight 2020-11-29 15:55:00 67.1 kg [facility] BMI 2020-11-29 15:55:00 25.38 kg/m2 [facility] Systolic blood 2020-11-03 15:59:00 157 mm[Hg] [facility] Diastolic blood 2020-11-03 15:59:00 72 mm[Hg] [facility] Heart rate 2020-11-03 15:59:00 64 /min [facility] Respiratory rate 2020-11-03 15:59:00 16 /min [facility] Oxygen saturation in 2020-11-03 15:59:00 98 /min [facility] by [facility] Pulse [facility]xim[facility] Body temperature 2020-11-03 15:45:00 36.56 Aleksandra [facility] Body height 2020-11-02 19:00:00 162.6 cm [facility] Body weight 2020-11-02 19:00:00 67.132 kg [facility] BMI 2020-11-02 19:00:00 25.40 kg/m2 [facility] Systolic blood 2020-11-03 15:59:00 157 mm[Hg] [facility] pressure [facility] Diastolic blood 2020-11-03 15:59:00 72 mm[Hg] Unive rsity of [facility] Heart rate 2020-11-03 15:59:00 64 /min [facility] Respiratory rate 2020-11-03 15:59:00 16 /min [facility] Oxygen saturation in 2020-11-03 15:59:00 98 /min [facility] Arterial blood by [facility] Pulse oximetry [place] Body temperature 2020-11-03 15:45:00 36.56 Aleksandra [facility] Body height 2020-11-02 19:00:00 162.6 cm [facility] Body weight 2020-11-02 19:00:00 67.132 kg [facility] BMI 2020-11-02 19:00:00 25.40 kg/m2 [facility] BP Diastolic 2020-04-20 00:00:00 80 mm[Hg] [place] [facility] Height 2020-04-20 00:00:00 60 [in_i] [place] [facility] BMI (Body Mass 2020-04-20 00:00:00 32.8 kg/m2 [place] [facility] Index) [facility] BP Systolic 2020-04-20 00:00:00 136 mm[Hg] [place] [facility] Body Weight 2020-04-20 00:00:00 2684.8 [oz_av] [facility] [facility] BMI (Body Mass 2018-01-08 00:00:00 29.5 kg/m2 Dr. Yuri abrams Index) Bri Height 2018-01-08 00:00:00 60 [in_i] Dr. Dalton Gregory BP Diastolic 2018-01-08 00:00:00 75 mm[Hg] Dr. Dalton Gregory Body Weight 2018-01-08 00:00:00 151 [lb_av] Dr. Dalton Gregory BP Systolic 2018-01-08 00:00:00 140 mm[Hg] Dr. Dalton [facility] Temperature Oral (F) 2016-06-01 12:00:00 36.8 Aleksandra [facility] Heart Rate 2016-06-01 12:00:00 [facility] Respitory Rate 2016-06-01 12:00:00 [facility] [place] Systolic (mm Hg) 2016-06-01 12:00:00 Seng rial [place] Systolic (mm Hg) 2016-06-01 09:00:00 Seng rial [place] Heart Rate 2016-06-01 09:00:00 [facility] Temperature Oral (F) 2016-06-01 09:00:00 36.9 Aleksandra [facility] Respitory Rate 2016-06-01 09:00:00 [facility] Respitory Rate 2016-06-01 05:00:00 [facility] Heart Rate 2016-06-01 05:00:00 [facility] Temperature Oral (F) 2016-06-01 05:00:00 36.6 [facility] Systolic (mm Hg) 2016-06-01 05:00:00 [facility] [place] Temperature Oral (F) 2016-05-31 14:50:00 36.7 [facility] Weight 2016-05-31 11:31:00 [facility] Height 2016-05-31 11:31:00 154.94 cm [facility] Weight 2016-05-22 19:46:00 [facility] Height 2016-05-22 19:46:00 154.94 cm [facility] Procedures Procedure Date / Time Performing Clinician Source Performed CT, abdomen + pelvis, w/wo 2022-03-22 00:00:00 H marlene grover [facility] CONSENT/REFUSAL FOR 2020-12-13 15:36:49 Doctor Unassigned, [facility] ASSIGNMENT OF BENEFITS 2020-12-13 15:36:34 Doctor Unassigned, [facility] COVID-19 (ID NOW RAPID 2020-11-03 14:35:00 Gautam Boone [facility] TESTING) [facility] bone density study 2018-01-08 00:00:00 Dr. Hamzah Gregory GASTRECTOMY 2016-05-31 13:36:00 [facility] [facility] LAPAROSCOPIC-LONGITUDINAL Hardeep P 71056 (Other)<sup>2</sup> EGD 2016-04-20 00:00:00 [facility] Colonoscopy 2015-10-21 00:00:00 [facility] Cardiac 2015-06-21 00:00:00 [facility] catherization<sup>1</sup> foot surgery: removal of 2013-10-21 00:00:00 [facility] orial [place] bone spur right hand 2009-10-21 00:00:00 [facility] bladder suspension 2000-10-21 00:00:00 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 tro (Obesity) Urology GI- Appendectomy [facility] [place] Urology right carpal tunnel [facility] release Appendectomy [facility] Craniotomy [facility] Urinary Bladder [facility] Breast Biopsy [facility] Tonsillectomy [facility] Total Hysterectomy [facility] Plan of Care Planned Activity Planned Date Details Comments Source Future Scheduled Test 2023-09-16 Hepatitis C screening [facility] 09:27:09 (procedure) [code = 023008857] Future Scheduled Test 2023-09-16 SHINGLES VACCINES (1 [facility] 09:27:09 of 2) [code = SHINGLES VACCINES (1 of 2)] Future Scheduled Test 2023-09-16 65+ PNEUMOCOCCAL [facility] 09:27:09 VACCINE (1 - PCV) [code = 65+ PNEUMOCOCCAL VACCINE (1 - PCV)] Future Scheduled Test 2023-09-16 COVID-19 VACCINE ([address] [place] [address] 09:27:09 season) [code = COVID-19 VACCINE ()] Future Scheduled Test 2023-09-16 INFLUENZA VACCINE [facility] 09:27:09 (#1) [code = INFLUENZA VACCINE (#1)] Future Scheduled Test 2023-08-14 Hepatitis C screening [facility] 14:55:21 (procedure) [code = 946385482] Future Scheduled Test 2023-08-14 SHINGLES VACCINES (1 [facility] 14:55:21 of 2) [code = SHINGLES VACCINES (1 of 2)] Future Scheduled Test 2023-08-14 65+ PNEUMOCOCCAL Me [facility] 14:55:21 VACCINE (1 - PCV) [code = 65+ PNEUMOCOCCAL VACCINE (1 - PCV)] Future Scheduled Test 2023-08-14 COVID-19 VACCINE ([address] [place] [address] 14:55:21 season) [code = COVID-19 VACCINE ()] Future Scheduled Test 2023-08-14 INFLUENZA VACCINE [facility] 14:55:21 (#1) [code = INFLUENZA VACCINE (#1)] Diagnostic Test 2023-02-12 urinalysis, dipstick [facility] Pending 00:00:00 [code = urinalysis, Urology dipstick] Diagnostic Test 2020-04-20 COVID-19 RNA [facility] Pending 00:00:00 (SARS-CoV-2), QL, [facility] 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, 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 Outreac h Program specimen [code = COVID-19 RNA (SARS-CoV-2), QL, 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, respiratory specimen] Future Appointment 2023-12-03 Bruce Anderson, [address] [facility] 14:30:00 [facility] [address]; , [place] [address] Encounters Start End Encounter Admission Attending Care Care Encounter Source Date/Time Date/Time Type Type Clinicians Facility Department ID 2021-08-19 Outpatient CATHIE RODRIGUEZ ROXANA [id number] Univers 20:35:38 JL [facility] 2021-08-19 Outpatient CATHIE RODRIGUEZ ROXANA [id number] Univers 15:49:54 JL plaza [facility] 2023-07-11 2023-07-11 Outpatient MIGUEL MICHAEL [id number] 00:00:00 00:00:00 22 Ruben álvarez 2023-07-11 2023-07-11 Outpatient MIGUEL MICHAEL [id number]- [id number] DrLeah 00:00:00 00:00:00 21 Ruben álvarez 2023-07-11 2023-07-11 Ruben Miranda 21 DrLeah 00:00:00 00:00:00 Bri Mane Will iam MD: [id number] MD, PA Gogo s Samantha GREGORY MD [address] [address] , Ph. 2023-06-05 2023-06-05 Bruce Zepeda [facility] [place] [id number] [place] 00:00:00 00:00:00 Chang Anderson MD: [id number] N[facility] [address], [place] [address] , Ph. 2023-06-04 2023-06-04 Outpatient Hananel_A [facility] [id number] [place] 00:00:00 00:00:00 65551 [facility] 2023-06-04 2023-06-04 Outpatient Hananel_A [facility] [id number] [place] 00:00:00 00:00:00 23822 [facility] 2023-06-04 2023-06-04 Outpatient Hananel_A [facility] [id number] [place] 00:00:00 00:00:00 78240 [facility] 2023-04-17 2023-04-17 Ruben Bowens Ruben [id number] 00:00:00 00:00:00 Bri Mane Will iam MD: [id number] MD, PA Gogo s Samantha GREGORY MD [facility] [address], [place] [address] , Ph. 2023-02-12 2023-02-12 Outpatient Hananel_A [facility] [id number] [place] 00:00:00 00:00:00 63353 [facility] 2023-02-12 2023-02-12 Outpatient Hananel_A [facility] [id number] [place] 00:00:00 00:00:00 17369 [facility] 2023-02-12 2023-02-12 Bruce Zepeda [facility] [place] [id number] [place] 00:00:00 00:00:00 Chang Anderson MD: 35089 [facility] [address], [place] [address] , Ph. 2023-01-29 2023-01-29 Outpatient BRI_Dl MICHAEL [id number]- [id number] DrLeah 00:00:00 00:00:00 11 Ruben Marinelli s 2023-01-29 2023-01-29 Outpatient BRI_Dl MICHAEL [id number]- [id number] 00:00:00 00:00:00 26 Ruben Marinelli s 2023-01-29 2023-01-29 Outpatient BRI_D FERNANDA MICHAEL [id number]- [id number] DrLeah 00:00:00 00:00:00 28 Ruben álvarez 2023-01-29 2023-01-29 Outpatient WILLIAMS_D FERNANDA MICHAEL [id number]- [id number] DrLeah 00:00:00 00:00:00 19 Ruben álvarez 2022-12-31 2022-12-31 Outpatient BRI_Dl MICHAEL [id number]- [id number] DrLeah 00:00:00 00:00:00 13 Ruben Marinelli s 2022-12-18 2022-12-18 Ruben MICHAEL [place] - Ruben [id number] DrLeah 00:00:00 00:00:00 Bri Mane Will iam MD: [id number] , GEORGIE GREGORY MD [facility], [address], [place] [address] , Ph. 2022-12-18 2022-12-18 Bruce Zepeda [facility] [id number] [place] 00:00:00 00:00:00 Chang Anderson MD: 21172 [facility] [address], [place] [address] , Ph. 2022-12-06 2022-12-06 Outpatient MEGGAN MAYANK [facility] [id number] [facility] 12:57:00 13:40:00 NITHIN 2022-11-27 2022-11-27 Bruce Zepeda [facility] [id number] [place] 00:00:00 00:00:00 Chang Anderson MD: 4219 [facility] [address], - [facility] [address] , Ph. 2022-09-20 2022-09-20 Outpatient MIGUEL MICHAEL [id number] 00:00:00 00:00:00 28 Ruben álvarez 2022-09-20 2022-09-20 Outpatient MIGUEL MICHAEL [id number] 00:00:00 00:00:00 27 Ruben álvarez 2022-09-20 2022-09-20 Outpatient Hananel_A [facility] [id number] [place] 00:00:00 00:00:00 59613 [facility] 2022-09-20 2022-09-20 Outpatient Hananel_A [facility] [id number] [place] 00:00:00 00:00:00 93544 [facility] 2022-09-20 2022-09-20 Outpatient Hananel_A [facility] [id number] - [place] 00:00:00 00:00:00 43004 [facility] 2022-09-19 2022-09-19 Outpatient Hananel_A U [facility] [id number] - [place] 00:00:00 00:00:00 56223 [facility] 2022-09-19 2022-09-19 Bruce Zepeda [facility] - [id number] [place] 00:00:00 00:00:00 Chang Anderson MD: 90977 [facility] [address], - [place] [address] , Ph. 2022-09-17 2022-09-17 Outpatient Hananel_A [facility] [id number] [place] 00:00:00 00:00:00 91842 [facility] 2022-09-11 2022-09-11 Bruce Zepeda [facility] - [id number] [place] 00:00:00 00:00:00 Chang Anderson MD: 4219 [facility] [address], - [facility] [address] , Ph. 2022-09-05 2022-09-05 Outpatient MIGUEL MICHAEL [id number] 00:00:00 00:00:00 16 Ruben álvarez 2022-09-05 2022-09-05 Ruben MICHAEL [facility] Ruben [id number] DrLeah 00:00:00 00:00:00 Faustin Bri Leggett Will iam MD: 67419 , PA Gogo GREGORY MD [facility], [address], [place] [address] , Ph. 2022-09-04 2022-09-04 Outpatient Hananel_A [facility] [id number] [place] 00:00:00 00:00:00 51524 [facility] 2022-08-09 2022-08-09 Outpatient Hananel_A [facility] [id number] [place] 00:00:00 00:00:00 13412 [facility] 2022-08-08 2022-08-08 Outpatient Hananel_A [facility] [id number] [place] 00:00:00 00:00:00 58854 [facility] 2022-08-07 2022-08-07 Outpatient Hananel_A U [facility] [id number] [place] 00:00:00 00:00:00 36247 [facility] 2022-08-07 2022-08-07 Bruce Zepeda [facility] - [id number] [place] 00:00:00 00:00:00 Chang Anderson MD: 56599 [facility] [address], [place] [address] , Ph. 2022-07-25 2022-07-25 Outpatient MIGUEL MICHAEL 97 00:00:00 00:00:00 05 Ruben álvarez 2022-07-25 2022-07-25 Ruben MICHAEL [facility] Ruben 05 00:00:00 00:00:00 Bri Mane Will iam MD: [id number] , GEORGIE Singh [facility] RUBEN Ciscoleda GREGORY [facility], [address], [place] [address] , Ph. 2022-07-11 2022-07-11 Outpatient Hananel_A [facility] U [id number] [place] 00:00:00 00:00:00 [id number] [facility] 2022-07-10 2022-07-10 Outpatient Hananel_A [facility] U [id number] [place] 00:00:00 00:00:00 76120 [facility] 2022-07-10 2022-07-10 Bruce Zepeda [facility] [place] [id number] [place] 00:00:00 00:00:00 Chang Anderson MD: 69266 [facility] [address], [place] [address] , Ph. 2022-07-09 2022-07-09 Outpatient Hananel_A [facility] [place] [id number] [place] 00:00:00 00:00:00 37094 [facility] 2022-07-04 2022-07-04 Outpatient Hananel_A [facility]U [id number] [place] 00:00:00 00:00:00 28420 [facility] 2022-07-03 2022-07-03 Outpatient Ogletree_C [facility] U [id number] [place] 00:00:00 00:00:00 [id number] [facility] 2022-07-03 2022-07-03 Outpatient Kevin, [facility] U [id number] 00:00:00 00:00:00 Ramy London 69c-[id number] [id number] 2022-07-03 2022-07-03 Ramy U [place] - [id number] [facility] 00:00:00 00:00:00 Surya Downing Negin Perry Urolog y MD: [address] [address] , Ph. 2022-06-29 2022-06-29 Outpatient Ogletree_C [facility]U [id number] [place] 00:00:00 00:00:00 53749 [facility] 2022-06-15 2022-06-15 Outpatient Ogletree_C HMU [facility]U [id number] [place] 00:00:00 00:00:00 81441 [facility] 2022-05-30 2022-05-30 Outpatient Ogletree_C [facility] [id number] [place] 00:00:00 00:00:00 83973 [facility] 2022-05-29 2022-05-29 Outpatient Ogletree_C [facility] [id number] [place] 00:00:00 00:00:00 44975 [facility] 2022-05-29 2022-05-29 Ramy U [place] - [id number] [facility] 00:00:00 00:00:00 Surya Downing Negin Perry Urolog y MD: [address] [address] , Ph. 2022-05-29 2022-05-29 Outpatient Kevin, [facility]U [facility]U [id number] 00:00:00 00:00:00 Ramy London [id number] 2022-05-28 2022-05-28 Outpatient Ogletree_C [facility] [id number] [place] 00:00:00 00:00:00 08309 [facility] 2022-05-04 2022-05-04 Outpatient Ogletree_C [facility] [id number] [place] 12:35:00 12:35:00 [facility] 2022-05-03 2022-05-03 Outpatient Ogletree_C [facility] U [id number] [place] 04:49:00 04:49:00 [facility] 2022-05-03 2022-05-03 Ramy [facility] [place] [facility] [id number] [facility] 00:00:[facility] 00:00:00 Surya Downing Negin Perry Urolog y MD: 19339 Urology [address] [address] , Ph. 2022-05-03 2022-05-03 Outpatient Kevin, [facility] U [id number] 00:00:00 00:00:00 Ramy London 3bf-[id number] [id number] 2022-04-19 2022-04-19 Outpatient MIGUEL MICHAEL 978- DrLeah 00:00:00 00:00:00 30 Ruben álvarez 2022-04-19 2022-04-19 Rub[facility]EL [place] [facility] 00:[facility] 00:00:00 Bri Mane Will iam MD: [id number] , PA Gogo s Samantha GREGORY MD [facility] [address], [place] [address] , Ph. 2022-04-10 2022-04-10 Outpatient Ogletree_C [facility] U [id number] [place] 02:53:00 02:53:00 [facility] 2022-04-09 2022-04-09 Outpatient Ogletree_C [facility] U [id number] [place] 10:01:00 10:01:00 90128 [facility] 2022-04-09 2022-04-09 Ramy U [place] - [id number] [facility] 00:00:00 00:00:00 Surya Downing Negin Perry: [address] [address] , Ph. 2022-04-09 2022-04-09 Outpatient Kevin, HMU [facility]U [id number] 00:00:00 00:00:00 Ramy Medleyley [id number] 2022-04-04 2022-04-04 Outpatient Ogletree_C HMU [facility]U [id number] [place] 07:44:00 07:44:00 [id number] [facility] 2022-04-03 2022-04-03 Outpatient Ogletree_C [facility] [id number] [place] 02:24:00 02:24:00 [facility] 2022-04-02 2022-04-02 Outpatient Ogletree_C [facility] [id number] [place] 03:39:00 03:39:00 [facility] 2022-04-02 2022-04-02 Ramy U [place] [facility] [id number] [facility] 00:00:[facility] 00:00:00 Surya Dhaliwal, [place]: [address] [address] , Ph. 2022-04-02 2022-04-02 Outpatient Kevin, [facility]U [facility]U [id number] 00:00:00 00:00:00 Ramy London [id number] 2022-03-30 2022-03-30 Outpatient KEVIN, [facility] [id number] [place] 00:00:00 00:00:00 RAMY [address] 2022-03-27 2022-03-27 Outpatient Ogletree_C [facility] [id number] [place] 03:30:00 03:30:00 01510 [facility] 2022-03-27 2022-03-27 Outpatient KEVIN, [facility] [id number] [place] 00:00:00 00:00:00 RAMY [address] 2022-03-22 2022-03-22 Outpatient Ogletree_C [facility] [id number] [place] 03:31:00 03:31:00 18120 [facility] 2022-03-22 2022-03-22 Ramy U [place] - [id number] [facility] 00:00:00 00:00:00 Negin Sanchez Urolog y MD: 22943 Urology [address] [address] , Ph. 2022-03-22 2022-03-22 Outpatient Kevin, [facility] acacd 6d0-e 00:00:00 00:00:00 Ramy Surya 5bc-11ec-8 [id number] 2022-02-12 2022-02-12 Outpatient Ogletree_C [facility] [id number] [place] 06:25:00 06:25:00 42523 [facility] 2022-02-07 2022-02-07 Outpatient Ogletree_C [facility] [id number] [place] 02:47:00 02:47:00 [id number] [facility] 2022-02-06 2022-02-06 Outpatient Ogletree_C [facility]U [id number] [place] 05:24:00 05:24:00 72310 [facility] 2022-02-06 2022-02-06 Outpatient Kevin, [facility]U [id number] 00:00:00 00:00:00 Ramy Surya [id number] 2022-02-06 2022-02-06 Ramy U [place] - [id number] [facility] 00:00:00 00:00:00 Negin Sanchez Urolog y MD: [address] [address] , Ph. 2022-02-05 2022-02-05 Outpatient Ogletree_C [facility] [id number] [place] 06:04:00 06:04:00 67321 [facility] 2022-01-17 2022-01-17 Ruben Miranda 00:00:00 00:00:00 Bri Mane Will iam MD: [id number] , GEORGIE GREGORY MD [facility] [address], [place] [address] , Ph. 2021-09-06 2021-09-06 Ruben LEBLANC Ruben [id number] DrLeah 00:00:00 00:00:00 Bri Mane Will iam MD: 68764 MD, GEORGIE GREGORY MD [facility] [address], [place] [address] , Ph. 2021-08-17 2021-08-17 Outpatient Ogletree_C [facility] [id number] [place] 02:29:00 02:29:00 48480 [facility] 2021-08-15 2021-08-15 Outpatient Ogletree_C [facility] [id number] [place] 03:32:00 03:32:00 07197 [facility] 2021-08-15 2021-08-15 Ramy U [place] - [id number] [facility] 00:00:00 00:00:00 Negin Sanchez Urolog y : [address], [place] [address] , Ph. 2021-08-15 2021-08-15 Outpatient Kevin, HMU HMU [id number] 00:00:00 00:00:00 Ramy Surya [id number] 2021-08-03 2021-08-03 Outpatient Ogletree_C [facility] [id number] [place] 04:23:00 04:23:00 45670 [facility] 2021-05-01 2021-05-01 Ruben [facility] [id number] 12 DrLeah 00:00:00 00:00:00 Bri Mane Will iam MD: 31217GEORGIE Funes MD, MD [place], [address], [place] [address] , Ph. 2020-12-15 2020-12-15 [facility] 1.2.840.114 [id number] Univers 08:35:00 11:12:00 Encounter Jl [place] 350.1.13.10 ity [place].686 [place] [id number] [place] 634511 Branch 2020-12-13 2020-12-13 Laboratory Only, Adc Test [facility] 1.2.840. 114 [id number] Univers 09:34:03 09:49:03 Only Lisa, Jl Martines 350.1.1 3.10 ity [place] 4[place]2.7.2.686 [place] [id number] [facility] 353 Branch 2020-12-13 2020-12-13 Outpatient R [facility] [id number] Univers 09:15:00 09:15:00 JL plaza [facility] 2020-12-13 2020-12-13 Orders Doctor JOHNSON 1.2.840.114 [id number] Univers 00:00:00 00:00:00 Only Unassigned, GABRIELA 350.1.13.10 ity of [place] [facility] 4.2.7.2.686 Lul as [id number] [facility] 009 Branch 2020-11-17 2020-11-17 Ruben MICHAEL [facility] Ruben 28 00:00:00 00:00:00 Bri Mane Will iam MD: 31305 , PA - s [place] RUBEN GREGORY MD [facility], [address], [place] [address] , Ph. 2020-11-03 2020-11-03 [facility] 1.2.840.114 [id number] Univers 07:14:00 10:11:00 Encounter Jl Conrad 350.1.13.10 [place]2.[place].2.686 [place] [id number] [place] 634511 Branch 2020-11-03 2020-11-03 [facility] 1.2.840.114 [id number] 07:14:00 10:11:00 Encounter Jl Martines 350.1.13.10 [place] 4.2.7.2.686 Surgical [id number] [place] 07 2020-11-02 2020-11-02 Outpatient [place] [facility] [id number] Univers 09:15:00 09:15:00 JL alejandro [facility] 2020-10-27 2020-10-27 Machine Bender Mirta, [facility] Lab Main [facility] 1.2.8 40.114 [id number] Univers 15:33:50 15:48:50 Visit Jl [place] 350.1.1 3.10 alejandro [place]2.7.2.686 [place] [id number] [place] [address] 2020-10-27 2020-10-27 Machine Bender Mirta, [facility] 1.2.840.114 [id number] 15:33:50 15:48:50 Visit Lab Main [place] 350.1.13.10 [place] 4.2.7.2.686 Professio [id number] [address] 2020-10-27 2020-10-27 Outpatient [place] [facility] [id number] Univers 15:45:00 15:45:00 JL [facility] 2020-08-08 2020-08-08 Ruben Miranda 00:00:00 00:00:00 Bri Mane Will iam MD: 34300 MD, PA - s Samantha GREGORY MD [address] [address] , Ph. 2020-05-04 2020-05-04 Ruben Miranda 00:00:00 00:00:00 Bri Mane Will iam MD: 96216 MD, PA - s Samantha GREGORY MD [facility] [address], [place] [address] , Ph. 2020-04-20 2020-04-20 Outpatient AMBREEN_RICARDO MEHOP MEHOP 109 [id number] [place] 05:30:00 05:30:00 HANA 84881 [facility] 2020-04-20 2020-04-20 Kimberly ACOSTA [place] - [id number] M atagor 00:00:00 00:00:00 Lizzy Loya MD: 1700 [facility] [place] [address] h , Ph. Program 2020-04-19 2020-04-19 Outpatient AMBREEN_RICARDO MEHOP MEHOP 109 [id number] [place] 01:52:00 01:52:00 HANA 78885 [facility] 2019-12-30 2019-12-30 Rub[address] 00:00:00 00:00:00 Bir Mane Will iam MD: Jud LIU, GEORGIE GREGORY MD [address] [address] , Ph. 2019-09-02 2019-09-02 Ruben Miranda [id number] Dr[address] 00:00:00 00:00:00 Bri Mane Will iam MD: Jud LIU, GEORGIE GREGORY MD [address] [address] , Ph. 2019-05-20 2019-05-[address] 00:00:00 00:00:00 Bri Mane Will iam MD: Jud LIU, GEORGIE GREGORY MD [place] [address], [place] [address] , Ph. 2019-02-11 2019-02-[address] 00:00:00 00:00:00 Bri Mane Will iam MD: [id number] MD, GEORGIE GREGORY MD [address] [address] , Ph. 2018-07-22 2018-07-22 Ruben Miranda [id number] Dr. 00:00:00 00:00:00 Bri Mane Will iam MD: Jud LIU, GEORGIE GREGORY MD [address] [address] , Ph. 2018-03-26 2018-03-[address] 00:00:00 00:00:00 Bri Mane Will iam MD: Jud LIU, GEORGIE GREGORY MD [address] [address] , Ph. 2018-01-08 2018-01-08 Ruben Miranda [id number] Dr. 00:00:00 00:00:00 Bri Mane Will iam MD: Jud LIU, GEORGIE GREGORY MD [address] [address] , Ph. 2016-05-31 2016-06-01 Outpatient 2.16.840. 2.16.840.1. 3 [id number] Memoria 05:46:47 11:00:00 [id number]. 850367.3.20 l 3.2081.20 81.2000 [place] n 00 [facility] 2016-05-31 2016-06-01 Inpatient nullFlavo [facility] [id number] Memoria 05:46:47 11:00:00 [place] 2016-05-31 2016-06-01 Inpatient nullFlavo [facility] [id number] Memoria 05:46:47 11:00:00 [place] Results Test Description [...] nitrite (test code = negative neg nitrite) [facility] [place] UrologyCOVID-19 (ID NOW RAPID TESTING)2020-11-03 14:55:00 Test Item Value Reference Range Interpretation Comments SARS-CoV-2 Rapid ID NOW Not Detected Not Detected (test code = 89674-3) MARCUS (test code = MARCUS) ID NOW COVID-19 Assay is an isothermal nucleic acid amplification test intended for the qualitative detection of nucleic acid from SARS-CoV-2 viral RNA in nasopharyngeal (TRANSPORTATION AGENT) specimens. It is used under Emergency Use [...] indicated. Lab Interpretation Normal (test code = 81851-6) [facility] [id number] 09:21:00Reason for Exam:->[id number] REPORT Chest, PA and lateral. History: I10. Comparison: 07/31/2017. Discussion: The cardiomediastinal silhouette and pulmonary vasculature are within normal limits. The lungsare clear without evidence of consolidation or effusion. There are no acute osseous abnormalities. The soft tissues are unremarkable. IMPRESSION: No acute cardiopulmonary abnormality. Signed: Elba Daly MDReport Verified Date/Time: 10/29/2018 09:21:10 Reading Location: [address] Radiology Reading Room LIPID [id number] 11:46:00 Test Item Value Reference Range Interpretation [...] 130-159 High 160-189 Very High >=190BASIC METABOLIC [id number] 11:46:00 Test Item Value Reference Range Interpretation [...] APPLICABLE FOR DIALYSIS PATIEN TS. HEPATIC FUNCTION [id number] 11:46:00 Test Item Value Reference Range Interpretation [...] 6-55 347) CBC W/PLT COUNT & AUTO [id number] 10:44:00 Test Item Value Reference Range Interpretation [...] (test code = 2801) RAD, CHEST, 2 [id number] 10:21:00Reason for Exam:->anemiaFINAL REPORT Chest, PA and lateral. History: Anemia. Comparison: 01/23/2017. Discussion: The cardiomediastinal silhouette and pulmonary vasculature are within normal limits. The lungs are clear without evidence of consolidation or effusion. There are no acute osseous abnormalities. The soft tissues are unremarkable. IMPRESSION: No acute cardiopulmonary abnormality. Signed: Elba Daly MDReport Verified Date/Time: 07/31/2017 10:21:25 Reading Location: [address] Radiology Reading Room [id number] 09:07:00 Test Item Value Reference Range Interpretation Comments Red Blood Cell Count (test code = Red 4.25 4.20-5.40 Blood Cell Count) [id number] 09:07:00 Test Item Value Reference Range Interpretation Comments Hematocrit (test code = Hematocrit) 39.7 36.0-48.0 [facility] [id number] 09:07:00 Test Item Value Reference Range Interpretation Comments White Blood Count (test code = White 12.1 3.7-10.4 H Blood Count) [facility] [facility] CenterIjkooqoFBOLAQYEUF3562-13-45 09:07:00 Test Item Value Reference Range Interpretation Comments Hemoglobin (test code = Hemoglobin) 13.1 12.0-16.0 [facility] CenterTfnrvxxBDTTVQMKWS4390-14-74 09:07:00 Test Item Value Reference Range Interpretation Comments MCV (test code = MCV) 93.4 80.0-98.0 [facility] CenterEfvolgwGNGCQVHOXX0821-78-59 09:07:00 Test Item Value Reference Range Interpretation Comments MCH (test code = MCH) 30.7 pg 27.0-31.0 [facility] CenterXrceukyPDRWKHUPQN3812-95-87 09:07:00 Test Item Value Reference Range Interpretation Comments MCHC (test code = MCHC) 32.9 32.0-36.0 [facility] CenterZmitdwgDXJCKMUMSW1217-56-24 09:07:00 Test Item Value Reference Range Interpretation Comments Platelet (test code = Platelet) 191 133-450 [facility] CenterDseodjeAPKMXZXRRH9539-52-08 09:07:00 Test Item Value Reference Range Interpretation Comments RDW (test code = RDW) 13.7 11.5-14.5 [facility] CenterSnjidgdONEGXPDIVS7730-81-45 09:07:00 Test Item Value Reference Range Interpretation Comments MPV (test code = MPV) 9.9 7.4-10.4 [facility] CenterLjwpahvVUFLQRDJJJ8994-23-61 09:07:00 Test Item Value Reference Range Interpretation Comments Results (test code = Reported (06/01/2016 Results) 04:07:00) [facility] CenterKsfjkrgCYSNHMVACE5009-52-93 09:07:00 Test Item Value Reference Range Interpretation Comments PLT Morph (test code = PLT Morph) Normal [facility] CenterYkuvmdsUXEOBAYQMP4463-34-64 09:07:00 Test Item Value Reference Range Interpretation Comments RBC Morph (test code = RBC Morph) Normal [facility] CenterVzkttlrILPFXJWWMZ6811-35-78 09:07:00 Test Item Value Reference Range Interpretation Comments Basophil # (test code = Basophil #) 0.0 <=0.2 [facility] CenterHvsheqrXEXYBDXZYS5742-38-37 09:07:00 Test Item Value Reference Range Interpretation Comments Monocyte % (test code = Monocyte %) 7.5 2.0-12.0 [facility] CenterNnehngaEKDRSRWAVS1518-54-14 09:07:00 Test Item Value Reference Range Interpretation Comments Eosinophil # (test code = Eosinophil #) 0.2 <=4.0 [facility] CenterZazzosaOPEDWKFZLC2674-47-57 09:07:00 Test Item Value Reference Range Interpretation Comments Neutrophil % (test code = Neutrophil %) 80.9 45.0-75.0 H [facility] CenterGxlxpupKONITVLRIG7060-55-81 09:07:00 Test Item Value Reference Range Interpretation Comments Lymphocyte % (test code = Lymphocyte %) 11.2 20.0-40.0 L [facility] CenterJqljkdzPOFYROZYRU2178-02-81 09:07:00 Test Item Value Reference Range Interpretation Comments Basophil % (test code = Basophil %) 0.2 <=1.0 [facility] CenterUxqglqyWJHNXHUGVE0032-03-40 09:07:00 Test Item Value Reference Range Interpretation Comments Neutrophil # (test code = Neutrophil #) 9.8 1.5-8.1 H [facility] CenterCsajuyjRAUBSACPSF3740-31-46 09:07:00 Test Item Value Reference Range Interpretation Comments Lymphocyte # (test code = Lymphocyte #) 1.4 1.0-5.5 [facility] CenterIljzoiiEWPQPHIUFB3756-90-36 09:07:00 Test Item Value Reference Range Interpretation Comments Eosinophil % (test code = Eosinophil %) 0.0 <=0.5 [facility] CenterXffsnduOTUKMCINVO0582-35-26 09:07:00 Test Item Value Reference Range Interpretation Comments Monocyte # (test code = Monocyte #) 0.9 <=0.8 H [facility] CenterKytczgpLWPYMQFGEP9345-96-62 09:07:00 Test Item Value Reference Range Interpretation Comments Results (test code = Reported (06/01/2016 Results) 04:07:00) [facility] CenterYgpaxbrDHNPUUVJNM7464-41-88 09:07:00 Test Item Value Reference Range Interpretation Comments Bilirubin Total (test code = Bilirubin 0.4 0.2-1.3 Total) [facility] CenterGlmligvNRJIPJCQFK5441-77-84 09:07:00 Test Item Value Reference Range Interpretation Comments eGFR (test code = eGFR) 66 [facility] CenterPplzehnXEXITGXTYD3835-93-79 09:07:00 Test Item Value Reference Range Interpretation Comments Sodium Level (test code = Sodium Level) 142 135-145 [facility] CenterLtfcdpxTFICPDHVFC1073-75-18 09:07:00 Test Item Value Reference Range Interpretation Comments Potassium Level (test code = Potassium 5.0 3.5-5.1 Level) [facility] CenterCmcnymaCJVAQTWUCL4716-45-43 09:07:00 Test Item Value Reference Range Interpretation Comments Chloride Level (test code = Chloride 104 95-109 Level) [facility] CenterMeveqxzIERRGLPKYD2967-64-63 09:07:00 Test Item Value Reference Range Interpretation Comments BUN (test code = BUN) 11 05-11 [facility] CenterHdztjgiCVOMNBEBJF5634-81-08 09:07:00 Test Item Value Reference Range Interpretation Comments BUN (test code = BUN) 11 05-11 [facility] CenterQhsiuzwBASOCIBWAP5178-60-72 09:07:00 Test Item Value Reference Range Interpretation Comments Creatinine (test code = Creatinine) 0.90 0.50-1.40 [facility] CenterOiofejcXUDIOEUAZA4998-33-04 09:07:00 Test Item Value Reference Range Interpretation Comments Albumin Lvl (test code = Albumin Lvl) 3.3 3.5-5.0 L [facility] CenterZnzmimkFNUFJWOHFE9290-23-18 09:07:00 Test Item Value Reference Range Interpretation Comments Carbon Dioxide Level (test code = 32 24-32 Carbon Dioxide Level) [facility] CenterTnbfabdEJFGLSDNKX0407-41-09 09:07:00 Test Item Value Reference Range Interpretation Comments AGAP (test code = AGAP) 11.0 10.0-20.0 [facility] CenterEvyzktpREYBJAQSDP6709-69-71 09:07:00 Test Item Value Reference Range Interpretation Comments Glucose Lvl (test code = Glucose Lvl) 95 70-99 [facility] CenterNoyiiuhWZFZMQISWQ5402-44-33 09:07:00 Test Item Value Reference Range Interpretation Comments Calcium Level (test code = Calcium 8.4 8.5-10.5 L Level) [facility] CenterYxrjgymSFVVLBQMCV3956-87-02 09:07:00 Test Item Value Reference Range Interpretation Comments Protein Total (test code = Protein 6.1 6.4-8.4 L Total) [facility] CenterIbgrxwpUDMIZWDOMW0460-76-97 09:07:00 Test Item Value Reference Range Interpretation Comments Globulin (test code = Globulin) 2.8 2.7-4.2 [facility] CenterCltmuauCQPAGAFUEK5711-67-31 09:07:00 Test Item Value Reference Range Interpretation Comments Alb/Glob Ratio (test code = Alb/Glob 1.2 0.7-1.6 Ratio) [facility] CenterUeubuyqUMTNHMCFGF9721-73-96 09:07:00 Test Item Value Reference Range Interpretation Comments AST (test code = AST) 44 <=37 H [facility] CenterHmstiwlNOAXYDUXEA3483-12-90 09:07:00 Test Item Value Reference Range Interpretation Comments ALT (test code = ALT) 37 <=65 [facility] CenterNquhvhfLDJRDDGCFQ3322-46-77 09:07:00 Test Item Value Reference Range Interpretation Comments Alk Phos (test code = Alk Phos) 65 39-136 [facility] CenterMrxxmcjYYEMEYMAPN6302-62-34 09:07:00 Test Item Value Reference Range Interpretation Comments Results (test code = Reported (06/01/2016 Results) 04:07:00) [facility] CenterNrnfajtZUJPFMMHFE0667-77-08 09:07:00 Test Item Value Reference Range Interpretation Comments Red Blood Cell Count (test code = Red 4.25 4.20-5.40 Blood Cell Count) [facility] CenterTqzhfkmKGZEGAUVWZ8985-91-39 09:07:00 Test Item Value Reference Range Interpretation Comments Hematocrit (test code = Hematocrit) 39.7 36.0-48.0 [facility] CenterKkurrmsPFUAVGAQKJ2337-48-52 09:07:00 Test Item Value Reference Range Interpretation Comments White Blood Count (test code = White 12.1 3.7-10.4 H Blood Count) [facility] CenterTdcrsscHKAZXPGCMJ0341-13-52 09:07:00 Test Item Value Reference Range Interpretation Comments Hemoglobin (test code = Hemoglobin) 13.1 12.0-16.0 [facility] CenterAktfnhiDULPSDNZDU4627-04-10 09:07:00 Test Item Value Reference Range Interpretation Comments MCV (test code = MCV) 93.4 80.0-98.0 [facility] CenterIwakvljRSZHRIESPP6788-40-09 09:07:00 Test Item Value Reference Range Interpretation Comments MCH (test code = MCH) 30.7 pg 27.0-31.0 [facility] CenterXmamvhiUGWFGPGTJM8700-22-44 09:07:00 Test Item Value Reference Range Interpretation Comments MCHC (test code = MCHC) 32.9 32.0-36.0 [facility] CenterWccdmdnSLYFANFMBI2185-74-28 09:07:00 Test Item Value Reference Range Interpretation Comments Platelet (test code = Platelet) 191 133-450 [facility] CenterAcfxkphDLYJULENWM2473-45-76 09:07:00 Test Item Value Reference Range Interpretation Comments RDW (test code = RDW) 13.7 11.5-14.5 [facility] CenterRsqdxbsMUFWUWXOVK0780-87-84 09:07:00 Test Item Value Reference Range Interpretation Comments MPV (test code = MPV) 9.9 7.4-10.4 [facility] CenterXlvfvfvHYPKEUPJNT6984-84-15 09:07:00 Test Item Value Reference Range Interpretation Comments Results (test code = Reported (06/01/2016 Results) 04:07:00) [facility] CenterEoivtmoNGNTIARHCT3766-08-95 09:07:00 Test Item Value Reference Range Interpretation Comments PLT Morph (test code = PLT Morph) Normal [facility] CenterSwvwjcxPPSWJAYGBP5869-03-09 09:07:00 Test Item Value Reference Range Interpretation Comments RBC Morph (test code = RBC Morph) Normal [facility] CenterNwjofrzBGFGAKOEAL5368-41-43 09:07:00 Test Item Value Reference Range Interpretation Comments Basophil # (test code = Basophil #) 0.0 <=0.2 [facility] CenterPzornfhUEYCXJVYNN1551-01-11 09:07:00 Test Item Value Reference Range Interpretation Comments Monocyte % (test code = Monocyte %) 7.5 2.0-12.0 [facility] CenterMuxzwweUQOFOEEJGP8265-88-28 09:07:00 Test Item Value Reference Range Interpretation Comments Eosinophil # (test code = Eosinophil #) 0.2 <=4.0 [facility] CenterVochecvDPGDIHLEKL8638-42-13 09:07:00 Test Item Value Reference Range Interpretation Comments Neutrophil % (test code = Neutrophil %) 80.9 45.0-75.0 H [facility] CenterAxbvoqqRDCIYJRNHF6586-36-55 09:07:00 Test Item Value Reference Range Interpretation Comments Lymphocyte % (test code = Lymphocyte %) 11.2 20.0-40.0 L [facility] CenterOtrazyuNSXGFOZNCP0097-95-38 09:07:00 Test Item Value Reference Range Interpretation Comments Basophil % (test code = Basophil %) 0.2 <=1.0 [facility] CenterJiknfxqFTXAHJOEJA3951-04-20 09:07:00 Test Item Value Reference Range Interpretation Comments Neutrophil # (test code = Neutrophil #) 9.8 1.5-8.1 H [facility] CenterHlmmxxoSROSYRQOOU9392-09-33 09:07:00 Test Item Value Reference Range Interpretation Comments Lymphocyte # (test code = Lymphocyte #) 1.4 1.0-5.5 [facility] CenterPvwecboEXOTDCWFFH3578-08-29 09:07:00 Test Item Value Reference Range Interpretation Comments Eosinophil % (test code = Eosinophil %) 0.0 <=0.5 [facility] CenterAvktsxoSAKVURISMO3653-73-45 09:07:00 Test Item Value Reference Range Interpretation Comments Monocyte # (test code = Monocyte #) 0.9 <=0.8 H [facility] CenterTkzhianEXSHEZFEWF7490-21-93 09:07:00 Test Item Value Reference Range Interpretation Comments Results (test code = Reported (06/01/2016 Results) 04:07:00) [facility] CenterSsfhlerZJPAGFOSHZ5328-04-49 09:07:00 Test Item Value Reference Range Interpretation Comments Bilirubin Total (test code = Bilirubin 0.4 0.2-1.3 Total) [facility] CenterKxkjxueSAYVHAAPXE6662-42-59 09:07:00 Test Item Value Reference Range Interpretation Comments eGFR (test code = eGFR) 66 [facility] CenterLqiquyeMXZYTPRWPH7875-65-38 09:07:00 Test Item Value Reference Range Interpretation Comments Sodium Level (test code = Sodium Level) 142 135-145 [facility] CenterFncepdiMBKVERWLBI0944-07-65 09:07:00 Test Item Value Reference Range Interpretation Comments Potassium Level (test code = Potassium 5.0 3.5-5.1 Level) [facility] CenterIueokfzVKJJSFKQBP7456-02-42 09:07:00 Test Item Value Reference Range Interpretation Comments Chloride Level (test code = Chloride 104 95-109 Level) [facility] CenterKwrudzvUKZNKKFBGW5564-06-71 09:07:00 Test Item Value Reference Range Interpretation Comments Creatinine (test code = Creatinine) 0.90 0.50-1.40 [facility] CenterYwayouuPYWOIZZWML0929-98-03 09:07:00 Test Item Value Reference Range Interpretation Comments Albumin Lvl (test code = Albumin Lvl) 3.3 3.5-5.0 L [facility] CenterAbliqvhVGUZVTRNOZ9483-74-22 09:07:00 Test Item Value Reference Range Interpretation Comments Carbon Dioxide Level (test code = 32 24-32 Carbon Dioxide Level) [facility] CenterTmafqzjPAUVSWIALN0306-56-77 09:07:00 Test Item Value Reference Range Interpretation Comments AGAP (test code = AGAP) 11.0 10.0-20.0 [facility] CenterIjjoiwpCGJHSJUIGR7267-37-53 09:07:00 Test Item Value Reference Range Interpretation Comments Glucose Lvl (test code = Glucose Lvl) 95 70-99 [facility] CenterRlcdiefUCQFSJNZHU1310-73-51 09:07:00 Test Item Value Reference Range Interpretation Comments Calcium Level (test code = Calcium 8.4 8.5-10.5 L Level) [facility] CenterIxiukinVYXMATCYWH7834-33-38 09:07:00 Test Item Value Reference Range Interpretation Comments Protein Total (test code = Protein 6.1 6.4-8.4 L Total) [facility] CenterArnswjpNXAIWRRNOE7448-10-94 09:07:00 Test Item Value Reference Range Interpretation Comments Globulin (test code = Globulin) 2.8 2.7-4.2 [facility] CenterZzjqseiEBUAQYSOCE4144-23-78 09:07:00 Test Item Value Reference Range Interpretation Comments Alb/Glob Ratio (test code = Alb/Glob 1.2 0.7-1.6 Ratio) [facility] CenterQcrlhewPMBKZSQIBO5118-55-83 09:07:00 Test Item Value Reference Range Interpretation Comments AST (test code = AST) 44 <=37 H [facility] CenterAbrlbvrPGQSOYHHXR1127-74-47 09:07:00 Test Item Value Reference Range Interpretation Comments ALT (test code = ALT) 37 <=65 [place] 773196-08-12 09:07:00 Test Item Value Reference Range Interpretation Comments Alk Phos (test code = Alk Phos) 65 39-136 [facility] CenterLmhfvrwCKOIERRMKC9830-09-94 09:07:00 Test Item Value Reference Range Interpretation Comments Results (test code = Reported (06/01/2016 Results) 04:07:00) [facility]
[2023-09-16] MEDS ORDERED: HYDROCODONE/APAP 5/325 MG TAB ONE (09:48)
[2023-09-16] MEDS ORDERED: KETOROLAC 30 MG/ML INJ ONE (09:48)
--- NOTE | 2023-09-16 11:46 | ER ---
Nurse's Notes [facility] Name: Korina Matias Age: 78 yrs Sex: Female : 1945 Arrival Date: 09/16/2023 Time: 09:19 Bed 11 Private MD: Diagnosis: Fracture of lower end of radius;Displaced fracture of right ulna styloid process;Fall on same level from slipping, tripping and stumbling without subsequent striking against object Presentation: 09/16 09:28 Chief complaint: Right wrist pain 10/10 after mechanical fall 3 days ago. Coronavirus hb screen: At this time, the client does not indicate any symptoms associated with coronavirus-19. Ebola Screen: No symptoms or risks identified at this time. Initial Sepsis Screen: Does the patient meet any 2 criteria? No. Patient's initial sepsis screen is negative. Does the patient have a suspected source of infection? No. Patient's initial sepsis screen is negative. Risk Assessment: Do you want to hurt yourself or someone else? Patient reports no desire to harm self or others. Onset of symptoms was September 13, 2023. 09:28 Method Of Arrival: Ambulatory hb 09:28 Acuity: CARLEEN 4 hb Historical: - Allergies: 09:29 Coumadin; hb - Home Meds: :29 sertraline oral [Active]; atorvastatin oral [Active]; donepezil oral [Active]; Namenda hb oral [Active]; - PMHx: 09:29 Bladder cancer; cervical cancer; melanoma; THYROID CANCER; Transient cerebral ischemia; hb - PSHx: 09:29 Appendectomy; bladder surgery; Cholecystectomy; Total abdominal hysterectomy; hb - Immunization history:: Adult Immunizations up to date. - Social history:: Smoking status: Patient denies any tobacco usage or history of. Screenin:45 [facility] ED Fall Risk Assessment (Adult) Score/Fall Risk Level 0 - 2 = Low Risk hb Oriented to surroundings, Maintained a safe environment, Educated pt \T\ family on fall prevention, incl call for assistance when getting out of bed. Abuse screen: Denies threats or abuse. Denies injuries from another. Nutritional screening: No deficits noted. Tuberculosis screening: No symptoms or risk factors identified. Assessment: 09:35 General: Appears in no apparent distress. Behavior is calm, cooperative. Pain: Pain hb currently is 10 out of 10 on a pain scale. Neuro: Level of Consciousness is awake, alert, obeys commands, Oriented to person, place, time, situation. Cardiovascular: Patient's skin is warm and dry. Respiratory: Respiratory effort is even, unlabored, Respiratory pattern is regular, symmetrical. GI: No signs and/or symptoms were reported involving the gastrointestinal system. : No signs and/or symptoms were reported regarding the genitourinary system. EENT: No signs and/or symptoms were reported regarding the EENT system. Derm: Skin is pink, warm \T\ dry. Musculoskeletal: Reports right wrist pain, mild swelling noted to right wrist and hand. 10:30 Reassessment: Patient appears in no apparent distress at this time. Patient and/or hb family updated on plan of care and expected duration. Pain level reassessed. Patient is alert, oriented x 3, equal unlabored respirations, skin warm/dry/pink. 11:30 Reassessment: Patient appears in no apparent distress at this time. Patient and/or hb family updated on plan of care and expected duration. Pain level reassessed. Patient is alert, oriented x 3, equal unlabored respirations, skin warm/dry/pink. Vital Signs: 09:28 BP 144 / 59; Pulse 65; Resp 16; Temp 98.3(TE); Pulse Ox 99% on R/A; Weight 51.71 kg; hb Height 5 ft. 0 in. ; Pain 1010; 09:28 Body Mass Index 22.26 (51.71 kg, 152.4 cm) hb 09:28 Pain Scale: Adult hb ED Course: 09:20 Patient arrived in ED. rg4 09:21 Adelina Greenwood FNP-C is PHCP. snw 09:21 Gonzalo Diop DO is Attending Physician. snw 09:29 Triage completed. hb 09:31 Arm band placed on. hb 09:45 Patient has correct armband on for positive identification. Provided Education on: hb tests, result times. 10:10 Hand Right 3 View XRAY In Process Unspecified. EDMS 10:10 Forearm Right XRAY In Process Unspecified. EDMS 11:47 Krzysztof Fish MD is Referral Physician. snw 11:58 No provider procedures requiring assistance completed. Patient did not have IV access mb9 during this emergency room visit. 12:11 Jacklyn Cason, RN is Primary Nurse. me1 Administered Medications: 09:41 Drug: HYDROcodone-acetaminophen PO 5 mg-325 mg 1 tabs PO once Route: PO; hb 09:41 Drug: Ketorolac IM 30 mg IM once Route: IM; Site: left ventrogluteal; hb Medication: 11:30 VIS not applicable for this client. hb Outcome: 11:45 Discharge ordered by MD. snw 11:58 Discharged to home ambulatory, with family, mb9 11:58 Condition: stable 11:58 Discharge instructions given to patient, Instructed on discharge instructions, follow up and referral plans. Demonstrated understanding of instructions, follow-up care, medications, Prescriptions given X 1, 12:14 Patient left the ED. Signatures: Dispatcher [employer] EDMS Adelina Greenwood, INTERNATIONAL SALES REPRESENTATIVE-C INTERNATIONAL SALES REPRESENTATIVE-Csnw Amy Cabello, RN RN Jennifer Hawkins4 Farrah Whitmore RN RN mb9 Jacklyn Cason, RN RN me1
--- NOTE | 2023-09-16 11:47 | EDPHYS ---
Physician Documentation [facility] Name: Korina Matias Age: 78 yrs Sex: Female : 1945 Arrival Date: 09/16/2023 Time: 09:19 Bed 11 Private MD: ED Physician Gonzalo Diop HPI: 09/16 09:33 This 78 yrs old Female presents to ER via Ambulatory with complaints of Wrist Injury. snw 09:33 The patient or guardian reports decreased range of motion, injury, pain. The complaints snw affect the right wrist diffusely. Onset: The symptoms/episode began/occurred 4 day(s) ago. Associated signs and symptoms: Pertinent positives: significant edema, tenderness from elbow down, pt has had previous surgery to the area per Dr. Fish. She called him for an appointment and he told her to come to ED for x-rays. Pt wearing wrist splint on arrival. Historical: - Allergies: 09:29 Coumadin; hb - Home Meds: :29 sertraline oral [Active]; atorvastatin oral [Active]; donepezil oral [Active]; Namenda hb oral [Active]; - PMHx: 09:29 Bladder cancer; cervical cancer; melanoma; THYROID CANCER; Transient cerebral ischemia; hb - PSHx: 09:29 Appendectomy; bladder surgery; Cholecystectomy; Total abdominal hysterectomy; hb - Immunization history:: Adult Immunizations up to date. - Social history:: Smoking status: Patient denies any tobacco usage or history of. ROS: 09:33 Constitutional: Negative for fever, chills, and weight loss, Eyes: Negative for injury, snw pain, redness, and discharge, ENT: Negative for injury, pain, and discharge, Neck: Negative for injury, pain, and swelling, Cardiovascular: Negative for chest pain, palpitations, and edema, Respiratory: Negative for shortness of breath, cough, wheezing, and pleuritic chest pain, Abdomen/GI: Negative for abdominal pain, nausea, vomiting, diarrhea, and constipation, Back: Negative for injury and pain, : Negative for injury, bleeding, discharge, and swelling, Skin: Negative for injury, rash, and discoloration, Neuro: Negative for headache, weakness, numbness, tingling, and seizure, Psych: Negative for depression, anxiety, suicide ideation, homicidal ideation, and hallucinations, 09:33 MS/extremity: Positive for injury or acute deformity, of the right arm, Exam: 09:32 Constitutional: This is a well developed, well nourished patient who is awake, alert, snw and in no acute distress. Head/Face: Normocephalic, atraumatic. Eyes: Pupils equal round and reactive to light, extra-ocular motions intact. Lids and lashes normal. Conjunctiva and sclera are non-icteric and not injected. Cornea within normal limits. Periorbital areas with no swelling, redness, or edema. ENT: Nares patent. No nasal discharge, no septal abnormalities noted. Tympanic membranes are normal and external auditory canals are clear. Oropharynx with no redness, swelling, or masses, exudates, or evidence of obstruction, uvula midline. Mucous membranes moist. Neck: Trachea midline, no thyromegaly or masses palpated, and no cervical lymphadenopathy. Supple, full range of motion without nuchal rigidity, or vertebral point tenderness. No Meningismus. Chest/axilla: Normal chest wall appearance and motion. Nontender with no deformity. No lesions are appreciated. Cardiovascular: Regular rate and rhythm with a normal S1 and S2. No gallops, murmurs, or rubs. Normal PMI, no JVD. No pulse deficits. Respiratory: Lungs have equal breath sounds bilaterally, clear to auscultation and percussion. No rales, rhonchi or wheezes noted. No increased work of breathing, no retractions or nasal flaring. Abdomen/GI: Soft, non-tender, with normal bowel sounds. No distension or tympany. No guarding or rebound. No evidence of tenderness throughout. Back: No spinal tenderness. No costovertebral tenderness. Full range of motion. Skin: Warm, dry with normal turgor. Normal color with no rashes, no lesions, and no evidence of cellulitis. Neuro: Awake and alert, GCS 15, oriented to person, place, time, and situation. Cranial nerves II-XII grossly intact. Motor strength 5/5 in all extremities. Sensory grossly intact. Cerebellar exam normal. Normal gait. Psych: Awake, alert, with orientation to person, place and time. Behavior, mood, and affect are within normal limits. 09:32 Musculoskeletal/extremity: Extremities: grossly normal except: noted in the right arm: contusion, swelling, tenderness, thickening, Circulation is intact in all extremities. Sensation intact. Vital Signs: 09:28 BP 144 / 59; Pulse 65; Resp 16; Temp 98.3(TE); Pulse Ox 99% on R/A; Weight 51.71 kg; hb Height 5 ft. 0 in. ; Pain 10/10; 09:28 Body Mass Index 22.26 (51.71 kg, 152.4 cm) hb 09:28 Pain Scale: Adult hb MDM: 09:23 Patient medically screened. snw 09:42 Differential diagnosis: dislocation, closed fracture, tendonitis. Data reviewed: vital snw signs, nurses notes. I considered the following discharge prescriptions or medication management in the emergency department Medications were administered in the Emergency Department. See DEC. 11:44 Counseling: I had a detailed discussion with the patient and/or guardian regarding the snw historical points, exam findings, and any diagnostic results supporting the discharge/admit diagnosis, radiology results, the need for outpatient follow up, for definitive care, to return to the emergency department if symptoms worsen or persist or if there are any questions or concerns that arise at home. Special discussion: Based on the history and exam findings, there is no indication for further emergent testing or inpatient evaluation. I discussed with the patient/guardian the need to see the orthopedic surgeon for further evaluation of the symptoms. 11:48 ED course: pt prefers her velcro splint . snw 09/16 09:30 Order name: Hand Right 3 View XRAY snw 09/16 09:30 Order name: Forearm Right XRAY snw 09/16 09:31 Order name: Sling; Complete Time: 09:41 snw Administered Medications: 09:41 Drug: HYDROcodone-acetaminophen PO 5 mg-325 mg 1 tabs PO once Route: PO; hb 09:41 Drug: Ketorolac IM 30 mg IM once Route: IM; Site: left ventrogluteal; hb Disposition: 12:12 I was immediately available on-site in the Emergency Department for consultation in the ms3 care of the patient. Disposition Summary: 09/16/23 11:45 Discharge Ordered Notes: Location: Home snw Condition: Stable snw Diagnosis - Fracture of lower end of radius snw - Displaced fracture of right ulna styloid process snw - Fall on same level from slipping, tripping and stumbling without subsequent snw striking against object Followup: snw - With: Emergency Department - When: As needed - Reason: Worsening of condition Followup: snw - With: Private Physician - When: 2 - 3 days - Reason: Recheck today's complaints, Continuance of care, Re-evaluation by your physician Followup: snw - With: Krzysztof Fish MD - When: Tomorrow - Reason: Recheck today's complaints, Continuance of care, Re-evaluation by your physician Discharge Instructions: - Discharge Summary Sheet snw - Cast or Splint Care, Adult snw - RICE Therapy for Routine Care of Injuries snw - How to Use a Sling snw - Forearm Fracture Rehab snw Forms: - Medication Reconciliation Form snw - Thank You Letter snw - Antibiotic Education snw - Prescription Opioid Use snw - Patient Portal Instructions snw - Leadership Thank You Letter snw Prescriptions: - acetaminophen-codeine 300-30 mg Oral tablet - take 1 tablet ORAL route every 8 hours; 20 tablet; Refills: 0, Product snw Selection Permitted Signatures: Dispatcher [employer] EDMS Adelina Greenwood, SAFETY RELIEF VALVE TECHNICIAN-C SAFETY RELIEF VALVE TECHNICIAN-Csnw Amy Cabello, RN RN Gonzalo Palacio, DO ms3
[2023-09-16 12:22] VITALS: BP 144/59; TEMP 98.3; O2SAT 99
--- NOTE | 2023-09-16 12:29 | RAD REPORT ---
EXAM DESCRIPTION: RAD - Forearm Right - 09/16/2023 10:09 am CLINICAL HISTORY: Pain;Smash injury COMPARISON: Hand Right 3 View dated 09/16/2023 TECHNIQUE: Right forearm, 2 views. FINDINGS: Comminuted distal radius metaphysis fracture with mild impaction and intra-articular exten usama. Minimally displaced obliques fracture at the tip of the ulnar styloid. There is no dislocation or periosteal reaction noted. No foreign body. Pronounced soft tissue swelling about the wrist and distal forearm. IMPRESSION: Distal radius and ulnar styloid fractures as above.
--- NOTE | 2023-09-16 12:30 | RAD REPORT ---
EXAM DESCRIPTION: RAD - Hand Right 3 View - 09/16/2023 10:08 am CLINICAL HISTORY: Pain;Radiculopathy COMPARISON: Hand Right 3 View dated 09/10/2012 TECHNIQUE: Right hand, 3 views. FINDINGS: Comminuted, and impacted distal radial metaphysis fracture with intra-articular extension. Minimally displaced obliques fracture at the tip of the ulnar styloid. Up to advanced degenerative changes at the thumb base as well as the second, third, and fifth distal interphalangeal articulations. There is no dislocation or periosteal reaction noted. No foreign body. Pronounced soft tissue swellin g about the wrist and dorsum of the hand. IMPRESSION: Distal radius and ulnar styloid tip fractures as above. Up to advanced degenerative changes.
== END 2023-09-16 12:14 | disposition home or self-care (01) ==
LOC: ER 09:19
DX: S52.501A Unspecified fracture of the lower end of right radius, initial encounter for closed fracture (principal); S52.611A Displaced fracture of right ulna styloid process, initial encounter for closed fracture; W01.0XXA Fall on same level from slipping, tripping and stumbling without subsequent striking against object, initial encounter
CPT/HCPCS: 96372; 99284